=== PATIENT | male | born 1955 | race Caucasian/White ===

== ENCOUNTER → 2017-08-20 08:44 | Outpatient (CLI) | payer OTHER, SELFPAY ==
[2017-08-20 10:37] LABS: Cholesterol 147 mg/dL (200); Glucose 117 mg/dL (74-106); High Density Lipoprotein 46 mg/dL; Triglycerides 72 mg/dL; Very Low Density Lipoprotein 14 mg/dL (5-40)
[2017-08-20 10:43] LABS: Hemoglobin A1c 6.3 % (4.2-6.3)
== END ==
PROVIDERS: Family Provider Family Medicine; PCP Family Medicine; Visit Provider Family Medicine
DX: E11.9 Type 2 diabetes mellitus without complications (principal); E78.00 Pure hypercholesterolemia, unspecified
CPT/HCPCS: 36415; 80061; 82947; 83036

== ENCOUNTER → 2018-02-13 10:11 | Outpatient (CLI) | payer OTHER, SELFPAY ==
[2018-02-13 13:05] LABS: Anion Gap 9 (5-15); BUN 19 mg/dL (7-18); BUN/Creat Ratio 19.4 RATIO (10-20); Calcium,Total 8.8 mg/dL (8.5-10.1); Chloride 107 mmol/L (98-107); Cholesterol 137 mg/dL (200); Creatinine, Serum 0.98 mg/dL (0.70-1.30); EST Glomerular Filtration Rate 82 mL/min (>60); Est Glom Filt Rate - Afr Amer 100 mL/min (>60); Glucose 123 mg/dL (74-106); High Density Lipoprotein 50 mg/dL; Potassium 4.3 mmol/L (3.5-5.1); Sodium Level 139 mmol/L (136-145); Triglycerides 47 mg/dL; Very Low Density Lipoprotein 9 mg/dL (5-40)
== END ==
PROVIDERS: Family Provider Family Medicine; PCP Family Medicine; Visit Provider Family Medicine
DX: E11.9 Type 2 diabetes mellitus without complications (principal); E78.00 Pure hypercholesterolemia, unspecified; Z12.5 Encounter for screening for malignant neoplasm of prostate
CPT/HCPCS: 36415; 80048; 80061; 83036

== ENCOUNTER → 2018-02-19 15:43 | Outpatient (CLI) | payer OTHER, SELFPAY ==
--- NOTE | 2018-02-19 15:47 | RAD_ITS ---
STUDY: X-RAY - SACROILIAC JOINTS REASON FOR EXAM: Male, 62 years old. Right hip pain TECHNIQUE: 3 view(s) of the sacroiliac joints were obtained. COMPARISON: None. FINDINGS: There are degenerative changes of the bilateral sacroiliac joints. Normal visualized sacral ala and sacrum. Normal visualized iliac bones. Normal visualized soft tissue structures. Right greater than left mild degenerative changes of the joint. There is moderate facet arthropathy L5-S1 bilaterally. RAD/S-I Jts 3 or More Views IMPRESSION: Mild degenerative changes of the bilateral sacroiliac joints. Facet arthropathy of the lower lumbar spine. Electronically Signed: Simona Pradhan MD at 7:31 EDT , Service support ,
--- NOTE | 2018-02-19 15:47 | RAD_ITS ---
STUDY: X-RAY - PELVIS AND RIGHT HIP REASON FOR EXAM: Male, 62 years old. Right hip pain TECHNIQUE: Radiological exam, hip, unilateral, with pelvis when performed; 2 or 3 views. COMPARISON: None. FINDINGS: There is a non-specific bowel gas pattern. Normal visualized soft tissue structures. There is mild narrowing with cortical sclerosis and osteophyte formation of the sacroiliac joint consistent with degenerative osteoarthritic changes. Normal right superior and inferior pubic rami. There are degenerative changes of the pubic symphysis with articular narrowing and sclerosis. Normal visualized femoral head. There is osteoarthritic spur formation of the acetabular rim. Mild sclerosis of the superior lateral acetabulum. There is mild to moderate articular joint space narrowing of the hip. RAD/HIP, UNI W/ Pelvis 2-3 Views IMPRESSION: [id number] right hip arthropathy. Mild right sacroiliac arthropathy. Electronically Signed: Simona Pradhan MD at 7:30 EDT , Service support ,
== END ==
PROVIDERS: Family Provider Family Medicine; PCP Family Medicine; Referring Provider Family Medicine; Visit Provider Family Medicine
DX: M25.551 Pain in right hip (principal)
CPT/HCPCS: 72202; 73502

== ENCOUNTER → 2018-02-25 09:37 | Outpatient (CLI) | payer OTHER, SELFPAY ==
[2018-02-25 12:24] LABS: PSA,Total - Annual Screen 0.28 ng/mL (0.00-4.00)
== END ==
PROVIDERS: Family Provider Family Medicine; PCP Family Medicine; Visit Provider Family Medicine
DX: Z12.5 Encounter for screening for malignant neoplasm of prostate (principal)
CPT/HCPCS: 36415; 84153; G0103

== ENCOUNTER → 2018-09-27 08:46 | Outpatient (CLI) | payer OTHER, SELFPAY ==
[2018-09-27 10:48] LABS: Anion Gap 6 (5-15); BUN 16 mg/dL (7-18); BUN/Creat Ratio 18.3 RATIO (10-20); Calcium,Total 8.6 mg/dL (8.5-10.1); Chloride 108 mmol/L (98-107); Cholesterol 146 mg/dL (200); Creatinine, Serum 0.87 mg/dL (0.70-1.30); EST Glomerular Filtration Rate 94 mL/min (>60); Est Glom Filt Rate - Afr Amer 113 mL/min (>60); Glucose 117 mg/dL (74-106); High Density Lipoprotein 55 mg/dL; Potassium 4.4 mmol/L (3.5-5.1); Sodium Level 141 mmol/L (136-145); Triglycerides 55 mg/dL; Very Low Density Lipoprotein 11 mg/dL (5-40)
[2018-09-27 10:57] LABS: Hemoglobin A1c 6.1 % (4.2-6.3)
== END ==
PROVIDERS: Family Provider Family Medicine; PCP Family Medicine; Referring Provider Family Medicine; Visit Provider Family Medicine
DX: E55.9 Vitamin D deficiency, unspecified (principal); E11.9 Type 2 diabetes mellitus without complications; E78.00 Pure hypercholesterolemia, unspecified
CPT/HCPCS: 36415; 80048; 80061; 82306; 83036

== ENCOUNTER → 2019-03-13 09:47 | Outpatient (CLI) | payer OTHER, SELFPAY ==
[2019-03-13 12:30] LABS: Hemoglobin A1c 5.9 % (4.2-6.3)
[2019-03-13 12:31] LABS: Absolute Lymphocyte Count 1.37 X10^3/uL (0.83-4.51); Absolute Neutrophil Count 4.1 X10^3/uL (2.0-7.7); Basophil# 0.07 X10^3/uL; Basophil% 1.1 % (0-1); Eosinophil# 0.21 X10^3/uL; Eosinophils% 3.3 % (0-5); Hematocrit 46.2 % (40-54); Hemoglobin 15.3 g/dL (13.0-16.5); Lymphocyte # 1.37 X10^3/ul (4.0); Lymphocyte % 21.4 % (19-41); Mean Corp Hgb Conc 33.1 g/dL (32-36); Mean Corpuscular Hgb 30.5 pg (27.0-32.0); Mean Corpuscular Volume 92.2 fL (80-94); Monocyte# 0.62 X10^3/uL; Monocyte% 9.7 % (0-10); NRBC Flagged by Analyzer 0 % (0-5); Neutrophil # 4.09 X10^3/uL (2.7-7.7); Neutrophil % 63.9 % (47-70); Platelet Count 245 K/mm3 (150-450); RBC Distribution Width CV 12.4 % (11.6-14.6); RBC Distribution Width SD 41.6 fl (35.1-43.9); Red Blood Count 5.01 M/mm3 (4.6-6.2); White Blood Count 6.4 K/mm3 (4.4-11.0)
[2019-03-13 12:35] LABS: Vitamin B12 671 pg/mL (211-911); Vitamin D,25 Hydroxy 38.9 ng/mL (29.95-100.01)
[2019-03-13 12:46] LABS: ALB/GLOB Ratio 1.1 RATIO (0.9-2.4); AST(SGOT) 20 U/L (15-37); Alanine Aminotransfer ALT/SGPT 24 U/L (16-61); Albumin, Serum 3.8 g/dL (3.2-5.0); Alkaline Phosphatase 77 U/L (45-117); Anion Gap 9 (5-15); BUN 16 mg/dL (7-18); BUN/Creat Ratio 17.5 RATIO (10-20); CPK Total, Creatine Kinase 74 U/L (39-308); Calcium,Total 9.1 mg/dL (8.5-10.1); Chloride 108 mmol/L (98-107); Cholesterol 134 mg/dL (200); Creatinine, Serum 0.91 mg/dL (0.70-1.30); EST Glomerular Filtration Rate 89 mL/min (>60); Est Glom Filt Rate - Afr Amer 107 mL/min (>60); Ferritin 68 ng/mL (26-388); Globulin 3.4 g/dL (2.2-4.2); Glucose 120 mg/dL (74-106); High Density Lipoprotein 45 mg/dL; Magnesium 2.1 mg/dL (1.6-2.6); Potassium 4.1 mmol/L (3.5-5.1); Protein, Total 7.2 g/dL (6.4-8.2); Sodium Level 140 mmol/L (136-145); Thyroid Stim Hormone (TSH) 0.65 uIU/mL (0.358-3.74); Triglycerides 73 mg/dL; Very Low Density Lipoprotein 15 mg/dL (5-40)
[2019-03-13 12:54] LABS: Microalbumin,Random Urine 10.1 mg/L (NO RANGE EST.); Microalbumin:Creatinine Ratio 5.4 mg/g CRE (<30 mg/g CRE)
[2019-03-17 13:43] LABS: Vitamin B1, Thiamine 173.6 nmol/L (66.5-200.0)
== END ==
PROVIDERS: Family Provider Family Medicine; PCP Family Medicine; Referring Provider Family Medicine; Visit Provider Family Medicine
DX: E55.9 Vitamin D deficiency, unspecified (principal); R25.2 Cramp and spasm; R73.02 Impaired glucose tolerance (oral); G62.9 Polyneuropathy, unspecified; E78.00 Pure hypercholesterolemia, unspecified
CPT/HCPCS: 80053; 80061; 82043; 82306; 82550; 82570; 82607; 82728; 83036; 83735; 84425; 84443; 85025

== ENCOUNTER → 2019-10-20 09:07 | Outpatient (CLI) | payer OTHER, SELFPAY ==
[2019-10-20 12:22] LABS: ALB/GLOB Ratio 1.2 RATIO (0.9-2.4); AST(SGOT) 27 U/L (15-37); Alanine Aminotransfer ALT/SGPT 35 U/L (16-61); Albumin, Serum 3.8 g/dL (3.2-5.0); Alkaline Phosphatase 70 U/L (45-117); Anion Gap 4 (5-15); BUN 19 mg/dL (7-18); BUN/Creat Ratio 21.1 RATIO (10-20); Chloride 109 mmol/L (98-107); Cholesterol 158 mg/dL (200); EST Glomerular Filtration Rate 90 mL/min (>60); Est Glom Filt Rate - Afr Amer 109 mL/min (>60); Globulin 3.3 g/dL (2.2-4.2); Glucose 132 mg/dL (74-106); High Density Lipoprotein 47 mg/dL; Potassium 4.2 mmol/L (3.5-5.1); Protein, Total 7.1 g/dL (6.4-8.2); Sodium Level 141 mmol/L (136-145); Triglycerides 52 mg/dL; Very Low Density Lipoprotein 10 mg/dL (5-40)
[2019-10-20 12:25] LABS: Hemoglobin A1c 6.2 % (3.8-5.6)
[2019-10-20 13:07] LABS: Vitamin D,25 Hydroxy 37.7 ng/mL
== END ==
PROVIDERS: PCP Family Medicine; Visit Provider Family Medicine
DX: E78.00 Pure hypercholesterolemia, unspecified (principal); E55.9 Vitamin D deficiency, unspecified; R73.02 Impaired glucose tolerance (oral)
CPT/HCPCS: 36415; 80053; 80061; 82306; 83036

== ENCOUNTER → 2020-04-14 08:57 | Outpatient (CLI) | payer MEDICARE, OTHER, SELFPAY ==
[2020-04-14 10:25] LABS: Hemoglobin A1c 6.2 % (3.8-5.6)
[2020-04-14 10:42] LABS: ALB/GLOB Ratio 1.1 RATIO (0.9-2.4); AST(SGOT) 21 U/L (15-37); Alanine Aminotransfer ALT/SGPT 37 U/L (16-61); Albumin, Serum 3.9 g/dL (3.2-5.0); Alkaline Phosphatase 81 U/L (45-117); Anion Gap 9 (5-15); BUN 21 mg/dL (7-18); BUN/Creat Ratio 22.2 RATIO (10-20); Calcium,Total 9.1 mg/dL (8.5-10.1); Chloride 108 mmol/L (98-107); Cholesterol 158 mg/dL (200); Creatinine, Serum 0.95 mg/dL (0.70-1.30); EST Glomerular Filtration Rate 85 mL/min (>60); Est Glom Filt Rate - Afr Amer 102 mL/min (>60); Globulin 3.5 g/dL (2.2-4.2); Glucose 141 mg/dL (74-106); High Density Lipoprotein 49 mg/dL; PSA,Total - Annual Screen 0.38 ng/mL (0.00-4.00); Potassium 4.3 mmol/L (3.5-5.1); Protein, Total 7.4 g/dL (6.4-8.2); Sodium Level 140 mmol/L (136-145); Thyroid Stim Hormone (TSH) 0.96 uIU/mL (0.358-3.74); Triglycerides 63 mg/dL; Very Low Density Lipoprotein 13 mg/dL (5-40)
[2020-04-14 10:52] LABS: Vitamin D,25 Hydroxy 39.4 ng/mL
== END ==
PROVIDERS: PCP Family Medicine; Referring Provider Family Medicine; Visit Provider Family Medicine
DX: E78.00 Pure hypercholesterolemia, unspecified (principal); E55.9 Vitamin D deficiency, unspecified; R73.02 Impaired glucose tolerance (oral); Z12.5 Encounter for screening for malignant neoplasm of prostate
CPT/HCPCS: 36415; 80053; 80061; 82306; 83036; 84153; 84443; G0103

== ENCOUNTER → 2020-10-11 08:44 | Outpatient (CLI) | payer MEDICARE, OTHER, SELFPAY ==
[2020-10-11 10:19] LABS: ALB/GLOB Ratio 1.2 RATIO (0.9-2.4); AST(SGOT) 20 U/L (15-37); Alanine Aminotransfer ALT/SGPT 27 U/L (16-61); Albumin, Serum 3.7 g/dL (3.2-5.0); Alkaline Phosphatase 84 U/L (45-117); Anion Gap 8 (5-15); BUN 20 mg/dL (7-18); BUN/Creat Ratio 23.4 RATIO (10-20); Calcium,Total 8.7 mg/dL (8.5-10.1); Chloride 106 mmol/L (98-107); Cholesterol 155 mg/dL (200); Creatinine, Serum 0.86 mg/dL (0.70-1.30); EST Glomerular Filtration Rate 95 mL/min (>60); Est Glom Filt Rate - Afr Amer 115 mL/min (>60); Globulin 3.2 g/dL (2.2-4.2); Glucose 121 mg/dL (74-106); High Density Lipoprotein 52 mg/dL; Protein, Total 6.9 g/dL (6.4-8.2); Sodium Level 142 mmol/L (136-145); Triglycerides 73 mg/dL; Very Low Density Lipoprotein 15 mg/dL (5-40)
[2020-10-11 10:20] LABS: Vitamin D,25 Hydroxy 52.1 ng/mL
[2020-10-11 10:22] LABS: Hemoglobin A1c 5.9 % (3.8-5.6)
== END ==
PROVIDERS: PCP Family Medicine; Visit Provider Family Medicine
DX: E55.9 Vitamin D deficiency, unspecified (principal); E78.00 Pure hypercholesterolemia, unspecified; R73.02 Impaired glucose tolerance (oral)
CPT/HCPCS: 36415; 80053; 80061; 82306; 83036

== ENCOUNTER 2020-10-25 21:05 | Emergency (ER) | payer MEDICARE, OTHER, SELFPAY ==
[2020-10-25 21:06] VITALS: BP 139/80; PULSE 86; RESP 18; TEMP 36.9; O2SAT 96; BMI 30.2
--- NOTE | 2020-10-25 22:57 | RAD_ITS ---
STUDY: X-RAY - RIGHT HAND, ATTENTION SECOND FINGER REASON FOR EXAM: Male, 64 years old. cat bite TECHNIQUE: 3 view(s) of the finger were obtained. COMPARISON: None. FINDINGS: Normal metacarpal head. Normal metacarpophalangeal joint. Normal proximal phalanx. Normal middle phalanx. Normal distal phalanx. Normal proximal interphalangeal joint. Normal distal interphalangeal joint. RAD/Finger(s) Min 2 Views IMPRESSION: There is no radiopaque foreign body. There is no acute displaced fracture or dislocation. Electronically Signed: Simona Pradhan MD at 23:13 EDT , Service support ,
--- NOTE | 2020-10-25 23:53 | EDS_ITS ---
HPI History of Present Illness HPI Narrative: Patient presents with pain and swelling to his right index finger that occurred yesterday. Patient states he was bitten by his own cat yesterday. Patient states that today the pain and swelling is progressing down his finger. Patient denies any paresthesias or weakness. Patient describes the pain as dull. Patient states the pain is worse with complete flexion of the finger and complete extension of the finger. Patient denies any fevers or chills. Patient denies any discharge or drainage. Patient states the cat is otherwise acting normally. Patient is unsure of his last tetanus. Chief Complaint: Bite Informant: patient Onset/Context/Timing Onset: Yesterday Context: Sudden Onset Timing: Continuous Quality of Pain: Dull Location: Right index finger Worsened by: Movement Relieved by: Nothing Associated Symptoms Associated Symptoms: Negative for Parasthesia and Weakness [facility] Medical History (Updated 10/26/20 @ 01:[address] Stephen Munoz DO) Borderline diabetes mellitus Home Medications amoxicillin-pot clavulanate 875 mg PO Q12H #20 tablet 10/26/20 [Rx Last Taken Unknown] apple cider vinegar 600 mg PO DAILY 10/26/20 [History Last Taken Unknown] ergocalciferol (vitamin D2) [Vitamin D2] 1,250 mcg PO DAILY 10/26/20 [History Last Taken Unknown] fexofenadine [Tayla Allergy] 60 mg PO DAILY 10/26/20 [History Last Taken Unknown] fluticasone propionate [Flonase Allergy Relief] INTRANASAL 10/26/20 [History Last Taken Unknown] metformin 500 mg PO DAILY 10/26/20 [History Last Taken Unknown] rosuvastatin 40 mg PO DAILY 10/26/20 [History Last Taken Unknown] Allergy/AdvReac Type Severity Reaction Status Date / Time No Known Allergies Allergy Verified 10/25/20 21:08 Surgical History (Updated 10/25/20 @ 23:[address] Stephen Munoz DO) History of cholecystectomy History of lung biopsy S/P right inguinal herniorrhaphy Social History Smoking Status: Unknown if ever smoked ROS ROS ED Constitutional Constitutional ED: Denies chills or fever(s) Eyes Eyes: Denies blurry vision or change in vision ENT ENT ED: Denies rhinorrhea or sore throat Cardiovascular Cardiovascular: Denies chest pain or palpitations Respiratory/Chest Respiratory/Chest: Denies cough or dyspnea Gastrointestinal Gastrointestinal: Denies nausea or vomiting Genitourinary Genitourinary ED: Denies dysuria or hematuria Musculoskeletal Musculoskeletal: Denies back pain or neck pain Integumentary Denies abscess or rash Neurologic Neurologic: Denies headache(s) or weakness Allergic/Immunologic Allergic/Immunologic ED: Denies mouth swelling or urticaria EXAM Physical Exam Const Vital Signs: 10/25/20 21:06 Temperature 98.4 F Temperature Source Temporal Pulse Rate 86 Respiratory Rate 18 Blood Pressure 139/80 H Blood Pressure Mean 99 Pulse Ox 96 Oxygen Delivery Method Room Air Positive well nourished and well developed General Appearance ED: well developed HEENT normocephalic Neck full ROM Extremity Extremity Narrative: There is some tenderness to palpation over the volar aspect of the right index finger. There is a small puncture wound noted over the base of the distal phalanx. There is some mild erythema and edema on the volar aspect of the right index finger. There is some tenderness with complete extension of the index finger. There is no tenderness over the palm along the tendon sheath of the right index finger. Capillary refill was less than 2 seconds in all digits. Sensation was intact to light touch in all digits. Neuro oriented x3, CN's II-XII intact bilaterally, moves all extremities, no focal motor deficits and no sensory deficits noted Sensorium / Orientation: alert Psych mental status grossly normal MDM MDM MDM Narrative Medical decision making narrative: Patient was given a dose of Unasyn here. Patient was given a tetanus booster. CBC shows a mild leukocytosis of 11.7. There is no shift. Comprehensive metabolic profile was within normal limits. CRP was slightly elevated at 14.1. Sed rate was normal. X-rays of the right index finger were obtained. There are 3 views. On my interpretation, there is no acute fracture. There is no dislocation. There are no foreign bodies noted. There is some mild soft tissue swelling. Radiologist also interpreted the x- rays and agrees. Patient is feeling better on reevaluation. Patient was given a prescription for Augmentin. Patient was instructed to return if any worsening swelling, pain into the palm, or inability to extend his finger. Patient was instructed return if worse in any way. Patient was instructed to follow-up with his primary care physician in 2 to 3 days. Patient understood and was agreeable with the plan. All questions were answered. Lab Data Attestation: I reviewed the patient's lab results. Radiography Diagnostic Testing: Radiology Impression Finger X-Ray 10/25/20 22:57 IMPRESSION: There is no radiopaque foreign body. There is no acute displaced fracture or dislocation. Electronically Signed: Simona Pradhan MD at 23:13 EDT , Service support , Discharge Plan Triage Chief Complaint: Bite ED Provider: Stephen Munoz Dx/Rx/DC Orders Clinical Impression: Infected cat bite of index finger Instructions: ED Cat Bite Prescriptions: New amoxicillin-pot clavulanate [amoxicillin-pot clavulanate] 875 MG tablet 875 mg PO Q12H Qty: 20 RF: 0 No Action metformin 500 mg tablet 500 mg PO DAILY RF: 0 fexofenadine [Tayla Allergy] 60 mg tablet 60 mg PO DAILY RF: 0 apple cider vinegar 600 mg capsule 600 mg PO DAILY RF: 0 ergocalciferol (vitamin D2) [Vitamin D2] 1,250 mcg (50,000 unit) capsule 1,250 mcg PO DAILY RF: 0 fluticasone propionate [Flonase Allergy Relief] 50 mcg/actuation spray,suspension INTRANASAL RF: 0 rosuvastatin 40 mg tablet 40 mg PO DAILY RF: 0 Primary Care Provider: Velasquez Johnston Referrals: Velasquez Johnston MD [Primary Care Provider] - 1-2 Days if not improving Disposition Disposition: Home, Self Care
[2020-10-26 00:21] LABS: Absolute Lymphocyte Count 2.96 X10^3/uL (0.83-4.51); Absolute Neutrophil Count 7.4 X10^3/uL (2.0-7.7); Basophil# 0.06 X10^3/uL; Basophil% 0.5 % (0-1); Eosinophil# 0.19 X10^3/uL; Eosinophils% 1.6 % (0-5); Hemoglobin 15.1 g/dL (13.0-16.5); Lymphocyte # 2.96 X10^3/ul (0.83-4.51); Lymphocyte % 25.2 % (19-41); Mean Corp Hgb Conc 33.6 g/dL (32-36); Mean Corpuscular Hgb 30.4 pg (27.0-32.0); Mean Corpuscular Volume 90.5 fL (80-94); Mean Platelet Vol. 10.7 fl (6.2-12.0); Monocyte# 1.14 X10^3/uL; Monocyte% 9.7 % (0-10); NRBC Flagged by Analyzer 0 % (0-5); Neutrophil # 7.35 X10^3/uL (2.7-7.7); Neutrophil % 62.7 % (47-70); Platelet Count 243 K/mm3 (150-450); RBC Distribution Width CV 12.7 % (11.6-14.6); RBC Distribution Width SD 41.5 fl (35.1-43.9); Red Blood Count 4.97 M/mm3 (4.6-6.2); White Blood Count 11.7 K/mm3 (4.4-11.0)
[2020-10-26 00:26] LABS: Erythrocyte Sedimentation Rate 8 mm/hr (0-20)
[2020-10-26 00:30] VITALS: BP 131/76; PULSE 72; RESP 18; TEMP 36.9; O2SAT 95
[2020-10-26 00:41] LABS: ALB/GLOB Ratio 1.1 RATIO (0.9-2.4); AST(SGOT) 17 U/L (15-37); Alanine Aminotransfer ALT/SGPT 25 U/L (16-61); Albumin, Serum 3.8 g/dL (3.2-5.0); Alkaline Phosphatase 95 U/L (45-117); Anion Gap 6 (5-15); BUN 18 mg/dL (7-18); Calcium,Total 9.1 mg/dL (8.5-10.1); Chloride 107 mmol/L (98-107); EST Glomerular Filtration Rate 80 mL/min (>60); Est Glom Filt Rate - Afr Amer 96 mL/min (>60); Estimated Creatinine Clearance 78.44 ml/min; Globulin 3.5 g/dL (2.2-4.2); Glucose 123 mg/dL (74-106); Potassium 3.5 mmol/L (3.5-5.1); Protein, Total 7.3 g/dL (6.4-8.2); Sodium Level 140 mmol/L (136-145)
[2020-10-26] MEDS: Diphth,Pertuss(Acell),Tet Vac 0.5 ML Vial IM (01:06)
[2020-10-26 02:29] VITALS: BP 138/78; PULSE 82; RESP 16; O2SAT 98
== END 2020-10-26 02:29 | disposition home or self-care (01) ==
PROVIDERS: Emergency Provider Emergency Medicine; PCP Family Medicine
DX: L08.9 Local infection of the skin and subcutaneous tissue, unspecified (principal); W55.01XA Bitten by cat, initial encounter; Y93.9 Activity, unspecified; Y92.9 Unspecified place or not applicable; Y99.9 Unspecified external cause status; R73.03 Prediabetes; Z79.84 Long term (current) use of oral hypoglycemic drugs; Z79.899 Other long term (current) drug therapy; Z23 Encounter for immunization
CPT/HCPCS: 73140; 80053; 85025; 85652; 86140; 87040; 90471; 90715; 96365; 99283; J0295

== ENCOUNTER 2021-02-11 07:49 | Day surgery (SDC) | payer MEDICARE, OTHER, SELFPAY ==
--- NOTE | 2021-02-11 08:02 | HP.PCM_ITS ---
History and Physical Date of Admission: 02/11/21 Intake Visit Reasons: C-Scope Chief Complaint: c-scope Health And Safety Coordinator Required: No Is patient in pain?: No Allergies No Known Allergies Allergy (Verified 01/27/21 07:41) Medications apple cider vinegar 600 mg PO DAILY 10/26/20 [History Confirmed 01/27/21] ergocalciferol (vitamin D2) [Vitamin D2] 1,250 mcg PO DAILY 10/26/20 [History Confirmed 01/27/21] fexofenadine [Tayla Allergy] 60 mg PO DAILY 10/26/20 [History Confirmed 01/27/21] fluticasone propionate [Flonase Allergy Relief] INTRANASAL 10/26/20 [History Confirmed 01/27/21] metformin 500 mg PO DAILY 10/26/20 [History Confirmed 01/27/21] flaxseed oil 1,000 mg capsule 1,000 mg PO DAILY 01/27/21 [History Confirmed 01/27/21] rosuvastatin 40 mg tablet 5 mg PO .every other day tab 01/27/21 [History Confirmed 01/27/21] PFSH Medical History Borderline diabetes mellitus High cholesterol Surgical History History of cholecystectomy History of lung biopsy S/P right inguinal herniorrhaphy Family History Mother Colon cancer CVA (cerebral vascular accident) Father Cancer stomach Grandmother Heart disease Social History Smoking Status: Former smoker alcohol intake: never HPI HPI HPI: JONES TINOCO, is a 65 M who presents to the office today for surgical consultation regarding a screening colonoscopy. 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 Sai Amador performed a laparoscopic-assisted sigmoid colectomy with mobilization of the splenic flexure on August 07, 2014. A hand-assisted procedure was performed. The operative note describes technical difficulty with the stapler and indurated tissue. He is being referred by Dr Velasquez Johnston for consideration of screening colonoscopy and a written copy of my surgical consult recommendations will return to him. It is of note that the patient states that he has had at least 3 previous colonoscopies. He is not aware that he has had any previous colon polyps. It is pertinent that his most recent colonoscopy was in 2015 prior to his hand- assisted laparoscopic sigmoid colectomy done for recurrent diverticular disease. He does have a mother who had colon cancer. 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 This determined that he has hypersensitivity pneumonitis. This may have been aggravated by his hobby of raising finches. He still has some shortness of breath however he is managed by pulmonology. He is on inhaler therapy as well as CPAP therapy. His allergies are controlled with Tayla and Flonase. He states that his asthma also was nicely controlled. He has a hemoglobin A1c level of 6.2. He is managed with Metformin. He has had no history of DVT or pulmonary embolus. ROS General General: No weight change, appetite, fatigue, colon cancer, breast cancer or weakness HEENT HEENT: No difficulty swallowing, eye injury, eye surgery, swollen glands or hoarseness Endo Endocrine: Yes diabetes mellitus; No thyroid disease, thyroid cancer, Hair loss, heat intolerance or cold intolerance Skin Skin: No rash or changing moles Breast Breast: No left breast lump, right breast lump, nipple discharge, breast pain, abnormal mammogram, abnormal US or breast enlargement Musc Musculoskeletal: No back problems, arthritis, rheumatoid arthritis, gout or joint pain Cardio Cardiovascular: No murmur, pacemaker, heart disease, atrial fibrillation, high blood pressure, heart attack, heart stent, palpitations, shortness of breat with exertion or chest pain Psych Psychiatric: No depression, anxiety or hearing voices Resp Respiratory: No shortness of breath, Yes sleep apnea, No cough, No COPD, Yes asthma, No emphysema and No wheezing Gastro Gastrointestinal: No abdominal pain, No nausea or vomiting, No diarrhea, No constipation, No blood in stool, No acid reflux, No hemorrhoids, No ulcers, No gallbladder problem and No black,tarry stools Dante Hematologic: No blood thinners, No blood disorders, No bleeding, No anemia and No blood clots Neuro Neurologic: No system reviewed and no additional complaints, except as documented, No as per HPI, No abnormal gait, No abnormal hearing, No abnormal movements, No abnormal speech, No behavioral changes, No burning sensations, No confusion, No convulsions, No disequilibrium, No dizziness, No localized weakness, No frequent falls, No headache(s), No lack of coordination, No loss of vision, No memory loss, No numbness, No other visual disturbances, No radicular pain, No restless legs, No sensory deficit, No syncope, No tingling, No tremor(s), No weakness and No other Exam Const General: cooperative, comfortable and no acute distress Nutritional Appearance: overweight Orientation: alert, awake and oriented x3 HENMT Head: normal to inspection Eyes General: appearance normal, both eyes and all related structures Chest Chest palpation & inspection: normal inspection of the chest Resp Effort & Inspection: normal respiratory effort Auscultation: clear to auscultation bilaterally Cardio Rate: regular rate Rhythm: regular rhythm GI Palpation: soft and no hepatosplenomegaly Auscultation: normal bowel sounds Other: Soft, mildly overweight, reasonably long infraumbilical midline incision from his sigmoid colectomy, solid and intact, normal bowel sounds Musc Cervical Spine: normal cervical lordosis Neuro General: patient alert, patient awake and patient oriented x3 Extrem General: no calf tenderness Psych Appearance: grossly normal Assessment and Plan Assessment and Plan (1) Family history of colon cancer in mother: Status: Acute Plan - Dr. Augustus Alcantar MD: 65-year-old gentleman. At the least 6 years out from his previous colonoscopy. He has a family history of colon cancer in his mother. Fortunately he has not had any acute symptoms. He has had a sigmoid colectomy for recurrent diverticular disease. He has some pulmonary issues with asthma and hypersensitivity pneumonitis. I recommend to him a colonoscopy with possible biopsy or polypectomy as indicated. I have discussed the technique, benefit, risk, alternatives. I recommend monitored anesthesia care. He has had an opportunity to ask and have questions answered. We will schedule procedure at his discretion. I appreciate the opportunity of assisting with surgical management. Copy: Dr Velasquez Alcantar M.D., F.A.C.S I have re-examined the patient. There are no clinical changes since date of exam.
[2021-02-11 08:11] VITALS: BP 111/77; PULSE 74; RESP 20; TEMP 36.2; O2SAT 96; BMI 30.2
[2021-02-11] MEDS: Lactated Ringers 1,000 ML 100 ML IV (08:23)
[2021-02-11 09:21] VITALS: BP 111/77; BP 91/73; PULSE 85; RESP 16; TEMP 36.6; O2SAT 93
--- NOTE | 2021-02-11 09:22 | OP.COLON_ITS ---
Patient Name: Rolan Banuelos Procedure Date: 02/11/2021 8:59 AM Date of : 1955 Age: 65 Procedure: Colonoscopy Indications: Family history of colon cancer in a first-degree relative Providers: Augustus Alcantar MD Medicines: See the Anesthesia note for documentation of the administered medications Patient Profile: Last Colonoscopy: 2014. Complications: No immediate complications. Procedure: Pre-Anesthesia Assessment: - Prior to the procedure, a History and Physical was performed, and patient medications and allergies were reviewed. The patient's tolerance of previous anesthesia was also reviewed. The risks and benefits of the procedure and the sedation options and risks were discussed with the patient. All questions were answered, and informed consent was obtained. Prior Anticoagulants: The patient has taken no previous anticoagulant or antiplatelet agents. ASA Grade Assessment: II - A patient with mild systemic disease. After reviewing the risks and benefits, the patient was deemed in satisfactory condition to undergo the procedure. After I obtained informed consent, the scope was passed under direct vision. Throughout the procedure, the patient's blood pressure, pulse, and oxygen saturations were monitored continuously. The pediatric colonoscope was introduced through the anus and advanced to the cecum, identified by appendiceal orifice and ileocecal valve. The colonoscopy was performed without difficulty. The patient tolerated the procedure well. The quality of the bowel preparation was good. The ileocecal valve and the appendiceal orifice were photographed. Scope In: 9:05:34 AM Scope Withdrawal Time 0 hours 7 minutes 53 seconds Scope Out: 9:16:40 AM Total Procedure Duration Time 0 hours 11 minutes 6 seconds Findings: The digital rectal exam findings include non-thrombosed external hemorrhoids, non-thrombosed internal hemorrhoids, internal hemorrhoids that prolapse with straining, but spontaneously regress to the resting position (Grade II) and enlarged prostate. Multiple diverticula were found in the sigmoid colon. There was evidence of a prior end-to-end colo-colonic anastomosis in the distal sigmoid colon. This was patent and was characterized by healthy appearing mucosa. The exam was otherwise without abnormality. Impression: - Non-thrombosed external hemorrhoids, non-thrombosed internal hemorrhoids, internal hemorrhoids that prolapse with straining, but spontaneously regress to the resting position (Grade II) and enlarged prostate found on digital rectal exam. - Diverticulosis in the sigmoid colon. - Patent end-to-end colo-colonic anastomosis, characterized by healthy appearing mucosa. - The examination was otherwise normal. - No specimens collected. Recommendation: - Discharge patient to home. - Resume previous diet. - Continue present medications. - Repeat colonoscopy in 5 years for surveillance. Procedure Code(s): --- Professional --- 76652, Colonoscopy, flexible; diagnostic, including collection of specimen(s) by brushing or washing, when performed (separate procedure) Diagnosis Code(s): --- Professional --- K64.1, Second degree hemorrhoids K64.4, Residual hemorrhoidal skin tags Z98.0, Intestinal bypass and anastomosis status Z80.0, Family history of malignant neoplasm of digestive organs N40.0, Benign prostatic hyperplasia without lower urinary tract symptoms K57.30, Diverticulosis of large intestine without perforation or abscess without bleeding CPT copyright 2017 [employer]. All rights reserved. The codes documented in this report are preliminary and upon sawmill equipment operator review may be revised to meet current compliance requirements. Augustus Alcantar MD 02/11/2021 9:22:33 AM This report has been signed electronically. Number of Addenda: 0 Note Initiated On: 02/11/2021 8:59 AM
--- NOTE | 2021-02-11 09:23 | OP.CCLET_ITS ---
02/11/2021 Velasquez Johnston [address] [place] [address] Re : Colonoscopy procedure for Rolan Banuelos Dear Dr. Johnston This procedure was performed on Thursday, February 11, 2021. My impressions and recommendations are as follows: Impressions : - Non-thrombosed external hemorrhoids, non-thrombosed internal hemorrhoids, internal hemorrhoids that prolapse with straining, but spontaneously regress to the resting position (Grade II) and enlarged prostate found on digital rectal exam. - Diverticulosis in the sigmoid colon. - Patent end-to-end colo-colonic anastomosis, characterized by healthy appearing mucosa. - The examination was otherwise normal. - No specimens collected. Recommendations : - Discharge patient to home. - Resume previous diet. - Continue present medications. - Repeat colonoscopy in 5 years for surveillance. My findings are described in the full procedure note, which is enclosed. If I can be of further assistance, please feel free to contact me at Doctor phone number(s): Work: . Sincerely, Augustus Alcantar MD 02/11/2021 9:22:33 AM This report has been signed electronically.
[2021-02-11 09:26] VITALS: BP 111/77; BP 92/72; PULSE 72; RESP 16; O2SAT 93
[2021-02-11 09:31] VITALS: BP 101/78; BP 111/77; PULSE 69; RESP 16; O2SAT 95
[2021-02-11 09:37] VITALS: BP 100/72; BP 111/77; PULSE 66; RESP 16; TEMP 36.1; O2SAT 94
[2021-02-11 09:55] VITALS: BP 111/77
== END 2021-02-11 10:07 ==
LOC: EN 07:50 → AC 07:52
PROVIDERS: PCP Family Medicine; Referring Provider Family Medicine; Visit Provider Surgery
PROC: 0DJD8ZZ Inspection of Lower Intestinal Tract, Via Natural or Artificial Opening Endoscopic (ICD-10-PCS; CPT 45378; principal; 2021-02-11 08:55)
DX: Z12.11 Encounter for screening for malignant neoplasm of colon (principal); K64.1 Second degree hemorrhoids; K64.4 Residual hemorrhoidal skin tags; Z98.0 Intestinal bypass and anastomosis status; Z80.0 Family history of malignant neoplasm of digestive organs; N40.0 Benign prostatic hyperplasia without lower urinary tract symptoms; K57.30 Diverticulosis of large intestine without perforation or abscess without bleeding; E78.00 Pure hypercholesterolemia, unspecified; Z90.49 Acquired absence of other specified parts of digestive tract; Z87.891 Personal history of nicotine dependence; Z77.090 Contact with and (suspected) exposure to asbestos; J45.909 Unspecified asthma, uncomplicated; Z79.84 Long term (current) use of oral hypoglycemic drugs
CPT/HCPCS: G0105; J7120; J2405

== ENCOUNTER 2021-05-13 08:44 | Outpatient (CLI) | payer MEDICARE, OTHER, SELFPAY ==
[2021-05-13 10:24] LABS: ALB/GLOB Ratio 1.1 RATIO (0.9-2.4); AST(SGOT) 20 U/L (15-37); Alanine Aminotransfer ALT/SGPT 28 U/L (16-61); Albumin, Serum 3.8 g/dL (3.2-5.0); Alkaline Phosphatase 74 U/L (45-117); Anion Gap 4 (5-15); BUN 25 mg/dL (7-18); BUN/Creat Ratio 27.1 RATIO (10-20); Calcium,Total 9.6 mg/dL (8.5-10.1); Chloride 109 mmol/L (98-107); Cholesterol 148 mg/dL (200); Creatinine, Serum 0.92 mg/dL (0.70-1.30); EST Glomerular Filtration Rate 87 mL/min (>60); Est Glom Filt Rate - Afr Amer 106 mL/min (>60); Globulin 3.4 g/dL (2.2-4.2); Glucose 137 mg/dL (74-106); High Density Lipoprotein 46 mg/dL; PSA,Total - Annual Screen 0.34 ng/mL (0.00-4.00); Protein, Total 7.2 g/dL (6.4-8.2); Sodium Level 139 mmol/L (136-145); Triglycerides 77 mg/dL; Very Low Density Lipoprotein 15 mg/dL (5-40)
[2021-05-13 10:30] LABS: Vitamin D,25 Hydroxy 60.3 ng/mL
== END 2021-05-13 23:59 | disposition short-term general hospital (02) ==
LOC: MFPLAB 08:47
PROVIDERS: PCP Family Medicine; Referring Provider Family Medicine; Visit Provider Family Medicine
DX: E78.00 Pure hypercholesterolemia, unspecified (principal); R73.02 Impaired glucose tolerance (oral); E55.9 Vitamin D deficiency, unspecified; Z12.5 Encounter for screening for malignant neoplasm of prostate
CPT/HCPCS: 36415; 80053; 80061; 82306; 83036; 84153; G0103

== ENCOUNTER 2021-05-26 17:01 | Outpatient (CLI) | payer MEDICARE, OTHER, SELFPAY ==
--- NOTE | 2021-05-26 13:50 | NURSING ---
Per MRI staff report, during reminder phone calls on 05/25/21, this patient was adamant that he would not be having his scan without medication to help him tolerate it, and he would still be driving himself home, as his was working. This RN called and left ail for patient on 05/25/21 at 1309 to inform that per [facility] policy any patient receiving sedation, even as an anxiolytic such as oral Ativan, must have a restaurant delivery driver to the hospital and home.
--- NOTE | 2021-05-26 17:05 | MRI_ITS ---
EXAM: MR ANGIOGRAPHY HEAD WITHOUT INTRAVENOUS CONTRAST CLINICAL INDICATION: HEADACHES TECHNIQUE: Routine quileute of Thomas/brain 3D time of flight MR angiogram protocol was performed without intravenous contrast. This report was created using [employer] report generation technology. COMPARISON: None. FINDINGS: RIGHT INTERNAL CAROTID ARTERY: No acute findings. No significant stenosis at the intracranial/visualized segments. No aneurysm. RIGHT ANTERIOR CEREBRAL ARTERY: Unremarkable. No significant stenosis at the visualized segments. Anterior communicating artery is present. No aneurysm. RIGHT MIDDLE CEREBRAL ARTERY: Unremarkable. No significant stenosis at the visualized segments. No aneurysm. RIGHT POSTERIOR CEREBRAL ARTERY: Unremarkable. No significant stenosis at the visualized segments. No aneurysm. RIGHT VERTEBRAL ARTERY: Unremarkable as visualized. No significant stenosis at the intradural/visualized segments. No aneurysm. LEFT INTERNAL CAROTID ARTERY: No acute findings. No significant stenosis at the intracranial/visualized segments. No aneurysm. LEFT ANTERIOR CEREBRAL ARTERY: Unremarkable. No significant stenosis at the visualized segments. Anterior communicating artery is present. No aneurysm. LEFT MIDDLE CEREBRAL ARTERY: Unremarkable. No significant stenosis at the visualized segments. No aneurysm. LEFT POSTERIOR CEREBRAL ARTERY: Unremarkable. No significant stenosis at the visualized segments. No aneurysm. LEFT VERTEBRAL ARTERY: Unremarkable as visualized. No significant stenosis at the intradural/visualized segments. No aneurysm. BASILAR ARTERY: Unremarkable. No significant stenosis. No aneurysm. OTHER VASCULATURE: No vascular malformation. IMPRESSION: Unremarkable MRA head. EXAM: MR ANGIOGRAPHY HEAD WITHOUT INTRAVENOUS CONTRAST CLINICAL INDICATION: HEADACHES TECHNIQUE: Routine quileute of Thomas/brain 3D time of flight MR angiogram protocol was performed without intravenous contrast. This report was created using [employer] report generation technology. COMPARISON: None. FINDINGS: RIGHT INTERNAL CAROTID ARTERY: No acute findings. No significant stenosis at the intracranial/visualized segments. No aneurysm. RIGHT ANTERIOR CEREBRAL ARTERY: Unremarkable. No significant stenosis at the visualized segments. Anterior communicating artery is present. No aneurysm. RIGHT MIDDLE CEREBRAL ARTERY: Unremarkable. No significant stenosis at the visualized segments. No aneurysm. RIGHT POSTERIOR CEREBRAL ARTERY: Unremarkable. No significant stenosis at the visualized segments. No aneurysm. RIGHT VERTEBRAL ARTERY: Unremarkable as visualized. No significant stenosis at the intradural/visualized segments. No aneurysm. LEFT INTERNAL CAROTID ARTERY: No acute findings. No significant stenosis at the intracranial/visualized segments. No aneurysm. LEFT ANTERIOR CEREBRAL ARTERY: Unremarkable. No significant stenosis at the visualized segments. Anterior communicating artery is present. No aneurysm. LEFT MIDDLE CEREBRAL ARTERY: Unremarkable. No significant stenosis at the visualized segments. No aneurysm. LEFT POSTERIOR CEREBRAL ARTERY: Unremarkable. No significant stenosis at the visualized segments. No aneurysm. LEFT VERTEBRAL ARTERY: Unremarkable as visualized. No significant stenosis at the intradural/visualized segments. No aneurysm. BASILAR ARTERY: Unremarkable. No significant stenosis. No aneurysm. OTHER VASCULATURE: No vascular malformation. IMPRESSION: Unremarkable MRA head.EXAM: MR ANGIOGRAPHY HEAD WITHOUT INTRAVENOUS CONTRAST CLINICAL INDICATION: HEADACHES TECHNIQUE: Routine quileute of Thomas/brain 3D time of flight MR angiogram protocol was performed without intravenous contrast. This report was created using [employer] report [employer] technology. COMPARISON: None. FINDINGS: RIGHT INTERNAL CAROTID ARTERY: No acute findings. No significant stenosis at the intracranial/visualized segments. No aneurysm. RIGHT ANTERIOR CEREBRAL ARTERY: Unremarkable. No significant stenosis at the visualized segments. Anterior communicating artery is present. No aneurysm. RIGHT MIDDLE CEREBRAL ARTERY: Unremarkable. No significant stenosis at the visualized segments. No aneurysm. RIGHT POSTERIOR CEREBRAL ARTERY: Unremarkable. No significant stenosis at the visualized segments. No aneurysm. RIGHT VERTEBRAL ARTERY: Unremarkable as visualized. No significant stenosis at the intradural/visualized segments. No aneurysm. LEFT INTERNAL CAROTID ARTERY: No acute findings. No significant stenosis at the intracranial/visualized segments. No aneurysm. LEFT ANTERIOR CEREBRAL ARTERY: Unremarkable. No significant stenosis at the visualized segments. Anterior communicating artery is present. No aneurysm. LEFT MIDDLE CEREBRAL ARTERY: Unremarkable. No significant stenosis at the visualized segments. No aneurysm. LEFT POSTERIOR CEREBRAL ARTERY: Unremarkable. No significant stenosis at the visualized segments. No aneurysm. LEFT VERTEBRAL ARTERY: Unremarkable as visualized. No significant stenosis at the intradural/visualized segments. No aneurysm. BASILAR ARTERY: Unremarkable. No significant stenosis. No aneurysm. OTHER VASCULATURE: No vascular malformation. MRI/MRA Head ONLY without Contrast IMPRESSION: There are no acute findings of the quileute of Thomas without a demonstrated aneurysm or hemodynamically significant stenosis. ALL ABOVE CRITERIA BY NASCET. Electronically Signed: Bebo Kennedy MD at 18:43 EST ,
--- NOTE | 2021-05-26 17:05 | MRI_ITS ---
EXAM: MR HEAD WITHOUT AND WITH INTRAVENOUS CONTRAST CLINICAL INDICATION: HEADACHES TECHNIQUE: Multiplanar and multisequence MR images of the brain were obtained without and with intravenous contrast. This report was created using [employer] report generation technology. CONTRAST: IV 20mL Dotarem COMPARISON: None. FINDINGS: BRAIN AND EXTRA-AXIAL SPACES: Unremarkable. No intra- or extra-axial hemorrhage. No evidence of acute infarct. No intracranial mass or mass effect. There is preservation of the groves/white matter interface. Posterior fossa structures are unremarkable. Ventricles are appropriate for age. No hydrocephalus. Basal cisterns are patent. SELLA: Unremarkable. Normal sella turcica, pituitary gland, infundibular stalk, optic chiasm and hypothalamus. AUDITORY SYSTEM: Unremarkable. The internal auditory canals are patent. BONES/JOINTS: Unremarkable. No discrete lytic or blastic abnormalities. SINUSES: Unremarkable as visualized. Clear. MASTOID AIR CELLS: Unremarkable as visualized. Clear. ORBITS: Unremarkable as visualized. Both globes, extraocular muscles, optic nerves and retrobulbar fat appear unremarkable. VASCULATURE: Unremarkable as visualized. Normal flow voids in the major intracranial circulation. MRI/Brain W/WO Contrast IMPRESSION: Negative MRI brain without and with intravenous contrast. Electronically Signed: Bebo Kennedy MD at 18:39 EST ,
== END 2021-05-26 23:59 | disposition short-term general hospital (02) ==
LOC: MRI 17:01
PROVIDERS: PCP Family Medicine; Visit Provider Family Medicine
DX: R51.9 Headache, unspecified (principal)
CPT/HCPCS: 70544; 70553; A9575

== ENCOUNTER → 2021-11-16 | Outpatient (CLI) | payer MEDICARE, OTHER, SELFPAY ==
[2021-11-16 09:56] LABS: Hematocrit 43.1 % (40-54); Hemoglobin 14.3 g/dL (13.0-16.5); Mean Corp Hgb Conc 33.2 g/dL (32-36); Mean Corpuscular Hgb 30.2 pg (27.0-32.0); Mean Corpuscular Volume 90.9 fL (80-94); Mean Platelet Vol. 11.1 fl (6.2-12.0); Platelet Count 270 K/mm3 (150-450); RBC Distribution Width SD 42.9 fl (35.1-43.9); Red Blood Count 4.74 M/mm3 (4.6-6.2); White Blood Count 10.8 K/mm3 (4.4-11.0)
[2021-11-16 10:16] LABS: ALB/GLOB Ratio 1.1 RATIO (0.9-2.4); AST(SGOT) 14 U/L (15-37); Alanine Aminotransfer ALT/SGPT 23 U/L (16-61); Albumin, Serum 3.5 g/dL (3.2-5.0); Alkaline Phosphatase 77 U/L (45-117); Anion Gap 5 (5-15); BUN 8 mg/dL (7-18); BUN/Creat Ratio 8.9 RATIO (10-20); Chloride 109 mmol/L (98-107); Cholesterol 147 mg/dL (200); EST Glomerular Filtration Rate 90 mL/min (>60); Est Glom Filt Rate - Afr Amer 109 mL/min (>60); Globulin 3.3 g/dL (2.2-4.2); Glucose 135 mg/dL (74-106); High Density Lipoprotein 56 mg/dL; Protein, Total 6.8 g/dL (6.4-8.2); Sodium Level 141 mmol/L (136-145); Triglycerides 88 mg/dL; Very Low Density Lipoprotein 18 mg/dL (5-40)
[2021-11-16 10:18] LABS: Hemoglobin A1c 6.2 % (3.8-5.6)
[2021-11-16 10:51] LABS: Vitamin D,25 Hydroxy 65.7 ng/mL
== END | disposition home or self-care (01) ==
LOC: MFPLAB 08:31
PROVIDERS: PCP Family Medicine; Referring Provider Family Medicine; Visit Provider Family Medicine
DX: E55.9 Vitamin D deficiency, unspecified (principal); E78.00 Pure hypercholesterolemia, unspecified; R73.02 Impaired glucose tolerance (oral)
CPT/HCPCS: 36415; 80053; 80061; 82306; 83036; 85027

== ENCOUNTER 2022-03-06 00:28 | Emergency (ER) | payer MEDICARE, OTHER, SELFPAY ==
[2022-03-06 00:29] VITALS: BP 152/85; PULSE 89; RESP 20; TEMP 36.6; O2SAT 95; BMI 32.5
[2022-03-06 00:31] VITALS: BP 152/85; PULSE 89; RESP 20; TEMP 36.6; O2SAT 95
--- NOTE | 2022-03-06 00:51 | RAD_ITS ---
EXAM: XR CHEST, 2 VIEWS CLINICAL INDICATION: cough TECHNIQUE: Frontal and lateral views of the chest. This report was created using [employer] report generation technology. COMPARISON: None. FINDINGS: LUNGS AND PLEURAL SPACES: Atelectasis or scarring in the lung bases bilaterally. No pneumothorax. No effusion. HEART: Unremarkable. Cardiac silhouette not enlarged. MEDIASTINUM: Central airways and mediastinal contour are unremarkable. BONES/JOINTS: Unremarkable. SOFT TISSUES: Unremarkable. RAD/Chest PA and Lateral IMPRESSION: Atelectasis or scarring in the lung bases bilaterally. No consolidations. Electronically Signed: Ryder Quan MD at 1:35 EST ,
--- NOTE | 2022-03-06 00:53 | EX.ED.DYSGE1 ---
HPI History of Present Illness Chief Complaint: Cough Informant: patient Onset/Context/Timing Onset: Days (3 days) Context: Gradual Onset Narrative Narrative: Patient presents with cough. He has had cough and congestion with low-grade fever and some wheezing for the past 2 to 3 days. He was seen at urgent care yesterday and diagnosed with bronchitis. He was given a cough syrup, doxycycline, and an inhaler. He is concerned that he may have pneumonia as he is getting some upper chest pressure that is worse with coughing. [facility] Medical History Asthma Back pain Borderline diabetes mellitus CPAP (continuous positive airway pressure) dependence Former smoker High cholesterol History of diverticulitis History of echocardiogram History of stress test Hx of sebaceous cyst Hx of sigmoidoscopy Leg cramps Shortness of breath on exertion Sleep apnea Wears glasses Home Medications apple cider vinegar 600 mg capsule 600 mg PO DAILY 10/26/20 [History Last Taken Unknown] ergocalciferol (vitamin D2) 1,250 mcg (50,000 unit) capsule (Vitamin D2) 1,250 mcg PO DAILY 10/26/20 [History Last Taken Unknown] fexofenadine 60 mg tablet (Tayla Allergy) 60 mg PO DAILY 10/26/20 [History Last Taken Unknown] fluticasone propionate 50 mcg/actuation nasal spray,suspension (Flonase Allergy Relief) 2 spray intranasal DAILY 10/26/20 [History Last Taken Unknown] metformin 500 mg tablet 500 mg PO BID 10/26/20 [History Last Taken Unknown] flaxseed oil 1,000 mg capsule 1,000 mg PO DAILY 01/27/21 [History Last Taken Unknown] rosuvastatin 40 mg tablet 5 mg PO .every other day 01/27/21 [History Last Taken Unknown] budesonide-formoterol HFA 80 mcg-4.5 mcg/actuation aerosol inhaler (Symbicort) 2 puff inhalation DAILY 02/07/21 [History Last Taken 02/11/21] multivitamin 1 tab PO DAILY 02/07/21 [History Last Taken Unknown] codeine 10 mg-guaifenesin 100 mg/5 mL oral liquid 5 ml PO Q6H PRN cough #120 mL 03/06/22 [Rx Last Taken Unknown] Allergy/AdvReac Type Severity Reaction Status Date / Time No Known Allergies Allergy Verified 02/11/21 08:10 Family History Mother Colon cancer CVA (cerebral vascular accident) Father Cancer stomach Grandmother Heart disease Surgical History History of lung biopsy History of tonsillectomy and adenoidectomy Hx of shoulder surgery S/P right inguinal herniorrhaphy Social History Smoking Status: Former smoker alcohol intake: never ROS ROS ED Constitutional Constitutional ED: Reports fever(s); Denies chills Eyes Eyes: Denies change in vision or discharge from eye(s) ENT ENT ED: Denies discharge from eye(s), rhinorrhea or sore throat Cardiovascular Cardiovascular: Reports chest pain; Denies palpitations Respiratory/Chest Respiratory/Chest: Reports cough and dyspnea Gastrointestinal Gastrointestinal: Denies abdominal pain, nausea or vomiting Genitourinary Genitourinary ED: Denies dysuria Musculoskeletal Musculoskeletal: Denies back pain or extremity pain Integumentary Denies Abrasions or rash Neurologic Neurologic: Denies headache(s) or weakness Allergic/Immunologic Allergic/Immunologic ED: Denies lip swelling or urticaria EXAM Physical Exam Const Vital Signs: 03/06/22 00:29 03/06/22 00:32 03/06/22 00:31 Temperature 97.8 F 97.8 F Temperature Source Oral Oral Pulse Rate 89 89 Respiratory Rate 20 H 20 H Respiratory Effort Short of Breath Respiratory Depth Normal Respiratory Pattern Normal Blood Pressure 152/85 H 152/85 H Blood Pressure Mean 107 107 Pulse Ox 95 95 Oxygen Delivery Method Room Air Room Air 03/06/22 01:03 Temperature Temperature Source Pulse Rate 91 Respiratory Rate 18 Respiratory Effort Respiratory Depth Respiratory Pattern Normal Blood Pressure Blood Pressure Mean Pulse Ox Oxygen Delivery Method Positive well nourished and well developed General Appearance ED: well developed HEENT Reports normocephalic and head/scalp atraumatic Eyes PERRL and EOMs intact bilaterally Neck supple Chest Wall inspection of chest normal and palpation of chest normal Resp normal respiratory effort and clear to auscultation bilaterally Cardio regular rate and regular rhythm GI non-tender Auscultation: hypoactive bowel sounds Palpation: soft Extremity normal to inspection Neuro oriented x3 and no sensory deficits noted Sensorium / Orientation: alert Motor Exam: strength 5/5 throughout Psych mental status grossly normal Skin no rashes or lesions noted MDM MDM MDM Narrative Medical decision making narrative: Patient is given Robitussin-AC and a DuoNeb treatment. Two-view chest x-ray obtained. COVID and influenza swab obtained. Radiography Diagnostic Testing: Clinical Impression(s) from Imaging Studies Chest X-Ray 03/06/22 00:51 IMPRESSION: Atelectasis or scarring in the lung bases bilaterally. No consolidations. Electronically Signed: Ryder Quan MD at 1:35 EST , Treatment and Re-Evaluation Narrative: Chest x-ray per my interpretation shows chronic changes with no focal infiltrate. Radiology interpretation is reviewed and agrees. COVID and influenza swabs are negative. On repeat evaluation cough is improved. I will write him a prescription for guaifenesin/codeine as was given here. He will continue the medications previously prescribed by urgent care. Discharge Plan Triage Chief Complaint: Cough ED Provider: Dorie Griffith Dx/Rx/DC Orders Clinical Impression: Bronchitis Instructions: ED Bronchitis with Wheezing (Adult) Prescriptions: New codeine-guaifenesin 10-100 mg/5 mL liquid 5 ml PO Q6H PRN (Reason: cough) Qty: 120 0RF No Action flaxseed oil 1,000 mg capsule 1,000 mg PO DAILY Rx Instructions: administer with a meal metformin 500 mg tablet 500 mg PO BID fexofenadine [Tayla Allergy] 60 mg tablet 60 mg PO DAILY apple cider vinegar 600 mg capsule 600 mg PO DAILY ergocalciferol (vitamin D2) [Vitamin D2] 1,250 mcg (50,000 unit) capsule 1,250 mcg PO DAILY fluticasone propionate [Flonase Allergy Relief] 50 mcg/actuation spray,suspension 2 spray INTRANASAL DAILY rosuvastatin 40 mg tablet 5 mg PO .every other day multivitamin Tablet 1 tab PO DAILY budesonide-formoterol [Symbicort] 80-4.5 mcg/actuation HFA aerosol inhaler 2 puff INHALATION DAILY Primary Care Provider: Velasquez Johnston Referrals: Velasquez Johnston MD [Primary Care Provider] - 1 Week if not improving Disposition Disposition: Home, Self Care
[2022-03-06] MEDS: Ipratropium/Albuterol Sulfate 3 ML AMPUL.NEB INHALATION (01:02)
[2022-03-06 01:03] VITALS: PULSE 91; RESP 18
[2022-03-06] MEDS: guaiFENesin/Codeine 5 ML UDC 10 ML PO (01:04)
[2022-03-06 02:00] VITALS: BP 116/72; PULSE 98; RESP 18; TEMP 36.6; O2SAT 93
== END 2022-03-06 02:15 | disposition home or self-care (01) ==
PROVIDERS: Emergency Provider Emergency Medicine; PCP Family Medicine; Visit Provider Emergency Medicine
DX: J40 Bronchitis, not specified as acute or chronic (principal); E78.00 Pure hypercholesterolemia, unspecified; Z87.891 Personal history of nicotine dependence
CPT/HCPCS: 71046; 87428; 94640; 99282

== ENCOUNTER → 2022-05-10 | Outpatient (CLI) | payer MEDICARE, OTHER, SELFPAY ==
[2022-05-10 10:21] LABS: Absolute Lymphocyte Count 2.26 X10^3/uL (0.83-4.51); Absolute Neutrophil Count 5.5 X10^3/uL (2.0-7.7); Basophil# 0.07 X10^3/uL; Basophil% 0.8 % (0-1); Eosinophil# 0.18 X10^3/uL; Hematocrit 45.9 % (40-54); Hemoglobin 15.2 g/dL (13.0-16.5); Lymphocyte # 2.26 X10^3/ul (0.83-4.51); Lymphocyte % 25.6 % (19-41); Mean Corp Hgb Conc 33.1 g/dL (32-36); Mean Corpuscular Hgb 30.1 pg (27.0-32.0); Mean Corpuscular Volume 90.9 fL (80-94); Mean Platelet Vol. 10.9 fl (6.2-12.0); Monocyte# 0.76 X10^3/uL; Monocyte% 8.6 % (0-10); NRBC Flagged by Analyzer 0 % (0-5); Neutrophil # 5.46 X10^3/uL (2.7-7.7); Platelet Count 299 K/mm3 (150-450); RBC Distribution Width CV 12.9 % (11.6-14.6); RBC Distribution Width SD 42.2 fl (35.1-43.9); Red Blood Count 5.05 M/mm3 (4.6-6.2); White Blood Count 8.8 K/mm3 (4.4-11.0)
[2022-05-10 10:44] LABS: Hemoglobin A1c 6.1 % (3.8-5.6)
[2022-05-10 11:06] LABS: ALB/GLOB Ratio 1.2 RATIO (0.9-2.4); AST(SGOT) 12 U/L (15-37); Alanine Aminotransfer ALT/SGPT 23 U/L (16-61); Albumin, Serum 3.8 g/dL (3.2-5.0); Alkaline Phosphatase 77 U/L (45-117); Anion Gap 9 (5-15); BUN 20 mg/dL (7-18); BUN/Creat Ratio 21.2 RATIO (10-20); Calcium,Total 9.3 mg/dL (8.5-10.1); Chloride 106 mmol/L (98-107); Cholesterol 162 mg/dL (200); Creatinine, Serum 0.94 mg/dL (0.70-1.30); EST Glomerular Filtration Rate 85 mL/min (>60); Est Glom Filt Rate - Afr Amer 102 mL/min (>60); Globulin 3.2 g/dL (2.2-4.2); Glucose 148 mg/dL (74-106); High Density Lipoprotein 52 mg/dL; Potassium 4.7 mmol/L (3.5-5.1); Sodium Level 141 mmol/L (136-145); Triglycerides 69 mg/dL; Very Low Density Lipoprotein 14 mg/dL (5-40)
[2022-05-10 12:50] LABS: Vitamin D,25 Hydroxy 58.4 ng/mL
== END | disposition home or self-care (01) ==
LOC: MFPLAB 08:42
PROVIDERS: PCP Family Medicine; Visit Provider Family Medicine
DX: G47.33 Obstructive sleep apnea (adult) (pediatric) (principal); R73.02 Impaired glucose tolerance (oral); E78.00 Pure hypercholesterolemia, unspecified; E55.9 Vitamin D deficiency, unspecified
CPT/HCPCS: 36415; 80053; 80061; 82306; 83036; 85025

== ENCOUNTER → 2022-05-23 | Outpatient (CLI) | payer MEDICARE, OTHER, SELFPAY ==
--- NOTE | 2022-05-23 08:11 | ECHOD_ITS ---
Reason For Study: SOB Procedure This was a 2D Doppler, Color Flow transthoracic echocardiogram. The study was technically difficult. Exam performed in department. Left Ventricle Normal LV size. Left ventricular systolic function is normal. The estimated ejection fraction is 70 %. No evidence for diastolic dysfunction. No regional wall motion abnormalities noted. Right Ventricle Normal RV size. Normal systolic function. Atria The left atrium is mildly enlarged. Normal right atrium. No doppler evidence for ASD. Mitral Valve There is no mitral annular calcification. Normal mitral valve. Trivial mitral valve insufficiency. Tricuspid Valve Normal tricuspid valve. Trivial tricuspid valve insufficiency. Right ventricular systolic pressure estimated to be 23 mmHg. Aortic Valve Trisinus/trileaflet aortic valve. Normal aortic valve. Pulmonic Valve The pulmonic valve is not well visualized. Great Vessels Normal sized aortic root. Pericardium/Pleural No pericardial effusion. MMode/2D Measurements & Calculations LVIDd: 5.0 cm IVSd: 1.2 cm Ao root diam: 3.6 cm LVIDs: 3.4 cm LVPWd: 1.0 cm RVDd: 3.0 cm FS: 30.6 % LAV(MOD-bp): 69.2 ml LA A4 area: 22.2 cm2 LA dimension(2D): 4.7 cm LAV(MOD-bp) Indexed: 30.3 ml/m2 LAV(MOD-sp2): 70.7 ml LAV(MOD-sp4): 65.9 ml RA A4 area: 16.2 cm2 Time Measurements MV dec time: 0.25 sec Doppler Measurements & Calculations MV E max blayne: 54.5 cm/sec Lat Peak E' Blayne: 8.3 cm/sec Med Peak E' Blayne: 5.5 cm/sec MV A max blayne: 66.6 cm/sec E/E' lat: 6.6 E/E' med: 9.9 MV E/A: 0.82 MV dec slope: 218.7 cm/sec2 Ao V2 max: 152.5 cm/sec LV V1 max: 139.3 cm/sec Ao max P.3 mmHg LV V1 max P.8 mmHg Ao V2 mean: 97.4 cm/sec LV V1 mean P.5 mmHg Ao mean P.2 mmHg LV V1 mean: 89.2 cm/sec Ao V2 VTI: 26.1 cm LV V1 VTI: 26.0 cm AV (velocity ratio): 1.00 PA V2 max: 102.5 cm/sec PI dec slope: 168.1 cm/sec2 TR max blayne: 223.9 cm/sec TR max P.1 mmHg ECHO/Echo Complete Interpretation Summary The study was technically difficult. Left ventricular systolic function is normal. The estimated ejection fraction is 70 %. The left atrium is mildly enlarged. Trivial mitral valve insufficiency. Trivial tricuspid valve insufficiency. Right ventricular systolic pressure estimated to be 23 mmHg. No evidence for diastolic dysfunction. Ordering Physician: Velasquez Johnston Referring Physician: Velasquez Johnston Performed By: Jocelyn Fuentes, FUNMILAYO, RVT
[2022-05-23 10:55] LABS: Vitamin B12 622 pg/mL (211-911)
[2022-05-23 11:04] LABS: PSA,Total - Annual Screen 0.35 ng/mL (0.00-4.00); T4 Free Direct 1.08 ng/dL (0.76-1.46); Thyroid Stim Hormone (TSH) 1.39 uIU/mL (0.358-3.74)
== END | disposition home or self-care (01) ==
PROVIDERS: PCP Family Medicine; Referring Provider Family Medicine; Visit Provider Family Medicine
DX: R06.02 Shortness of breath (principal); Z12.5 Encounter for screening for malignant neoplasm of prostate; R53.83 Other fatigue
CPT/HCPCS: 36415; 82607; 84153; 84439; 84443; 93306; G0103

== ENCOUNTER → 2022-08-22 | Outpatient (CLI) | payer MEDICARE, OTHER, SELFPAY ==
[2022-08-22 10:18] LABS: AST(SGOT) 18 U/L (15-37); Alanine Aminotransfer ALT/SGPT 30 U/L (16-61); Albumin, Serum 3.6 g/dL (3.2-5.0); Alkaline Phosphatase 78 U/L (45-117); Bilirubin, Direct 0.13 mg/dL (0.00-0.30); CRP < 2.90 mg/L (0.0-3.0); Globulin 3.8 g/dL (2.2-4.2); Protein, Total 7.4 g/dL (6.4-8.2); Rheumatoid Factor < 10.0 IU/mL (<15)
[2022-08-22 10:54] LABS: Erythrocyte Sedimentation Rate 13 mm/hr (0-20)
[2022-08-22 10:57] LABS: Absolute Neutrophil Count 6.3 X10^3/uL (2.0-7.7); Basophil# 0.07 X10^3/uL; Basophil% 0.7 % (0-1); Eosinophil# 0.19 X10^3/uL; Hematocrit 43.9 % (40-54); Hemoglobin 14.5 g/dL (13.0-16.5); Lymphocyte % 21.4 % (19-41); Mean Corpuscular Volume 90.9 fL (80-94); Mean Platelet Vol. 10.9 fl (6.2-12.0); Monocyte% 7.5 % (0-10); NRBC Flagged by Analyzer 0 % (0-5); Neutrophil # 6.33 X10^3/uL (2.7-7.7); Neutrophil % 67.9 % (47-70); Platelet Count 288 K/mm3 (150-450); RBC Distribution Width CV 12.8 % (11.6-14.6); RBC Distribution Width SD 42.2 fl (35.1-43.9); Red Blood Count 4.83 M/mm3 (4.6-6.2); White Blood Count 9.3 K/mm3 (4.4-11.0)
[2022-08-23 15:08] LABS: ANTINUCLEAR ANTIBODIES DIRECT Negative (Negative); Angiotensin Convert Enzyme 36 U/L (14-82); Anti-Scleroderma-70 AB 0.2 AI (0.0-0.9); Anti-Smooth Muscle ABS 9 Units (0-19); Anti-dsDNA Ab <1 IU/mL (0-9); CCP IgG Antibodies 4 units (0-19); Cytoplasmic Ab (C-ANCA) <1:20 titer (Neg:<1:20); Perinuclear Ab (P-ANCA) <1:20 titer (Neg:<1:20); RNP Ab <0.2 AI (0.0-0.9); SJOGREN'S Anti-SS-A test < 0.2 AI (0.0-0.9); SJOGREN'S Anti-SS-B test < 0.2 AI (0.0-0.9)
== END | disposition home or self-care (01) ==
PROVIDERS: PCP Family Medicine; Visit Provider Internal Medicine Pulmonary Disease
DX: J45.30 Mild persistent asthma, uncomplicated (principal); R06.02 Shortness of breath
CPT/HCPCS: 36415; 80076; 82164; 83516; 85025; 85652; 86038; 86140; 86200; 86225; 86235; 86256; 86431

== ENCOUNTER → 2022-08-23 | Outpatient (CLI) | payer MEDICARE, OTHER, SELFPAY ==
--- NOTE | 2022-08-23 16:41 | CT_ITS ---
STUDY: CT CHEST WITHOUT CONTRAST REASON FOR EXAM: Male, 66 years old. SOB RADIATION DOSAGE (If Supplied By Facility): CTDIvol = ( 17.33 ) mGy, DLP = ( 586.69 ) mGycm TECHNIQUE: Transaxial imaging was performed without the administration of intravenous contrast material. Multiplanar coronal and sagittal images were reformatted. Individualized dose optimization techniques were used for this CT. COMPARISON: Comparison is made with prior chest radiograph dated March 06, 2022. FINDINGS: CHEST There is evidence increased interstitial markings in both lungs involving both the upper and lower lobes. This is more prominent in the lower lobes. This is suggestive of a interstitial fibrosis. Calcified right pleural plaques. Single calcified pleural plaque in the posterior medial aspect of the left pleura. There are calcifications of the coronary arteries. Normal mediastinum. Normal hilar regions. Normal unenhanced pulmonary arteries. Normal aorta arch and descending thoracic aorta. There are multi-level degenerative changes of the thoracic spine. There is no demonstrated abnormality of the visualized upper abdomen. CT/Chest without Contrast IMPRESSION: Findings included within the superficial pulmonary fibrosis worse in the lower lobes. Electronically Signed: Nawaf Naranjo MD at 10:03 EDT ,
== END | disposition home or self-care (01) ==
LOC: CT 16:39
PROVIDERS: PCP Family Medicine; Referring Provider Internal Medicine Pulmonary Disease; Visit Provider Internal Medicine Pulmonary Disease
DX: R06.02 Shortness of breath (principal); J45.30 Mild persistent asthma, uncomplicated
CPT/HCPCS: 71250

== ENCOUNTER → 2022-11-07 | Outpatient (CLI) | payer MEDICARE, OTHER, SELFPAY ==
[2022-11-07 10:28] LABS: D-Dimer Quantitative (DVT/PE) 0.37 FEU/ug/m (0.27-0.49)
== END | disposition home or self-care (01) ==
PROVIDERS: PCP Family Medicine; Visit Provider Internal Medicine Pulmonary Disease
DX: R06.02 Shortness of breath (principal)
CPT/HCPCS: 36415; 85379

== ENCOUNTER → 2022-11-10 | Outpatient (CLI) | payer MEDICARE, OTHER, SELFPAY ==
--- NOTE | 2022-11-10 13:47 | VDLE_ITS ---
Reason For Study: SOB RIGHT LEFT CFV is compressible, spontaneous, phasic, GSV is normal. competent and demonstrates normal CFV is compressible, spontaneous, phasic, augmentation. competent, and demonstrates normal Procedure augmentation. This is a venous duplex using B-mode, color FV is compressible, spontaneous, phasic, flow and spectral Doppler. competent and demonstrates normal Exam performed in department. augmentation. The exam was diagnostic. POP V is compressible, spontaneous, phasic, A preliminary report was called and/or faxed competent and demonstrates normal to Dr. Rodriguez @ [phone] @ 14:15. augmentation. T/P Trunk is compressible. PTV is compressible. LT PerV is compressible. VL/Venous Duplex US, Unilateral Interpretation Summary Deep veins of the left lower extremity are patent and compressible segmentally. There is no evidence of left lower extremity deep vein thrombosis. Valvular competence appears intac t within the proximal deep venous system on the left . The left great saphenous vein appears patent a nd compressible segmentally. The right common femoral vein is patent and compressible . Ordering Physician: Augustus Rodriguez V Referring Physician: Velasquez Johnston Performed By: Jocelyn Fuentes, FUNMILAYO, RVT
== END | disposition home or self-care (01) ==
PROVIDERS: PCP Family Medicine; Referring Provider Internal Medicine Pulmonary Disease; Visit Provider Internal Medicine Pulmonary Disease
DX: R06.02 Shortness of breath (principal)
CPT/HCPCS: 93971

== ENCOUNTER → 2022-11-27 | Outpatient (CLI) | payer MEDICARE, OTHER, SELFPAY ==
--- NOTE | 2022-11-27 12:49 | STRESSREP_ITS ---
Stress Test Report Pharmacologic myocardial perfusion stress test. 67-year-old man with a history of shortness of breath Resting EKG demonstrates sinus rhythm with a rate of 67 bpm. Incomplete right bundle branch block is noted. Resting blood pressure is 132/78 mmHg. 0.4 mg of regadenoson was infused per usual protocol followed by rapid intravenous saline flush injection. Continuous EKG monitoring was performed. The maximum heart rate was 84 bpm which was 55% of max impacted heart rate the maximum workload was 1 metabolic equivalent. At rest there were no ST or T wave changes noted to suggest ischemia and at peak infusion nonspecific ST changes were noted which did not meet the criteria for ischemia. No clinical angina is noted. The final blood pressure was 128/80 mmHg. Myocardial perfusion protocol. 14.9 mCi of technetium 99m sestamibi was injected at rest. 0.4 mg of regadenoson was infused per usual protocol. At peak infusion 44.6 mCi of technetium 99m sestamibi was injected stress images were obtained stress and rest images were reconstructed and compared in the short axis vertical long and horizontal long axis. Gated images were also obtained. Perfusion SPECT analysis: Review of the stress images demonstrate normal uptake of tracer noted in all areas of the myocardium. The resting images similar demonstrated normal uptake of tracer noted in all areas of the myocardium. No areas of reversibility are noted to suggest ischemia and no previous infarct is noted. Gated SPECT analysis: The gated ejection fraction is [87%]. Conclusion: [Normal] pharmacologic myocardial perfusion stress test. [Preserved] ejection fraction.
== END | disposition home or self-care (01) ==
LOC: CVS 06:43
PROVIDERS: PCP Family Medicine; Referring Provider Internal Medicine Pulmonary Disease; Visit Provider Internal Medicine Pulmonary Disease
DX: R06.02 Shortness of breath (principal)
CPT/HCPCS: 78452; 93017; A9500; A4216; J2785

== ENCOUNTER → 2023-03-02 | Outpatient (CLI) | payer MEDICARE, OTHER, SELFPAY ==
[2023-03-02 18:04] LABS: Hemoglobin A1c 6.3 % (3.8-5.6)
== END | disposition home or self-care (01) ==
LOC: MFPLAB 14:03
PROVIDERS: PCP Family Medicine; Visit Provider Family Medicine
DX: R73.02 Impaired glucose tolerance (oral) (principal)
CPT/HCPCS: 36415; 83036

== ENCOUNTER → 2023-04-11 | Outpatient (CLI) | payer MEDICARE, OTHER, SELFPAY ==
[2023-04-11 12:11] LABS: Absolute Neutrophil Count 8.3 X10^3/uL (2.0-7.7); Basophil# 0.04 X10^3/uL; Basophil% 0.4 % (0-1); Hematocrit 48.4 % (40-54); Hemoglobin 15.7 g/dL (13.0-16.5); Lymphocyte % 16.2 % (19-41); Mean Corp Hgb Conc 32.4 g/dL (32-36); Mean Corpuscular Hgb 29.5 pg (27.0-32.0); Mean Corpuscular Volume 90.8 fL (80-94); Mean Platelet Vol. 10.8 fl (6.2-12.0); Monocyte# 0.83 X10^3/uL; Monocyte% 7.5 % (0-10); NRBC Flagged by Analyzer 0 % (0-5); Neutrophil # 8.31 X10^3/uL (2.7-7.7); Neutrophil % 74.8 % (47-70); Platelet Count 325 K/mm3 (150-450); RBC Distribution Width CV 12.9 % (11.6-14.6); RBC Distribution Width SD 43.1 fl (35.1-43.9); Red Blood Count 5.33 M/mm3 (4.6-6.2); White Blood Count 11.1 K/mm3 (4.4-11.0)
[2023-04-11 12:29] LABS: ALB/GLOB Ratio 1.1 RATIO (0.9-2.4); AST(SGOT) 20 U/L (15-37); Alanine Aminotransfer ALT/SGPT 39 U/L (16-61); Alkaline Phosphatase 74 U/L (45-117); Anion Gap 7 (5-15); BUN 28 mg/dL (7-18); BUN/Creat Ratio 29.6 RATIO (10-20); Calcium,Total 9.5 mg/dL (8.5-10.1); Chloride 109 mmol/L (98-107); Cholesterol 150 mg/dL (200); Creatinine, Serum 0.95 mg/dL (0.70-1.30); EST Glomerular Filtration Rate 84 mL/min (>60); Est Glom Filt Rate - Afr Amer 102 mL/min (>60); Globulin 3.8 g/dL (2.2-4.2); Glucose 130 mg/dL (74-106); High Density Lipoprotein 46 mg/dL; Potassium 4.3 mmol/L (3.5-5.1); Protein, Total 7.8 g/dL (6.4-8.2); Sodium Level 140 mmol/L (136-145); Triglycerides 119 mg/dL; Very Low Density Lipoprotein 24 mg/dL (5-40)
[2023-04-11 12:31] LABS: Vitamin D,25 Hydroxy 74.7 ng/mL
== END | disposition home or self-care (01) ==
LOC: MFPLAB 10:02
PROVIDERS: PCP Family Medicine; Visit Provider Family Medicine
DX: E78.00 Pure hypercholesterolemia, unspecified (principal); G47.33 Obstructive sleep apnea (adult) (pediatric); E55.9 Vitamin D deficiency, unspecified
CPT/HCPCS: 36415; 80053; 80061; 82306; 85025

== ENCOUNTER → 2023-07-12 | Outpatient (CLI) | payer MEDICARE, OTHER, SELFPAY ==
--- OUTSIDE RECORDS SUMMARY | 2023-07-12 09:28 | XMS RPT_ITS | CCD ---
Author Name Unknown Address [address] [place] [address] Organization [facility] Care Team Providers Care Screw Supervisor Name Role Phone EZEKIEL LOWE Unavailable Unavailable EZEKIEL LOWE Unavailable Unavailable NO REFERRING DR Unavailable Unavailable SCHINNER, VIRGIE E Primary Care Unavailable SOUTH GU Attending Unavailable SCHINNER, VIRGIE E Primary Care Unavailable SOUTH GU Attending Unavailable SCHVIRGIE RICE E Primary Care Unavailable SOUTH GU Attending Unavailable SCHINNER, VIRGIE E Primary Care Unavailable SOUTH GU Attending Unavailable SCHINSPENCER, VIRGIE E Primary Care Unavailable SOUTH GU Attending Unavailable SCHINNER, VIRGIE E Primary Care Unavailable SOUTH GU Attending Unavailable SCHINSPENCER, VIRGIE E Primary Care Unavailable SOUTH GU Attending Unavailable SCHINNER, VIRGIE E Primary Care Unavailable SOUTH GU Attending Unavailable SCHINNER, VIRGIE E Primary Care Unavailable SOUTH GU Attending Unavailable SCHINSPENCER, VIRGIE E Primary Care Unavailable SOUTH GU Attending Unavailable SCHINVIRGIE PALMER E Primary Care Unavailable SELF Referring Unavailable SOUTH GU Attending Unavailable SCHINNER, VIRGIE E Primary Care Unavailable SOUTH GU Attending Unavailable SCHINNER, VIRGIE E Primary Care Unavailable SOUTH GU Attending Unavailable SCHINNER, VIRGIE E Primary Care Unavailable SOUTH GU Attending Unavailable SCHINVIRGIE PALMER E Primary Care Unavailable SOUTH GU Attending Unavailable SCHINNER, VIRGIE E Primary Care Unavailable SELF Referring Unavailable SOUTH GU Attending Unavailable SCHINNER, VIRGIE E Primary Care Unavailable SELF Referring Unavailable SOUTH GU Attending Unavailable SCHINNER, VIRGIE E Primary Care Unavailable SELF Referring Unavailable SOUTH GU Attending Unavailable SCHINNER, VIRGIE E Primary Care Unavailable SOUTH GU Attending Unavailable SCHINNER, VIRGIE E Primary Care Unavailable SOUTH GU Attending Unavailable SCHINNER, VIRGIE E Primary Care Unavailable SOUTH GU Attending Unavailable Allergies Allergy Classification Reported Allergen(s) Allergy Type Date of Onset Reaction(s) Facility (1 source) Cat; Translations: [CATS] Propensity to adverse reactions (disorder) 5 [facility] Repository (1 source) Dog; Translations: [DOGS] Propensity to adverse reactions (disorder) 5 [facility] Repository (1 source) OTHER; Translations: [OTHER] Propensity to adverse reactions (disorder) 5 [facility] Repository Problems Active Problems Problem Classification Problem Date Documented Da te Episodic/Chronic Adjustment disorders (1 source) Adjustment disorder with other symptoms; Translations: [Adjustment disorder with mixed emotional features] Onset: 06-10-2012 Chronic Alcohol-related disorders (1 source) Alcohol dependence, in remission; Translations: [Alcoholism in recovery (HCC)] Onset: 11-08-2022 Chronic Asthma (3 sources) Mild persistent asthma, uncomplicated; Translations: [Unspecified asthma, uncomplicated] Onset: 04-26-2016 Chronic Other lower respiratory disease (1 source) Interstitial pulmonary disease, unspecified; Translations: [INTERSTITIAL PULMONARY D] Onset: 04-26-2016 Chronic Other nutritional; endocrine; and metabolic disorders (1 source) Morbid (severe) obesity due to excess calories; Translations: [Morbid obesity (HCC)] Onset: 08-30-2022 Chronic Past or Other Problems Problem Classification Problem Date Documented Da te Episodic/Chronic Pleurisy; pneumothorax; pulmonary collapse (2 sources) Atelectasis; Translations: [Pleural effusion, not elsewhere classified] Onset: 04-26-2016 Episodic Results Test Name Value Interpretation Reference Range Facil ity Encounters Encounter Date Encounter Type Care Provider Facility Start: 06-20-2023 End: 06-21-2023 ambulatory VIRGIE VERGARA [facility] Start: 06-13-2023 End: 06-13-2023 ambulatory VIRGIE VERGARA [facility] Start: 06-06-2023 End: 06-07-2023 ambulatory VIRGIE VERGARA [facility] Start: 05-30-2023 End: 05-30-2023 ambulatory VIRGIE VERGARA [facility] Start: 05-23-2023 End: 05-24-2023 ambulatory [facility]IE VERGARA [facility] Start: 05-09-2023 End: 05-10-2023 ambulatory VIRGIE VERGARA [facility] Start: 05-02-2023 End: 05-03-2023 ambulatory VIRGIE VERGARA [facility] Start: 04-25-2023 End: 04-26-2023 ambulatory VIRGIE VERGARA [facility] Start: 04-18-2023 End: 04-19-2023 ambulatory VIRGIE VERGARA [facility] Start: 04-04-2023 End: 04-05-2023 ambulatory VIRGIE VERGARA [facility] Start: 03-14-2023 End: 03-15-2023 ambulatory VIRGIE VERGARA [facility] Start: 02-28-2023 End: 02-28-2023 ambulatory VIRGIE VERGARA [facility] Start: 02-21-2023 End: 02-21-2023 ambulatory VIRGIE VERGARA Facility[facility] Start: 02-14-2023 End: 02-15-2023 ambulatory VIRGIE VERGARA [facility] Start: 02-07-2023 End: 02-07-2023 ambulatory VIRGIE VERGARA [facility] Start: 11-08-2022 End: 11-09-2022 ambulatory VIRGIE VERGARA [facility] Start: 09-13-2022 End: 09-13-2022 ambulatory VIRGIE VERGARA [facility] Start: 08-30-2022 End: 08-31-2022 ambulatory VIRGIE VERGARA [facility] Start: 08-16-2022 End: 08-17-2022 ambulatory VIRGIE VERGARA [facility] Start: 07-19-2022 End: 07-20-2022 ambulatory VIRGIE VERGARA [facility] Start: 07-12-2022 End: 07-13-2022 ambulatory VIRGIE VERGARA [facility] Start: 04-26-2016 End: 04-27-2016 Ambulatory EZEKIEL LOWE Facility:[facility] Payers Date Payer Category Payer Medicare [id number] 2019 Unknown [id number] Clinical Notes 05-19-2020 to 06-18-2023 Note Date & Type Note Facility 06-18-2023 Note HNO ID: [id number] Author: SOUTH GU, PhD Service: ? Author Type: Psychologist Type: Progress Notes Filed: 06/20/2023 16:39 Note Text: VIRTUAL (audio/visual) GROUP PSYCHOTHERAPY NOTE: I have communicated my name and active licensure. The patient?s identity and physical location were verified at the time of this visit. Either the patient or their legal mill representative has been informed of the risks and benefits of -- and alternatives to -- treatment through a remote group therapy and consents to proceed with the group therapy remotely. Telecounseling risk/benefit: The concerns and conditions of this patient are judged to be in a range that can be adequately addressed by the use of telecounseling. Additional, the patient has sufficient technological and intellectual resources to utilize the technology associated with this treatment approach. PROVIDER: Chloé DIAGNOSIS: Alcoholism in recovery Adjustment disorder with mixed anxiety and depressed mood TREATMENT MODALITIES: Strength and solution based interventions. Mindfulness and Cognitive Behavioral Therapy,. Attachment theory and positive psychology, Motivational interviewing and relapse management and prevention employed. TREATMENT GOAL: Improve and further develop emotional intelligence for mood regulation, personal awareness and development and improved interpersonal satisfaction. Increase treatment compliance, active involvement with self help, and relapse management and prevention within the group process. Deconstruct anxiety and fear. Identify dysfunctional behaviors inherited from family of origin. Cultivate rituals/habits that foster new perspectives and further enhance Psychospiritual development. Punctual: Yes AA/NA/OA attendance: Yes - virtual Sponsor contact: Yes - weekly Compliant with medications: Yes Compliant with plan: Yes Toxicology screen today: No Worked on identified problems:judging and evaluating Benefit from group: Applying mindfulness based cognitive behavioral interventions for decentering and non-judging. Focusing defining attitude the promoting attitudes in one's recovery for improved emotional and spiritual intelligence. Next Group 1 week CLINICAL NOTES: 3 patient's attended continuing care group from 2:45 pm to 4:45 pm. Patient presented with no signs or symptoms of relapse. Explored ways to improve psychosocial, cognitive, and emotional development in recovery. Addressed and discussed mindfulness based cognitive therapy to improve the application of the four sublime attitudes. Further explored the meaning and benefits of cultivating healthy attitudes via mindfulness training. Defined equanimity and the importance of self-regulation and remaining at ease and mitigating unnecessary agitation and suffering - relapse prevention. Completed a review of what's working and what's not working.Continues to work on deep and active listening. Continues to use the rain intervention and has enjoyed the use of reframing. Shared an example how he begins his day with reframing and the application of feeling tones. Making progress with exercise and traveled with spouse to [place]. Being patient and tolerant with grandparent visitation. Building emotional resilience - digest feelings daily - through prayer, meditation, reflection, and journaling. Summary: Saad's 7 stages of development - how to enhance and develop Mindfulness interventions Decentering, Reframing, Non-judging, detachment Power of presence The five attitudes of excellence: equanimity, loving-kindness, sympathetic jose raul and gratitude Top/down approach Awakening, promoting clarity, and wisdom The foundation of growth and development is equanimity. We have discussed many interventions in the past few months to encourage growth and development (Nash's seven stages of development, decentering, mindfulness, reframing, letting go, detachment, five attitudes of equanimity and so on). What interventions did you find beneficial and useful? Which interventions do you tend to resist? What changes have you noticed in your recovery and development in the past few months? Exploring Equanimity: [email or web address]://[email or web address]/i_[email or web address] Physical muscle test: https://[email or web address]/healthy-lifes tyle/fitness/in-depth/fitness/art-048589 33 GOALS/PLAN/INTERVENTIONS: Goals: Ongoing sustained sobriety and emotional, spiritual and physical recovery. Improve daily functioning. Interpersonal satisfaction and well regulated mood. Objectives: Apply principles of Alcoholics Anonymous and cognitive behavioral therapy to prevent relapse. Applying mindfulness interventions to promote emotional and cognitive intelligence and improved temperament. Interventions: Action: Continue to build a mindfulness practice and awaken the four attitudes in all your affairs. Practice mindfulness intervention targeting l (more content not included)... [facility] 06-13-2023 Note O ID: [id number] Author: SOUTH GU, PhD Service: ? Author Type: Psychologist Type: Progress Notes Filed: 06/13/2023 16:18 Note Text: VIRTUAL (audio/visual) GROUP PSYCHOTHERAPY NOTE: I have communicated my name and active licensure. The patient?s identity and physical location were verified at the time of this visit. Either the patient or their legal mill representative has been informed of the risks and benefits of -- and alternatives to -- treatment through a remote group therapy and consents to proceed with the group therapy remotely. Telecounseling risk/benefit: The concerns and conditions of this patient are judged to be in a range that can be adequately addressed by the use of telecounseling. Additional, the patient has sufficient technological and intellectual resources to utilize the technology associated with this treatment approach. PROVIDER: Chloé DIAGNOSIS: Alcoholism in recovery Adjustment disorder with mixed anxiety and depressed mood TREATMENT MODALITIES: Strength and solution based interventions. Mindfulness and Cognitive Behavioral Therapy,. Attachment theory and positive psychology, Motivational interviewing and relapse management and prevention employed. TREATMENT GOAL: Improve and further develop emotional intelligence for mood regulation, personal awareness and development and improved interpersonal satisfaction. Increase treatment compliance, active involvement with self help, and relapse management and prevention within the group process. Deconstruct anxiety and fear. Identify dysfunctional behaviors inherited from family of origin. Cultivate rituals/habits that foster new perspectives and further enhance Psychospiritual development. Punctual: Yes AA/NA/OA attendance: Yes - virtual Sponsor contact: Yes - weekly Compliant with medications: Yes Compliant with plan: Yes Toxicology screen today: No Worked on identified problems:judging and evaluating Benefit from group: Applying mindfulness based cognitive behavioral interventions for decentering and non-judging. Focusing defining attitude the promoting attitudes in one's recovery for improved emotional and spiritual intelligence. Next Group 1 week CLINICAL NOTES: 7 patient's attended continuing care group from 2:45 pm to 4:45 pm. Patient presented with no signs or symptoms of relapse. Explored ways to improve psychosocial, cognitive, and emotional development in recovery. Addressed and discussed mindfulness based cognitive therapy to improve the application of the four sublime attitudes. Further explored the meaning and benefits of cultivating healthy attitudes via mindfulness training. Summarized the many interventions introduced and reviewed how useful and beneficial they are in recovery and development. Improved self-control and avoiding telling stories about things and events that are not real. Shared a story about his spouse and son and felt frustrated. Promoting poise, detachment, and equanimity. Debriefing with spouse over his stories Summary: Saad's 7 stages of development - how to enhance and develop Mindfulness interventions Decentering, Reframing, Non-judging, detachment Power of presence The five attitudes of excellence: equanimity, loving-kindness, sympathetic jose raul and gratitude Top/down approach Awakening, promoting clarity, and wisdom The foundation of growth and development is equanimity. Building emotional resilience - digest feelings daily - through prayer, meditation, reflection, and journaling. Which interventions seem to be most helpful or useful? What challenges are you having in taking action and applying these interventions? Where is your resistance the greatest? Exploring Equanimity: [email or web address] Physical muscle test: https://www.[email or web address]/healthy-lifes tyle/fitness/in-depth/fitness/art-187334 33 The C-reactive protein (CRP) test is a blood test that checks for inflammation in your body. CRP is a protein that is made in your liver and released into your bloodstream. Levels of CRP start to increase very soon after any inflammation or infection affects your body. GOALS/PLAN/INTERVENTIONS: Goals: Ongoing sustained sobriety and emotional, spiritual and physical recovery. Improve daily functioning. Interpersonal satisfaction and well regulated mood. Objectives: Apply principles of Alcoholics Anonymous and cognitive behavioral therapy to prevent relapse. Applying mindfulness interventions to promote emotional and cognitive intelligence and improved temperament. Interventions: Action: Continue to build a mindfulness practice and awaken the four attitudes in all your affairs. Practice mindfulness intervention targeting love and compassion. Where are you challenged in your recovery when attempting to apply loving kindness? Where am I experiencing growth and development? Complete a daily rev (more content not included)... [facility] 06-04-2023 Note HNO ID: [id number] Author: SOUTH GU, PhD Service: ? Author Type: Psychologist Type: Progress Notes Filed: 06/06/2023 16:26 Note Text: VIRTUAL (audio/visual) GROUP PSYCHOTHERAPY NOTE: I have communicated my name and active licensure. The patient?s identity and physical location were verified at the time of this visit. Either the patient or their legal mill representative has been informed of the risks and benefits of -- and alternatives to -- treatment through a remote group therapy and consents to proceed with the group therapy remotely. Telecounseling risk/benefit: The concerns and conditions of this patient are judged to be in a range that can be adequately addressed by the use of telecounseling. Additional, the patient has sufficient technological and intellectual resources to utilize the technology associated with this treatment approach. PROVIDER: Chloé DIAGNOSIS: Alcoholism in recovery Adjustment disorder with mixed anxiety and depressed mood Morbid obesity TREATMENT MODALITIES: Strength and solution based interventions. Mindfulness and Cognitive Behavioral Therapy,. Attachment theory and positive psychology, Motivational interviewing and relapse management and prevention employed. TREATMENT GOAL: Improve and further develop emotional intelligence for mood regulation, personal awareness and development and improved interpersonal satisfaction. Increase treatment compliance, active involvement with self help, and relapse management and prevention within the group process. Deconstruct anxiety and fear. Identify dysfunctional behaviors inherited from family of origin. Cultivate rituals/habits that foster new perspectives and further enhance Psychospiritual development. Punctual: Yes AA/NA/OA attendance: Yes - virtual Sponsor contact: Yes - weekly Compliant with medications: Yes Compliant with plan: Yes Toxicology screen today: No Worked on identified problems:judging and evaluating Benefit from group: Applying mindfulness based cognitive behavioral interventions for decentering and non-judging. Focusing defining attitude the promoting attitudes in one's recovery for improved emotional and spiritual intelligence. Next Group 1 week CLINICAL NOTES: 5 patient's attended continuing care group from 2:45 pm to 4:45 pm. Patient presented with no signs or symptoms of relapse. Explored ways to improve psychosocial, cognitive, and emotional development in recovery. Addressed and discussed mindfulness based cognitive therapy to improve the application of the four sublime attitudes. Further explored the meaning and benefits of cultivating healthy attitudes via mindfulness training. Defined equanimity and the importance of self-regulation and remaining at ease and mitigating unnecessary agitation and suffering - relapse prevention. Reports that equanimity occurs more automatically than in the past. With practice comes mastery. Shared how he struggles with financial fears and high levels of dissatisfaction with his health and wellness. Asking for help and attempting to be patient with the process. Asking for help and support. Avoiding pathological self reliance. How do you apply a top-down approach in your recovery? Defined mindfulness as ?paying attention in a particular way: on purpose, in the present moment, and non-judgmentally? (Jazmin, 1990). In other words, mindfulness corresponds to the higher-level awareness of present-moment sensory, affective, and cognitive experiences. Equanimity is ?a state of mind that cannot be swayed by biases and preferences? (Anirudh, 2000, page 34), an ?even-mindedness in the face of every sort of experience, regardless of whether pleasure [or] pain are present or not? (Dheeraj Isaac, 1996, page 262). This state of equanimity manifests as ?a balanced reaction to jose raul and misery, which protects one from emotional agitation? (Anirudh, 2005, page 154). First, equanimity can refer to ?neutral feeling,? a mental experience that is neither pleasant nor unpleasant, and that involves neither intensifying nor dampening current mental states (Anirudh, 2000, pages 34, 116). Secondly, It is ?a state of mind that cannot be swayed by biases and preferences? (Anirudh, 2000, page 34), an ?even-mindedness in the face of every sort of experience, regardless of whether pleasure [or] pain are present or not? (Dheeraj Isaac, 1996, page 262). This state of equanimity manifests as ?a balanced reaction to jose raul and misery, which protects one from emotional agitation? (Anirudh, 2005, page 154). Attitude of equanimity: balancing thoughts, feelings and sensory experiences. Mindfulness training for promoting equanimity: https://www.youtube.com/watch?v=jSG_sThT adc Building emotional resilience - digest feelings daily - through prayer, meditation, reflection, and journaling. GOALS/PLAN/INTERVENTIONS: Goals: Ongoing sustained sobriety and (more content not included)... [facility] 05-30-2023 Note [facility] ID: [id number] Author: SOUTH GU, PhD Service: ? Author Type: Psychologist Type: Progress Notes Filed: 05/30/2023 16:00 Note Text: Patient canceled. [facility] 05-23-2023 Note HNO ID: [id number] Author: SOUTH GU, PhD Service: ? Author Type: Psychologist Type: Progress Notes Filed: 05/23/2023 16:24 Note Text: VIRTUAL (audio/visual) GROUP PSYCHOTHERAPY NOTE: I have communicated my name and active licensure. The patient?s identity and physical location were verified at the time of this visit. Either the patient or their legal mill representative has been informed of the risks and benefits of -- and alternatives to -- treatment through a remote group therapy and consents to proceed with the group therapy remotely. Telecounseling risk/benefit: The concerns and conditions of this patient are judged to be in a range that can be adequately addressed by the use of telecounseling. Additional, the patient has sufficient technological and intellectual resources to utilize the technology associated with this treatment approach. PROVIDER: Chloé DIAGNOSIS: Alcoholism in recovery Adjustment disorder with mixed anxiety and depressed mood TREATMENT MODALITIES: Strength and solution based interventions. Mindfulness and Cognitive Behavioral Therapy,. Attachment theory and positive psychology, Motivational interviewing and relapse management and prevention employed. TREATMENT GOAL: Improve and further develop emotional intelligence for mood regulation, personal awareness and development and improved interpersonal satisfaction. Increase treatment compliance, active involvement with self help, and relapse management and prevention within the group process. Deconstruct anxiety and fear. Identify dysfunctional behaviors inherited from family of origin. Cultivate rituals/habits that foster new perspectives and further enhance Psychospiritual development. Punctual: Yes AA/NA/OA attendance: Yes - virtual Sponsor contact: Yes - weekly Compliant with medications: Yes Compliant with plan: Yes Toxicology screen today: No Worked on identified problems:judging and evaluating Benefit from group: Applying mindfulness based cognitive behavioral interventions for decentering and non-judging. Focusing defining attitude the promoting attitudes in one's recovery for improved emotional and spiritual intelligence. Next Group 1 week CLINICAL NOTES: 5 patient's attended continuing care group from 2:45 pm to 4:45 pm. Patient presented with no signs or symptoms of relapse. Explored ways to improve psychosocial, cognitive, and emotional development in recovery. Addressed and discussed mindfulness based cognitive therapy to improve the application of the four sublime attitudes. Further explored the meaning and benefits of cultivating healthy attitudes via mindfulness training. Identify top five attitudes and ways of promoting attitudes in all ?your affairs?. Addressed the importance of ?presence? in fostering and nurturing relationships. Explored ways of addressing conflict and avoid pushing love away. Had a fall yesterday on the ice on [place] drive. Extremely busy.and focusing on gratitude. Working closely with his physician and taking care of his health. Our interactions with one another need to become more reflective than reflexive. Two most important ways of nurturing relationships is through empathy and affection. Relationships are about love, kindness, and tolerance. When conflicted we do not push love away. How might I become a better partner or parent? Metta - Dragoon kindness meditation: https://www.Alere.com/watch?v=nVr0ZUL6 kHU GOALS/PLAN/INTERVENTIONS: Goals: Ongoing sustained sobriety and emotional, spiritual and physical recovery. Improve daily functioning. Interpersonal satisfaction and well regulated mood. Objectives: Apply principles of Alcoholics Anonymous and cognitive behavioral therapy to prevent relapse. Applying mindfulness interventions to promote emotional and cognitive intelligence and improved temperament. Interventions: Action: Continue to build a mindfulness practice and awaken the four attitudes in all your affairs. Practice mindfulness intervention targeting love and compassion. Where are you challenged in your recovery when attempting to apply loving kindness? Where am I experiencing growth and development? Complete a daily review and write down attitudes you desire to change or develop and how you are going to improve your presence in your relationships. How will you deepen your relationships and encourage your ability to be affirming, be curious, affection and empathic. I will you address conflict without pushing away love? Approximately 100 minutes were spent with the patient doing therapy. South Gu, Ph.D., P.C.C.S., L.I.C.D.C.S., C.R.C. Office phone: [phone] Email: [email or web address] This note was partially generated using Swoodoo recognition system, and there may be some incorrect words, spellings, and punctuation that were not noted in checking the note before signing. [facility] 05-09-2023 Note HNO ID: [id number] Author: SOUTH GU, PhD Service: ? Author Type: Psychologist Type: Progress Notes Filed: 05/09/2023 16:31 Note Text: VIRTUAL (audio/visual) GROUP PSYCHOTHERAPY NOTE: I have communicated my name and active licensure. The patient?s identity and physical location were verified at the time of this visit. Either the patient or their legal mill representative has been informed of the risks and benefits of -- and alternatives to -- treatment through a remote group therapy and consents to proceed with the group therapy remotely. Telecounseling risk/benefit: The concerns and conditions of this patient are judged to be in a range that can be adequately addressed by the use of telecounseling. Additional, the patient has sufficient technological and intellectual resources to utilize the technology associated with this treatment approach. PROVIDER: Neha/Ravindra DIAGNOSIS: Alcoholism in recovery Adjustment disorder with mixed anxiety and depressed mood TREATMENT MODALITIES: Strength and solution based interventions. Mindfulness and Cognitive Behavioral Therapy,. Attachment theory and positive psychology, Motivational interviewing and relapse management and prevention employed. TREATMENT GOAL: Improve and further develop emotional intelligence for mood regulation, personal awareness and development and improved interpersonal satisfaction. Increase treatment compliance, active involvement with self help, and relapse management and prevention within the group process. Deconstruct anxiety and fear. Identify dysfunctional behaviors inherited from family of origin. Cultivate rituals/habits that foster new perspectives and further enhance Psychospiritual development. Punctual: Yes AA/NA/OA attendance: Yes - virtual Sponsor contact: Yes - weekly Compliant with medications: Yes Compliant with plan: Yes Toxicology screen today: No Worked on identified problems:judging and evaluating Benefit from group: Applying mindfulness based cognitive behavioral interventions for decentering and non-judging. Focusing defining attitude the promoting attitudes in one's recovery for improved emotional and spiritual intelligence. Next Group 1 week CLINICAL NOTES: 5 patient's attended continuing care group from 2:45 pm to 4:45 pmPatient presented with no signs or symptoms of relapse. Explored ways to improve psychosocial, cognitive, and emotional development in recovery. Addressed and discussed mindfulness based cognitive therapy to improve the application of the four sublime attitudes. Further explored the meaning and benefits of cultivating healthy attitudes via mindfulness training. Identify top five attitudes and ways of promoting attitudes in all ?your affairs?. Resonates with the attitude of humility. Gave examples and encourages willingness to learning and invite others to influence him. Exercising and continues to lose weight. Still struggling with his breathing. What are the most important attitudes you have identified for yourself? Spire metaphor - What words of wisdom do you have to share with group members (loving kindness intervention)? Mindfulness intervention: https://youtu.be/q3lFxhr5IZF?si=hZ_YELCF 4AwBFXUS Metta Prayers: https://insightla.org/metta-prayers/ GOALS/PLAN/INTERVENTIONS: Goals: Ongoing sustained sobriety and emotional, spiritual and physical recovery. Improve daily functioning. Interpersonal satisfaction and well regulated mood. Objectives: Apply principles of Alcoholics Anonymous and cognitive behavioral therapy to prevent relapse. Applying mindfulness interventions to promote emotional and cognitive intelligence and improved temperament. Interventions: Action: Continue to build a mindfulness practice and awaken the four attitudes in all your affairs. Practice mindfulness intervention targeting love and compassion. Where are you challenged in your recovery when attempting to apply loving kindness? Where am I experiencing growth and development? Complete a daily review and write down attitudes you desire to change or develop. your Apply mindfulness to thoughts, feelings, and behaviors with loving kindness. What are your top five attitudes and review the wisdom feedback you received from group today. Approximately 100 minutes were spent with the patient doing therapy. South Gu, Ph.D., P.C.C.S., L.I.C.D.C.S., C.R.C. Office phone: [phone] Email: [email or web address] This note was partially generated using Dogeo voice recognition system, and there may be some incorrect words, spellings, and punctuation that were not noted in checking the note before signing. [facility] 05-01-2023 Note HNO ID: [id number] Author: South Gu, PhD Service: ? Author Type: Psychologist Type: Progress Notes Filed: 05/02/2023 4:41 PM Note Text: VIRTUAL (audio/visual) GROUP PSYCHOTHERAPY NOTE: I have communicated my name and active licensure. The patient?s identity and physical location were verified at the time of this visit. Either the patient or their legal mill representative has been informed of the risks and benefits of -- and alternatives to -- treatment through a remote group therapy and consents to proceed with the group therapy remotely. Telecounseling risk/benefit: The concerns and conditions of this patient are judged to be in a range that can be adequately addressed by the use of telecounseling. Additional, the patient has sufficient technological and intellectual resources to utilize the technology associated with this treatment approach. PROVIDER: Chloé DIAGNOSIS: Alcoholism in recovery Adjustment disorder with mixed anxiety and depressed mood TREATMENT MODALITIES: Strength and solution based interventions. Mindfulness and Cognitive Behavioral Therapy,. Attachment theory and positive psychology, Motivational interviewing and relapse management and prevention employed. TREATMENT GOAL: Improve and further develop emotional intelligence for mood regulation, personal awareness and development and improved interpersonal satisfaction. Increase treatment compliance, active involvement with self help, and relapse management and prevention within the group process. Deconstruct anxiety and fear. Identify dysfunctional behaviors inherited from family of origin. Cultivate rituals/habits that foster new perspectives and further enhance Psychospiritual development. Punctual: Yes AA/NA/OA attendance: Yes - virtual Sponsor contact: Yes - weekly Compliant with medications: Yes Compliant with plan: Yes Toxicology screen today: No Worked on identified problems:judging and evaluating Benefit from group: Applying mindfulness based cognitive behavioral interventions for decentering and non-judging. Next Group 1 week CLINICAL NOTES: 6 patient's attended continuing care group from 2:45 pm to 4:45 pm. Patient presented with no signs or symptoms of relapse. Explored ways to improve psychosocial, cognitive, and emotional development in recovery. Addressed and discussed mindfulness based cognitive therapy to improve the application of the four sublime attitudes. Further explored the meaning and benefits of cultivating healthy attitudes via mindfulness training. Defining what an attitude is and explored positive and negative attitudes. Making progress with health and wellness. Adjusting to breathing limitations and my new normal . Moving towards acceptance. Improved listening and validation of spouse and others. Focused on resilience. Applying attitudes of excellence is the ideal way of conducting oneself towards others as well as oneself. Define attitude: a person's overall outlook or disposition toward something or someone, reflecting their feelings, opinions, and behavior. Positive: optimism, constructive, self-assured, and confident, open-mindedness, willingness, resilient, adventurous, grateful, considerate, compassionate, steadfast, balanced, and loving. Negative: Pessimistic, critical, and judgmental, unwilling and closed minded, entitled, self-seeking and self-centered. Developing attitudes involves self-awareness and intentional effort. Self-reflection - thoughts, feelings, and behaviors Identify specific attitudes you want to develop or change. Set goals via step 11. Lissette Dykes - loving kindness - https://TourRadartu.be/e-[email or web address]?si=nKhBRewk oos7J-mg GOALS/PLAN/INTERVENTIONS: Goals: Ongoing sustained sobriety and emotional, spiritual and physical recovery. Improve daily functioning. Interpersonal satisfaction and well regulated mood. Objectives: Apply principles of Alcoholics Anonymous and cognitive behavioral therapy to prevent relapse. Applying mindfulness interventions to promote emotional and cognitive intelligence and improved temperament. Interventions: Action: Continue to build a mindfulness practice and awaken the four attitudes in all your affairs. Practice mindfulness intervention targeting love and compassion. Where are you challenged in your recovery when attempting to apply loving kindness? Where am I experiencing growth and development? Complete a daily review and write down attitudes you desire to change or develop. your Apply mindfulness to thoughts, feelings, and behaviors with loving kindness. What are your top five attitudes. Approximately 100 minutes were spent with the patient doing therapy. South Gu, Ph.D., P.C.C.S., L.I.C.D.C.S., C.R.C. Office phone: [phone] Email: [email or web address] This note was partially generated using Dogeo voice recognition system, and there may be some incorrect words, spellings, a (more content not included)..[facility] 04-24-2023 Note O ID: [id number] Author: South Gu, PhD Service: ? Author Type: Psychologist Type: Progress Notes Filed: 04/25/2023 4:27 PM Note Text: VIRTUAL (audio/visual) GROUP PSYCHOTHERAPY NOTE: I have communicated my name and active licensure. The patient?s identity and physical location were verified at the time of this visit. Either the patient or their legal mill representative has been informed of the risks and benefits of -- and alternatives to -- treatment through a remote group therapy and consents to proceed with the group therapy remotely. Telecounseling risk/benefit: The concerns and conditions of this patient are judged to be in a range that can be adequately addressed by the use of telecounseling. Additional, the patient has sufficient technological and intellectual resources to utilize the technology associated with this treatment approach. PROVIDER: Chloé DIAGNOSIS: Alcoholism in recovery Adjustment disorder with mixed anxiety and depressed mood TREATMENT MODALITIES: Strength and solution based interventions. Mindfulness and Cognitive Behavioral Therapy,. Attachment theory and positive psychology, Motivational interviewing and relapse management and prevention employed. TREATMENT GOAL: Improve and further develop emotional intelligence for mood regulation, personal awareness and development and improved interpersonal satisfaction. Increase treatment compliance, active involvement with self help, and relapse management and prevention within the group process. Deconstruct anxiety and fear. Identify dysfunctional behaviors inherited from family of origin. Cultivate rituals/habits that foster new perspectives and further enhance Psychospiritual development. Punctual: Yes AA/NA/OA attendance: Yes - virtual Sponsor contact: Yes - weekly Compliant with medications: Yes Compliant with plan: Yes Toxicology screen today: No Worked on identified problems:judging and evaluating Benefit from group: Applying mindfulness based cognitive behavioral interventions for decentering and non-judging. Next Group 1 week CLINICAL NOTES: 2 patient's attended continuing care group from 2:45 pm to 4:45 pm. Patient presented with no signs or symptoms of relapse. Explored ways to improve psychosocial, cognitive, and emotional development in recovery. Addressed and discussed mindfulness based cognitive therapy to improve the application of the four sublime attitude. Further explored the meaning and benefits of cultivating loving kindness via mindfulness training and the impact on emotional, social, and spiritual development and service to others. Feels that gratitude is the arthur attitude to possess and nurture. Took a brief trip to the [place] and drove home on [address]. Some self care - reading, healthy meals. Focused on improved communication with spouse. Encouraging health and wellness. Feeling supported by his spouse for health and medical concerns. Applying attitudes of excellence is the ideal way of conducting oneself towards others as well as oneself. The Five Attitudes of Excellence provide the answer to all situations arising from social contact. Remove tension, are great peace-makers in social conflict, and the great healers of wounds suffered in the struggle of existence. They level social barriers, build harmonious communities, and promotes human brotherhood against the forces of narcissism. Instills hope and elevates jose raul in one another. Equanimity, Jose Raul, Compassion, Love and Gratitude are the Greatest forces at work to encourage change. Dragoon Kindness meditation: https://Easycauseu.be/z3UGRcYUtDi?si=[email or web address] VvyUDhQb GOALS/PLAN/INTERVENTIONS: Goals: Ongoing sustained sobriety and emotional, spiritual and physical recovery. Improve daily functioning. Interpersonal satisfaction and well regulated mood. Objectives: Apply principles of Alcoholics Anonymous and cognitive behavioral therapy to prevent relapse. Applying mindfulness interventions to promote emotional and cognitive intelligence and improved temperament. Interventions: Action: Continue to build a mindfulness practice and awaken the four attitudes in all your affairs. Practice mindfulness intervention targeting love and compassion. Where are you challenged in your recovery when attempting to apply loving kindness? Where am I experiencing growth and development? Complete a daily review and write down your observations. Apply mindfulness to thoughts, feelings, and behaviors as transient and impermanent events/realities. Especially focus your attention on loving-kindness towards self and others. Approximately 90 minutes were spent with the patient doing therapy. South Gu, Ph.D., P.C.C.S., L.I.C.D.C.S., C.R.C. Office phone: [phone] Email: [email or web address] This note was partially generated using Dogeo voice recognition system, and there may be some incorrect words, spelling (more content not included)... [facility] 04-18-2023 Note HNO ID: [id number] Author: South Gu, PhD Service: ? Author Type: Psychologist Type: Progress Notes Filed: 04/18/2023 4:48 PM Note Text: VIRTUAL (audio/visual) GROUP PSYCHOTHERAPY NOTE: I have communicated my name and active licensure. The patient?s identity and physical location were verified at the time of this visit. Either the patient or their legal mill representative has been informed of the risks and benefits of -- and alternatives to -- treatment through a remote group therapy and consents to proceed with the group therapy remotely. Telecounseling risk/benefit: The concerns and conditions of this patient are judged to be in a range that can be adequately addressed by the use of telecounseling. Additional, the patient has sufficient technological and intellectual resources to utilize the technology associated with this treatment approach. PROVIDER: Chloé DIAGNOSIS: Alcoholism in recovery Adjustment disorder with mixed emotional features TREATMENT MODALITIES: Strength and solution based interventions. Mindfulness and Cognitive Behavioral Therapy,. Attachment theory and positive psychology, Motivational interviewing and relapse management and prevention employed. TREATMENT GOAL: Improve and further develop emotional intelligence for mood regulation, personal awareness and development and improved interpersonal satisfaction. Increase treatment compliance, active involvement with self help, and relapse management and prevention within the group process. Deconstruct anxiety and fear. Identify dysfunctional behaviors inherited from family of origin. Cultivate rituals/habits that foster new perspectives and further enhance Psychospiritual development. Punctual: Yes AA/NA/OA attendance: Yes - virtual Sponsor contact: Yes - weekly Compliant with medications: Yes Compliant with plan: Yes Toxicology screen today: No Worked on identified problems:judging and evaluating Benefit from group: Applying mindfulness based cognitive behavioral interventions for decentering and non-judging. Next Group 1 week CLINICAL NOTES: 3 patient's attended continuing care group from 2:45 pm to 4:45 pm. Patient presented with no signs or symptoms of relapse. Explored ways to improve psychosocial, cognitive, and emotional development in recovery. Addressed and discussed mindfulness based cognitive therapy to improve the application of the four sublime attitude. Further explored the meaning and benefits of cultivating loving kindness via mindfulness training and the impact on emotional, social, and spiritual development and service to others. Recovering from Covid. Completed tough trial. Successful outcome. Continues to lose weight and working on his exercise. Developing the four sublime attitudes will enable us to awaken and promoting emotional and cognitive recovery through this ?inside job?. The outcome of our daily prayer and meditation, and focused attention leads to true refuge within (happy, joyous, and free). Creating moments of clarity in our minds and hearts allows us to access our potential and enhance our performance. The purpose of our life is to commit to awakening and living by the four sublime attitudes in all our affairs for the benefit of others and to encourage them to awaken. Devoting our life and resources to grow up, wake up, and to help others do the same. Mindfulness meditation on self-compassion: https://www.KlickEx.com/search?q=10+minut e+mindfulness+meditation+on+compass ionANDie=UTF-8ANDoe=UTF-8ANDhl=en-usANDc lizbeth=margaret#kpvalbx=_iAeCZeOcJ6KmptQP6o Kk6 [id number] GOALS/PLAN/INTERVENTIONS: Goals: Ongoing sustained sobriety and emotional, spiritual and physical recovery. Improve daily functioning. Interpersonal satisfaction and well regulated mood. Objectives: Apply principles of Alcoholics Anonymous and cognitive behavioral therapy to prevent relapse. Applying mindfulness interventions to promote emotional and cognitive intelligence and improved temperament. Interventions: Action: Continue to build a mindfulness practice and awaken the four sublime attitudes in all your affairs. Practice mindfulness intervention targeting love and compassion. Where are you challenged in your recovery when attempting to apply loving kindness? Where am I experiencing growth and development? Complete a daily review and write down your observations. Apply mindfulness to thoughts, feelings, and behaviors as transient and impermanent events/realities. Approximately 100 minutes were spent with the patient doing therapy. South Gu, Ph.D., P.C.C.S., L.I.C.D.C.S., C.R.C. Office phone: [phone] Email: [email or web address] This note was partially generated using Dogeo voice recognition system, and there may be some incorrect words, spellings, and punctuation that were not noted in checking the note before signing. [facility] 04-04-2023 Note HNO ID: [id number] Author: South Gu, PhD Service: ? Author Type: Psychologist Type: Progress Notes Filed: 04/04/2023 4:37 PM Note Text: VIRTUAL (audio/visual) GROUP PSYCHOTHERAPY NOTE: I have communicated my name and active licensure. The patient?s identity and physical location were verified at the time of this visit. Either the patient or their legal mill representative has been informed of the risks and benefits of -- and alternatives to -- treatment through a remote group therapy and consents to proceed with the group therapy remotely. Telecounseling risk/benefit: The concerns and conditions of this patient are judged to be in a range that can be adequately addressed by the use of telecounseling. Additional, the patient has sufficient technological and intellectual resources to utilize the technology associated with this treatment approach. PROVIDER: Chloé DIAGNOSIS: Alcoholism in recovery Adjustment disorder with mixed emotional features TREATMENT MODALITIES: Strength and solution based interventions. Mindfulness and Cognitive Behavioral Therapy,. Attachment theory and positive psychology, Motivational interviewing and relapse management and prevention employed. TREATMENT GOAL: Improve and further develop emotional intelligence for mood regulation, personal awareness and development and improved interpersonal satisfaction. Increase treatment compliance, active involvement with self help, and relapse management and prevention within the group process. Deconstruct anxiety and fear. Identify dysfunctional behaviors inherited from family of origin. Cultivate rituals/habits that foster new perspectives and further enhance Psychospiritual development. Punctual: Yes AA/NA/OA attendance: Yes - virtual Sponsor contact: Yes - weekly Compliant with medications: Yes Compliant with plan: Yes Toxicology screen today: No Worked on identified problems:judging and evaluating Benefit from group: Applying mindfulness based cognitive behavioral interventions for decentering and non-judging. Next Group 1 week CLINICAL NOTES: 3 patient's attended continuing care group from 2:45 pm to 4:45 pm. Patient presented with no signs or symptoms of relapse. Explored ways to improve psychosocial and emotional development in recovery. Addressed and discussed mindfulness based cognitive therapy to improve equanimity and decentering. Provided group with an equanimity meditation to practice in promoting khalil attention. Shared his physical concerns. Following with his medical team. Has lost 15 pounds. Conflicted with spouse because of a lack of empathy and recent court appearance with spouse's daughter and son-in-law to gain some privileges as a grand parent. Self aware and encouraged that patient follow up with a number of principles to create future change and marital satisfaction. Equanimity: developing a balance and an evenness of mind, while remaining fully engaged. https://youtu.be/ItZUzrKRs9R Underlying principle - nothing is permanent or certain. The state of mentally and emotionally calm and composed, especially in times of conflict. Khalil attention: to be continually mindful from moment to moment, without a break, based on the intention to develop equanimity. GOALS/PLAN/INTERVENTIONS: Goals: Ongoing sustained sobriety and emotional, spiritual and physical recovery. Improve daily functioning. Interpersonal satisfaction and well regulated mood. Objectives: Apply principles of Alcoholics Anonymous and cognitive behavioral therapy to prevent relapse. Mindfulness and secure attachment strategies to enhance self-awareness and improved secure attachment. Interventions: Action: Continue to build a mindfulness practice and focus on applying equanimity, especially khalil attention to all your affairs. Practice mindfulness intervention targeting conflicts. Apply mindfulness to thoughts, feelings, and behaviors as transient and impermanent events. Approximately 100 minutes were spent with the patient doing therapy. South Gu, Ph.D., P.C.C.S., L.I.C.D.C.S., C.R.C. Office phone: [phone] Email: [email or web address] This note was partially generated using Dogeo voice recognition system, and there may be some incorrect words, spellings, and punctuation that were not noted in checking the note before signing [facility] 03-14-2023 Note O ID: [id number] Author: South Gu, PhD Service: ? Author Type: Psychologist Type: Progress Notes Filed: 03/14/2023 4:54 PM Note Text: VIRTUAL (audio/visual) GROUP PSYCHOTHERAPY NOTE: I have communicated my name and active licensure. The patient?s identity and physical location were verified at the time of this visit. Either the patient or their legal mill representative has been informed of the risks and benefits of -- and alternatives to -- treatment through a remote group therapy and consents to proceed with the group therapy remotely. Telecounseling risk/benefit: The concerns and conditions of this patient are judged to be in a range that can be adequately addressed by the use of telecounseling. Additional, the patient has sufficient technological and intellectual resources to utilize the technology associated with this treatment approach. PROVIDER: Chloé DIAGNOSIS: Alcoholism in recovery Adjustment disorder with mixed emotional features TREATMENT MODALITIES: Strength and solution based interventions. Mindfulness and Cognitive Behavioral Therapy,. Attachment theory and positive psychology, Motivational interviewing and relapse management and prevention employed. TREATMENT GOAL: Improve and further develop emotional intelligence for mood regulation, personal awareness and development and improved interpersonal satisfaction. Increase treatment compliance, active involvement with self help, and relapse management and prevention within the group process. Deconstruct anxiety and fear. Identify dysfunctional behaviors inherited from family of origin. Cultivate rituals/habits that foster new perspectives and further enhance Psychospiritual development. Punctual: Yes AA/NA/OA attendance: Yes - virtual Sponsor contact: Yes - weekly Compliant with medications: Yes Compliant with plan: Yes Toxicology screen today: No Worked on identified problems:judging and evaluating Benefit from group: Applying mindfulness based cognitive behavioral interventions for decentering and non-judging. Next Group 1 week CLINICAL NOTES: 4 patient's attended continuing care group from 2:45 pm to 4:45 pm. Patient presented with no signs or symptoms of relapse. Explored ways to improve psychosocial and emotional development in recovery. Specifically, we discussed mindfulness based cognitive therapy and the importance of decentering as a skill to prevent mental illness and alleviate anxiety and depression. Provided group with a stress reframing meditation to practice pausing, stepping aside and reframing one's thoughts and feelings in a non-judging way. Shifting perspective. Met with his international trade specialist and determined he has 55% of his lung function. Referred to a vehicle trimmer to work on exercise rehab. Feeling depressed at times. Relieved to know what is going on physically. Spouse going to court in two weeks to address grandparent privileges. Reframing Stress: ? https://Easycauseu.be/gG5HFT-nrVG Decentering is the ability to notice day-to-day psychological stressors (negative thoughts, feelings, and memories). Decentering dampens the impact of distress associated with psychological stressors. Prevents anxiety, depression, and other mental illness. Flagged as a core component of psychological interventions. Changing the relationship towards the self and inner experiences. We reflect on feelings, memories, and thoughts - especially emotional ones - to abstract meaning about ourselves. 6. This practice of mentalizing emerges early in life and can promote psychological well-being or mental ill-health. GOALS/PLAN/INTERVENTIONS: Goals: Ongoing sustained sobriety and emotional, spiritual and physical recovery. Improve daily functioning. Interpersonal satisfaction and well regulated mood. Objectives: Apply principles of Alcoholics Anonymous and cognitive behavioral therapy to prevent relapse. Mindfulness and secure attachment strategies to enhance self-awareness and improved secure attachment. Interventions: Action: Continue to build a mindfulness practice and focus on applying decentering, especially when reflecting upon thoughts, feelings, and memories (11th step). Practice mindfulness intervention targeting non-judging. Apply non-judging to thoughts, feelings and behaviors and reinforce decentering technique throughout the day. Approximately 70 minutes were spent with the patient doing therapy. South Gu, Ph.D., P.C.C.S., L.I.C.D.C.S., C.R.Erika. Office phone: [phone] Email: [email or web address] This note was partially generated using Dogeo voice recognition system, and there may be some incorrect words, spellings, and punctuation that were not noted in checking the note before signing [facility] 02-28-2023 Note HNO ID: [id number] Author: South Gu, PhD Service: ? Author Type: Psychologist Type: Progress Notes Filed: 02/28/2023 4:29 PM Note Text: VIRTUAL (audio/visual) GROUP PSYCHOTHERAPY NOTE: I have communicated my name and active licensure. The patient?s identity and physical location were verified at the time of this visit. Either the patient or their legal mill representative has been informed of the risks and benefits of -- and alternatives to -- treatment through a remote group therapy and consents to proceed with the group therapy remotely. Telecounseling risk/benefit: The concerns and conditions of this patient are judged to be in a range that can be adequately addressed by the use of telecounseling. Additional, the patient has sufficient technological and intellectual resources to utilize the technology associated with this treatment approach. PROVIDER: Chloé DIAGNOSIS: Alcoholism in recovery Adjustment disorder with mixed anxiety and depressed mood TREATMENT MODALITIES: Strength and solution based interventions. Mindfulness and Cognitive Behavioral Therapy,. Attachment theory and positive psychology, Motivational interviewing and relapse management and prevention employed. TREATMENT GOAL: Improve and further develop emotional intelligence for mood regulation, personal awareness and development and improved interpersonal satisfaction. Increase treatment compliance, active involvement with self help, and relapse management and prevention within the group process. Deconstruct anxiety and fear. Identify dysfunctional behaviors inherited from family of origin. Cultivate rituals/habits that foster new perspectives and further enhance Psychospiritual development. Punctual: Yes AA/NA/OA attendance: Yes - virtual Sponsor contact: Yes - weekly Compliant with medications: Yes Compliant with plan: Yes Toxicology screen today: No Worked on identified problems:over thinking, ruminating, obsessing Benefit from group: Applying mindfulness based cognitive behavioral interventions for decentering and improving presence, relaxation and capacity to let go. Next Group 1 week CLINICAL NOTES: 8 patient's attended continuing care group from 2:45 pm to 4:45 pm. Patient presented with no signs or symptoms of relapse. Explored ways to improve psychosocial and emotional development in recovery. Specifically, we discussed mindfulness based cognitive therapy and the importance the importance of decentering and being in the now/present. Provided group with a gateway to presence meditation to practice pausing, stepping aside or away from one's thoughts and feelings in a non-judging way. Focused on observing, witnessing, noticing, letting go and decision making. Negative feeling tones need to be experienced and then let go. Remaining self aware - in the moment allows him to let go of unpleasant circumstances. Loosing weight and not feeling better. Remains concerned about his pulmonary functioning. Will address his concerns with his doctor regarding therapy. [place] [facility] Presence - Ally Urena: ? [email or web address]-[email or web address]-[email or web address] Another way to apply decentering is to let go by applying a non-possessive attentiveness: Both in Cognitive and Mindfulness based therapies, being in the now or present is arthur to decentering and encourages us to identify our thoughts and feelings without clinging or preoccupation or judgement. Breath when agitated and apply: A smile to your eyes, mouth, and heart Allowing thoughts and feelings without attachment - clouds in the phil. Four Watch words: Patience, Tolerance, Kindness, and Love Breath work RAIN intervention. GOALS/PLAN/INTERVENTIONS: Goals: Ongoing sustained sobriety and emotional, spiritual and physical recovery. Improve daily functioning. Interpersonal satisfaction and well regulated mood. Objectives: Apply principles of Alcoholics Anonymous and cognitive behavioral therapy to prevent relapse. Mindfulness and secure attachment strategies to enhance self-awareness and improved secure attachment. Interventions: Action: Continue to build a mindfulness practice and focus on applying decentering Cognitive and Mindfulness based inventions to improve presence, decentering and avoid preoccupation with thoughts and feelings (reactions). What makes us so overly dependent on others thoughts about us? Approximately 100 minutes were spent with the patient doing therapy. South Gu, Ph.D., P.C.C.S., L.I.C.D.C.S., C.R.C. Office phone: [phone] Email: [email or web address] This note was partially generated using Swoodoo recognition system, and there may be some incorrect words, spellings, and punctuation that were not noted in checking the note before signing [facility] 02-21-2023 Note HNO ID: [id number] Author: South Gu, PhD Service: ? Author Type: Psychologist Type: Progress Notes Filed: 02/21/2023 4:31 PM Note Text: VIRTUAL (audio/visual) GROUP PSYCHOTHERAPY NOTE: I have communicated my name and active licensure. The patient?s identity and physical location were verified at the time of this visit. Either the patient or their legal mill representative has been informed of the risks and benefits of -- and alternatives to -- treatment through a remote group therapy and consents to proceed with the group therapy remotely. Telecounseling risk/benefit: The concerns and conditions of this patient are judged to be in a range that can be adequately addressed by the use of telecounseling. Additional, the patient has sufficient technological and intellectual resources to utilize the technology associated with this treatment approach. PROVIDER: Chloé DIAGNOSIS: Alcoholism in recovery Adjustment disorder with mixed emotional features TREATMENT MODALITIES: Strength and solution based interventions. Mindfulness and Cognitive Behavioral Therapy,. Attachment theory and positive psychology, Motivational interviewing and relapse management and prevention employed. TREATMENT GOAL: Improve and further develop emotional intelligence for mood regulation, personal awareness and development and improved interpersonal satisfaction. Increase treatment compliance, active involvement with self help, and relapse management and prevention within the group process. Deconstruct anxiety and fear. Identify dysfunctional behaviors inherited from family of origin. Cultivate rituals/habits that foster new perspectives and further enhance Psychospiritual development. Improved self-care. Struggles with patience and tolerance, especially with his spouse's legal issues. Working closely with his physician to entertain pulmonary rehab. Self help disciplines have fallen off. Punctual: Yes AA/NA/OA attendance: Yes - virtual Sponsor contact: Yes - weekly Compliant with medications: Yes Compliant with plan: Yes Toxicology screen today: No Worked on identified problems:distorted thinking and dysregulated emotions Benefit from group: Applying mindfulness based cognitive behavioral interventions for decentering and improving self control. Next Group 1 week CLINICAL NOTES: 6 patient's attended continuing care group from 2:45 pm to 4:45 pm. Patient presented with no signs or symptoms of relapse. Explored ways to improve psychosocial and emotional development in recovery. Specifically we discussed mindfulness based cognitive therapy and the importance the importance of decentering. Provided group with a sustaining peace meditation to practice pausing, stepping aside or away from one's thoughts and feelings in a non-judging way. Focused on observing, witnessing and decision making. Sustaining peace (happy, joyous and free): ?https://youtu.be/YWL3GVoHhUk Another way to apply decentering is to pause: Both in Cognitive and Mindfulness based therapies it is arthur that we do not need to believe all our thoughts. Pause when agitated and apply: Four Watch words: Patience, Tolerance, Kindness and Love Breath work RAIN intervention. GOALS/PLAN/INTERVENTIONS: Goals: Ongoing sustained sobriety and emotional, spiritual and physical recovery. Improve daily functioning. Interpersonal satisfaction and well regulated mood. Objectives: Apply principles of Alcoholics Anonymous and cognitive behavioral therapy to prevent relapse. Mindfulness and secure attachment strategies to enhance self-awareness and improved secure attachment. Interventions: Action: Continue to build a mindfulness practice and focus on applying decentering Cognitive and Mindfulness based inventions (RAIN, Watch words, self-guided meditation on letting go or pausing) to deal with difficult thoughts, feelings and stressful situations in more intelligent and efficient ways. Approximately 100 minutes were spent with the patient doing therapy. South Gu, Ph.D., P.C.C.S., L.I.C.D.C.S., C.R.C. Office phone: [phone] Email: [email or web address] This note was partially generated using Dogeo voice recognition system, and there may be some incorrect words, spellings, and punctuation that were not noted in checking the note before signing [facility] 02-11-2023 Note HNO ID: [id number] Author: South Gu, PhD Service: ? Author Type: Psychologist Type: Progress Notes Filed: 02/14/2023 4:56 PM Note Text: VIRTUAL (audio/visual) GROUP PSYCHOTHERAPY NOTE: I have communicated my name and active licensure. The patient?s identity and physical location were verified at the time of this visit. Either the patient or their legal mill representative has been informed of the risks and benefits of -- and alternatives to -- treatment through a remote group therapy and consents to proceed with the group therapy remotely. Telecounseling risk/benefit: The concerns and conditions of this patient are judged to be in a range that can be adequately addressed by the use of telecounseling. Additional, the patient has sufficient technological and intellectual resources to utilize the technology associated with this treatment approach. PROVIDER: Chloé DIAGNOSIS: Alcoholism in recovery Adjustment disorder with mixed anxiety and depressed mood TREATMENT MODALITIES: Strength and solution based interventions. Mindfulness and Cognitive Behavioral Therapy,. Attachment theory and positive psychology, Motivational interviewing and relapse management and prevention employed. TREATMENT GOAL: Improve and further develop emotional intelligence for mood regulation, personal awareness and development and improved interpersonal satisfaction. Increase treatment compliance, active involvement with self help, and relapse management and prevention within the group process. Deconstruct anxiety and fear. Identify dysfunctional behaviors inherited from family of origin. Cultivate rituals/habits that foster new perspectives and further enhance Psychospiritual development. Punctual: Yes AA/NA/OA attendance: Yes - virtual Sponsor contact: Yes - weekly Compliant with medications: Yes Compliant with plan: Yes Toxicology screen today: No Worked on identified problems:distorted thinking and dysregulated emotions Benefit from group: Applying mindfulness based cognitive behavioral interventions for decentering and improved emotional intelligence Next Group 1 week CLINICAL NOTES: 5 patient's attended group today. Patient attended Aftercare from 12:45 PM to 2:45 PM. Patient presented with no signs or symptoms of relapse.Explored ways to improve psychosocial and emotional development in recovery. Specifically we discussed mindfulness based cognitive therapy and the importance the importance of decentering. Provided group with a compassion meditation to practice stepping aside or away from one's thoughts and feelings in a non-judging way and encourage not believing every thought we may have. Focused on observation and decision making, the ability to pause and use RAIN intervention or AA watch words to cope effectively with stressful situations. Coping with physical long Covid issues and slowly changing diet and improving on exercise. Spouse making progress on grandparenting rights for visitation. Compassion: https://youtu.be/R624xPMsaIb Decentering: Both in Cognitive and Mindfulness based therapies it is arthur that we do not need to believe all our thoughts. One way of dealing with stressful situations is to apply a Mindfulness based intervention like the RAIN intervention or a self-guided mindfulness meditation. AA recommends beginning your day with these four Watch words: Patience, Tolerance, Kindliness and Love. Pause when agitated - apply the four watch words. GOALS/PLAN/INTERVENTIONS: Goals: Ongoing sustained sobriety and emotional, spiritual and physical recovery. Improve daily functioning. Interpersonal satisfaction and well regulated mood. Objectives: Apply principles of Alcoholics Anonymous and cognitive behavioral therapy to prevent relapse. Mindfulness and secure attachment strategies to enhance self-awareness and improved secure attachment. Interventions: Action: Continue to build a mindfulness practice and focus on applying decentering Cognitive and Mindfulness based inventions (RAIN, Watch words, self-guided meditation on letting go or compassion) to deal with difficult thoughts and feelings and more intelligent and efficient ways. Approximately 100 minutes were spent with the patient doing therapy. South Gu, Ph.D., P.C.C.S., L.I.C.D.C.S., C.R.C. Office phone: [phone] Email: [email or web address] This note was partially generated using Dogeo voice recognition system, and there may be some incorrect [facility] 02-07-2023 Note [facility] ID: [id number] Author: South Gu, PhD Service: ? Author Type: Psychologist Type: Progress Notes Filed: 02/07/2023 4:35 PM Note Text: VIRTUAL (audio/visual) GROUP PSYCHOTHERAPY NOTE: I have communicated my name and active licensure. The patient?s identity and physical location were verified at the time of this visit. Either the patient or their legal mill representative has been informed of the risks and benefits of -- and alternatives to -- treatment through a remote group therapy and consents to proceed with the group therapy remotely. Telecounseling risk/benefit: The concerns and conditions of this patient are judged to be in a range that can be adequately addressed by the use of telecounseling. Additional, the patient has sufficient technological and intellectual resources to utilize the technology associated with this treatment approach. PROVIDER: Chloé DIAGNOSIS: Alcoholism in recovery Adjustment disorder with mixed emotional features TREATMENT MODALITIES: Strength and solution based interventions. Mindfulness and Cognitive Behavioral Therapy,. Attachment theory and positive psychology, Motivational interviewing and relapse management and prevention employed. TREATMENT GOAL: Improve and further develop emotional intelligence for mood regulation, personal awareness and development and improved interpersonal satisfaction. Increase treatment compliance, active involvement with self help, and relapse management and prevention within the group process. Deconstruct anxiety and fear. Identify dysfunctional behaviors inherited from family of origin. Cultivate rituals/habits that foster new perspectives and further enhance Psychospiritual development. Punctual: Yes AA/NA/OA attendance: Yes - virtual Sponsor contact: Yes - weekly Compliant with medications: Yes Compliant with plan: Yes Toxicology screen today: No Worked on identified problems:distorted thinking and dysregulated emotions Benefit from group: Applying mindfulness based cognitive behavioral interventions for decentering and improved emotional intelligence Next Group 1 week CLINICAL NOTES: 6 patient's attended group today. Patient attended Aftercare from 2:45 pm to 4:45 pm. Patient presented with no signs or symptoms of relapse. Explored ways to improve psychosocial and emotional development in recovery. Specifically we discussed mindfulness based cognitive therapy and the importance the importance of decentering. Provided group with a meditation to practice stepping aside or away from one's thoughts and feelings in a non-judging way and encourage not believing every thought we may have. Struggling with long covid health issues - breathing problems. Not exercising, low energy. Encouraged dietary changes and a visit with his primary. Recommended resources - nutrition facts. org. Letting go: https://youtu.be/syx3a1_LeFo Decentering: Both in Cognitive and Mindfulness based therapies it is arthur that we do not need to believe all our thoughts. Distress and depression is not the result of our thoughts but rather how we deal with our thoughts. Noticing our thoughts. Not getting caught up in our thoughts and taking personally Conscious contact GOALS/PLAN/INTERVENTIONS: Goals: Ongoing sustained sobriety and emotional, spiritual and physical recovery. Improve daily functioning. Interpersonal satisfaction and well regulated mood. Objectives: Apply principles of Alcoholics Anonymous and cognitive behavioral therapy to prevent relapse. Mindfulness and secure attachment strategies to enhance self-awareness and improved secure attachment. Interventions: Action: Continue to build a mindfulness practice and focus on applying decentering Cognitive and Mindfulness based inventions to deal with difficult thoughts and feelings and more intelligent ways. Approximately 105 minutes were spent with the patient doing therapy. South Gu, Ph.D., P.C.C.S., L.I.C.D.C.S., C.R.C. Office phone: [phone] Email: [email or web address] This note was partially generated using Dogeo voice recognition system, and there may be some incorrect words, spellings, and punctuation that were not noted in checking the note before signing [facility] 11-08-2022 Note HNO ID: [id number] Author: South Gu, PhD Service: ? Author Type: Psychologist Type: Progress Notes Filed: 11/08/2022 4:43 PM Note Text: VIRTUAL (audio/visual) GROUP PSYCHOTHERAPY NOTE: I have communicated my name and active licensure. The patient?s identity and physical location were verified at the time of this visit. Either the patient or their legal mill representative has been informed of the risks and benefits of -- and alternatives to -- treatment through a remote group therapy and consents to proceed with the group therapy remotely. Telecounseling risk/benefit: The concerns and conditions of this patient are judged to be in a range that can be adequately addressed by the use of telecounseling. Additional, the patient has sufficient technological and intellectual resources to utilize the technology associated with this treatment approach. PROVIDER: Chloé DIAGNOSIS: Alcoholism in recovery Adjustment disorder with mixed anxiety and depressed mood TREATMENT MODALITIES: Strength and solution based interventions. Mindfulness and Cognitive Behavioral Therapy,. Attachment theory and positive psychology, Motivational interviewing and relapse management and prevention employed. TREATMENT GOAL: Improve and further develop emotional intelligence for mood regulation, personal awareness and development and improved interpersonal satisfaction. Increase treatment compliance, active involvement with self help, and relapse management and prevention within the group process. Deconstruct anxiety and fear. Identify dysfunctional behaviors inherited from family of origin. Cultivate rituals/habits that foster new perspectives and further enhance Psychospiritual development. Punctual: Yes AA/NA/OA attendance: Yes - virtual Sponsor contact: Yes - weekly Compliant with medications: Yes Compliant with plan: Yes Toxicology screen today: No Worked on identified problems:grasping and clinging - inability to let go and be present. Struggling with difficult and challenging thoughts and feeling. Poor regulation. Benefit from group: Applying mindfulness based cognitive behavioral intervention of decentering. Next Group 1 week CLINICAL NOTES: 5 patient's attended group today. Patient attended group psychotherapy from 3 pm to 4 pm. Patient presented with no signs or symptoms of relapse. Explored ways to improve psychosocial and emotional development in recovery. Specifically we discussed mindfulness based cognitive therapy and the importance the importance of decentering. Provided group with a meditation to practice stepping aside or away from one's thoughts and feelings in a non-judging way. Following up with breathing problems and being treated for long covid and asthma. Excellent attitude. Addressed clinical transition and psychotherapy needs as the undersign prepares to retire. 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 Patient will continue to utilize self-help and continue to participate in group. Decentering: https://Easycauseu.be/0vsCWK_1wz8 Decentering: Mindfulness- Based Cognitive Therapy, is a process of stepping outside of one's own mental and emotional events leading to a witnessing of oneself in a non-judging way. We don't need to identify with or believe in all the thoughts we have. Decentering in order to be centered: https://www.Gecko.Vortal/intl/blo g/stress-remedy//decenter-be- centered GOALS/PLAN/INTERVENTIONS: Goals: Ongoing sustained sobriety and emotional, spiritual and physical recovery. Improve daily functioning. Interpersonal satisfaction and well regulated mood. Objectives: Apply principles of Alcoholics Anonymous and cognitive behavioral therapy to prevent relapse. Mindfulness and secure attachment strategies to enhance self-awareness and improved secure attachment. Interventions: Action: Continue to build a mindfulness practice and focus on applying decentering inventions on difficult thoughts and feelings. Approximately 60 minutes were spent with the patient doing therapy. South Gu, Ph.D., P.C.C.S., L.I.C.D.C.S., C.R.C. Office phone: [phone] Email: [email or web address] This note was partially generated using Dogeo voice recognition system, and there may be some incorrect words, spellings, and punctuation that were not noted in checking the note before signing [facility] 09-13-2022 Note HNO ID: [id number] Author: South Gu, PhD Service: ? Author Type: Psychologist Type: Progress Notes Filed: 09/13/2022 4:48 PM Note Text: VIRTUAL (audio/visual) GROUP PSYCHOTHERAPY NOTE: I have communicated my name and active licensure. The patient?s identity and physical location were verified at the time of this visit. Either the patient or their legal mill representative has been informed of the risks and benefits of -- and alternatives to -- treatment through a remote group therapy and consents to proceed with the group therapy remotely. Telecounseling risk/benefit: The concerns and conditions of this patient are judged to be in a range that can be adequately addressed by the use of telecounseling. Additional, the patient has sufficient technological and intellectual resources to utilize the technology associated with this treatment approach. PROVIDER: Chloé DIAGNOSIS: Alcoholism in recovery Adjustment disorder with anxious mood TREATMENT MODALITIES: Strength and solution based interventions. Mindfulness and Cognitive Behavioral Therapy,. Attachment theory and positive psychology, Motivational interviewing and relapse management and prevention employed. TREATMENT GOAL: Improve and further develop emotional intelligence for mood regulation, personal awareness and development and improved interpersonal satisfaction. Increase treatment compliance, active involvement with self help, and relapse management and prevention within the group process. Deconstruct anxiety and fear. Identify dysfunctional behaviors inherited from family of origin. Cultivate rituals/habits that foster new perspectives and further enhance Psychospiritual development. Punctual: Yes AA/NA/OA attendance: Yes - virtual Sponsor contact: Yes - weekly Compliant with medications: Yes Compliant with plan: Yes Toxicology screen today: No Worked on identified problems: How to best balance ideas with emotions. Change and growth requires both. Benefit from group: The role of mindfulness in balancing thoughts and feelings Next Group 1 week CLINICAL NOTES: 8 patient's attended group today. Patient attended group psychotherapy from 3 pm to 4 pm. Patient presented with no signs or symptoms of relapse. Explored ways to improve psychosocial and emotional development in recovery. Specifically we discussed mindfulness meditation and prayer strategies to influence new ideas and experience. Challenged by lung disease and causing fatigue and difficulty with work schedule. Spouse struggling with legal rights to visit granddaughter. Gratitude Mediation: https://www.youtube.com/watch?v=TyjcnM7B i6Y Mindfulness practice encourages balancing the head and the heart Through prayer and meditation: simple Change requires new ideas and heartfelt experience Grounding/centering us Words create the present and silence creates the future. Change begins with new ideas and experience Balancing the head and the heart GOALS/PLAN/INTERVENTIONS: Goals: Ongoing sustained sobriety and emotional, spiritual and physical recovery. Improve daily functioning. Interpersonal satisfaction and well regulated mood. Objectives: Apply principles of Alcoholics Anonymous and cognitive behavioral therapy to prevent relapse. Mindfulness and secure attachment strategies to enhance self-awareness and improved secure attachment. Interventions: Action: 30 day challenge. Complete a ten minute silent meditation or other daily prayer and meditation practice to improve balancing cognition with emotion. Approximately 60 minutes were spent with the patient doing therapy. South Gu, Ph.D., P.C.C.S., L.I.C.D.C.S., C.R.C. Office phone: [phone] Email: [email or web address] This note was partially generated using Dogeo voice recognition system, and there may be some incorrect words, spellings, and punctuation that were not noted in checking the note before signing. [facility] 08-30-2022 Note HNO ID: [id number] Author: South Gu, PhD Service: ? Author Type: Psychologist Type: Progress Notes Filed: 08/30/2022 4:13 PM Note Text: VIRTUAL (audio/visual) GROUP PSYCHOTHERAPY NOTE: I have communicated my name and active licensure. The patient?s identity and physical location were verified at the time of this visit. Either the patient or their legal mill representative has been informed of the risks and benefits of -- and alternatives to -- treatment through a remote group therapy and consents to proceed with the group therapy remotely. Telecounseling risk/benefit: The concerns and conditions of this patient are judged to be in a range that can be adequately addressed by the use of telecounseling. Additional, the patient has sufficient technological and intellectual resources to utilize the technology associated with this treatment approach. PROVIDER: hCloé DIAGNOSIS: Alcoholism in recovery Adjustment disorder with mixed anxiety and depressed mood TREATMENT MODALITIES: Strength and solution based interventions. Mindfulness and Cognitive Behavioral Therapy,. Attachment theory and positive psychology, Motivational interviewing and relapse management and prevention employed. TREATMENT GOAL: Improve and further develop emotional intelligence for mood regulation, personal awareness and development and improved interpersonal satisfaction. Increase treatment compliance, active involvement with self help, and relapse management and prevention within the group process. Deconstruct anxiety and fear. Identify dysfunctional behaviors inherited from family of origin. Cultivate rituals/habits that foster new perspectives and further enhance Psychospiritual development. Punctual: Yes AA/NA/OA attendance: Yes - virtual Sponsor contact: Yes - weekly Compliant with medications: Yes Compliant with plan: Yes Toxicology screen today: No Worked on identified problems: How to best balance ideas with emotions. Change and growth requires both. Benefit from group: The role of mindfulness in balancing thoughts and feelings Next Group 1 week CLINICAL NOTES: 5 patient's attended group today. Patient attended group psychotherapy from 1 PM to 2 PM. Patient presented with no signs or symptoms of relapse. Explored ways to improve psychosocial and emotional development in recovery. Specifically we discussed mindfulness meditation strategies and how silence influences and creates the future. 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 Spouse supportive. Silent Mediation: https://Easycauseu.be/yZaTpsFPkcQ Did box breathing () - quiet thinking - activates the vagal nerve Grounding/centering us Wandering - davies was most important - brought me back Words create the present and silence creates the future. Change begins with new ideas and discovery that comes from the heart Balancing the head and the heart GOALS/PLAN/INTERVENTIONS: Goals: Ongoing sustained sobriety and emotional, spiritual and physical recovery. Improve daily functioning. Interpersonal satisfaction and well regulated mood. Objectives: Apply principles of Alcoholics Anonymous and cognitive behavioral therapy to prevent relapse. Mindfulness and secure attachment strategies to enhance self-awareness and improved secure attachment. Interventions: Action: 30 day challenge. Complete a ten minute silent meditation or other daily to improve balancing cognition with emotion. Approximately 60 minutes were spent with the patient doing therapy. South Gu, Ph.D., P.C.C.S., L.I.C.D.C.S., C.R.C. Office phone: [phone] Email: [email or web address] [facility] 08-16-2022 Note HNO ID: [id number] Author: South Gu, PhD Service: ? Author Type: Psychologist Type: Progress Notes Filed: 08/16/2022 4:14 PM Note Text: VIRTUAL (audio/visual) GROUP PSYCHOTHERAPY NOTE: Due to the [facility] and [facility] and the need for ongoing behavioral health services, the following visit was completed virtually to reduce the risk of COVID-19 exposure. Consent related to virtual visits was provided verbally after information was sent electronically or read to patient. Telecounseling risk/benefit: The concerns and conditions of this patient are judged to be in a range that can be adequately addressed by the use of telecounseling. Additional, the patient has sufficient technological and intellectual resources to utilize the technology associated with this treatment approach. PROVIDER: Chloé DIAGNOSIS: Alcoholism in recovery TREATMENT MODALITIES: Strength and solution based interventions. Mindfulness and Cognitive Behavioral Therapy,. Attachment theory and positive psychology, Motivational interviewing and relapse management and prevention employed. TREATMENT GOAL: Improve and further develop emotional intelligence for mood regulation, personal awareness and development and improved interpersonal satisfaction. Increase treatment compliance, active involvement with self help, and relapse management and prevention within the group process. Deconstruct anxiety and fear. Identify dysfunctional behaviors inherited from family of origin. Cultivate rituals/habits that foster new perspectives and further enhance Psychospiritual development. Punctual: Yes AA/NA/OA attendance: Yes - virtual Sponsor contact: Yes - weekly Compliant with medications: Yes Compliant with plan: Yes Toxicology screen today: No Worked on identified problems: How unresolved trust/mistrust issues promote charater defects Benefit from group: Awarenss of unresovled character defects and identifying a plan of change. Next Group 1 week CLINICAL NOTES: 8 patient's attended group today. Patient attended group psychotherapy from 1 PM to 2 PM.Patient presented with no signs or symptoms of relapse We continue to reflect on the 8 stages of psychosocial development and shared how stage one (trust versus mistrust) not only fuels perhaps addictive behaviors but character defects as a result of unresolved conflicts. Establishing healthier boundaries for himself and avoiding over thinking conflicts and his busyness. Struggling with health issues - trusting the process. What character defects are associated with unresolved conflict in the trust versus mistrust paradigm? Maladaptation and malignancy in trust versus mistrust? Fearfulness, confusion and anxious feelings Social anxiety and difficulty with forming healthy relationships Poor social support Pathological self-reliance Low self-esteem (guilt and shame). How to build trust and resolve mistrust? Self-nurturing/care Healthy attachment to others. GOALS/PLAN/INTERVENTIONS: Goals: Ongoing sustained sobriety and emotional, spiritual and physical recovery. Improve daily functioning. Interpersonal satisfaction and well regulated mood. Objectives: Apply principles of Alcoholics Anonymous and cognitive behavioral therapy to prevent relapse. Mindfulness and secure attachment strategies to enhance self-awareness and improved secure attachment. Interventions: Action: Explore what character defects have been influenced by conflicts associated with trust versus mistrust. Identify an action plan for building improved trust and healthy attachments. Approximately 60 minutes were spent with the patient doing therapy. South Gu, Ph.D., P.C.C.S., L.I.C.D.C.S., C.R.C. Office phone: [phone] Email: [email or web address] This note was partially generated using Dogeo voice recognition system, and there may be some incorrect words, spellings, and punctuation that were not noted in checking the note before signing. [facility] 07-19-2022 Note HNO ID: [id number] Author: South Gu, PhD Service: ? Author Type: Psychologist Type: Progress Notes Filed: 07/19/2022 4:08 PM Note Text: Patient canceled. [facility] 07-12-2022 Note HNO ID: [id number] Author: South Gu, PhD Service: ? Author Type: Psychologist Type: Progress Notes Filed: 07/12/2022 4:08 PM Note Text: VIRTUAL (audio/visual) GROUP PSYCHOTHERAPY NOTE: Due to the [facility] and [facility] and the need for ongoing behavioral health services, the following visit was completed virtually to reduce the risk of COVID-19 exposure. Consent related to virtual visits was provided verbally after information was sent electronically or read to patient. Telecounseling risk/benefit: The concerns and conditions of this patient are judged to be in a range that can be adequately addressed by the use of telecounseling. Additional, the patient has sufficient technological and intellectual resources to utilize the technology associated with this treatment approach. PROVIDER: Chloé DIAGNOSIS: Adjustment disorder with mixed emotional features Alcoholism in recovery TREATMENT MODALITIES: Strength and solution based interventions. Mindfulness and Cognitive Behavioral Therapy,. Attachment theory and positive psychology, Motivational interviewing and relapse management and prevention employed. TREATMENT GOAL: Improve and further develop emotional intelligence for mood regulation, personal awareness and development and improved interpersonal satisfaction. Increase treatment compliance, active involvement with self help, and relapse management and prevention within the group process. Deconstruct anxiety and fear. Identify dysfunctional behaviors inherited from family of origin. Cultivate rituals/habits that foster new perspectives and further enhance Psychospiritual development. Punctual: Yes AA/NA/OA attendance: Yes - virtual Sponsor contact: Yes - weekly Compliant with medications: Yes Compliant with plan: Yes Toxicology screen today: No Worked on identified problems: addressed conflicts associated with generativity versus stagnation. Benefit from group: improved conflict resolution strategies when addressing generativity versus stagnation Progress: Stable Next Group 1 week CLINICAL NOTES: 7 patient's attended group today. Patient attended group psychotherapy from 3 PM to 4 PM. Patient presented with no signs or symptoms of relapse. Reviewed article on generativity versus stagnation and shared personal examples of the 7th stage of development, generativity versus stagnation. Processed conflicts. Attempting to balance his work with self care. Extremely busy. Getting use to hearing aids. Needing to loose weight. Defining generativity versus stagnation: Generativity ?How can I contribute to the world? 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 GOALS/PLAN/INTERVENTIONS: Goals: Ongoing sustained sobriety and emotional, spiritual and physical recovery. Improve daily functioning. Interpersonal satisfaction and well regulated mood. Objectives: Apply principles of Alcoholics Anonymous and cognitive behavioral therapy to prevent relapse. Mindfulness and secure attachment strategies to enhance self-awareness and improved secure attachment. Interventions: Explore how the various stages of development influence growth or lack of growth and interact with one another. Review article on integrity versus despair and prepare a number of personal examples to share. Approximately 60 minutes were spent with the patient doing therapy. South Gu, Ph.D., P.C.C.S., L.I.C.D.C.S., C.R.C. Office phone: [phone] Email: [email or web address] This note was partially generated using Dogeo voice recognition system, and there may be some incorrect words, spellings, and punctuation that were not noted in checking the note before signing. [facility] 07-05-2022 Note HNO ID: [id number] Author: South Gu, PhD Service: ? Author Type: Psychologist Type: Progress Notes Filed: 07/05/2022 4:02 PM Note Text: Patient canceled [facility] 06-01-2021 Note HNO ID: [id number] Author: Ioana Velazquez, PIGS FEET FINISHER Service: ? Author Type: Registered Resp Therapist Type: Progress Notes Filed: 06/01/2021 3:00 PM Note Text: PULM FUNCTION SMARTBLOCK: Provider: Khris Anglin MD Assisting Tech: Ioana Velazquez, PIGS FEET FINISHER Spirometry: 1 DLCO: 1 System: [id number] [facility] 06-01-2021 Note HNO ID: [id number] Author: Khris Anglin MD Service: ? Author Type: Physician Type: Progress Notes Filed: 06/01/2021 3:07 PM Note Text: Patient Name: Rolan Banuelos PRIMARY CARE PHYSICIAN: Virgie Vergara MD Date of visit: June 01, 2021 COMMUNICATION WILL BE SENT VIA SHARED MEDICAL RECORDS OR US MAIL. Subjective: Rolan Banuelos is a 65 year old male who is known to this clinic and presents as follow up for shortness of breath/HP. Last seen back in 09/2020 in which he noted significant improvement in his breathing mainly due to significant weight loss (> 20lbs). Today, patient endorses feeling well at this time. States his breathing has been stable, even in setting of reducing symbicort to daily use. He does endorse some degree of exertional dyspnea with stair climbing and some degree of heavy cardio, but otherwise denies SOB with all other daily activities. Denies coughing, chest pain, fevers, chills, or NS. + weight gain, about 15 lbs since last visit which is from combination of diet and reduced exercise. Overall he is in good spirits. Continues to be compliant with home symbicort daily. ? He continues to wear CPAP with 100% compliance and great clinical response. ? Carried history of asthma before diagnosis of HP, in which this was thought to be allergy related given + environmental triggers. ?(+ allergies including cats, dogs, dust, etc). ? ? ? In review: Patients symptoms started in 2014 when he began to develop?acute,?progressive dyspnea. ?At the time, imaging revealed evidence of bilateral, diffuse interstitial lung disease. ?He eventually underwent VATs surgical lung biopsy which was suggestive of possible hypersensitivity pneumonitis. ?The allergen or source of HP was initially?unclear?at the time, but?eventually it was narrowed to be possibly related to his?finches he owned at the time. ?He eventually got rid of these finches and noticed almost immediate improvement in symptoms. ?He has been on symbicort BID since that time and currently weaned down to low dose?symbicort 80/4.5 mcg BID with no acute respiratory?issues. PMHx: PAST MEDICAL HISTORY Diagnosis Date - Asthma - COPD (chronic obstructive pulmonary disease) (HCC) - Depressive disorder - Diverticulitis of colon - Elevated glucose - Folliculitis - Generalized anxiety disorder - High cholesterol - Hypercholesterolemia - Hyperglycemia - Hyperlipidemia - Insomnia - Insomnia - Interstitial lung disease (HCC) - Microscopic hematuria - Obesity - Obstructive sleep apnea syndrome - TOMAS (obstructive sleep apnea) cpap - Overweight - Shingles (herpes zoster) polyneuropathy - Shoulder pain - Thyroid nodule - Vitamin D deficiency MEDICATIONS: Apple Cider Vinegar 600 mg cap Take by mouth once daily. metFORMIN (GLUCOPHAGE) 500 mg tablet Take 500 mg by mouth twice daily with meals. cholecalciferol, vitamin D3, (VITAMIN D3 ORAL) Take by mouth once daily. budesonide-formoterol (SYMBICORT) 80-4.5 mcg/actuation inhaler Inhale 2 Puffs as instructed twice daily. USE 2 INHALATIONS TWICE A DAY INSTRUCTED ibuprofen (MOTRIN) 600 mg tablet Take 600 mg by mouth every 6 hours as needed. rosuvastatin (CRESTOR) 5 mg tablet Take 1 tablet by mouth once daily. Flaxseed Oil 1,000 mg cap Take 1,000 mg by mouth once daily. albuterol HFA (PROAIR HFA) 90 mcg/actuation inhaler Inhale 2 Puffs as instructed every 4 hours as needed for Wheezing/Shortness of Breath. FLUTICASONE PROPIONATE (FLONASE NASAL) Use in the nose once daily. Cholecalciferol, Vitamin D3, 1,000 unit cap Take 1,000 Units by mouth once daily. CPAP by Mask route daily at bedtime. DANY 180 MG ORAL TAB Take one(1) tablet daily. MULTIVITAMIN ORAL TAB Take one(1) tablet daily. ergocalciferol 50,000 unit capsule (VITAMIN D2, DRISDOL) Take by mouth. LORazepam (ATIVAN) 1 mg tablet take 1 tablet by mouth 30 MINUTES PRIOR TO PROCEDURE rizatriptan (MAXALT FLAME ANNEALING MACHINE SETTER) 10 mg disintegrating tablet Take 10 mg by mouth as needed. one tablet at onset of Headache may repeat one dose after 2 hours. Allergies: Cats, Dogs, and Environmental [Other] ROS: GENERAL: (-) fevers, (-) chills, (-) night sweats, (-) nausea/vomiting, (-) weight loss, (+) weight gain HEENT: (-) runny nose, (-) sore throat, (-) post-nasal drip RESPIRATORY: As above in subjective CARDIOVASCULAR: (-) chest pain, (-) palpitations, (-) LE edema. All other 10 point ROS reviewed and negative except for that mentioned above. PHYSICAL EXAM: BP 120/67 Pulse 80 Temp 97.9 Resp 12 Ht 6' .992 (1.85m) Wt 228 lb (103.4kg) SpO2 96[RA]% BMI 30.09 kg/(m2). General- nad, comfortable in general appearance Eyes- eomi, perrl ENT- oropharynx clear, atraumatic Neck- supple, no obvious JVD CV- RRR, no M/G/R Resp- clear to auscultation bilaterally, no wheezes or crackles, breathing nonlabored Abd- +bs, soft, nt, nd, obese (more content not included)... [facility] 01-13-2021 Note Patient Outreach ([place] [facility]) ALEJANDRINAROLAN ([id number]) 1955 M Date Time Provider Department 01/13/21 CANDELARIA CARRILLO During your visit today, we recorded the following information about you: Candelaria Carrillo PA-C 01/13/2021 10:23 AM Signed Actionable Findings Registry I am following up on this actionable finding at the direction of the [place]. Patient was found previously to have an abnormal CXR. CT chest was recommended and done. Will close this out of the actionable findings registry. Actionable Findings follow up status: Complete Candelaria Carrillo PA-C January 13, 2021 10:23 AM Allergies As of Date: 01/13/2021 Noted Allergy Reaction CATS 01/19/2005 9 - Itching 12 - Shortness of Breath 14 - Other: See Comments Comments: sneezing DOGS 01/19/2005 9 - Itching 12 - Shortness of Breath Comments: sneezing environmental [Other] 01/19/2005 9 - Itching 12 - Shortness of Breath 14 - Other: See Comments Comments: sneezing Date Reviewed: 10/27/2020 Reviewed by: Khris Anglin MD - Fully Assessed Reason for Visit: Actionable Findings Follow Up [5512] Prescriptions as of 01/13/2021 - budesonide-formoterol (SYMBICORT) 80-4.5 mcg/actuation inhaler Inhale 2 Puffs as instructed once daily. USE 2 INHALATIONS TWICE A DAY INSTRUCTED - ibuprofen (MOTRIN) 600 mg tablet Take 600 mg by mouth every 6 hours as needed. - rosuvastatin (CRESTOR) 5 mg tablet Take 1 tablet by mouth once daily. - Flaxseed Oil 1,000 mg cap Take 1,000 mg by mouth once daily. - albuterol HFA (PROAIR HFA) 90 mcg/actuation inhaler Inhale 2 Puffs as instructed every 4 hours as needed for Wheezing/Shortness of Breath. - FLUTICASONE PROPIONATE (FLONASE NASAL) Use in the nose. - Cholecalciferol, Vitamin D3, 1,000 unit cap Take 1,000 Units by mouth once daily. - CPAP by Mask route daily at bedtime. - rizatriptan (MAXALT FLAME ANNEALING MACHINE SETTER) 10 mg disintegrating tablet Take 10 mg by mouth as needed. one tablet at onset of Headache may repeat one dose after 2 hours. - DANY 180 MG ORAL TAB Take one(1) tablet daily. - MULTIVITAMIN ORAL TAB Take one(1) tablet daily. Problem List As Of Date 01/13/2021 Noted Resolved Adjustment disorder with anxiety [F43.22] 03/04/2012 06/10/2012 Adjustment disorder with mixed emotional featur*06/10/2012 Dyspnea and respiratory abnormalities [R06.00, *08/07/2014 Asthma [J45.909] 05/08/1993 Cigarette nicotine dependence in remission [F17*01/07/1972 04/30/1988 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 [J4*05/04/2015 Anxiety [F41.9] 05/04/2015 Depression [F32.9] 05/04/2015 Diabetes mellitus type 2, controlled, without c*05/04/2015 TOMAS (obstructive sleep apnea) [G47.33] 05/04/2015 History of environmental allergies [Z91.09] 05/04/2015 Pulmonary fibrosis (HCC) [J84.10] 05/04/2015 08/26/2015 Restrictive ventilatory defect [R94.2] 08/26/2015 Diffusion capacity of lung (dl), decreased [R94*08/26/2015 ILD (interstitial lung disease) (HCC) [J84.9] 08/26/2015 Pulmonary nodules [R91.8] 08/26/2015 Ex-heavy cigarette smoker (20-39 per day); 50+ *08/26/2015 Herpes zoster without complication [B02.9] 09/06/2015 Encounter Status:Closed by CANDELARIA CARRILLO on 01/13/21 [facility] 01-13-2021 Note HNO ID: [id number] Author: Candelaria Carrillo PA-C Service: ? Author Type: Physician Applications Architect Type: Progress Notes Filed: 01/13/2021 10:23 AM Note Text: Actionable Findings Registry I am following up on this actionable finding at the direction of the [place]. Patient was found previously to have an abnormal CXR. CT chest was recommended and done. Will close this out of the actionable findings registry. Actionable Findings follow up status: Complete Candelaria Carrillo PA-C January 13, 2021 10:23 AM [facility] 12-09-2020 Note HNO ID: [id number] Author: RT Magda(Tamy) Service: Radiology Author Type: Test Car Driver Type: Progress Notes Filed: 12/09/2020 9:43 AM Note Text: Radiology Service Progress Note PATIENT NAME: Rolan Banuelos DATE OF SERVICE: December 09, 2020 TIME: 9:42 AM PATIENT IDENTITY VERIFICATION COMPLETED USING TWO (2) IDENTIFIERS: Name and Date of confirmed by patient verbally and Name and Date of confirmed by identification band. FALL SCREENING: Has the patient had 2 falls in the last year or 1 fall with injury or currently using an Ambulatory Assistive Device (Walker, Cane, Wheelchair, Crutches, etc.)? No PATIENT GENDER DATA: Male PATIENT RELEVANT IMPLANT DATA REVIEWED: Not Applicable RADIOLOGY DEPARTMENT: General X-ray: Exam(s) Completed: Chest X-Ray PERIPHERAL IV DATA: Not applicable SIGNED BY: RT Magda(R) December 09, 2020 9:42 AM [facility] 10-27-2020 Note HNO ID: [id number] Author: Khris Anglin MD Service: ? Author Type: Physician Type: Progress Notes Filed: 10/28/2020 9:40 AM Note Text: Patient Name: Rolan Banuelos PRIMARY CARE PHYSICIAN: Virgie Vergara MD Date of visit: October 27, 2020 COMMUNICATION WILL BE SENT VIA SHARED MEDICAL RECORDS OR US MAIL. Subjective: Rolan Banuelos is a 64 year old male who is known to this clinic and presents as follow up for shortness of breath/HP. Last seen back in 03/2020, symptoms at that time were predominantly fatigue and slight worsening of shortness of breath. Since his last appointment, he endorses feeling pretty well. He lost about 20 lbs (intentionally predominantly through diet) and notes significant improvement in his breathing. He denies any dyspnea with exertion or at rest. In fact he denies any respiratory symptoms since his weight loss. No limitations in exercise capacity, no coughing, chest pain, pedal edema, weight changes, fevers, chills, or NS. No palpitations. He feels relatively asymptomatic. Continues to be compliant with home symbicort BID and asking whether he needs to be on controller therapy given asymptomatic state. He continues to wear CPAP with 100% compliance and great clinical response. Carried history of asthma before diagnosis of HP, in which this was thought to be allergy related given + environmental triggers. (+ allergies including cats, dogs, dust, etc). In review: Patients symptoms started in 2014 when he began to develop?acute,?progressive dyspnea. ?At the time, imaging revealed evidence of bilateral, diffuse interstitial lung disease. ?He eventually underwent VATs surgical lung biopsy which was suggestive of possible hypersensitivity pneumonitis. ?The allergen or source of HP was initially?unclear?at the time, but?eventually it was narrowed to be possibly related to his?finches he owned at the time. ?He eventually got rid of these finches and noticed almost immediate improvement in symptoms. ?He has been on symbicort BID since that time and currently weaned down to low dose?symbicort 80/4.5 mcg BID with no acute respiratory?issues. PMHx: PAST MEDICAL HISTORY Diagnosis Date - Asthma - COPD (chronic obstructive pulmonary disease) (HCC) - Depressive disorder - Diverticulitis of colon - Elevated glucose - Folliculitis - Generalized anxiety disorder - High cholesterol - Hypercholesterolemia - Hyperglycemia - Hyperlipidemia - Insomnia - Insomnia - Interstitial lung disease (HCC) - Microscopic hematuria - Obesity - Obstructive sleep apnea syndrome - TOMAS (obstructive sleep apnea) cpap - Overweight - Shingles (herpes zoster) polyneuropathy - Shoulder pain - Thyroid nodule - Vitamin D deficiency MEDICATIONS: budesonide-formoterol (SYMBICORT) 80-4.5 mcg/actuation inhaler Inhale 2 Puffs as instructed once daily. USE 2 INHALATIONS TWICE A DAY INSTRUCTED rosuvastatin (CRESTOR) 5 mg tablet Take 1 tablet by mouth once daily. Flaxseed Oil 1,000 mg cap Take 1,000 mg by mouth once daily. albuterol HFA (PROAIR HFA) 90 mcg/actuation inhaler Inhale 2 Puffs as instructed every 4 hours as needed for Wheezing/Shortness of Breath. FLUTICASONE PROPIONATE (FLONASE NASAL) Use in the nose. Cholecalciferol, Vitamin D3, 1,000 unit cap Take 1,000 Units by mouth once daily. CPAP by Mask route daily at bedtime. DANY 180 MG ORAL TAB Take one(1) tablet daily. MULTIVITAMIN ORAL TAB Take one(1) tablet daily. ibuprofen (MOTRIN) 600 mg tablet Take 600 mg by mouth every 6 hours as needed. rizatriptan (MAXALT FLAME ANNEALING MACHINE SETTER) 10 mg disintegrating tablet Take 10 mg by mouth as needed. one tablet at onset of Headache may repeat one dose after 2 hours. Allergies: Cats, Dogs, and Environmental [Other] ROS: GENERAL: (-) fevers, (-) chills, (-) night sweats, (-) nausea/vomiting, (+) intentional weight loss, (-) weight gain HEENT: (-) runny nose, (-) sore throat, (-) post-nasal drip RESPIRATORY: As above in subjective CARDIOVASCULAR: (-) chest pain, (-) palpitations, (-) LE edema. All other 10 point ROS reviewed and negative except for that mentioned above. PHYSICAL EXAM: BP 122/88 Pulse 75 Temp 97.6 Resp 12 Ht 6' 1 (1.85m) Wt 213 lb (96.6kg) SpO2 96[ra]% BMI 28.11 kg/(m2). General- nad, comfortable in general appearance Eyes- eomi, perrl ENT- mask in place Neck- supple, no obvious JVD CV- RRR, no M/G/R Resp- clear to auscultation bilaterally, no wheezes or crackles, breathing nonlabored Abd- +bs, soft, nt, nd Ext- no clubbing, cyanosis, or edema Derm- no lesions/rashes Psych- appropriate mood and affect Labs / Imaging / Diagnostic Studies: Diagnostic tests reviewed for today's visit, films/specimens were personally reviewed by me. CT chest 12/2014 IMPRESSION: ?? Subtle subtle subpleural reticular changes and subtle subpleural groundglass opacities in both lungs with a basi (more content not included)... [facility] 05-27-2020 Note HNO ID: [id number] Author: Raz Talbot Service: ? Author Type: ? Type: Progress Notes Filed: 05/27/2020 4:40 AM Note Text: Sleep Study Check-In Documentation Date: May 27, 2020 Name: Rolan Banuelos Patient was accompanied by Self. Location: [facility] Latex allergy: No Tape allergy: No Current medications were reviewed with the patient:Yes Sleep aid taken by patient for the sleep study: [place] of sleep aid: Not Applicable Procedure was explained to the patient and all questions were answered. PAP treatment discussed and shown to patient: Yes If PAP used enter mask info: Mask Name: Air Fit F20 Make: ResMed MaskType: Full Face Mask Size: Medium Chin Sharp Used No Knowledge Program (KP): KP was not completed in epic by patient and accepted Study type: PAP titration Adverse Event: No (If yes create a new abstract) SERS Event: No Comments: Patient was advised to follow up with their ordering provider regarding test results Raz Talbot [facility] 05-19-2020 Note Procedure ([facility]) ROLAN BANUELOS ([id number]) 1955 M Date Time Provider Department 05/19/20 4:00 PM PULM [facility]CT LAB BATH [facility] During your visit today, we recorded the following information about you: Referring Provider: KHRIS ANGLIN [[id number]] Allergies As of Date: 05/19/2020 Noted Allergy Reaction CATS 01/19/2005 9 - Itching 12 - Shortness of Breath 14 - Other: See Comments Comments: sneezing DOGS 01/19/2005 9 - Itching 12 - Shortness of Breath Comments: sneezing environmental [Other] 01/19/2005 9 - Itching 12 - Shortness of Breath 14 - Other: See Comments Comments: sneezing Date Reviewed: 04/05/2020 Reviewed by: Ada Saini - Fully Assessed Reason for Visit: Shortness of Breath [227] Visit Diagnosis:Dyspnea and respiratory abnormalities [R06.00, R06.89] Order(s):SPIROMETRY - BASELINE AND POST DILATOR [[id number]] Order #: [id number] Prescriptions as of 05/19/2020 Sig: BUDESONIDE-FORMOTEROL HFA 80 * Inhale 2 Puffs as instructed * IBUPROFEN 600 MG TABLET Take 600 mg by mouth every 6 * ROSUVASTATIN 5 MG TABLET Take 1 tablet by mouth once d* Patient taking differently: Take 5 mg by mouth once daily* FLAXSEED OIL 1,000 MG CAPSULE Take 1,000 mg by mouth once d* ALBUTEROL SULFATE HFA 90 MCG/* Inhale 2 Puffs as instructed * FLONASE NASAL Use in the nose. CHOLECALCIFEROL (VITAMIN D3) * Take 1,000 Units by mouth onc* CPAP by Mask route daily at bedtim* RIZATRIPTAN 10 MG DISINTEGRAT* Take 10 mg by mouth as needed* DANY 180 MG TABLET Take one(1) tablet daily. MULTIVITAMIN TABLET Take one(1) tablet daily. Problem List As Of Date 05/19/2020 Noted Resolved Adjustment disorder with anxiety [F43.22] 03/04/2012 06/10/2012 Adjustment disorder with mixed emotional featur*06/10/2012 Dyspnea and respiratory abnormalities [R06.00, *08/07/2014 Asthma [J45.909] 05/08/1993 Cigarette nicotine dependence in remission [F17*01/07/1972 04/30/1988 More... 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 [J4*05/04/2015 Anxiety [F41.9] 05/04/2015 Depression [F32.9] 05/04/2015 Diabetes mellitus type 2, controlled, without c*05/04/2015 TOMAS (obstructive sleep apnea) [G47.33] 05/04/2015 History of environmental allergies [Z91.09] 05/04/2015 Pulmonary fibrosis (HCC) [J84.10] 05/04/2015 08/26/2015 Restrictive ventilatory defect [R94.2] 08/26/2015 Diffusion capacity of lung (dl), decreased [R94*08/26/2015 ILD (interstitial lung disease) (HCC) [J84.9] 08/26/2015 Pulmonary nodules [R91.8] 08/26/2015 Ex-heavy cigarette smoker (20-39 per day); 50+ *08/26/2015 Herpes zoster without complication [B02.9] 09/06/2015 Encounter Status:Closed by KEVIN RAE on 05/19/20 [facility] 05-19-2020 Note Procedure ([facility]) ROLAN BANUELOS ([id number]) 1955 M Date Time Provider Department 05/19/20 3:45 PM PULM [facility]CT LAB BATH [facility] During your visit today, we recorded the following information about you: Referring Provider: KHRIS ANGLIN [[id number]] Allergies As of Date: 05/19/2020 Noted Allergy Reaction CATS 01/19/2005 9 - Itching 12 - Shortness of Breath 14 - Other: See Comments Comments: sneezing DOGS 01/19/2005 9 - Itching 12 - Shortness of Breath Comments: sneezing environmental [Other] 01/19/2005 9 - Itching 12 - Shortness of Breath 14 - Other: See Comments Comments: sneezing Date Reviewed: 04/05/2020 Reviewed by: Ada Saini - Fully Assessed Reason for Visit: Shortness of Breath [227] Visit Diagnosis:Dyspnea and respiratory abnormalities [R06.00, R06.89] Order(s):LUNG DIFFUSION CAPACITY (DLCO) [[id number]] Order #: [id number] Prescriptions as of 05/19/2020 Sig: BUDESONIDE-FORMOTEROL HFA 80 * Inhale 2 Puffs as instructed * IBUPROFEN 600 MG TABLET Take 600 mg by mouth every 6 * ROSUVASTATIN 5 MG TABLET Take 1 tablet by mouth once d* Patient taking differently: Take 5 mg by mouth once daily* FLAXSEED OIL 1,000 MG CAPSULE Take 1,000 mg by mouth once d* ALBUTEROL SULFATE HFA 90 MCG/* Inhale 2 Puffs as instructed * FLONASE NASAL Use in the nose. CHOLECALCIFEROL (VITAMIN D3) * Take 1,000 Units by mouth onc* CPAP by Mask route daily at bedtim* RIZATRIPTAN 10 MG DISINTEGRAT* Take 10 mg by mouth as needed* DANY 180 MG TABLET Take one(1) tablet daily. MULTIVITAMIN TABLET Take one(1) tablet daily. Problem List As Of Date 05/19/2020 Noted Resolved Adjustment disorder with anxiety [F43.22] 03/04/2012 06/10/2012 Adjustment disorder with mixed emotional featur*06/10/2012 Dyspnea and respiratory abnormalities [R06.00, *08/07/2014 Asthma [J45.909] 05/08/1993 Cigarette nicotine dependence in remission [F17*01/07/1972 04/30/1988 More... 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 [J4*05/04/2015 Anxiety [F41.9] 05/04/2015 Depression [F32.9] 05/04/2015 Diabetes mellitus type 2, controlled, without c*05/04/2015 TOMAS (obstructive sleep apnea) [G47.33] 05/04/2015 History of environmental allergies [Z91.09] 05/04/2015 Pulmonary fibrosis (HCC) [J84.10] 05/04/2015 08/26/2015 Restrictive ventilatory defect [R94.2] 08/26/2015 Diffusion capacity of lung (dl), decreased [R94*08/26/2015 ILD (interstitial lung disease) (HCC) [J84.9] 08/26/2015 Pulmonary nodules [R91.8] 08/26/2015 Ex-heavy cigarette smoker (20-39 per day); 50+ *08/26/2015 Herpes zoster without complication [B02.9] 09/06/2015 Encounter Status:Closed by KEVIN RAE on 05/19/20 [facility] 05-19-2020 Note Procedure ([facility]) ROLAN BANUELOS ([id number]) 1955 M Date Time Provider Department 05/19/20 3:30 PM PULM [facility]CT LAB BATH [facility] During your visit today, we recorded the following information about you: Referring Provider: KHRIS ANGLIN [[id number]] Allergies As of Date: 05/19/2020 Noted Allergy Reaction CATS 01/19/2005 9 - Itching 12 - Shortness of Breath 14 - Other: See Comments Comments: sneezing DOGS 01/19/2005 9 - Itching 12 - Shortness of Breath Comments: sneezing environmental [Other] 01/19/2005 9 - Itching 12 - Shortness of Breath 14 - Other: See Comments Comments: sneezing Date Reviewed: 04/05/2020 Reviewed by: Ada Saini - Fully Assessed Reason for Visit: Shortness of Breath [227] Visit Diagnosis:Dyspnea and respiratory abnormalities [R06.00, R06.89] Order(s):LUNG VOLUMES [[id number]] Order #: [id number] Prescriptions as of 05/19/2020 Sig: BUDESONIDE-FORMOTEROL HFA 80 * Inhale 2 Puffs as instructed * IBUPROFEN 600 MG TABLET Take 600 mg by mouth every 6 * ROSUVASTATIN 5 MG TABLET Take 1 tablet by mouth once d* Patient taking differently: Take 5 mg by mouth once daily* FLAXSEED OIL 1,000 MG CAPSULE Take 1,000 mg by mouth once d* ALBUTEROL SULFATE HFA 90 MCG/* Inhale 2 Puffs as instructed * FLONASE NASAL Use in the nose. CHOLECALCIFEROL (VITAMIN D3) * Take 1,000 Units by mouth onc* CPAP by Mask route daily at bedtim* RIZATRIPTAN 10 MG DISINTEGRAT* Take 10 mg by mouth as needed* DANY 180 MG TABLET Take one(1) tablet daily. MULTIVITAMIN TABLET Take one(1) tablet daily. Problem List As Of Date 05/19/2020 Noted Resolved Adjustment disorder with anxiety [F43.22] 03/04/2012 06/10/2012 Adjustment disorder with mixed emotional featur*06/10/2012 Dyspnea and respiratory abnormalities [R06.00, *08/07/2014 Asthma [J45.909] 05/08/1993 Cigarette nicotine dependence in remission [F17*01/07/1972 04/30/1988 More... 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 [J4*05/04/2015 Anxiety [F41.9] 05/04/2015 Depression [F32.9] 05/04/2015 Diabetes mellitus type 2, controlled, without c*05/04/2015 TOMAS (obstructive sleep apnea) [G47.33] 05/04/2015 History of environmental allergies [Z91.09] 05/04/2015 Pulmonary fibrosis (HCC) [J84.10] 05/04/2015 08/26/2015 Restrictive ventilatory defect [R94.2] 08/26/2015 Diffusion capacity of lung (dl), decreased [R94*08/26/2015 ILD (interstitial lung disease) (HCC) [J84.9] 08/26/2015 Pulmonary nodules [R91.8] 08/26/2015 Ex-heavy cigarette smoker (20-39 per day); 50+ *08/26/2015 Herpes zoster without complication [B02.9] 09/06/2015 Encounter Status:Closed by KEVIN RAE on 05/19/20 [facility] 05-19-2020 Note HNO ID: [id number] Author: Anthony James Service: ? Author Type: Physician Type: Progress Notes Filed: 05/24/2020 5:02 PM Note Text: May 19, 2020 An order has been received for PAP titration study from [facility] Staff/[employer] Orders. Visit prep complete - Please refer to the sleep study order (under procedures tab) for protocol details and special instructions. The sleep study is scheduled for 05/26/2020. Insurance: Payor: MEDICARE / Plan: MEDICARE A AND B / Product Type: Medicare / Payor/Plan Subscr Sex Relation Sub. Ins. ID Effective Group Num 1. MEDICARE - ME* ROLAN BANUELOS 1955 Male Self [id number] 10/29/[address] MMO - MMO MED* ROLAN BANUELOS Erika 1955 Male Self [id number] 10/29/19 [id number] [address] May 19, 2020 Standing PSG Orders signed in the last 90 days None Future PSG Orders signed in the last 90 days Ordered Auth. provider PAP TITRATION PSG (CPAP, BIPAP, ASV) [[id number]] 04/05/20 [facility] diagnoses: TOMAS (obstructive sleep apnea) [G47.33], Dyspnea and respiratory abnormalities [R06.00, R06.89] Q: Special Needs (e.g.behavior, non-ambulatory, >450 lbs)?: A: No Q: Prior PAP (CPAP or Bilevel PAP) Use?: A: Yes Q: Sleep History: A: Sleep apnea All Prior Sleep Studies (past 365 days) Some values may be hidden. Unless noted otherwise, only the newest values recorded on each date are displayed. Sleep Studies PAP TITRATION PSG (CPAP, BIPAP, ASV) Future Expected: Expires: BMI Readings from Last 2 Encounters: 04/11/19 : 29.55 kg/m? 09/07/16 : 28.85 kg/m? PAST MEDICAL HISTORY Diagnosis Date - Asthma - COPD (chronic obstructive pulmonary disease) (HCC) - Depressive disorder - Diverticulitis of colon - Elevated glucose - Folliculitis - Generalized anxiety disorder - High cholesterol - Hypercholesterolemia - Hyperglycemia - Hyperlipidemia - Insomnia - Insomnia - Interstitial lung disease (HCC) - Microscopic hematuria - Obesity - Obstructive sleep apnea syndrome - TOMAS (obstructive sleep apnea) cpap - Overweight - Shingles (herpes zoster) polyneuropathy - Shoulder pain - Thyroid nodule - Vitamin D deficiency The medical record was reviewed to determine if the proposed sleep study conforms to the [facility] Practice Parameters for the Indications for Polysomnography and Related Procedures, or if the sleep study is indicated for other reasons. Indications for study: TOMAS previously titrated Sleep study to be performed: PAP titration study (would start titration at +12cm and increase by 1cm increments to eliminate respiratory events and keep SaO2 >/= 90%. Special instructions: Target REM/supine sleep *Last titration 10/23/2014 15 cmH20 via large AirFit F10 mask with 20 ramp. Brett García [facility] Staff Note: I have read the above protocol, edited as needed, and agree to the plan. Anthony James MD 5:01 PM, 05/24/2020 Brett García Mgr [facility] Summary Purpose Family History No Family History Records FoundNo Family History Records FoundNo Family History Records FoundNo Family History Records Found Advance Directives No Advanced Directives Records FoundNo Advanced Directives Records FoundNo Advanced Directives Records FoundNo Advanced Directives Records Found Additional Source Comments (unrecognized sect ion and content) No Status Records FoundNo Status Records FoundNo Status Records FoundNo Status Records Found INFORMATION SOURCE (unrecogn ized section and content) DATE CREATED AUTHOR AUTHOR'S OKMATHEW ATION 01/11/2021 [facility] DATE CREATED AUTHOR AUTHOR'S ORGANIZ ATION 06/01/2021 [facility] DATE CREATED AUTHOR AUTHOR'S ORGANIZ ATION 06/28/2023 [facility] FOR RECORDS PERTAINING TO PATIENTS WHO ARE OR HAVE BEEN ENROLLED IN A CHEMICAL DEPENDENCY/SUBSTANCEABUSE PROGRAM, SOME INFORMATION MAY BE OMITTED. This clinical summary was aggregated from multiple sources. Caution should be exercised in using it in the provision of clinical care. This summary normalizes information from multiple sources, and as a consequence, information in this document may materially change the coding, format and clinical context of patient data. In addition, data may be omitted in some cases. CLINICAL DECISIONS SHOULD BE BASED ON THE PRIMARY CLINICAL RECORDS. [facility] [employer] [facility]. provides no warranty or guarantee of the accuracy or completeness of information in this document.
[2023-07-12 10:24] LABS: Vitamin D,25 Hydroxy 85.2 ng/mL
[2023-07-12 11:13] LABS: ALB/GLOB Ratio 1.1 RATIO (0.9-2.4); AST(SGOT) 14 U/L (15-37); Alanine Aminotransfer ALT/SGPT 20 U/L (16-61); Albumin, Serum 3.7 g/dL (3.2-5.0); Alkaline Phosphatase 79 U/L (45-117); Anion Gap 7 (5-15); BUN 17 mg/dL (7-18); BUN/Creat Ratio 19.7 RATIO (10-20); Calcium,Total 9.1 mg/dL (8.5-10.1); Chloride 106 mmol/L (98-107); Cholesterol 127 mg/dL (200); Creatinine, Serum 0.86 mg/dL (0.70-1.30); EST Glomerular Filtration Rate 93 mL/min (>60); Est Glom Filt Rate - Afr Amer 113 mL/min (>60); Globulin 3.4 g/dL (2.2-4.2); Glucose 112 mg/dL (74-106); High Density Lipoprotein 46 mg/dL; Potassium 4.2 mmol/L (3.5-5.1); Protein, Total 7.1 g/dL (6.4-8.2); Sodium Level 138 mmol/L (136-145); Triglycerides 69 mg/dL; Very Low Density Lipoprotein 14 mg/dL (5-40)
[2023-07-12 14:36] LABS: Hemoglobin A1c 5.6 % (3.8-5.6)
== END | disposition home or self-care (01) ==
LOC: MFPLAB 08:49
PROVIDERS: PCP Family Medicine; Visit Provider Family Medicine
DX: R73.02 Impaired glucose tolerance (oral) (principal); E55.9 Vitamin D deficiency, unspecified; E78.00 Pure hypercholesterolemia, unspecified
CPT/HCPCS: 36415; 80053; 80061; 82306; 83036

== ENCOUNTER → 2023-08-20 | Outpatient (CLI) | payer MEDICARE, OTHER, SELFPAY ==
--- NOTE | 2023-08-20 09:18 | RAD_ITS ---
STUDY: X-RAY CHEST REASON FOR EXAM: Male, 67 years old. Cough. Patient not feeling well for one and half weeks. TECHNIQUE: PA and lateral views of the chest. COMPARISON: Comparison is made with prior study dated March 06, 2022. FINDINGS: There is hyperinflation of the lungs consistent with chronic obstructive lung disease (COPD). Stable increased interstitial markings at the lung bases worse on the left base with blunting of both costophrenic angles. This is suggestive of chronic scarring. Calcification of right pleural plaques. Mild calcified left pleural plaques. Normal size heart. Normal mediastinum and niko. Normal visualized pulmonary arteries. Normal visualized aortic arch and descending thoracic aorta. There are degenerative changes of the visualized thoracic spine. Normal visualized ribs, clavicles, and shoulders. Findings suggestive of a hiatal hernia. RAD/Chest PA and Lateral IMPRESSION: Hyperinflation with the increase in linear markings at the lung bases suggestive of scarring. There has been essentially no change. Electronically Signed: Nawaf Naranjo MD at 14:32 EDT ,
== END | disposition home or self-care (01) ==
LOC: MTRAD 09:16
PROVIDERS: PCP Family Medicine; Referring Provider Internal Medicine Pulmonary Disease; Visit Provider Internal Medicine Pulmonary Disease
DX: R06.02 Shortness of breath (principal); R05.9 Cough, unspecified
CPT/HCPCS: 71046

== ENCOUNTER → 2023-10-17 | Outpatient (CLI) | payer MEDICARE, OTHER, SELFPAY ==
[2023-10-17 10:24] LABS: Absolute Lymphocyte Count 1.96 X10^3/uL (0.83-4.51); Absolute Neutrophil Count 6.1 X10^3/uL (2.0-7.7); Basophil# 0.07 X10^3/uL; Basophil% 0.8 % (0-1); Eosinophil# 0.25 X10^3/uL; Eosinophils% 2.7 % (0-5); Hematocrit 43.8 % (40-54); Hemoglobin 14.2 g/dL (13.0-16.5); Lymphocyte # 1.96 X10^3/ul (0.83-4.51); Lymphocyte % 21.4 % (19-41); Mean Corp Hgb Conc 32.4 g/dL (32-36); Mean Corpuscular Hgb 29.7 pg (27.0-32.0); Mean Corpuscular Volume 91.6 fL (80-94); Mean Platelet Vol. 10.8 fl (6.2-12.0); Monocyte# 0.68 X10^3/uL; Monocyte% 7.4 % (0-10); NRBC Flagged by Analyzer 0 % (0-5); Neutrophil # 6.13 X10^3/uL (2.7-7.7); Neutrophil % 67.2 % (47-70); Platelet Count 274 K/mm3 (150-450); RBC Distribution Width CV 13.6 % (11.6-14.6); RBC Distribution Width SD 46.1 fl (35.1-43.9); Red Blood Count 4.78 M/mm3 (4.6-6.2); White Blood Count 9.1 K/mm3 (4.4-11.0)
[2023-10-17 10:54] LABS: Vitamin D,25 Hydroxy 86.6 ng/mL
[2023-10-17 11:45] LABS: ALB/GLOB Ratio 1.1 RATIO (0.9-2.4); AST(SGOT) 16 U/L (15-37); Alanine Aminotransfer ALT/SGPT 21 U/L (16-61); Albumin, Serum 3.7 g/dL (3.2-5.0); Alkaline Phosphatase 78 U/L (45-117); Anion Gap 9 (5-15); BUN 13 mg/dL (7-18); BUN/Creat Ratio 15.2 RATIO (10-20); Calcium,Total 9.3 mg/dL (8.5-10.1); Chloride 108 mmol/L (98-107); Cholesterol 124 mg/dL (200); Creatinine, Serum 0.86 mg/dL (0.70-1.30); EST Glomerular Filtration Rate 94 mL/min (>60); Est Glom Filt Rate - Afr Amer 114 mL/min (>60); Globulin 3.3 g/dL (2.2-4.2); Glucose 109 mg/dL (74-106); High Density Lipoprotein 45 mg/dL; Potassium 4.4 mmol/L (3.5-5.1); Sodium Level 139 mmol/L (136-145); Triglycerides 62 mg/dL; Very Low Density Lipoprotein 12 mg/dL (5-40)
[2023-10-17 12:13] LABS: Hemoglobin A1c 5.6 % (3.8-5.6)
== END | disposition home or self-care (01) ==
LOC: MFPLAB 09:27
PROVIDERS: PCP Family Medicine; Visit Provider Family Medicine
DX: R73.02 Impaired glucose tolerance (oral) (principal); E55.9 Vitamin D deficiency, unspecified; Z12.5 Encounter for screening for malignant neoplasm of prostate; E78.00 Pure hypercholesterolemia, unspecified
CPT/HCPCS: 36415; 80053; 80061; 82306; 83036; 84153; 85025; G0103

== ENCOUNTER → 2024-02-14 | Outpatient (CLI) | payer MEDICARE, OTHER, SELFPAY ==
[2024-02-14 10:20] LABS: Absolute Lymphocyte Count 1.98 X10^3/uL (0.83-4.51); Absolute Neutrophil Count 7.7 X10^3/uL (2.0-7.7); Basophil# 0.07 X10^3/uL; Basophil% 0.6 % (0-1); Eosinophil# 0.18 X10^3/uL; Eosinophils% 1.7 % (0-5); Hematocrit 43.8 % (40-54); Hemoglobin 14.5 g/dL (13.0-16.5); Lymphocyte # 1.98 X10^3/ul (0.83-4.51); Lymphocyte % 18.3 % (19-41); Mean Corp Hgb Conc 33.1 g/dL (32-36); Mean Corpuscular Hgb 30.1 pg (27.0-32.0); Mean Corpuscular Volume 90.9 fL (80-94); Mean Platelet Vol. 10.9 fl (6.2-12.0); Monocyte# 0.86 X10^3/uL; Monocyte% 7.9 % (0-10); NRBC Flagged by Analyzer 0 % (0-5); Neutrophil # 7.66 X10^3/uL (2.7-7.7); Neutrophil % 70.9 % (47-70); Platelet Count 306 K/mm3 (150-450); RBC Distribution Width CV 12.9 % (11.6-14.6); RBC Distribution Width SD 42.2 fl (35.1-43.9); Red Blood Count 4.82 M/mm3 (4.6-6.2); White Blood Count 10.8 K/mm3 (4.4-11.0)
[2024-02-14 11:07] LABS: Hemoglobin A1c 5.8 % (3.8-5.6)
[2024-02-14 11:16] LABS: ALB/GLOB Ratio 1.1 RATIO (0.9-2.4); AST(SGOT) 11 U/L (15-37); Alanine Aminotransfer ALT/SGPT 17 U/L (16-61); Albumin, Serum 3.7 g/dL (3.2-5.0); Alkaline Phosphatase 78 U/L (45-117); Anion Gap 6 (5-15); BUN 15 mg/dL (7-18); BUN/Creat Ratio 18.6 RATIO (10-20); Calcium,Total 9.6 mg/dL (8.5-10.1); Chloride 105 mmol/L (98-107); Cholesterol 127 mg/dL (200); Creatinine, Serum 0.81 mg/dL (0.70-1.30); EST Glomerular Filtration Rate 101 mL/min (>60); Est Glom Filt Rate - Afr Amer 122 mL/min (>60); Globulin 3.3 g/dL (2.2-4.2); Glucose 107 mg/dL (74-106); High Density Lipoprotein 51 mg/dL; Potassium 4.2 mmol/L (3.5-5.1); Sodium Level 137 mmol/L (136-145); Triglycerides 86 mg/dL; Very Low Density Lipoprotein 17 mg/dL (5-40)
[2024-02-15 11:49] LABS: Vitamin B12 471 pg/mL (211-911); Vitamin D,25 Hydroxy 79.5 ng/mL
== END | disposition home or self-care (01) ==
LOC: MFPLAB 08:24
PROVIDERS: PCP Family Medicine; Visit Provider Family Medicine
DX: R73.02 Impaired glucose tolerance (oral) (principal); E78.00 Pure hypercholesterolemia, unspecified; E55.9 Vitamin D deficiency, unspecified; R53.83 Other fatigue
CPT/HCPCS: 36415; 80053; 80061; 82306; 82607; 83036; 84439; 84443; 85025

== ENCOUNTER → 2024-07-15 | Outpatient (CLI) | payer MEDICARE, OTHER, SELFPAY ==
[2024-07-15 10:35] LABS: Absolute Lymphocyte Count 2.18 X10^3/uL (0.83-4.51); Absolute Neutrophil Count 7.4 X10^3/uL (2.0-7.7); Basophil# 0.05 X10^3/uL; Basophil% 0.5 % (0-1); Eosinophil# 0.25 X10^3/uL; Eosinophils% 2.3 % (0-5); Hematocrit 41.7 % (40-54); Hemoglobin 14.3 g/dL (13.0-16.5); Lymphocyte # 2.18 X10^3/ul (0.83-4.51); Lymphocyte % 20.3 % (19-41); Mean Corp Hgb Conc 34.3 g/dL (32-36); Mean Corpuscular Hgb 30.7 pg (27.0-32.0); Mean Corpuscular Volume 89.5 fL (80-94); Mean Platelet Vol. 11.2 fl (6.2-12.0); Monocyte# 0.85 X10^3/uL; Monocyte% 7.9 % (0-10); NRBC Flagged by Analyzer 0 % (0-5); Neutrophil # 7.35 X10^3/uL (2.7-7.7); Neutrophil % 68.4 % (47-70); Platelet Count 272 K/mm3 (150-450); RBC Distribution Width CV 13.1 % (11.6-14.6); RBC Distribution Width SD 42.9 fl (35.1-43.9); Red Blood Count 4.66 M/mm3 (4.6-6.2); White Blood Count 10.7 K/mm3 (4.4-11.0)
[2024-07-15 10:57] LABS: ALB/GLOB Ratio 1.5 RATIO (0.9-2.4); AST(SGOT) 18 U/L (<=37); Alanine Aminotransfer ALT/SGPT 11 U/L (<=46); Albumin, Serum 4.2 g/dL (3.4-4.8); Alkaline Phosphatase 83 U/L (40-129); Anion Gap 13 (5-15); BUN 15 mg/dL (4-19); BUN/Creat Ratio 19.8 RATIO (10-20); Calcium,Total 9.5 mg/dL (7.6-11.0); Carbon Dioxide 21.6 mmol/L (21.0-32.0); Chloride 106 mmol/L (98-108); Cholesterol 133 mg/dL (<=200); Creatinine, Serum 0.78 mg/dL (0.70-1.20); EST Glomerular Filtration Rate 97 (>60); Globulin 2.8 g/dL (2.2-4.2); Glucose 114 mg/dL (70-99); High Density Lipoprotein 51 mg/dL; Low Density Lipoprotein Calc. 68 mg/dL; Potassium 4.3 mmol/L (3.3-5.1); Protein, Total 6.9 g/dL (5.9-8.4); Sodium Level 140 mmol/L (133-145); Total Bilirubin 0.45 mg/dL (0.00-1.30); Triglycerides 73 mg/dL; Very Low Density Lipoprotein 15 mg/dL (5-40); Vitamin D,25 Hydroxy 63.6 ng/mL (30-100); cholesterol:hdl ratio screen 2.63
[2024-07-15 12:29] LABS: Hemoglobin A1c 5.6 % (<=5.6)
== END | disposition home or self-care (01) ==
LOC: MFPLAB 08:17
PROVIDERS: PCP Family Medicine; Referring Provider Family Medicine; Visit Provider Family Medicine
DX: R73.02 Impaired glucose tolerance (oral) (principal); E78.00 Pure hypercholesterolemia, unspecified; E55.9 Vitamin D deficiency, unspecified
CPT/HCPCS: 36415; 80053; 80061; 82306; 83036; 85025

== ENCOUNTER → 2024-11-13 | Outpatient (CLI) | payer MEDICARE, OTHER, SELFPAY ==
[2024-11-13 10:45] LABS: Hematocrit 42.3 % (40-54); Hemoglobin 14.1 g/dL (13.0-16.5); Immature Granulocytes Count 0.070 X10^3/uL (0.0-0.0); Mean Corp Hgb Conc 33.3 g/dL (32-36); Mean Corpuscular Volume 90.8 fL (80-94); Mean Platelet Vol. 10.6 fl (6.2-12.0); NRBC Flagged by Analyzer 0 % (0-5); Platelet Count 251 K/mm3 (150-450); RBC Distribution Width CV 13.2 % (11.6-14.6); RBC Distribution Width SD 43.9 fl (35.1-43.9); Red Blood Count 4.66 M/mm3 (4.6-6.2); White Blood Count 9.6 K/mm3 (4.4-11.0)
[2024-11-13 11:34] LABS: AST(SGOT) 20 U/L (<=37); Alanine Aminotransfer ALT/SGPT 17 U/L (<=46); Albumin, Serum 4.0 g/dL (3.4-4.8); Alkaline Phosphatase 80 U/L (40-129); Anion Gap 13 (5-15); BUN 17 mg/dL (4-19); BUN/Creat Ratio 17.7 RATIO (10-20); Calcium,Total 9.5 mg/dL (7.6-11.0); Carbon Dioxide 24.2 mmol/L (21.0-32.0); Chloride 105 mmol/L (98-108); Cholesterol 142 mg/dL (<=200); Globulin 2.7 g/dL (2.2-4.2); Glucose 159 mg/dL (70-99); Low Density Lipoprotein Calc. 73 mg/dL; Potassium 4.4 mmol/L (3.3-5.1); Triglycerides 60 mg/dL; Very Low Density Lipoprotein 12 mg/dL (5-40); Vitamin D,25 Hydroxy 65.1 ng/mL (30-100); cholesterol:hdl ratio screen 2.49
== END | disposition home or self-care (01) ==
LOC: MTLAB 09:14
PROVIDERS: PCP Family Medicine; Referring Provider Family Medicine; Visit Provider Family Medicine
DX: E55.9 Vitamin D deficiency, unspecified (principal); E78.00 Pure hypercholesterolemia, unspecified; R73.02 Impaired glucose tolerance (oral)
CPT/HCPCS: 36415; 80053; 80061; 82306; 83036; 85025

== ENCOUNTER → 2025-03-11 | Outpatient (CLI) | payer MEDICARE, OTHER, SELFPAY ==
[2025-03-11 13:10] LABS: PSA,Total - Annual Screen 0.45 ng/mL (0.02-4.00)
== END | disposition home or self-care (01) ==
LOC: MFPLAB 09:28
PROVIDERS: PCP Family Medicine
DX: Z12.5 Encounter for screening for malignant neoplasm of prostate (principal)
CPT/HCPCS: 36415; 84153; G0103

== ENCOUNTER → 2025-03-30 | Outpatient (CLI) | payer MEDICARE, OTHER, SELFPAY ==
--- NOTE | 2025-03-30 18:57 | CT_ITS ---
PROCEDURE: CHEST WITHOUT CONTRAST 03/30/2025 REASON FOR EXAM: HYPERSENSITIVITY PNEUMONITIS DUE TO UNSPECIFIED TECHNIQUE: Chest CT without contrast. Coronal and Sagittal reconstruction series were provided. One or more dose reduction techniques were used (e.g., Automated exposure control, adjustment of the mA and/or kV according to patient size, use of iterative reconstruction technique RADIATION DOSE SUMMARY: CTDlvol: 16.42 mGy DLP: 648.35 mGycm COMPARISON: None FINDINGS: There is bilateral pulmonary predominantly lower lobes basal segments areas of interstitial pulmonary thickening seen with associated fibrotic bands and ground glass haze as well as architectural distortion most prominent along the subpleural regions with honeycombing formation. No suspicious-appearing soft tissue pulmonary nodule or mass. There is no focal infiltrate or consolidation. There are no pleural effusions. No pneumothorax is seen. Right basal diaphragmatic pleural calcifications are noted. No mediastinal or hilar adenopathy is identified. The thyroid is unremarkable. The central airways are patent. Prominent mediastinal fat. The chest wall appears unremarkable. No axillary adenopathy is identified. Small hiatus hernia is seen. The thoracic aorta demonstrates atheromatous calcification. The heart and pulmonary arteries are of normal size and configuration. There are coronary artery calcifications. No pericardial effusion is identified. No aggressive-appearing osseous lesions are identified. The included abdominal cuts show no gross abnormality. CT/Chest without Contrast IMPRESSION: Findings are consistent with diffuse interstitial lung disease, recommend clini kb correlation. No acute abnormalities detected. Small hiatus hernia. Reading [facility] [id number]
--- OUTSIDE RECORDS SUMMARY | 2025-03-30 20:14 | XMS RPT_ITS | CCD ---
Author Organization [facility]iniSyn[facility] Care Team Providers Care Livestock Broker Name Role Phone EZEKIEL LOWE Unavailable Unavailable EZEKIEL LOWE Unavailable Unavailable NO REFERRING DR Peñaloza Unavailable Dr. Virgie Vergara Primary Care Provider [phone] Dr. Russ Flores Attending Provider Dr. Virgie Vergara Primary Care Provider 1([facility] )[phone] Dr. Candelaria Rodriguez V Referring Provider 1([facility])[phone] Dr. Candelaria Rodriguez V Other Provider 1([facility])[phone] Dr. Luis Miguel Castillo Attending Provider 1([facility])[phone] Virgie Vergara Primary Care Provider 1([facility] )[phone] Dr. Candelaria Rodriguez V Referring Provider 1([facility])[phone] Dr. Candelaria Rodriguez V Other Provider Dr. Luis Miguel Castillo Attending Provider 1([facility])[phone] Virgie Vergara MD Primary Care Provider Dr. Virgie Vergara MD Attending Provider Dr. Virgie Vergara MD Referring Provider [phone] Dr. Virgie Vergara MD Primary Care Provider Dr. Virgie Vergara MD Attending Provider Dr. Virgie Vergara MD Referring Provider VIRGIE VERGARA Primary Care Unavailable SELF Referring Unavailable SOUTH GU Attending Unavailable SELF Referring Unavailable VIRGIE VERGARA Primary Care Unavailable SOUTH GU Attending Unavailable VIRGIE VERGARA Primary Care Unavailable SOUTH GU Attending Unavailable SELF Referring Unavailable SELF Referring Unavailable SCHINNER, VIRGIE E Primary Care Unavailable SOUTH GU Attending Unavailable SELF Referring Unavailable SCHINKIRSTY VIRGIE E Primary Care Unavailable SOUTH GU Attending Unavailable SELF Referring Unavailable SCHINKIRSTY, VIRGIE E Primary Care Unavailable SOUTH GU Attending Unavailable SELF Referring Unavailable SCHINNER, VIRGIE E Primary Care Unavailable SOUTH GU Attending Unavailable SCHINKIRSTY, VIRGIE E Primary Care Unavailable SELF Referring Unavailable SOUTH GU Attending Unavailable SCHINKIRSTY, VIRGIE E Primary Care Unavailable SOUTH GU Attending Unavailable SELF Referring Unavailable SCHINNER, VIRGIE E Primary Care Unavailable SOUTH GU Attending Unavailable SELF Referring Unavailable SCHINNER, VIRGIE E Primary Care Unavailable SELF Referring Unavailable SOUTH GU Attending Unavailable SELF Referring Unavailable SCHINKIRSTY, VIRGIE E Primary Care Unavailable SOUTH GU Attending Unavailable SELF Referring Unavailable SOUTH GU Attending Unavailable SCHINKIRSTY, VIRGIE E Primary Care Unavailable SELF Referring Unavailable SOUTH GU Attending Unavailable SCHINKIRSTY, VIRGIE E Primary Care Unavailable SELF Referring Unavailable SOUTH GU Attending Unavailable SCHINKIRSTY, VIRGIE E Primary Care Unavailable SELF Referring Unavailable SOUTH GU Attending Unavailable SCHINKIRSTY, VIRGIE E Primary Care Unavailable SELF Referring Unavailable SOUTH GU Attending Unavailable SCHINKIRSTY, VIRGIE E Primary Care Unavailable SELF Referring Unavailable SOUTH GU Attending Unavailable SCHINKIRSTY, VIRGIE E Primary Care Unavailable SELF Referring Unavailable SOUTH GU Attending Unavailable SCHINKIRSTY, VIRGIE E Primary Care Unavailable SELF Referring Unavailable SCHINKIRSTY, VIRGIE E Primary Care Unavailable SOUTH GU Attending Unavailable SELF Referring Unavailable SCHKRYSTAL, VIRGIE E Primary Care Unavailable SOUTH GU Attending Unavailable SELF Referring Unavailable SCHINKIRSTY, VIRGIE E Primary Care Unavailable SOUTH GU Attending Unavailable SELF Referring Unavailable SCHINKIRSTY, VIRGIE E Primary Care Unavailable SOUTH GU Attending Unavailable SELF Referring Unavailable SCHINKIRSTY, VIRGIE E Primary Care Unavailable SOUTH GU Attending Unavailable SCHINKIRSTY, VIRGIE E Primary Care Unavailable SELF Referring Unavailable SOUTH GU Attending Unavailable SELF Referring Unavailable SOUTH GU Attending Unavailable SCHINNER, VIRGIE E Primary Care Unavailable SCHINNER, VIRGIE E Primary Care Unavailable SELF Referring Unavailable SOUTH GU Attending Unavailable SCHINKIRSTY, VIRGIE E Primary Care Unavailable SELF Referring Unavailable SOUTH GU Attending Unavailable SCHINKIRSTY, VIRGIE E Primary Care Unavailable SOUTH GU Attending Unavailable SCHINKIRSTY, VIRGIE E Primary Care Unavailable SOUTH GU Attending Unavailable SCHINNER, VIRGIE E Primary Care Unavailable SOUTH GU Attending Unavailable SELF Referring Unavailable SCHINVIRGIE LOFTON E Primary Care Unavailable SELF Referring Unavailable SOUTH GU Attending Unavailable SCHINVIRGIE LOFTON E Primary Care Unavailable SOUTH GU Attending Unavailable SELF Referring Unavailable SELF Referring Unavailable SOUTH GU Attending Unavailable SCHINVIRGIE LOFTON E Primary Care Unavailable SELF Referring Unavailable SOUTH GU Attending Unavailable SCHINNER, VIRGIE E Primary Care Unavailable SELF Referring Unavailable SCHINVIRGIE LOFTON E Primary Care Unavailable SOUTH GU Attending Unavailable SELF Referring Unavailable SCHINNER, VIRGIE E Primary Care Unavailable SOUTH GU Attending Unavailable SCHINKIRSTY, VIRGIE E Primary Care Unavailable SELF Referring Unavailable SOUTH GU Attending Unavailable SCHINKIRSTY, VIRGIE E Primary Care Unavailable SELF Referring Unavailable SOUTH GU Attending Unavailable SCHINKIRSTY, VIRGIE E Primary Care Unavailable SOUTH GU Attending Unavailable SELF Referring Unavailable Schinner, Virgie E Primary Care Unavailable Schinkirsty, Virgie E Attending Unavailable Schinkirsty, Virgie E Referring Unavailable SchinVirgie lofton E Primary Care Unavailable SchVirgie wong E Attending Unavailable Schinkirsty, Virgie E Referring Unavailable Schinkirsty, Virgie E Primary Care Unavailable [place] HOUSEKEEPER HEADJl Attending Unavailable Allergies Allergy Classification Reported Allergen(s) Allergy Type Date of Onset Reaction(s) Facility (1 source) Cat; Translations: [CATS] Propensity to adverse reactions (disorder) [address] [place] [address] (1 source) Dog; Translations: [DOGS] Propensity to adverse reactions (disorder) [address] [place] [address] (1 source) OTHER; Translations: [OTHER] Propensity to adverse reactions (disorder) [address] [place] [address] Medications Current Medications Medication Drug Class(es) Dates Sig (Normalized) Sig (Original) apple cider vinegar 600 mg oral capsule (13 sources) Start: 10-26-2020 take 1 capsule by mouth once daily Apple Cider Vinegar 600 mg capsule Active 600 mg PO DAILY October 26, 2020 12:00am Budesonide-Formote rol (13 sources) Corticosteroid, beta2-Adrenergic Agonist Start: 02-07-2021 Budesonide-Formot adali (Symbicort) 80-4.5 mcg/actuation HFA aerosol inhaler Active 2 NMA INHALATION DAILY February 07, 2021 12:00am Start: 02-07-2021 take 1 puff(s) by in halation once daily Budesonide-Formoterol (Symbicort) 80-4.5 mcg/actuation HFA aerosol inhaler Active 2 PUFF INHALATION DAILY February 07, 2021 12:00am Start: 02-07-2021 take 1 puff(s) by in halation once daily Budesonide-Formoterol (Symbicort) 80-4.5 mcg/actuation HFA aerosol inhaler Active 2 PUFF INHALATION DAILY February 06, 2021 11:00pm codeine phosphate 2 mg/ml / guaiFENesin 20 mg/ml oral solution (13 sources) Opioid Agonist Start: 03-06-2022 take 1 mL by mouth every six hours as needed for cough Codeine-Guaifenesin 10-100 mg/5 mL liquid Active 5 mL PO EVERY 6 HOURS as needed for cough 120 0 March 06, 2022 1:00am Start: 03-06-2022 take 1 mL by mouth e very six hours Codeine-Guaifenesin Active 5 ML PO EVERY 6 HOURS 120 March 06, 2022 1:00am ergocalciferol 1.25 mg oral capsule (13 sources) Provitamin D2 Compound Start: 10-26-2020 Ergocalciferol (Vitamin D2) (Vitamin D2) 1,250 mcg (50,000 unit) capsule Active 1250 ug PO DAILY October 26, 2020 12:00am fexofenadine hydrochloride 60 mg oral tablet (13 sources) Histamine-1 Receptor Antagonist Start: 10-26-2020 take 1 tablet by mouth once daily Fexofenadine (Tayla Allergy) 60 mg tablet Active 60 mg PO DAILY October 26, 2020 12:00am fluticasone propionate 0.05 mg/actuat metered dose nasal spray (13 sources) Corticosteroid Start: 10-26-2020 Fluticasone Propionate (Flonase Allergy Relief) 50 mcg/actuation spray,suspension Active 2 NMA INTRANASAL DAILY October 26, 2020 12:00am Start: 10-26-2020 Fluticasone Pr opionate (Flonase Allergy Relief) 50 mcg/actuation spray,suspension Active 2 SPRAY INTRANASAL DAILY October 26, 2020 12:00am linseed oil 1000 mg oral capsule (13 sources) Start: 01-27-2021 take 1 capsule by mouth once daily Flaxseed Oil 1,000 mg capsule Active 1000 mg PO DAILY January 27, 2021 12:00am administer with a meal metFORMIN hydrochloride 500 mg oral tablet (13 sources) Biguanide Start: 10-26-2020 take 1 tablet by mouth twice daily Metformin 500 mg tablet Active 500 mg PO TWICE A DAY October 26, 2020 12:00am Multivitamin preparation (11 sources) Start: 02-07-2021 take 1 tablet by mouth once daily Multivitamin Active 1 TABLET PO DAILY February 07, 2021 12:00am Start: 02-07-2021 take 1 tablet by digna th once daily Multivitamin Active 1 TABLET PO DAILY February 06, 2021 11:00pm Multivitamin Tablet (2 sources) Start: 02-07-2021 Multivitamin T ablet Active 1 {tbl} PO DAILY February 07, 2021 12:00am rosuvastatin calcium 40 mg oral tablet (20 sources) HMG-CoA Reductase Inhibitor Start: 01-27-2021 take 5 mg by mouth every other day Rosuvastatin 40 mg tablet Active 5 mg PO .every other day January 27, 2021 7:42am Start: 01-27-2021 take 5 mg by mouth e very other day Rosuvastatin Active 5 MG PO .every other day January 27, 2021 7:42am Start: 10-26-2020 End: 01-27-2021 take 1 tablet by mouth once daily Rosuvastatin 40 mg tablet Discontinued 40 mg PO DAILY October 26, 2020 12:00am January 27, 2021 7:42am Completed/Discontinued Medications Medication Drug Class(es) Dates Sig (Normalized) Sig (Original) amoxicillin 875 mg / clavulanate 125 mg oral tablet (13 sources) Penicillin-class Antibacterial Start: 10-26-2020 End: 01-27-2021 take 1 tablet by mouth every twelve hours Amoxicillin-Pot Clavulanate 875 MG tablet Discontinued 875 mg PO Q12H 20 0 October 26, 2020 12:00am January 27, 2021 7:41am Problems Active Problems Problem Classification Problem Date Documented Da te Episodic/Chronic Adjustment disorders (1 source) Adjustment disorder with other symptoms; Translations: [Adjustment disorder with mixed emotional features] Onset: 06-10-2012 Chronic Alcohol-related disorders (1 source) Alcohol dependence, in remission; Translations: [Alcoholism in recovery (HCC)] Onset: 07-16-2024 Chronic Asthma (3 sources) Mild persistent asthma, uncomplicated; Translations: [Unspecified asthma, uncomplicated] Onset: 04-26-2016 Chronic Chronic obstructive pulmonary disease and bronchiectasis (13 sources) Bronchitis; Translations: [Bronchitis, not specified as acute or chronic] 03-14-2022 Episodic Disorders of lipid metabolism (13 sources) Hypercholesterolemi a; Translations: [Pure hypercholesterolemi a, unspecified] 01-27-2021 Chronic Nutritional deficiencies (1 source) Vitamin D deficiency, unspecified; Translations: [Vitamin D deficiency, unspecified] Onset: 11-18-2024 Chronic Open wounds of extremities (13 sources) Cat bite - wound; Translations: [Open bite of other finger without damage to nail, initial encounter] 10-26-2020 Episodic Other lower respiratory disease (1 source) Interstitial pulmonary disease, unspecified; Translations: [INTERSTITIAL PULMONARY D] Onset: 04-26-2016 Chronic Other screening for suspected conditions (not mental disorders or infectious disease) (1 source) Encounter for screening for malignant neoplasm of prostate; Translations: [Encounter for screening for malignant neoplasm of prostate] Onset: 03-11-2025 Episodic Residual codes; unclassified (13 sources) Family history of cancer of colon; Translations: [Family history of malignant neoplasm of digestive organs] 01-27-2021 Episodic Past or Other Problems Problem Classification Problem Date Documented Da te Episodic/Chronic Diabetes mellitus without complication (1 source) Impaired glucose tolerance (oral); Translations: [Impaired glucose tolerance (oral)] Onset: 07-24-2024 Episodic Pleurisy; pneumothorax; pulmonary collapse (2 sources) Atelectasis; Translations: [Pleural effusion, not elsewhere classified] Onset: 04-26-2016 Episodic Results Test Name Value Interpretation Reference Range Facility PSA,Total - Annual Screenon 03-11-2025 PSA,TOT SCREEN 0.45 ng/mL Normal 0.02-4.00 [facility] Comment on above: Order Comment: Order Date: 03/11/25 Order Info: [id number] - PSA Comments: screening for prostate cancer Result Comment: This test was performed using the [employer] tPSA method. Measured values of a patient??sample can vary depending on the testing procedure used. PSA values determined on patient samples by different testing procedures cannot be used interchangeably. If there is a change in PSA assays while monitoring therapy, sequential testing should be performed to confirm baseline values. Performed By: #### L 501.9910 #### [facility] [address] [place], [place], [id number] Absolute lymphocyte countOrd ered By: Virgie Vergara on 11-13-2024 Lymphocytes Auto (Unsp spec) [#/Vol] 1.59 10*3/uL 0.83-4.51 [facility] Absolute neutrophil countOrd ered By: Virgie Vergara on 11-13-2024 Neutrophils (Bld) [#/Vol] 7.1 10*3/uL 2.0-7.7 [facility] Anion gap in Serum or Plasma Ordered By: Virgie Vergara on 11-13-2024 Anion gap [Moles/Vol] 13 mmol/L 5-15 [facility] Automated lymphocyte count a s percentage of total leukocytesOrdered By: Virgie Vergara on 11-13-2024 Lymphocytes/100 WBC Auto (Unsp spec) 16.5 % Low 19-41 [facility] BUN/creatinine ratioOrdered By: Virgie Vergara on 11-13-2024 Urea nitrogen/Creatinine [Mass ratio] 17.7 mg/mg 10-20 [facility] Basophil percentageOrdered B y: Virgie Vergara on 11-13-2024 Basophils/100 WBC (Bld) 0.8 % 0-1 [facility] Bilirubin, totalOrdered By: Virgie Vergara on 11-13-2024 Bilirubin [Mass/Vol] 0.45 mg/dL 0.00-1.30 [facility] CBC W/Diff, Automatedon 10-28 Absolute Lymph 1.59 X10 3/uL Normal 0.83-4.51 [facility] Comment on above: Performed By: #### L [id number], L100.0100, L506.1001, L500.4050, L500.4100 #### [facility] [address] [place], [address] Absolute Neut 7.1 X10 3/uL Normal 2.0-7.7 [facility] Comment on above: Performed By: #### L [id number], L100.0100, L506.1001, L500.4050, L500.4100 #### [facility] [address] [place], [address] Basophils/100 WBC (Bld) 0.8 % Normal 0-1 [facility] Comment on above: Performed By: #### L [id number], L100.0100, L506.1001, L500.4050, L500.4100 #### [facility] [address] [place], [address] Eosinophils/100 WBC (Bld) 1.2 % Normal 0-5 [facility] Comment on above: Performed By: #### L [id number], L100.0100, L506.1001, L500.4050, L500.4100 #### [facility] [address] [place], [address] Erythrocyte distribution width (RBC) [Ratio] 13.2 % Normal 11.6-14.6 [facility] Comment on above: Performed By: #### L [id number], L100.0100, L506.1001, L500.4050, L500.4100 #### [facility] [address] [place], [address] Hematocrit (Bld) [Volume fraction] 42.3 % Normal 40-54 [facility] Comment on above: Performed By: #### L [id number], L100.0100, L506.1001, L500.4050, L500.4100 #### [facility] [address] [place], [address] Hemoglobin (Bld) [Mass/Vol] 14.1 g/dL Normal 13.0-16. 5 [facility] Comment on above: Performed By: #### L [id number], L100.0100, L506.1001, L500.4050, L500.4100 #### [facility] [address] [place], [address] IG% 0.700 Normal 0.0-0.9 [facility] Comment on above: Result Comment: IG% - Immature Granulocytes (promyelocytes, myelocytes and metamyelocytes) > 1% indicates that a LEFT SHIFT is Present. Performed By: #### L 501.9985, L100.0100, L506.1001, L500.4050, L500.4100 #### [facility] [address] [place], [address] Lymphocytes/100 WBC (Bld) 16.5 % Low 19-41 [facility] Comment on above: Performed By: #### L 501.9985, L100.0100, L506.1001, L500.4050, L500.4100 #### [facility] [address] [place], [address] MCH (RBC) [Entitic mass] 30.3 pg Normal 27.0-32.0 [facility] Comment on above: Performed By: #### L 501.9985, L100.0100, L506.1001, L500.4050, L500.4100 #### [facility] [address] [place], [address] MCHC (RBC) [Mass/Vol] 33.3 g/dL Normal 32-36 [facility] Comment on above: Performed By: #### L [id number], L100.0100, L506.1001, L500.4050, L500.4100 #### [facility] [address] [place], [address] MCV (RBC) [Entitic vol] 90.8 fL Normal 80-94 [facility] Comment on above: Performed By: #### L 501.9985, L100.0100, L506.1001, L500.4050, L500.4100 #### [facility] [address] [place], [address] Monocytes/100 WBC (Bld) 6.5 % Normal 0-10 [facility] Comment on above: Performed By: #### L 501.9985, L100.0100, L506.1001, L500.4050, L500.4100 #### [facility] [address], [address] Neutrophils/100 WBC (Bld) 74.3 % High 47-70 [facility] Comment on above: Performed By: #### L 501.9985, L100.0100, L506.1001, L500.4050, L500.4100 #### [facility] [address] [place] [place], [address] Nucleated RBC (Bld) [#/Vol] 0 10*3/uL Normal 0-5 [facility] Comment on above: Performed By: #### L 501.9985, L100.0100, L506.1001, L500.4050, L500.4100 #### [facility] [address] [place], [address] Platelet mean volume (Bld) [Entitic vol] 10.6 fL Normal 6.2-12.0 [facility] Comment on above: Performed By: #### L 501.9985, L100.0100, L506.1001, L500.4050, L500.4100 #### [facility] [address] [place], [address] Platelets (Bld) [#/Vol] 251 10*3/uL Normal 150-450 [facility] Comment on above: Performed By: #### L 501.9985, L100.0100, L506.1001, L500.4050, L500.4100 #### [facility] [address] [place], [address] RBC (Bld) [#/Vol] 4.66 10*6/uL Normal 4.6-6.2 [facility] Comment on above: Performed By: #### L 501.9985, L100.0100, L506.1001, L500.4050, L500.4100 #### [facility] [address] [place], [address] RDW SD 43.9 fl Normal 35.1-43.9 [facility] Comment on above: Performed By: #### L 501.9985, L100.0100, L506.1001, L500.4050, L500.4100 #### [facility] [address] [place], [address] WBC (Bld) [#/Vol] 9.6 10*3/uL Normal 4.4-11.0 [facility] Comment on above: Performed By: #### L [id number], L100.0100, L506.1001, L500.4050, L500.4100 #### [facility] [address] [place], [address] Calculated very low density lipoprotein (VLDL) cholesterol measurementOrdered By: Virgie Vergara on 11-13-2024 Calculated very low density lipoprotein (VLDL) cholesterol measurement 12 mg/dL 5-40 [facility] Carbon dioxide, total [Moles /volume] in Central venous bloodOrdered By: Virgie Vergara on 11-13-2024 CO2 [Moles/Vol] 24.2 mmol/L 21.0-32.0 [facility] Chloride assayOrdered By: Ellie Vergara on 11-13-2024 Chloride [Moles/Vol] 105 mmol/L 98-108 [facility] Comprehensive Metabolic Prof ilon 11-13-2024 Albumin [Mass/Vol] 4.0 g/dL Normal 3.4-4.8 [facility] Comment on above: Performed By: #### L 501.9985, L100.0100, L506.1001, L500.4050, L500.4100 #### [facility] [address] [place], [address] Albumin/Globulin [Mass ratio] 1.5 {ratio} Normal 0.9-2.4 [facility] Comment on above: Performed By: #### L [id number], L100.0100, L506.1001, L500.4050, L500.4100 #### [facility] [address] [place], [address] ALK PHOS 80 U/L Normal 40-129 [facility] Comment on above: Performed By: #### L 501.9985, L100.0100, L506.1001, L500.4050, L500.4100 #### [facility] [address] [place], [address] ALT [Catalytic activity/Vol] 17 U/L Normal <=46 [facility] Comment on above: Performed By: #### L 501.9985, L100.0100, L506.1001, L500.4050, L500.4100 #### [facility] [address] [place], [address] AST [Catalytic activity/Vol] 20 U/L Normal <=37 [facility] Comment on above: Performed By: #### L [id number], L100.0100, L506.1001, L500.4050, L500.4100 #### [facility] [address] [place], [address] Bilirubin [Mass/Vol] 0.45 mg/dL Normal 0.00-1.30 [facility] Comment on above: Performed By: #### L [id number], L100.0100, L506.1001, L500.4050, L500.4100 #### [facility] [address] [place], [address] BUN/CRE 17.7 RATIO Normal 10-20 [facility] Comment on above: Performed By: #### L 501.9985, L100.0100, L506.1001, L500.4050, L500.4100 #### [facility] [address] [place], [address] Calcium [Mass/Vol] 9.5 mg/dL Normal 7.6-11.0 [facility] Comment on above: Performed By: #### L 501.9985, L100.0100, L506.1001, L500.4050, L500.4100 #### [facility] [address] [place], [address] Chloride [Moles/Vol] 105 mmol/L Normal 98-108 [facility] Comment on above: Performed By: #### L 501.9985, L100.0100, L506.1001, L500.4050, L500.4100 #### [facility] [address] [place], [address] CO2 [Moles/Vol] 24.2 mmol/L Normal 21.0-32.0 [facility] Comment on above: Performed By: #### L 501.9985, L100.0100, L506.1001, L500.4050, L500.4100 #### [facility] [address] [place], [address] Creatinine [Mass/Vol] 0.94 mg/dL Normal 0.70-1.20 [facility] Comment on above: Performed By: #### L [id number], L100.0100, L506.1001, L500.4050, L500.4100 #### [facility] [address] [place], [address] GAP 13 Normal 5-15 [facility] Comment on above: Performed By: #### L [id number], L100.0100, L506.1001, L500.4050, L500.4100 #### [facility] [address] [place], [address] GFR/1.73 sq M.predicted among non-blacks MDRD (S/P/Bld) [Vol rate/Area] 88 mL/min/{1.73_m2} Normal >60 [facility] Comment on above: Result Comment: mL/m in/1.73m2 CKD-EPI Creatinine Equation (2020) Performed By: #### L 501.9985, L100.0100, L506.1001, L500.4050, L500.4100 #### [facility] [address] [place], [address] Globulin (S) [Mass/Vol] 2.7 g/dL Normal 2.2-4.2 [facility] Comment on above: Performed By: #### L 501.9985, L100.0100, L506.1001, L500.4050, L500.4100 #### [facility] [address] [place], [address] Glucose [Mass/Vol] 159 mg/dL High 70-99 [facility] Comment on above: Performed By: #### L 501.9985, L100.0100, L506.1001, L500.4050, L500.4100 #### [facility] [address] [place], [address] Potassium [Moles/Vol] 4.4 mmol/L Normal 3.3-5.1 [facility] Comment on above: Performed By: #### L 501.9985, L100.0100, L506.1001, L500.4050, L500.4100 #### [facility] [address] [place], [address] Sodium [Moles/Vol] 142 mmol/L Normal 133-145 [facility] Comment on above: Performed By: #### L 501.9985, L100.0100, L506.1001, L500.4050, L500.4100 #### [facility] [address] [place], [address] T PROT 6.8 g/dL Normal 5.9-8.4 [facility] Comment on above: Performed By: #### L 501.9985, L100.0100, L506.1001, L500.4050, L500.4100 #### [facility] [address] [place], [address] Urea nitrogen [Mass/Vol] 17 mg/dL Normal 4-19 [facility] Comment on above: Performed By: #### L 501.9985, L100.0100, L506.1001, L500.4050, L500.4100 #### [facility] [address] [place], [address] Eosinophil percentageOrdered By: Virgie Vergara on 11-13-2024 Eosinophils/100 WBC (Bld) 1.2 % 0-5 [facility] Erythrocyte distribution wid th ratioOrdered By: Virgie Vergara on 11-13-2024 Erythrocyte distribution width (RBC) [Ratio] 13.2 % 11.6-14.6 [facility] Erythrocyte distribution wid th standard deviationOrdered By: Virgie Vergara on 11-13-2024 Erythrocyte distribution width (RBC) [Ratio] 43.9 fl 35.1-43.9 [facility] Glomerular filtration rate ( GFR) estimation/1.73 sq m using serum, plasma, or whole bOrdered By: Virgie Vergara on 11-13-2024 GFR/1.73 sq M.predicted among non-blacks MDRD (S/P/Bld) [Vol rate/Area] 88 mL/min/{1.73_m2} >60 [facility] Comment on above: mL/min/1.73m2 CKD-EP I Creatinine Equation (2020) Hematocrit Auto (Bld) [Volum e fraction]Ordered By: Virgie Vergara on 11-13-2024 Hematocrit (Bld) [Volume fraction] 42.3 % 40-54 [facility] Hemoglobin A1con 11-13-2024 HbA1c (Bld) [Mass fraction] 5.7 % Normal <=5.6 [facility] Comment on above: Result Comment: Norm al < 5.7 % Prediabetic 5.7 - 6.4 % Diabetic >or= 6.5 % Please note range changes. Performed By: #### L 501.9985, L100.0100, L506.1001, L500.4050, L500.4100 #### [facility] [address] [place], [address] Hemoglobin A1c percentageOrd ered By: Virgie Vergara on 11-13-2024 HbA1c (Bld) [Mass fraction] 5.7 % <5.7 [facility] Comment on above: Normal < 5.7 % Predi abetic 5.7 - 6.4 % Diabetic >or= 6.5 % Please note range changes. Hemoglobin measurementOrdere d By: Virgie Vergara on 11-13-2024 Hemoglobin (Bld) [Mass/Vol] 14.1 g/dL 13.0-16. 5 [facility] Immature granulocytes/100 WB C Auto (Bld)Ordered By: Virgie Vergara on 11-13-2024 Immature granulocytes/100 WBC (Bld) 0.700 % 0.0-0.9 [facility] Comment on above: IG% - Immature Granu locytes (promyelocytes, myelocytes and metamyelocytes) > 1% indicates that a LEFT SHIFT is Present. LDL calc ser/plasOrdered By: Virgie Vergara on 11-13-2024 Cholesterol in LDL [Mass/Vol] 73 mg/dL [facility] Comment on above: Cwhmgyiiou=342-472 m g/dL & Higher Ceah=985 mg/dL or greater Laboratory - Chemistry and C hemistry - challengeOrdered By: Virgie Vergara on 11-13-2024 AST [Catalytic activity/Vol] 20 U/L <38 [facility] Lipid Profileon 11-13-2024 CHOL:HDL 2.49 Normal [facility] Comment on above: Performed By: #### L 501.9985, L100.0100, L506.1001, L500.4050, L500.4100 #### [facility] [address] [place], [address] Cholesterol [Mass/Vol] 142 mg/dL Normal <=200 [facility] Comment on above: Result Comment: Chol esterol level, Desirable <200 mg/dL Borderline high cholesterol 200-239 mg/dL High cholesterol >=240 mg/dL Recommendations of the NCEP Adult Treatment Panel for the following risk-cutoff thresholds for the [place] population. Performed By: #### L 501.9985, L100.0100, L506.1001, L500.4050, L500.4100 #### [facility] [address] [place], [address] Cholesterol in HDL [Mass/Vol] 57 mg/dL Normal [facility] Comment on above: Result Comment: [place] Cholesterol Education Program (NCEP) guidelines: <40 mg/dL: Low HDL-cholesterol (major risk factor for CHD) >= 60 mg/dL: High HDL-cholesterol (negative risk factor for CHD) HDL-cholesterol is affected by a number of factors, e.g. smoking, exercise, hormones, sex and age. Performed By: #### L 501.9985, L100.0100, L506.1001, L500.4050, L500.4100 #### [facility] [address] [place], [address] Cholesterol in LDL [Mass/Vol] 73 mg/dL Normal [facility] Comment on above: Result Comment: Bord fsjcsa=499-871 mg/dL Higher Cabe=563 mg/dL or greater Performed By: #### L 501.9985, L100.0100, L506.1001, L500.4050, L500.4100 #### [facility] [address] [place], [address] Cholesterol in VLDL [Mass/Vol] 12 mg/dL Normal 5-40 [facility] Comment on above: Performed By: #### L 501.9985, L100.0100, L506.1001, L500.4050, L500.4100 #### [facility] [address] [place], [place], [id number] Triglyceride [Mass/Vol] 60 mg/dL Normal [facility] Comment on above: Result Comment: The drugs N-Acetylcysteine and Metamizole may falsely depress this assay. Normal range: <150 mg/dL Borderline High: 150-199 mg/dL High: 200-499 mg/dL Very High: >500 mg/dL Performed By: #### L 501.9985, L100.0100, L506.1001, L500.4050, L500.4100 #### [facility] [address] [place], [place], [id number] MCV (mean corpuscular volume ) determinationOrdered By: Virgie Vergara on 11-13-2024 MCV (RBC) [Entitic vol] 90.8 fL 80-94 [facility] Mean corpuscular hemoglobin (MCH) determinationOrdered By: Virgie Vergara on 11-13-2024 MCH (RBC) [Entitic mass] 30.3 pg 27.0-32.0 [facility] Mean corpuscular hemoglobin concentration (MCHC) determinationOrdered By: Virgie Vergara on 11-13-2024 MCHC (RBC) [Mass/Vol] 33.3 g/dL 32-36 [facility] Mean platelet volume determi nationOrdered By: Virgie Vergara on 11-13-2024 Platelet mean volume (Bld) [Entitic vol] 10.6 fL 6.2-12.0 [facility] Monocyte percentageOrdered B y: Virgie Vergara on 11-13-2024 Monocytes/100 WBC (Bld) 6.5 % 0-10 [facility] Neutrophil percentageOrdered By: Virgie Vergara on 11-13-2024 Neutrophils/100 WBC (Bld) 74.3 % High 47-70 [facility] Nucleated red blood cell per centageOrdered By: Virgie Vergara on 11-13-2024 Nucleated RBC/100 WBC (Bld) [Ratio] 0 % 0-5 [facility] Platelet countOrdered By: Ellie Vergara on 11-13-2024 Platelets (Bld) [#/Vol] 251 10*3/uL 150-450 [facility] Potassium measurement (mass/ volume)Ordered By: Virgie Vergara on 11-13-2024 Potassium (Unsp spec) [Mass/Vol] 4.4 mmol/L 3.3-5.1 [facility] RBC Auto (Bld) [#/Vol]Ordere d By: Virgie Vergara on 11-13-2024 RBC (Bld) [#/Vol] 4.66 10*6/uL 4.6-6.2 [facility] Screening total cholesterol/ high density lipoprotein (HDL) cholesterol ratioOrdered By: Virgie Vergara on 11-13-2024 Cholesterol.total/Cholester ol in HDL [Mass ratio] 2.49 {ratio} [facility] Serum creatinine measurement (mass/volume)Ordered By: Virgie Vergara on 11-13-2024 Creatinine [Mass/Vol] 0.94 mg/dL 0.70-1.20 [facility] Serum globulin measurementOr dered By: Virgie Vergara on 11-13-2024 Globulin (S) [Mass/Vol] 2.7 g/dL 2.2-4.2 [facility] Serum glucose measurement (m ass/volume)Ordered By: Virgie Vergara on 11-13-2024 Glucose [Mass/Vol] 159 mg/dL High 70-99 [facility] Serum or plasma alanine forrester otransferase (ALT) measurementOrdered By: Virgie Vergara on 11-13-2024 ALT [Catalytic activity/Vol] 17 U/L <47 [facility] Serum or plasma albumin lisa urement (mass/volume)Ordered By: Virgie Vergara on 11-13-2024 Albumin [Mass/Vol] 4.0 g/dL 3.4-4.8 [facility] Serum or plasma albumin/glob ulin mass ratioOrdered By: Virgie Vergara on 11-13-2024 Albumin/Globulin [Mass ratio] 1.5 {ratio} 0.9-2.4 [facility] Serum or plasma alkaline raf sphatase measurementOrdered By: Virgie Vergara on 11-13-2024 ALP [Catalytic activity/Vol] 80 U/L 40-129 [facility] Serum or plasma calcium lisa urement (mass/volume)Ordered By: Virgie Vergara on 11-13-2024 Calcium [Mass/Vol] 9.5 mg/dL 7.6-11.0 [facility] Serum or plasma cholesterol in HDL measurement (mass/volume)Ordered By: Virgie Vergara on 11-13-2024 Cholesterol in HDL [Mass/Vol] 57 mg/dL >40 [facility] Comment on above: National Cholesterol Education Program (NCEP) guidelines:<40 mg/dL: Low HDL-cholesterol (major risk factor for CHD)>= 60 mg/dL: High HDL-cholesterol (negative risk factor for CHD)HDL-cholesterol is affected by a number of factors, e.g. smoking, exercise, hormones, sex and age. Serum or plasma cholesterol measurement (mass/volume)Ordered By: Virgie Vergara on 11-13-2024 Cholesterol [Mass/Vol] 142 mg/dL <201 [facility] Comment on above: Cholesterol level, D esirable <200 mg/dLBorderline high cholesterol 200-239 mg/dLHigh cholesterol >=240 mg/dLRecommendations of the NCEP Adult Treatment Panel for the following risk-cutoff thresholds for the [place] population. Serum or plasma urea nitroge n measurement (mass/volume)Ordered By: Virgie Vergara on 11-13-2024 Urea nitrogen [Mass/Vol] 17 mg/dL 4-19 [facility] Sodium levelOrdered By: Virgie Vergara on 11-13-2024 Sodium [Moles/Vol] 142 mmol/L 133-145 [facility] Total proteinOrdered By: Nicholas Vergara on 11-13-2024 Protein [Mass/Vol] 6.8 g/dL 5.9-8.4 [facility] Triglycerides measurementOrd ered By: Virgie Vergara on 11-13-2024 Triglyceride [Mass/Vol] 60 mg/dL <199 [facility] Comment on above: The drugs N-Acetylcy steine and Metamizole may falsely depress this assay. Normal range: <150 mg/dLBorderline High: 150-199 mg/dLHigh: 200-499 mg/dLVery High: >500 mg/dL Vitamin D,25 Hydroxyon 11-13 Vitamin D 25-OH 65.1 ng/mL Normal 30-100 [facility] Comment on above: Result Comment: Nelli min D Status Deficiency: <20 ng/mL (50nmol/L) Insufficiency: 20-30 ng/mL (50-75 nmol/L) Sufficiency: 30-100 ng/mL (75-250 nmol/L) Toxicity: >100 ng/mL (>250 nmol/L) Performed By: #### L 501.9910 #### [facility] [place], [address] White blood cell (WBC) count Ordered By: Virgie Vergara on 11-13-2024 WBC (Bld) [#/Vol] 9.6 10*3/uL 4.4-11.0 [facility] Absolute neutrophil countOrd ered By: Virgie Vergara on 07-15-2024 Neutrophils (Bld) [#/Vol] 7.4 10*3/uL 2.0-7.7 [facility] Anion gap in Serum or Plasma Ordered By: Virgie Vergara on 07-15-2024 Anion gap [Moles/Vol] 13 mmol/L 5-15 [facility] BUN/creatinine ratioOrdered By: Virgie Vergara on 07-15-2024 Urea nitrogen/Creatinine [Mass ratio] 19.8 mg/mg 10-20 [facility] Basophil percentageOrdered B y: Virgie Vergara on 07-15-2024 Basophils/100 WBC (Bld) 0.5 % 0-1 [facility] Bilirubin, totalOrdered By: Virgie Vergara on 07-15-2024 Bilirubin [Mass/Vol] 0.45 mg/dL 0.00-1.30 [facility] CBC W/Diff, Automatedon 06-28 Absolute Lymph 2.18 X10 3/uL Normal 0.83-4.51 [facility] Comment on above: Order Comment: Order Date: 03/18/24 Order Info: [id number] - CBCD Performed By: #### L 500.4100, L501.9985, L100.0100, L500.4050 #### [facility] [address] [place], [address] Absolute Neut 7.4 X10 3/uL Normal 2.0-7.7 [facility] Comment on above: Order Comment: Order Date: 03/18/24 Order Info: [id number] - CBCD Performed By: #### L 500.4100, L501.9985, L100.0100, L500.4050 #### [facility] [address] [place], [address] Basophils/100 WBC (Bld) 0.5 % Normal 0-1 [facility] Comment on above: Order Comment: Order Date: 03/18/24 Order Info: [id number] - CBCD Performed By: #### L 500.4100, L501.9985, L100.0100, L500.4050 #### [facility] [address] [place], [address] Eosinophils/100 WBC (Bld) 2.3 % Normal 0-5 [facility] Comment on above: Order Comment: Order Date: 03/18/24 Order Info: [id number] - CBCD Performed By: #### L 500.4100, L501.9985, L100.0100, L500.4050 #### [facility] [address] [place], [address] Erythrocyte distribution width (RBC) [Ratio] 13.1 % Normal 11.6-14.6 [facility] Comment on above: Order Comment: Order Date: 03/18/24 Order Info: [id number] - CBCD Performed By: #### L 500.4100, L501.9985, L100.0100, L500.4050 #### [facility] [address] [place], [address] Hematocrit (Bld) [Volume fraction] 41.7 % Normal 40-54 [facility] Comment on above: Order Comment: Order Date: 03/18/24 Order Info: [id number] - CBCD Performed By: #### L 500.4100, L501.9985, L100.0100, L500.4050 #### [facility] [address] [place], [address] Hemoglobin (Bld) [Mass/Vol] 14.3 g/dL Normal 13.0-16. 5 [facility] Comment on above: Order Comment: Order Date: 03/18/24 Order Info: [id number] - CBCD Performed By: #### L 500.4100, L501.9985, L100.0100, L500.4050 #### [facility] [address] [place], [address] IG% 0.600 Normal 0.0-0.9 [facility] Comment on above: Order Comment: Order Date: 03/18/24 Order Info: [id number] - CBCD Result Comment: IG% - Immature Granulocytes (promyelocytes, myelocytes and metamyelocytes) > 1% indicates that a LEFT SHIFT is Present. Performed By: #### L 500.4100, L501.9985, L100.0100, L500.4050 #### [facility] [address] [place], [address] Lymphocytes/100 WBC (Bld) 20.3 % Normal 19-41 [facility] Comment on above: Order Comment: Order Date: 03/18/24 Order Info: [id number] - CBCD Performed By: #### L 500.4100, L501.9985, L100.0100, L500.4050 #### [facility] [address] [place], [address] MCH (RBC) [Entitic mass] 30.7 pg Normal 27.0-32.0 [facility] Comment on above: Order Comment: Order Date: 03/18/24 Order Info: [id number] - CBCD Performed By: #### L 500.4100, L501.9985, L100.0100, L500.4050 #### [facility] [address] [place], [address] MCHC (RBC) [Mass/Vol] 34.3 g/dL Normal 32-36 [facility] Comment on above: Order Comment: Order Date: 03/18/24 Order Info: [id number] - CBCD Performed By: #### L 500.4100, L501.9985, L100.0100, L500.4050 #### [facility] [address] [place], [address] MCV (RBC) [Entitic vol] 89.5 fL Normal 80-94 [facility] Comment on above: Order Comment: Order Date: 03/18/24 Order Info: [id number] - CBCD Performed By: #### L 500.4100, L501.9985, L100.0100, L500.4050 #### [facility] [address] [place], [address] Monocytes/100 WBC (Bld) 7.9 % Normal 0-10 [facility] Comment on above: Order Comment: Order Date: 03/18/24 Order Info: [id number] - CBCD Performed By: #### L 500.4100, L501.9985, L100.0100, L500.4050 #### [facility] [address] [place], [address] Neutrophils/100 WBC (Bld) 68.4 % Normal 47-70 [facility] Comment on above: Order Comment: Order Date: 03/18/24 Order Info: [id number] - CBCD Performed By: #### L 500.4100, L501.9985, L100.0100, L500.4050 #### [facility] [address] [place], [address] Nucleated RBC (Bld) [#/Vol] 0 10*3/uL Normal 0-5 [facility] Comment on above: Order Comment: Order Date: 03/18/24 Order Info: [id number] - CBCD Performed By: #### L 500.4100, L501.9985, L100.0100, L500.4050 #### [facility] [address] [place], [address] Platelet mean volume (Bld) [Entitic vol] 11.2 fL Normal 6.2-12.0 [facility] Comment on above: Order Comment: Order Date: 03/18/24 Order Info: [id number]- - CBCD Performed By: #### L 500.4100, L501.9985, L100.0100, L500.4050 #### [facility] [address] [place], [address] Platelets (Bld) [#/Vol] 272 10*3/uL Normal 150-450 [facility] Comment on above: Order Comment: Order Date: 03/18/24 Order Info: [id number]- - CBCD Performed By: #### L 500.4100, L501.9985, L100.0100, L500.4050 #### [facility] [address] [place], [address] RBC (Bld) [#/Vol] 4.66 10*6/uL Normal 4.6-6.2 [facility] Comment on above: Order Comment: Order Date: 03/18/24 Order Info: [id number] - CBCD Performed By: #### L 500.4100, L501.9985, L100.0100, L500.4050 #### [facility] [address] [place], [address] RDW SD 42.9 fl Normal 35.1-43.9 [facility] Comment on above: Order Comment: Order Date: 03/18/24 Order Info: [id number] - CBCD Performed By: #### L 500.4100, L501.9985, L100.0100, L500.4050 #### [facility] [address] [place], [address] WBC (Bld) [#/Vol] 10.7 10*3/uL Normal 4.4-11.0 [facility] Comment on above: Order Comment: Order Date: 03/18/24 Order Info: [id number]- - CBCD Performed By: #### L 500.4100, L501.9985, L100.0100, L500.4050 #### [facility] [address], [address] Calculated very low density lipoprotein (VLDL) cholesterol measurementOrdered By: Virgie Vergara on 07-15-2024 VLDL Cholesterol 15 mg/dL 5-40 [facility] Carbon dioxide, total [Moles /volume] in Central venous bloodOrdered By: Virgie Vergara on 07-15-2024 CO2 [Moles/Vol] 21.6 mmol/L 21.0-32.0 [facility] Chloride assayOrdered By: Ellie Vergara on 07-15-2024 Chloride [Moles/Vol] 106 mmol/L 98-108 [facility] Comprehensive Metabolic Prof ilon 07-15-2024 Albumin [Mass/Vol] 4.2 g/dL Normal 3.4-4.8 [facility] Comment on above: Order Comment: Order Date: 03/18/24 Order Info: [id number] - CMP Order Info: [id number] - LIPID Performed By: #### L 500.4100, L501.9985, L100.0100, L500.4050 #### [facility] [address] [place], [place], [id number] Albumin/Globulin [Mass ratio] 1.5 {ratio} Normal 0.9-2.4 [facility] Comment on above: Order Comment: Order Date: 03/18/24 Order Info: [id number] - CMP Order Info: [id number] - LIPID Performed By: #### L 500.4100, L501.9985, L100.0100, L500.4050 #### [facility] [address] [place], [address] ALK PHOS 83 U/L Normal 40-129 [facility] Comment on above: Order Comment: Order Date: 03/18/24 Order Info: [id number] - CMP Order Info: [id number] - LIPID Performed By: #### L 500.4100, L501.9985, L100.0100, L500.4050 #### [facility] [address] [place], [address] ALT [Catalytic activity/Vol] 11 U/L Normal <=46 [facility] Comment on above: Order Comment: Order Date: 03/18/24 Order Info: 07 - CMP Order Info: [id number] - LIPID Performed By: #### L 500.4100, L501.9985, L100.0100, L500.4050 #### [facility] [address] [place], [address] AST [Catalytic activity/Vol] 18 U/L Normal <=37 [facility] Comment on above: Order Comment: Order Date: 03/18/24 Order Info: [id number]- - CMP Order Info: [id number] - LIPID Performed By: #### L 500.4100, L501.9985, L100.0100, L500.4050 #### [facility] [address] [place], [address] Bilirubin [Mass/Vol] 0.45 mg/dL Normal 0.00-1.30 [facility] Comment on above: Order Comment: Order Date: 03/18/24 Order Info: [id number] - CMP Order Info: [id number] - LIPID Performed By: #### L 500.4100, L501.9985, L100.0100, L500.4050 #### [facility] [address] [place], [address] BUN/CRE 19.8 RATIO Normal 10-20 [facility] Comment on above: Order Comment: Order Date: 03/18/24 Order Info: [id number] - CMP Order Info: [id number] - LIPID Performed By: #### L 500.4100, L501.9985, L100.0100, L500.4050 #### [facility] [address] [place], [address] Calcium [Mass/Vol] 9.5 mg/dL Normal 7.6-11.0 [facility] Comment on above: Order Comment: Order Date: 03/18/24 Order Info: [id number] - CMP Order Info: [id number] - LIPID Performed By: #### L 500.4100, L501.9985, L100.0100, L500.4050 #### [facility] [address] [place], [address] Chloride [Moles/Vol] 106 mmol/L Normal 98-108 [facility] Comment on above: Order Comment: Order Date: 03/18/24 Order Info: [id number] - CMP Order Info: [id number] - LIPID Performed By: #### L 500.4100, L501.9985, L100.0100, L500.4050 #### [facility] [address] [place], [address] CO2 [Moles/Vol] 21.6 mmol/L Normal 21.0-32.0 [facility] Comment on above: Order Comment: Order Date: 03/18/24 Order Info: [id number] - CMP Order Info: [id number] - LIPID Performed By: #### L 500.4100, L501.9985, L100.0100, L500.4050 #### [facility] [address] [place], [address] Creatinine [Mass/Vol] 0.78 mg/dL Normal 0.70-1.20 [facility] Comment on above: Order Comment: Order Date: 03/18/24 Order Info: [id number] - CMP Order Info: [id number] - LIPID Performed By: #### L 500.4100, L501.9985, L100.0100, L500.4050 #### [facility] [address] [place], [address] GAP 13 Normal 5-15 [facility] Comment on above: Order Comment: Order Date: 03/18/24 Order Info: [id number] - CMP Order Info: [id number] - LIPID Performed By: #### L 500.4100, L501.9985, L100.0100, L500.4050 #### [facility] [address] [place], [address] GFR/1.73 sq M.predicted among non-blacks MDRD (S/P/Bld) [Vol rate/Area] 97 mL/min/{1.73_m2} Normal >60 [facility] Comment on above: Order Comment: Order Date: 03/18/24 Order Info: [id number] - CMP Order Info: [id number] - LIPID Result Comment: mL/m in/1.73m2 CKD-EPI Creatinine Equation (2020) Performed By: #### L 500.4100, L501.9985, L100.0100, L500.4050 #### [facility] [address] [place], [address] Globulin (S) [Mass/Vol] 2.8 g/dL Normal 2.2-4.2 [facility] Comment on above: Order Comment: Order Date: 03/18/24 Order Info: [id number] - CMP Order Info: [id number] - LIPID Performed By: #### L 500.4100, L501.9985, L100.0100, L500.4050 #### [facility] [address] [place], [address] Glucose [Mass/Vol] 114 mg/dL High 70-99 [facility] Comment on above: Order Comment: Order Date: 03/18/24 Order Info: [id number] - CMP Order Info: [id number] - LIPID Performed By: #### L 500.4100, L501.9985, L100.0100, L500.4050 #### [facility] [address] [place], [address] Potassium [Moles/Vol] 4.3 mmol/L Normal 3.3-5.1 [facility] Comment on above: Order Comment: Order Date: 03/18/24 Order Info: [id number] - CMP Order Info: [id number] - LIPID Performed By: #### L 500.4100, L501.9985, L100.0100, L500.4050 #### [facility] [address] [place], [address] Sodium [Moles/Vol] 140 mmol/L Normal 133-145 [facility] Comment on above: Order Comment: Order Date: 03/18/24 Order Info: [id number] - CMP Order Info: [id number] - LIPID Performed By: #### L 500.4100, L501.9985, L100.0100, L500.4050 #### [facility] [address] [place], [address] T PROT 6.9 g/dL Normal 5.9-8.4 [facility] Comment on above: Order Comment: Order Date: 03/18/24 Order Info: [id number] - CMP Order Info: [id number] - LIPID Performed By: #### L 500.4100, L501.9985, L100.0100, L500.4050 #### [facility] [address] [place], [address] Urea nitrogen [Mass/Vol] 15 mg/dL Normal 4-19 [facility] Comment on above: Order Comment: Order Date: 03/18/24 Order Info: [id number] - CMP Order Info: [id number] - LIPID Performed By: #### L 500.4100, L501.9985, L100.0100, L500.4050 #### [facility] [address] [place], [place], [id number] Eosinophil percentageOrdered By: Virgie Vergara on 07-15-2024 Eosinophils/100 WBC (Bld) 2.3 % 0-5 [facility] Erythrocyte distribution wid th ratioOrdered By: Virgie Vergara on 07-15-2024 Erythrocyte distribution width (RBC) [Ratio] 13.1 % 11.6-14.6 [facility] Erythrocyte distribution wid th standard deviationOrdered By: Virgie Vergara on 07-15-2024 Erythrocyte distribution width (RBC) [Entitic vol] 42.9 fL 35.1-43.9 [facility] GFR/1.73 sq M.predicted nir g non-blacks MDRD (S/P/Bld) [Vol rate/Area]Ordered By: Virgie Vergara on 07-15-2024 Estimated GFR (MDRD) Non-Af Amer 97 >60 [facility] Comment on above: mL/min/1.73m2 CKD-EP I Creatinine Equation (2020) Hematocrit Auto (Bld) [Volum e fraction]Ordered By: Virgie Vergara on 07-15-2024 Hematocrit (Bld) [Volume fraction] 41.7 % 40-54 [facility] Hemoglobin A1con 07-15-2024 HbA1c (Bld) [Mass fraction] 5.6 % Low <=5.6 [facility] Comment on above: Order Comment: Order Date: 03/18/24 Order Info: [id number] - A1C Performed By: #### L 500.4100, L501.9985, L100.0100, L500.4050 #### [facility] [address] [place], [place], [address] Hemoglobin A1c percentageOrd ered By: Virgie Vergara on 07-15-2024 HbA1c (Bld) [Mass fraction] 5.6 % Low >5.7 [facility] Hemoglobin measurementOrdere d By: Virgie Vergara on 07-15-2024 Hemoglobin (Bld) [Mass/Vol] 14.3 g/dL 13.0-16. 5 [facility] Immature granulocytes/100 WB C Auto (Bld)Ordered By: Virgie Vergara on 07-15-2024 Immature granulocytes/100 WBC (Bld) 0.600 % 0.0-0.9 [facility] Comment on above: IG% - Immature Granu locytes (promyelocytes, myelocytes and metamyelocytes) > 1% indicates that a LEFT SHIFT is Present. L506.1001on 07-15-2024 Vitamin D 25-OH 63.6 ng/mL Normal 30-100 [facility] Comment on above: Order Comment: Order Date: 03/18/24 Order Info: [id number] - CMP Order Info: [id number] - LIPID Result Comment: Nelli min D Status Deficiency: <20 ng/mL (50nmol/L) Insufficiency: 20-30 ng/mL (50-75 nmol/L) Sufficiency: 30-100 ng/mL (75-250 nmol/L) Toxicity: >100 ng/mL (>250 nmol/L) Performed By: #### L 506.1001 #### [facility] [address] [place], [place], [id number] LDL calc ser/plasOrdered By: Virgie Vergara on 07-15-2024 LDL Cholesterol, Calculated 68 mg/dL [facility] Comment on above: Yhfdgvrdlf=571-830 m g/dL & Higher Vuat=231 mg/dL or greater Laboratory - Chemistry and C hemistry - challengeOrdered By: Virgie Vergara on 07-15-2024 AST [Catalytic activity/Vol] 18 U/L <38 [facility] Lipid Profileon 07-15-2024 CHOL:HDL 2.63 Normal [facility] Comment on above: Order Comment: Order Date: 03/18/24 Order Info: [id number] - CMP Order Info: [id number] - LIPID Performed By: #### L 500.4100, L501.9985, L100.0100, L500.4050 #### [facility] [address] [place], [place], [id number] Cholesterol [Mass/Vol] 133 mg/dL Normal <=200 [facility] Comment on above: Order Comment: Order Date: 03/18/24 Order Info: [id number] - CMP Order Info: [id number] - LIPID Result Comment: Chol esterol level, Desirable <200 mg/dL Borderline high cholesterol 200-239 mg/dL High cholesterol >=240 mg/dL Recommendations of the NCEP Adult Treatment Panel for the following risk-cutoff thresholds for the [place] population. Performed By: #### L 500.4100, L501.9985, L100.0100, L500.4050 #### [facility] [address] [place], [address] Cholesterol in HDL [Mass/Vol] 51 mg/dL Normal [facility] Comment on above: Order Comment: Order Date: 03/18/24 Order Info: [id number] - CMP Order Info: [id number] - LIPID Result Comment: [place] Cholesterol Education Program (NCEP) guidelines: <40 mg/dL: Low HDL-cholesterol (major risk factor for CHD) >= 60 mg/dL: High HDL-cholesterol (negative risk factor for CHD) HDL-cholesterol is affected by a number of factors, e.g. smoking, exercise, hormones, sex and age. Performed By: #### L 500.4100, L501.9985, L100.0100, L500.4050 #### [facility] [address] [place], [address] Cholesterol in LDL [Mass/Vol] 68 mg/dL Normal [facility] Comment on above: Order Comment: Order Date: 03/18/24 Order Info: [id number] - CMP Order Info: [id number] - LIPID Result Comment: Bord omcnzp=798-583 mg/dL Higher Ityk=037 mg/dL or greater Performed By: #### L 500.4100, L501.9985, L100.0100, L500.4050 #### [facility] [address] [place], [address] Cholesterol in VLDL [Mass/Vol] 15 mg/dL Normal 5-40 [facility] Comment on above: Order Comment: Order Date: 03/18/24 Order Info: [id number] - CMP Order Info: [id number] - LIPID Performed By: #### L 500.4100, L501.9985, L100.0100, L500.4050 #### [facility] [address] [place], [address] Triglyceride [Mass/Vol] 73 mg/dL Normal [facility] Comment on above: Order Comment: Order Date: 03/18/24 Order Info: [id number] - CMP Order Info: [id number] - LIPID Result Comment: The drugs N-Acetylcysteine and Metamizole may falsely depress this assay. Normal range: <150 mg/dL Borderline High: 150-199 mg/dL High: 200-499 mg/dL Very High: >500 mg/dL Performed By: #### L 500.4100, L501.9985, L100.0100, L500.4050 #### [facility] [address] [place], [address] Lymphocytes Auto (Unsp spec) [#/Vol]Ordered By: Virgie Vergara on 07-15-2024 Lymphocytes (Bld) [#/Vol] 2.18 10*3/uL 0.83-4.5 1 [facility] Lymphocytes/100 WBC Auto (Un sp spec)Ordered By: Virgie Vergara on 07-15-2024 Lymphocytes/100 WBC (Bld) 20.3 % 19-41 [facility] MCV (mean corpuscular volume ) determinationOrdered By: Virgie Vergara on 07-15-2024 MCV (RBC) [Entitic vol] 89.5 fL 80-94 [facility] Mean corpuscular hemoglobin (MCH) determinationOrdered By: Virgie Vergara on 07-15-2024 MCH (RBC) [Entitic mass] 30.7 pg 27.0-32.0 [facility] Mean corpuscular hemoglobin concentration (MCHC) determinationOrdered By: Virgie Vergara on 07-15-2024 MCHC (RBC) [Mass/Vol] 34.3 g/dL 32-36 [facility] Mean platelet volume determi nationOrdered By: Virgie Vergara on 07-15-2024 Platelet mean volume (Bld) [Entitic vol] 11.2 fL 6.2-12.0 [facility] Monocyte percentageOrdered B y: Virgie Vergara on 07-15-2024 Monocytes/100 WBC (Bld) 7.9 % 0-10 [facility] Neutrophil percentageOrdered By: Virgie Vergara on 07-15-2024 Neutrophils/100 WBC (Bld) 68.4 % 47-70 [facility] Nucleated red blood cell per centageOrdered By: Virgie Vergara on 07-15-2024 Nucleated RBC/100 WBC (Bld) [Ratio] 0 % 0-5 [facility] Platelet countOrdered By: Ellie Vergara on 07-15-2024 Platelets (Bld) [#/Vol] 272 10*3/uL 150-450 [facility] Potassium (Unsp spec) [Mass/ Vol]Ordered By: Virgie Vergara on 07-15-2024 Potassium [Moles/Vol] 4.3 mmol/L 3.3-5.1 [facility] RBC Auto (Bld) [#/Vol]Ordere d By: Virgie Vergara on 07-15-2024 RBC (Bld) [#/Vol] 4.66 10*6/uL 4.6-6.2 [facility] Screening total cholesterol/ high density lipoprotein (HDL) cholesterol ratioOrdered By: Virgie Vergara on 07-15-2024 Cholesterol.total/Cholester ol in HDL [Mass ratio] 2.63 {ratio} [facility] Serum creatinine measurement (mass/volume)Ordered By: Virgie Vergara on 07-15-2024 Creatinine [Mass/Vol] 0.78 mg/dL 0.70-1.20 [facility] Serum globulin measurementOr dered By: Virgie Vergara on 07-15-2024 Globulin (S) [Mass/Vol] 2.8 g/dL 2.2-4.2 [facility] Serum glucose measurement (m ass/volume)Ordered By: Virgie Vergara on 07-15-2024 Glucose [Mass/Vol] 114 mg/dL High 70-99 [facility] Serum or plasma alanine forrester otransferase (ALT) measurementOrdered By: Virgie Vergara on 07-15-2024 ALT [Catalytic activity/Vol] 11 U/L <47 [facility] Serum or plasma albumin lisa urement (mass/volume)Ordered By: Virgie Vergara on 07-15-2024 Albumin [Mass/Vol] 4.2 g/dL 3.4-4.8 [facility] Serum or plasma albumin/glob ulin mass ratioOrdered By: Virgie Vergara on 07-15-2024 Albumin/Globulin [Mass ratio] 1.5 {ratio} 0.9-2.4 [facility] Serum or plasma alkaline raf sphatase measurementOrdered By: Virgie Vergara on 07-15-2024 ALP [Catalytic activity/Vol] 83 U/L 40-129 [facility] Serum or plasma calcium lisa urement (mass/volume)Ordered By: Virgie Vergara on 07-15-2024 Calcium [Mass/Vol] 9.5 mg/dL 7.6-11.0 [facility] Serum or plasma cholesterol in HDL measurement (mass/volume)Ordered By: Virgie Vergara on 07-15-2024 Cholesterol in HDL [Mass/Vol] 51 mg/dL >40 [facility] Comment on above: National Cholesterol Education Program (NCEP) guidelines:<40 mg/dL: Low HDL-cholesterol (major risk factor for CHD)>= 60 mg/dL: High HDL-cholesterol (negative risk factor for CHD)HDL-cholesterol is affected by a number of factors, e.g. smoking, exercise, hormones, sex and age. Serum or plasma cholesterol measurement (mass/volume)Ordered By: Virgie Vergara on 07-15-2024 Cholesterol [Mass/Vol] 133 mg/dL <201 [facility] Comment on above: Cholesterol level, D esirable <200 mg/dLBorderline high cholesterol 200-239 mg/dLHigh cholesterol >=240 mg/dLRecommendations of the NCEP Adult Treatment Panel for the following risk-cutoff thresholds for the [place] population. Serum or plasma urea nitroge n measurement (mass/volume)Ordered By: Virgie Vergara on 07-15-2024 Urea nitrogen [Mass/Vol] 15 mg/dL 4-19 [facility] Sodium levelOrdered By: Virgie Vergara on 07-15-2024 Sodium [Moles/Vol] 140 mmol/L 133-145 [facility] Total proteinOrdered By: Nicholas Vergara on 07-15-2024 Protein [Mass/Vol] 6.9 g/dL 5.9-8.4 [facility] Triglycerides measurementOrd ered By: Virgie Vergara on 07-15-2024 Triglyceride [Mass/Vol] 73 mg/dL <199 [facility] Comment on above: The drugs N-Acetylcy steine and Metamizole may falsely depress this assay. Normal range: <150 mg/dLBorderline High: 150-199 mg/dLHigh: 200-499 mg/dLVery High: >500 mg/dL Vitamin D, 25-hydroxyOrdered By: Virgie Vergara on 07-15-2024 Vitamin D 25-Hydroxy 63.6 ng/mL 30-100 [facility] Comment on above: Vitamin D StatusDefi ciency: <20 ng/mL (50nmol/L)Insufficiency: 20-30 ng/mL (50-75 nmol/L)Sufficiency: 30-100 ng/mL (75-250 nmol/L)Toxicity: >100 ng/mL (>250 nmol/L) White blood cell (WBC) count Ordered By: Virgie Vergara on 07-15-2024 WBC (Bld) [#/Vol] 10.7 10*3/uL 4.4-11.0 [facility] Basophil percentageOrdered B y: Virgie Vergara on 07-12-2023 Bilirubin [Mass/Vol] 0.60 mg/dL 0.20-1.00 [facility] Comment on above: For patients on eltr ombopag therapy, use of Dimension [place] TBIL is not recommended. Chloride [Moles/Vol] 106 mmol/L 98-107 [facility] Cholesterol [Mass/Vol] 127 mg/dL <200 [facility] Comment on above: <200 mg/dL Desirable 200-240 mg/dL Borderline >240 mg/dL High Risk Glucose [Mass/Vol] 112 mg/dL 74-106 [facility] Comment on above: Fasting Glucose resu lt from 100 to 125 mg/dL suggests IMPAIRED HOMEOSTASIS per A.D.A. criteria. Potassium [Moles/Vol] 4.2 mmol/L 3.5-5.1 [facility] Protein [Mass/Vol] 7.1 g/dL 6.4-8.2 [facility] Sodium [Moles/Vol] 138 mmol/L 136-145 [facility] Triglyceride [Mass/Vol] 69 mg/dL <199 [facility] Comment on above: The drugs N-Acetylcy steine and Metamizole may falsely depress this assay.Serum Triglycerides Reference Interval Normal <150 mg/dL Borderline high 150 - 199 mg/dL High 200 - 499 mg/dL Very High > or = 500 mg/dL Laboratory - Chemistry and C hemistry - challengeOrdered By: Virgie Vergara on 07-12-2023 Albumin/Globulin [Mass ratio] 1.1 {ratio} 0.9-2.4 [facility] ALP [Catalytic activity/Vol] 79 U/L 45-117 [facility] ALT [Catalytic activity/Vol] 20 U/L 16-61 [facility] Cholesterol in HDL [Mass/Vol] 46 mg/dL >40 [facility] Comment on above: The drugs N-Acetylcy steine and Metamizole may falsely depress this assay. Reference Range HDL <40 mg/dL Low HDL Cholesterol HDL >or= 60 mg/dL High HDL Cholesterol Cholesterol in LDL [Mass/Vol] 67 mg/dL 0-130 [facility] CO2 [Moles/Vol] 25.0 mmol/L 21.0-32.0 [facility] Globulin (S) [Mass/Vol] 3.4 g/dL 2.2-4.2 [facility] Urea nitrogen/Creatinine [Mass ratio] 19.7 mg/mg 10-20 [facility] No Panel InformationOrdered By: Virgie Vergara on 07-12-2023 Estimated GFR (MDRD) Amer 113 mL/min >60 [facility] Comment on above: GFR Calc Estimated GFR (MDRD) Non-Af Amer 93 mL/min >60 [facility] Comment on above: Non- GFR Calc Vitamin D 25-Hydroxy 85.2 ng/mL [facility] Comment on above: Vitamin D 25(OH) Sta tus Range Deficiency <20 ng/mL (50nmol/L) Insufficiency 20 - 30 ng/mL (50 - 75 nmol/L) Sufficiency 30 - 100 ng/mL (75 - 250 nmol/L) Toxicity >100 ng/mL (>250 nmol/L) VLDL Cholesterol 14 mg/dL 5-40 [facility] Serum or plasma calcium lisa urement (mass/volume)Ordered By: Virgie Vergara on 07-12-2023 Calcium [Mass/Vol] 9.1 mg/dL 8.5-10.1 [facility] Serum or plasma creatinine m easurement (mass/volume)Ordered By: Virgie Vergara on 07-12-2023 Creatinine [Mass/Vol] 0.86 mg/dL 0.70-1.30 [facility] Comment on above: The validity of the calculated GFR & GFRAA in patients over 70 years has not been determined. Clinical correlation is essential. Serum or plasma urea nitroge n measurement (mass/volume)Ordered By: Virgie Vergara on 07-12-2023 Urea nitrogen [Mass/Vol] 17 mg/dL 7-18 [facility] Thin prep Papanicolaou smear with manual screeningOrdered By: Virgie Vergara on 07-12-2023 Thin prep Papanicolaou smear with manual screening 3.7 g/dL 3.2-5.0 [facility] Thin prep Papanicolaou smear with manual screening 14 U/L 15-37 [facility] Thin prep Papanicolaou smear with manual screening 7 5-15 [facility] Whole blood hemoglobin A1c/t otal hemoglobin ratio (mass fraction)Ordered By: Virgie Vergara on 07-12-2023 HbA1c (Bld) [Mass fraction] 5.6 % 3.8-5.6 [facility] Comment on above: Normal < 5.7 % Predi abetic 5.7 - 6.4 % Diabetic >or= 6.5 % Please note range changes. Absolute lymphocyte countOrd ered By: Virgie Vergara on 04-11-2023 Lymphocytes Auto (Unsp spec) [#/Vol] 1.80 10*3/uL 0.83-4.51 [facility] Basophil percentageOrdered B y: Virgie Vergara on 04-11-2023 Basophils/100 WBC (Bld) 0.4 % 0-1 [facility] Bilirubin [Mass/Vol] 0.60 mg/dL 0.20-1.00 [facility] Comment on above: For patients on eltr ombopag therapy, use of Dimension [place] TBIL is not recommended. Chloride [Moles/Vol] 109 mmol/L 98-107 [facility] Cholesterol [Mass/Vol] 150 mg/dL <200 [facility] Comment on above: <200 mg/dL Desirable 200-240 mg/dL Borderline >240 mg/dL High Risk Eosinophils/100 WBC (Bld) 0.0 % 0-5 [facility] Glucose [Mass/Vol] 130 mg/dL 74-106 [facility] Comment on above: Fasting Glucose resu lt greater than or equal to 126 mg/dL suggests DIABETES MELLITUS per A.D.A. criteria. Neutrophils (Bld) [#/Vol] 8.3 10*3/uL 2.0-7.7 [facility] Neutrophils/100 WBC (Bld) 74.8 % 47-70 [facility] Potassium [Moles/Vol] 4.3 mmol/L 3.5-5.1 [facility] Protein [Mass/Vol] 7.8 g/dL 6.4-8.2 [facility] Sodium [Moles/Vol] 140 mmol/L 136-145 [facility] Triglyceride [Mass/Vol] 119 mg/dL <199 [facility] Comment on above: The drugs N-Acetylcy steine and Metamizole may falsely depress this assay.Serum Triglycerides Reference Interval Normal <150 mg/dL Borderline high 150 - 199 mg/dL High 200 - 499 mg/dL Very High > or = 500 mg/dL WBC (Bld) [#/Vol] 11.1 10*3/uL 4.4-11.0 [facility] Blood erythrocytes count (nu mber/volume)Ordered By: Virgie Vergara on 04-11-2023 RBC (Bld) [#/Vol] 5.33 10*6/uL 4.6-6.2 [facility] Blood hemoglobin measurement (mass/volume)Ordered By: Virgie Vergara on 04-11-2023 Hemoglobin (Bld) [Mass/Vol] 15.7 g/dL 13.0-16. 5 [facility] Blood lymphocytes/100 leukoc ytesOrdered By: Virgie Vergara on 04-11-2023 Lymphocytes/100 WBC (Bld) 16.2 % 19-41 [facility] Blood monocytes/100 leukocyt esOrdered By: Virgie Vergara on 04-11-2023 Monocytes/100 WBC (Bld) 7.5 % 0-10 [facility] Blood platelet mean volumeOr dered By: Virgie Vergara on 04-11-2023 Platelet mean volume (Bld) [Entitic vol] 10.8 fL 6.2-12.0 [facility] Determination of erythrocyte mean corpuscular volume (MCV)Ordered By: Virgie Vergara on 04-11-2023 MCV (RBC) [Entitic vol] 90.8 fL 80-94 [facility] Hematocrit Auto (Bld) [Volum e fraction]Ordered By: Virgie Vergara on 04-11-2023 Hematocrit (Bld) [Volume fraction] 48.4 % 40-54 [facility] Laboratory - Chemistry and C hemistry - challengeOrdered By: Virgie Vergara on 04-11-2023 ALP [Catalytic activity/Vol] 74 U/L 45-117 [facility] ALT [Catalytic activity/Vol] 39 U/L 16-61 [facility] CO2 [Moles/Vol] 24.0 mmol/L 21.0-32.0 [facility] Globulin (S) [Mass/Vol] 3.8 g/dL 2.2-4.2 [facility] Urea nitrogen/Creatinine [Mass ratio] 29.6 mg/mg 10-20 [facility] Laboratory - Hematology and Cell countsOrdered By: Virgie Vergara on 04-11-2023 Erythrocyte distribution width (RBC) [Entitic vol] 43.1 fL 35.1-43.9 [facility] Erythrocyte distribution width (RBC) [Ratio] 12.9 % 11.6-14.6 [facility] Immature granulocytes/100 WBC (Bld) 1.100 % 0.0-0.9 [facility] Comment on above: IG% - Immature Granu locytes (promyelocytes, myelocytes and metamyelocytes) > 1% indicates that a LEFT SHIFT is Present. MCH (RBC) [Entitic mass] 29.5 pg 27.0-32.0 [facility] Nucleated RBC/100 WBC (Bld) [Ratio] 0 % 0-5 [facility] MCHC Auto (RBC) [Mass/Vol]Or dered By: Virgie Vergara on 04-11-2023 MCHC (RBC) [Mass/Vol] 32.4 g/dL 32-36 [facility] No Panel InformationOrdered By: Virgie Vergara on 04-11-2023 Estimated GFR (MDRD) Amer 102 mL/min >60 [facility] Comment on above: GFR Calc Estimated GFR (MDRD) Non-Af Amer 84 mL/min >60 [facility] Comment on above: Non- GFR Calc Vitamin D 25-Hydroxy 74.7 ng/mL [facility] Comment on above: Vitamin D 25(OH) Sta tus Range Deficiency <20 ng/mL (50nmol/L) Insufficiency 20 - 30 ng/mL (50 - 75 nmol/L) Sufficiency 30 - 100 ng/mL (75 - 250 nmol/L) Toxicity >100 ng/mL (>250 nmol/L) Platelets bldOrdered By: Nicholas Vergara on 04-11-2023 Platelets (Bld) [#/Vol] 325 10*3/uL 150-450 [facility] Serum or plasma albumin lisa urement (mass/volume)Ordered By: Virgie Vergara on 04-11-2023 Albumin [Mass/Vol] 4.0 g/dL 3.2-5.0 [facility] Serum or plasma albumin/glob ulin mass ratioOrdered By: Virgie Vergara on 04-11-2023 Albumin/Globulin [Mass ratio] 1.1 {ratio} 0.9-2.4 [facility] Serum or plasma calcium lisa urement (mass/volume)Ordered By: Virgie Vergara on 04-11-2023 Calcium [Mass/Vol] 9.5 mg/dL 8.5-10.1 [facility] Serum or plasma cholesterol in HDL measurement (mass/volume)Ordered By: Virgie Vergara on 04-11-2023 Cholesterol in HDL [Mass/Vol] 46 mg/dL >40 [facility] Comment on above: The drugs N-Acetylcy steine and Metamizole may falsely depress this assay. Reference Range HDL <40 mg/dL Low HDL Cholesterol HDL >or= 60 mg/dL High HDL Cholesterol Serum or plasma cholesterol in VLDL measurement (mass/volume)Ordered By: Virgie Vergara on 04-11-2023 Cholesterol in VLDL [Mass/Vol] 24 mg/dL 5-40 [facility] Serum or plasma creatinine m easurement (mass/volume)Ordered By: Virgie Vergara on 04-11-2023 Creatinine [Mass/Vol] 0.95 mg/dL 0.70-1.30 [facility] Comment on above: The validity of the calculated GFR & GFRAA in patients over 70 years has not been determined. Clinical correlation is essential. Serum or plasma low density lipoprotein (LDL) cholesterol measurement (mass/volume)Ordered By: Virgie Vergara on 04-11-2023 Cholesterol in LDL [Mass/Vol] 80 mg/dL 0-130 [facility] Serum or plasma urea nitroge n measurement (mass/volume)Ordered By: Virgie Vergara on 04-11-2023 Urea nitrogen [Mass/Vol] 28 mg/dL 7-18 [facility] Thin prep Papanicolaou smear with manual screeningOrdered By: Virgie Vergara on 04-11-2023 Thin prep Papanicolaou smear with manual screening 20 U/L 15-37 [facility] Thin prep Papanicolaou smear with manual screening 7 5-15 [facility] Whole blood hemoglobin A1c/t otal hemoglobin ratio (mass fraction)Ordered By: Virgie Vergara on 03-02-2023 HbA1c (Bld) [Mass fraction] 6.3 % 3.8-5.6 [facility] Comment on above: Normal < 5.7 % Predi abetic 5.7 - 6.4 % Diabetic >or= 6.5 % Please note range changes. No Panel InformationOrdered By: Candelaria Rodriguez on 11-07-2022 D-Dimer Quantitative (PE/DVT) 0.37 FEU/ug/m 0.27-0.49 [facility] Comment on above: NORMAL D-Dimer level (<0.50) indicates no DVT or PE. Absolute lymphocyte countOrd ered By: Dr. Rodriguez on 08-22-2022 Lymphocytes Auto (Unsp spec) [#/Vol] 2.00 10*3/uL 0.83-4.51 [facility] Atypical perinuclear antineu trophil cytoplasmic antibodies measurementOrdered By: Dr. Rodriguez on 08-22-2022 Neutrophil cytoplasmic Ab.perinuclear.atypical IF (S) [Titer] <1:20 titer Neg:<1:20 [facility] Comment on above: The atypical pANCA p attern has been observed in asignificant percentage of patients with ulcerative colitis,primary sclerosing cholangitis and autoimmune hepatitis. Basophil percentageOrdered B y: Dr. Rodriguez on 08-22-2022 Basophil percentage < 0.2 AI 0.0-0.9 [facility] Basophils/100 WBC (Bld) 0.7 % 0-1 [facility] Bilirubin [Mass/Vol] 0.40 mg/dL 0.20-1.00 [facility] Comment on above: For patients on eltr ombopag therapy, use of Dimension Leota TBIL is not recommended. Eosinophils/100 WBC (Bld) 2.0 % 0-5 [facility] Neutrophils (Bld) [#/Vol] 6.3 10*3/uL 2.0-7.7 [facility] Neutrophils/100 WBC (Bld) 67.9 % 47-70 [facility] Protein [Mass/Vol] 7.4 g/dL 6.4-8.2 [facility] WBC (Bld) [#/Vol] 9.3 10*3/uL 4.4-11.0 [facility] Blood erythrocytes count (nu mber/volume)Ordered By: Dr. Rodriguez on 08-22-2022 RBC (Bld) [#/Vol] 4.83 10*6/uL 4.6-6.2 [facility] Blood hemoglobin measurement (mass/volume)Ordered By: Dr. Rodriguez on 08-22-2022 Hemoglobin (Bld) [Mass/Vol] 14.5 g/dL 13.0-16. 5 [facility] Blood lymphocytes/100 leukoc ytesOrdered By: Dr. Rodriguez on 08-22-2022 Lymphocytes/100 WBC (Bld) 21.4 % 19-41 [facility] Blood monocytes/100 leukocyt esOrdered By: Dr. Rodriguez on 08-22-2022 Monocytes/100 WBC (Bld) 7.5 % 0-10 [facility] Blood platelet mean volumeOr dered By: Dr. Rodriguez on 08-22-2022 Platelet mean volume (Bld) [Entitic vol] 10.9 fL 6.2-12.0 [facility] Determination of erythrocyte mean corpuscular volume (MCV)Ordered By: Dr. Rodriguez on 08-22-2022 MCV (RBC) [Entitic vol] 90.9 fL 80-94 [facility] Direct bilirubinOrdered By: Dr. Rodriguez on 08-22-2022 Bilirubin.direct [Mass/Vol] 0.13 mg/dL 0.00-0.3 0 [facility] Erythrocyte sedimentation ra teOrdered By: Dr. Rodriguez on 08-22-2022 ESR (Bld) [Velocity] 13 mm/h 0-20 [facility] Hematocrit Auto (Bld) [Volum e fraction]Ordered By: Dr. Rodriguez on 08-22-2022 Hematocrit (Bld) [Volume fraction] 43.9 % 40-54 [facility] Laboratory - Chemistry and C hemistry - challengeOrdered By: Dr. Rodriguez on 08-22-2022 ALP [Catalytic activity/Vol] 78 U/L 45-117 [facility] ALT [Catalytic activity/Vol] 30 U/L 16-61 [facility] Globulin (S) [Mass/Vol] 3.8 g/dL 2.2-4.2 [facility] Laboratory - Hematology and Cell countsOrdered By: Dr. Rodriguez on 08-22-2022 Erythrocyte distribution width (RBC) [Entitic vol] 42.2 fL 35.1-43.9 [facility] Erythrocyte distribution width (RBC) [Ratio] 12.8 % 11.6-14.6 [facility] Immature granulocytes/100 WBC (Bld) 0.500 % 0.0-0.9 [facility] Comment on above: IG% - Immature Granu locytes (promyelocytes, myelocytes and metamyelocytes) > 1% indicates that a LEFT SHIFT is Present. MCH (RBC) [Entitic mass] 30.0 pg 27.0-32.0 [facility] Nucleated RBC/100 WBC (Bld) [Ratio] 0 % 0-5 [facility] Auto (RBC) [Mass/Vol]Or dered By: Dr. Rodriguez on 08-22-2022 MCHC (RBC) [Mass/Vol] 33.0 g/dL 32-36 [facility] No Panel InformationOrdered By: Dr. Rodriguez on 08-22-2022 Anti-Nuclear Antibody Screen Negative Negative [facility] Comment on above: Performed at: [facility] - [facility] [address] [id number] Director: Moris Arias PhD, Phone: [phone] [employer] Antibody <0.2 AI 0.0-0.9 [facility] Platelets bldOrdered By: Dr. Rodriguez on 08-22-2022 Platelets (Bld) [#/Vol] 288 10*3/uL 150-450 [facility] Serum DNA double strand anti body assay (units/volume)Ordered By: Dr. Rodriguez on 08-22-2022 DNA double strand Ab Qn (S) [IU]/mL 0-9 [facility] Comment on above: Negative <5 Equivoca l 5 - 9 Positive >9 Serum Scl-70 extractable nuc lear antibody assay (units/volume)Ordered By: Dr. Rodriguez on 08-22-2022 SCL-70 extractable nuclear Ab Qn (S) 0.2 AI 0.0-0.9 [facility] Serum classic neutrophil cyt oplasmic antibody assay (units/volume)Ordered By: Dr. Rodriguez on 08-22-2022 Neutrophil cytoplasmic Ab.classic Qn (S) <1:20 titer Neg:<1:20 [facility] Serum cyclic citrullinated p eptide IgG antibody assay (units/volume)Ordered By: Dr. Rodriguez on 08-22-2022 Cyclic citrullinated peptide IgG Qn 4 units 0-19 [facility] Comment on above: Negative <20 Weak po sitive 20 - 39 Moderate positive 40 - 59 Strong positive >59Performed at: [facility] - [facility] [address] [id number] Director: Moris Arias PhD, Phone: [phone] Serum or plasma C reactive p rotein measurement (mass/volume)Ordered By: Dr. Rodriguez on 08-22-2022 CRP [Mass/Vol] mg/L 0.0-3.0 [facility] Comment on above: C-Reactive Protein ( CRP) provides useful information for thediagnosis, therapy and monitoring of inflammatory processesand associated diseases. For the evaluation of Relative Riskfor Cardiovascular Disease, a High Sensitivity CRP (HSCRP)should be ordered. Serum or plasma actin IgG an tibody assay (units/volume)Ordered By: Dr. Rodriguez on 08-22-2022 Actin IgG Qn 9 Units 0-19 [facility] Comment on above: Negative 0 - 19 Weak positive 20 - 30 Moderate to strong positive >30 Actin Antibodies are found in 52-85% of patients with autoimmune hepatitis or chronic active hepatitis and in 22% of patients with primary biliary cirrhosis. Serum or plasma albumin lisa urement (mass/volume)Ordered By: Dr. Rodriguez on 08-22-2022 Albumin [Mass/Vol] 3.6 g/dL 3.2-5.0 [facility] Serum or plasma angiotensin converting enzyme measurement (enzymatic activity/volume)Ordered By: Dr. Rodriguez on 08-22-2022 Angiotensin converting enzyme [Catalytic activity/Vol] 36 U/L 14-82 [facility] Serum perinuclear neutrophil cytoplasmic antibody titer by immunofluorescenceOrdered By: Dr. Rodriguez on 08-22-2022 Neutrophil cytoplasmic Ab.perinuclear IF (S) [Titer] <1:20 titer Neg:<1:20 [facility] Comment on above: The presence of posi tive fluorescence exhibiting P-ANCA orC-ANCA patterns alone is not specific for the diagnosis ofWegener's Granulomatosis (WG) or microscopic polyangiitis.Decisions about treatment should not be based solely onANCA IFA results. The [employer] Consensusrecommends follow up testing of positive sera with both CA-3 and MPO-ANCA enzyme immunoassays. As many as 5% serumsamples are positive only by EIA. Ref. AM J Clin [id number];111:507-513. Serum rheumatoid factor dete ctionOrdered By: Dr. Rodriguez on 08-22-2022 Rheumatoid factor Ql (S) < 10.0 IU/mL <15 [facility] Thin prep Papanicolaou smear with manual screeningOrdered By: Dr. Rodriguez on 08-22-2022 Thin prep Papanicolaou smear with manual screening 18 U/L 15-37 [facility] Laboratory - Chemistry and C hemistry - challengeOrdered By: Dr. Vergara on 05-23-2022 Cobalamin (Vitamin B12) [Mass/Vol] 622 pg/mL 211-911 [facility] Free T4 [Mass/Vol] 1.08 ng/dL 0.76-1.46 [facility] No Panel InformationOrdered By: Dr. Vergara on 05-23-2022 Prostate Specific Antigen Screen 0.35 ng/mL 0.00-4.00 [facility] Comment on above: This test was perfor med using the TPSA assay method for [employer] chemistry system. Values obtained with differentassay methods cannot be used interchangably.When changing PSA assays in the course of monitoring apatient, additional sequential testing should be carriedout to confirm baseline values. Thyroid Stimulating Hormone (TSH) 1.39 uIU/mL 0.358-3.74 [facility] Absolute lymphocyte countOrd ered By: Dr. Vergara on 05-10-2022 Lymphocytes Auto (Unsp spec) [#/Vol] 2.26 10*3/uL 0.83-4.51 [facility] Basophil percentageOrdered B y: Dr. Vergara on 05-10-2022 Basophils/100 WBC (Bld) 0.8 % 0-1 [facility] Bilirubin [Mass/Vol] 0.60 mg/dL 0.20-1.00 [facility] Comment on above: For patients on eltr ombopag therapy, use of Dimension [place]ota TBIL is not recommended. Chloride [Moles/Vol] 106 mmol/L 98-107 [facility] Cholesterol [Mass/Vol] 162 mg/dL <200 [facility] Comment on above: <200 mg/dL Desirable 200-240 mg/dL Borderline >240 mg/dL High Risk Eosinophils/100 WBC (Bld) 2.0 % 0-5 [facility] Glucose [Mass/Vol] 148 mg/dL 74-106 [facility] Comment on above: Fasting Glucose resu lt greater than or equal to 126 mg/dL suggests DIABETES MELLITUS per A.D.A. criteria. Neutrophils (Bld) [#/Vol] 5.5 10*3/uL 2.0-7.7 [facility] Neutrophils/100 WBC (Bld) 62.0 % 47-70 [facility] Potassium [Moles/Vol] 4.7 mmol/L 3.5-5.1 [facility] Protein [Mass/Vol] 7.0 g/dL 6.4-8.2 [facility] Sodium [Moles/Vol] 141 mmol/L 136-145 [facility] Triglyceride [Mass/Vol] 69 mg/dL <199 [facility] Comment on above: The drugs N-Acetylcy steine and Metamizole may falsely depress this assay.Serum Triglycerides Reference Interval Normal <150 mg/dL Borderline high 150 - 199 mg/dL High 200 - 499 mg/dL Very High > or = 500 mg/dL WBC (Bld) [#/Vol] 8.8 10*3/uL 4.4-11.0 [facility] Blood erythrocytes count (nu mber/volume)Ordered By: Dr. Vergara on 05-10-2022 RBC (Bld) [#/Vol] 5.05 10*6/uL 4.6-6.2 [facility] Blood hemoglobin measurement (mass/volume)Ordered By: Dr. Vergara on 05-10-2022 Hemoglobin (Bld) [Mass/Vol] 15.2 g/dL 13.0-16. 5 [facility] Blood lymphocytes/100 leukoc ytesOrdered By: Dr. Vergara on 05-10-2022 Lymphocytes/100 WBC (Bld) 25.6 % 19-41 [facility] Blood monocytes/100 leukocyt esOrdered By: Dr. Vergara on 05-10-2022 Monocytes/100 WBC (Bld) 8.6 % 0-10 [facility] Blood platelet mean volumeOr dered By: Dr. Vergara on 05-10-2022 Platelet mean volume (Bld) [Entitic vol] 10.9 fL 6.2-12.0 [facility] Determination of erythrocyte mean corpuscular volume (MCV)Ordered By: Dr. Vergara on 05-10-2022 MCV (RBC) [Entitic vol] 90.9 fL 80-94 [facility] Hematocrit Auto (Bld) [Volum e fraction]Ordered By: Dr. Vergara on 05-10-2022 Hematocrit (Bld) [Volume fraction] 45.9 % 40-54 [facility] Laboratory - Chemistry and C hemistry - challengeOrdered By: Dr. Vergara on 05-10-2022 ALP [Catalytic activity/Vol] 77 U/L 45-117 [facility] ALT [Catalytic activity/Vol] 23 U/L 16-61 [facility] CO2 [Moles/Vol] 26.0 mmol/L 21.0-32.0 [facility] Globulin (S) [Mass/Vol] 3.2 g/dL 2.2-4.2 [facility] Urea nitrogen/Creatinine [Mass ratio] 21.2 mg/mg 10-20 [facility] Laboratory - Hematology and Cell countsOrdered By: Dr. Vergara on 05-10-2022 Erythrocyte distribution width (RBC) [Entitic vol] 42.2 fL 35.1-43.9 [facility] Erythrocyte distribution width (RBC) [Ratio] 12.9 % 11.6-14.6 [facility] Immature granulocytes/100 WBC (Bld) 1.000 % 0.0-0.9 [facility] Comment on above: IG% - Immature Granu locytes (promyelocytes, myelocytes and metamyelocytes) > 1% indicates that a LEFT SHIFT is Present. MCH (RBC) [Entitic mass] 30.1 pg 27.0-32.0 [facility] Nucleated RBC/100 WBC (Bld) [Ratio] 0 % 0-5 [facility] MCHC Auto (RBC) [Mass/Vol]Or dered By: Dr. Vergara on 05-10-2022 MCHC (RBC) [Mass/Vol] 33.1 g/dL 32-36 [facility] No Panel InformationOrdered By: Dr. Vergara on 05-10-2022 Estimated GFR (MDRD) Amer 102 mL/min >60 [facility] Comment on above: GFR Calc Estimated GFR (MDRD) Non-Af Amer 85 mL/min >60 [facility] Comment on above: Non- GFR Calc Vitamin D 25-Hydroxy 58.4 ng/mL [facility] Comment on above: Vitamin D 25(OH) Sta tus Range Deficiency <20 ng/mL (50nmol/L) Insufficiency 20 - 30 ng/mL (50 - 75 nmol/L) Sufficiency 30 - 100 ng/mL (75 - 250 nmol/L) Toxicity >100 ng/mL (>250 nmol/L) Platelets bldOrdered By: Dr. Vergara on 05-10-2022 Platelets (Bld) [#/Vol] 299 10*3/uL 150-450 [facility] Serum or plasma albumin lisa urement (mass/volume)Ordered By: Dr. Vergara on 05-10-2022 Albumin [Mass/Vol] 3.8 g/dL 3.2-5.0 [facility] Serum or plasma albumin/glob ulin mass ratioOrdered By: Dr. eVrgara on 05-10-2022 Albumin/Globulin [Mass ratio] 1.2 {ratio} 0.9-2.4 [facility] Serum or plasma calcium lisa urement (mass/volume)Ordered By: Dr. Vergara on 05-10-2022 Calcium [Mass/Vol] 9.3 mg/dL 8.5-10.1 [facility] Serum or plasma cholesterol in HDL measurement (mass/volume)Ordered By: Dr. Vergara on 05-10-2022 Cholesterol in HDL [Mass/Vol] 52 mg/dL >40 [facility] Comment on above: The drugs N-Acetylcy steine and Metamizole may falsely depress this assay. Reference Range HDL <40 mg/dL Low HDL Cholesterol HDL >or= 60 mg/dL High HDL Cholesterol Serum or plasma cholesterol in VLDL measurement (mass/volume)Ordered By: Dr. Vergara on 05-10-2022 Cholesterol in VLDL [Mass/Vol] 14 mg/dL 5-40 [facility] Serum or plasma creatinine m easurement (mass/volume)Ordered By: Dr. Vergara on 05-10-2022 Creatinine [Mass/Vol] 0.94 mg/dL 0.70-1.30 [facility] Comment on above: The validity of the calculated GFR & GFRAA in patients over 70 years has not been determined. Clinical correlation is essential. Serum or plasma low density lipoprotein (LDL) cholesterol measurement (mass/volume)Ordered By: Dr. Vergara on 05-10-2022 Cholesterol in LDL [Mass/Vol] 96 mg/dL 0-130 [facility] Serum or plasma urea nitroge n measurement (mass/volume)Ordered By: Dr. Vergara on 05-10-2022 Urea nitrogen [Mass/Vol] 20 mg/dL 7-18 [facility] Thin prep Papanicolaou smear with manual screeningOrdered By: Dr. Vergara on 05-10-2022 Thin prep Papanicolaou smear with manual screening 12 U/L 15-37 [facility] Thin prep Papanicolaou smear with manual screening 9 5-15 [facility] Whole blood hemoglobin A1c/t otal hemoglobin ratio (mass fraction)Ordered By: Dr. Vergara on 05-10-2022 HbA1c (Bld) [Mass fraction] 6.1 % 3.8-5.6 [facility] Comment on above: Normal < 5.7 % Predi abetic 5.7 - 6.4 % Diabetic >or= 6.5 % Please note range changes. Influenza virus A and B and SARS-CoV-2 (COVID-19) Ag panel - Upper respiratory specimOrdered By: Dr. Griffith on 03-06-2022 SARS-CoV-2 (COVID-19) RNA GSUTAVO+probe Ql (Resp) [facility] Basophil percentageon 2021 Bilirubin [Mass/Vol] 0.60 mg/dL 0.20-1.00 [facility] Work Phone: Comment on above: For patients on eltr ombopag therapy, use of Dimension [place] TBIL is not recommended. Chloride [Moles/Vol] 109 mmol/L 98-107 [facility] Work Phone: Cholesterol [Mass/Vol] 147 mg/dL <200 [facility] Work Phone: Comment on above: <200 mg/dL Desirable 200-240 mg/dL Borderline >240 mg/dL High Risk Glucose [Mass/Vol] 135 mg/dL 74-106 [facility] Work Phone: Comment on above: Fasting Glucose resu lt greater than or equal to 126 mg/dL suggests DIABETES MELLITUS per A.D.A. criteria. Potassium [Moles/Vol] 4.0 mmol/L 3.5-5.1 [facility] Work Phone: Protein [Mass/Vol] 6.8 g/dL 6.4-8.2 [facility] Work Phone: Sodium [Moles/Vol] 141 mmol/L 136-145 [facility] Work Phone: Triglyceride [Mass/Vol] 88 mg/dL <199 [facility] Work Phone: Comment on above: The drugs N-Acetylcy steine and Metamizole may falsely depress this assay.Serum Triglycerides Reference Interval Normal <150 mg/dL Borderline high 150 - 199 mg/dL High 200 - 499 mg/dL Very High > or = 500 mg/dL WBC (Bld) [#/Vol] 10.8 10*3/uL 4.4-11.0 [facility] Work Phone: Blood erythrocytes count (nu mber/volume)on 11-16-2021 RBC (Bld) [#/Vol] 4.74 10*6/uL 4.6-6.2 [facility] Work Phone: Blood hemoglobin measurement (mass/volume)on 11-16-2021 Hemoglobin (Bld) [Mass/Vol] 14.3 g/dL 13.0-16. 5 [facility] Work Phone: Blood platelet mean volumeon 11-16-2021 Platelet mean volume (Bld) [Entitic vol] 11.1 fL 6.2-12.0 [facility] Work Phone: Determination of erythrocyte mean corpuscular volume (MCV)on 11-16-2021 MCV (RBC) [Entitic vol] 90.9 fL 80-94 [facility] Work Phone: Hematocrit Auto (Bld) [Volum e fraction]on 11-16-2021 Hematocrit (Bld) [Volume fraction] 43.1 % 40-54 [facility] Work Phone: Laboratory - Chemistry and C hemistry - challengeon 11-16-2021 ALP [Catalytic activity/Vol] 77 U/L 45-117 [facility] Work Phone: ALT [Catalytic activity/Vol] 23 U/L 16-61 [facility] Work Phone: CO2 [Moles/Vol] 27.0 mmol/L 21.0-32.0 [facility] Work Phone: Globulin (S) [Mass/Vol] 3.3 g/dL 2.2-4.2 [facility] Work Phone: Urea nitrogen/Creatinine [Mass ratio] 8.9 mg/mg 10-20 [facility] Work Phone: Laboratory - Hematology and Cell countson 11-16-2021 Erythrocyte distribution width (RBC) [Entitic vol] 42.9 fL 35.1-43.9 [facility] Work Phone: Erythrocyte distribution width (RBC) [Ratio] 13.0 % 11.6-14.6 [facility] Work Phone: MCH (RBC) [Entitic mass] 30.2 pg 27.0-32.0 [facility] Work Phone: MCHC Auto (RBC) [Mass/Vol]on 11-16-2021 MCHC (RBC) [Mass/Vol] 33.2 g/dL 32-36 [facility] Work Phone: No Panel Informationon 11-16 Estimated GFR (MDRD) Amer 109 mL/min >60 [facility] Work Phone: Comment on above: GFR Calc Estimated GFR (MDRD) Non-Af Amer 90 mL/min >60 [facility] Work Phone: Comment on above: Non- GFR Calc Vitamin D 25-Hydroxy 65.7 ng/mL [facility] Work Phone: Comment on above: Vitamin D 25(OH) Sta tus Range Deficiency <20 ng/mL (50nmol/L) Insufficiency 20 - 30 ng/mL (50 - 75 nmol/L) Sufficiency 30 - 100 ng/mL (75 - 250 nmol/L) Toxicity >100 ng/mL (>250 nmol/L) Platelets bldon 11-16-2021 Platelets (Bld) [#/Vol] 270 10*3/uL 150-450 [facility] Work Phone: Serum or plasma albumin lisa urement (mass/volume)on 11-16-2021 Albumin [Mass/Vol] 3.5 g/dL 3.2-5.0 [facility] Work Phone: Serum or plasma albumin/glob ulin mass ratioon 11-16-2021 Albumin/Globulin [Mass ratio] 1.1 {ratio} 0.9-2.4 [facility] Work Phone: Serum or plasma calcium lisa urement (mass/volume)on 11-16-2021 Calcium [Mass/Vol] 9.0 mg/dL 8.5-10.1 [facility] Work Phone: Serum or plasma cholesterol in HDL measurement (mass/volume)on 11-16-2021 Cholesterol in HDL [Mass/Vol] 56 mg/dL >40 [facility] Work Phone: Comment on above: The drugs N-Acetylcy steine and Metamizole may falsely depress this assay. Reference Range HDL <40 mg/dL Low HDL Cholesterol HDL >or= 60 mg/dL High HDL Cholesterol Serum or plasma cholesterol in VLDL measurement (mass/volume)on 11-16-2021 Cholesterol in VLDL [Mass/Vol] 18 mg/dL 5-40 [facility] Work Phone: Serum or plasma creatinine m easurement (mass/volume)on 11-16-2021 Creatinine [Mass/Vol] 0.90 mg/dL 0.70-1.30 [facility] Work Phone: Comment on above: The validity of the calculated GFR & GFRAA in patients over 70 years has not been determined. Clinical correlation is essential. Serum or plasma low density lipoprotein (LDL) cholesterol measurement (mass/volume)on 11-16-2021 Cholesterol in LDL [Mass/Vol] 73 mg/dL 0-130 [facility] Work Phone: Serum or plasma urea nitroge n measurement (mass/volume)on 11-16-2021 Urea nitrogen [Mass/Vol] 8 mg/dL 7-18 [facility] Work Phone: Thin prep Papanicolaou smear with manual screeningon 11-16-2021 Thin prep Papanicolaou smear with manual screening 14 U/L 15-37 [facility] Work Phone: Thin prep Papanicolaou smear with manual screening 5 5-15 [facility] Work Phone: Whole blood hemoglobin A1c/t otal hemoglobin ratio (mass fraction)on 11-16-2021 HbA1c (Bld) [Mass fraction] 6.2 % 3.8-5.6 [facility] Work Phone: Comment on above: Normal < 5.7 % Predi abetic 5.7 - 6.4 % Diabetic >or= 6.5 % Please note range changes. CNOVon 06-01-2021 [facility] [place] [place] JONES BANUELOS ([id number]) 1955 M Date Time Provider Department 06/01/21 2:20 PM [facility] During your visit today, we recorded the following information about you: Temperature Pulse Respiration Blood pressure 97.9 degrees 80/minute 12/minute 120/67 Weight Height 103.4 kg 1.854 m Modesto Anglin MD 06/01/2021 3:07 PM Signed Patient Name: Jones Banuelos PRIMARY CARE PHYSICIAN: Virgie Vergara MD Date of visit: June 01, 2021 COMMUNICATION WILL BE SENT VIA SHARED MEDICAL RECORDS OR US MAIL. Subjective: Jones Banuelos is a 65 year old male [...] started in 2014 when he began to develop?acute,?progres sive dyspnea. ?At the time, imaging revealed evidence [...] CPAP by Mask route daily at bedtime. TAYLA 180 MG ORAL TAB Take one(1) tablet daily. MULTIVITAMIN ORAL TAB Take one(1) tablet daily. ergocalciferol 50,000 unit capsule (VITAMIN D2, DRISDOL) Take by mouth. LORazepam (ATIVAN) 1 mg tablet take 1 tablet by mouth 30 MINUTES PRIOR TO PROCEDURE rizatriptan (MAXALT PRODUCTION SUPPORT ENGINEER) 10 mg disintegrating tablet Take 10 mg [...] .992 (1.85m) Wt 228 lb (103.4kg) SpO2 96[R (more content not included)... Normal [facility] 05-31-2021 [facility] Telephone ([facility]) TOROJONES GARY ([id number]) 1955 M Date Time Provider Department 05/31/21 MODESTO ANGLIN During your visit today, we recorded the following information about you: Michell Damien Adm Asst 05/31/2021 3:49 PM Signed Order for CPAP supplies signed and faxed back to [facility]. Michell Quezada Adm Asst Allergies As of Date: 05/31/2021 Noted Allergy Reaction CATS 01/19/2005 9 - Itching 12 - Shortness of Breath 14 - Other: See Comments Comments: sneezing DOGS 01/19/2005 9 - Itching 12 - Shortness of Breath Comments: sneezing environmental [Other] 01/19/2005 9 - Itching 12 - Shortness of Breath 14 - Other: See Comments Comments: sneezing Date Reviewed: 10/27/2020 Reviewed by: Modesto Anglin MD - Fully Assessed Reason for Visit: FYI-No Action Needed [265] Prescriptions as of 05/31/2021 - budesonide-formoterol (SYMBICORT) 80-4.5 mcg/actuation inhaler Inhale [...] route daily at bedtime. - rizatriptan (MAXALT PRODUCTION SUPPORT ENGINEER) 10 mg disintegrating tablet Take 10 mg by mouth as needed. one tablet at onset of Headache may repeat one dose after 2 hours. - TAYLA 180 MG ORAL TAB Take one(1) tablet daily. - MULTIVITAMIN ORAL TAB Take one(1) tablet daily. Problem List As Of Date 05/31/2021 Noted Resolved Adjustment disorder with anxiety [F43.22] [...] status asthmaticus [J4*05/04/2015 Anxiety [F41.9] 05/04/2015 Depression [F32.A] 05/04/2015 Diabetes mellitus type 2, controlled, without [...] without complication [B02.9] 09/06/2015 Encounter Status:Closed by MICHELL HAMLIN on 05/31/21 [facility] OBSOLETEon 02-21-2021 [facility]LETE [facility] JONES BANUELOS ([id number]) 1955 M Date Time Provider Department 02/21/21 MODESTO ANGLIN During your visit today, we recorded the following information about you: Lora Burks RN 02/21/2021 3:19 PM Signed Pharmacy faxed requesting the following refill. Pending Prescriptions Disp Refills BUDESONIDE-FORMOTEROL HFA 80 MCG-4.5 MCG/ACTUATION AEROSOL INHALER 30.6 g 3 Sig: Inhale 2 Puffs as instructed twice daily. USE 2 INHALATIONS TWICE A DAY INSTRUCTED DEBBIE: No Patient Phone numbers: [phone] (home) [phone] (work) Request is for script(s) to be escript to mail order [facility]. Lora Burks RN Allergies As of Date: 02/21/2021 Noted Allergy Reaction CATS 01/19/2005 9 - Itching 12 - Shortness of Breath 14 - Other: See Comments Comments: sneezing DOGS 01/19/2005 9 - Itching 12 - Shortness of Breath Comments: sneezing environmental [Other] 01/19/2005 9 - Itching 12 - Shortness of Breath 14 - Other: See Comments Comments: sneezing Date Reviewed: 10/27/2020 Reviewed by: Modesto Anglin MD - Fully Assessed Reason for Visit: Refill Request [94] Order(s):budesonide-fo rmoterol (SYMBICORT) 80-4.5 mcg/actuation inhalerInhale 2 Puffs as instructed twice daily. USE 2 INHALATIONS TWICE A DAY INSTRUCTEDDisp: 30.6 gRfl: 3 Prescriptions as of 02/28/2021 - budesonide-formoterol (SYMBICORT) 80-4.5 mcg/actuation inhaler Inhale [...] route daily at bedtime. - rizatriptan (MAXALT PRODUCTION SUPPORT ENGINEER) 10 mg disintegrating tablet Take 10 mg by mouth as needed. one tablet at onset of Headache may repeat one dose after 2 hours. - TAYLA 180 MG ORAL TAB Take one(1) tablet daily. - MULTIVITAMIN ORAL TAB Take one(1) tablet daily. Problem List As Of Date 02/21/2021 Noted Resolved Adjustment disorder with anxiety [F43.22] [...] status asthmaticus [J4*05/04/2015 Anxiety [F41.9] 05/04/2015 Depression [F32.A] 05/04/2015 Diabetes mellitus type 2, controlled, without c*05/04/2015 TOMAS (obstructive sleep apnea) [G47.33] 05/04/2015 History of environmental allergies [Z91.09] 05/04/2015 Pulmonary fibrosis (HCC) [J84.10] 05/04/2015 08/26/2015 Restrictive ventilatory defect [R94.2] 08/26/2015 Diffusion capacity of lung (dl), decreased [R94*08/26/2015 ILD (interstitial lung disease) (HCC) [J84.9] 08/26/2015 Pulmonary nodules [R91.8] 08/26/2015 Ex-heavy cigarette smoker (20-39 per day); 50+ *08/26/2015 Herpes zoster without complication [B02.9] 09/06/2015 Prescriptions ordered this encounter Disp Refills Start End BUDESONIDE-FORMOTEROL HFA 80 MCG-4.5* 30.6* 3 02/28/2021 Route: INHALATION Sig: Inhale 2 Puffs as instructed twice daily. USE 2 INHALATIONS TWICE A DAY INSTRUCTED Medications Discontinued During This Encounter Prescriptions - budesonide-formoterol (SYMBICORT) 80-4.5 mcg/actuation inhaler (Discontinued) Inhale 2 Puffs as instructed once daily. USE 2 INHALATIONS TWICE A DAY INSTRUCTED Encounter Status:Closed by MODESTO ANGLIN on 02/28/[address] [facility] [address] CHEST WO IVCONon 01-06-20 CT CHEST WO IVCON * * *Final Report* * * DATE OF EXAM: Jan 05 2021 10:33AM [facility] 0541 - CT CHEST WO IVCON / PROCEDURE REASON: Interstitial pulmonary disease (HCC) * * * * Physician Interpretation * * * * EXAMINATION: CHEST CT WITHOUT CONTRAST CLINICAL HISTORY: Interstitial pulmonary disease (HCC) , intermittent Asthma Technique: Spiral CT acquisition of the chest from the thoracic inlet to the upper abdomen without contrast. High-resolution imaging was obtained with prominent supine position, inspiration and expiratory phases. MQ: [id number] CT Radiation dose: Integrated Dose-length product (DLP) for this visit = 734 mGy*cm CT Dose Reduction Employed: Automated exposure control (AEC) Comparison: CT of the chest 12/30/2014 and prior RESULT: Limitations: None. Lines, tubes, and devices: None. Lung parenchyma and airways: Postsurgical changes of wedge biopsy in the right middle and lower lobe. No consolidation. Stable 0.4 cm nodule in the lateral right middle lobe (5, 37) and 0.3 cm nodule in the inferior lingula (5, 26) The central airways are patent. High-resolution findings as follows: * Interlobular Septal Thickening and/or Reticulation: Mild, asymmetric, predominantly in the anterior left upper lobe and the peripheral of the lateral lung bases * Ground Glass Opacity: absent * Air Trapping: absent * Tree In [place] Opacity: absent * Centrilobular Micro Nodules: absent * Perilymphatic Micro Nodules: absent * Randomly Distributed Micro Nodules: absent * Mosaic Attenuation:absent * Bronchiectasis: Mild * Lung Cysts: Absent * Honeycombing: Absent only minimal present in the superior right lower lobe in the anterior left upper lobe * Emphysema: Absent Pleural space: No pleural effusion. A a small pleural plaque in the posterior right lower lobe is stable since 2015 and likely chronic inflammation. Lower neck, lymph nodes, and mediastinum: The imaged thyroid gland is normal. No axillary or supraclavicular lymphadenopathy. A few lymph nodes in the prevascular space measuring up to 0.7 cm and left hilar region are stable since 2015. Unchanged 1.0 cm the distal right paraesophageal lymph node. No hilar lymphadenopathy. Heart, pericardium, and thoracic vessels: The thoracic aorta and main pulmonary artery are normal in caliber. Mild cardiomegaly. No coronary artery atherosclerotic calcifications are noted, although the study is not optimized for coronary assessment. No pericardial effusion or thickening. Bones and soft tissues: No acute osseous abnormalities. In the visualized portions. Bony bridge in the lateral arches of the right 5th-6th rib. Upper abdomen: No acute abnormality in the imaged upper abdomen. Caustic Room Attendant (topogram) images: No additional findings. IMPRESSION: 1. Asymmetric areas of subpleural reticulation, mild traction bronchiectasis and minimal honeycombing suggesting minimal fibrotic changes as can be seen with chronic hypersensitivity stable pneumonitis, only mildly progressed since 2015. No new consolidation or pleural effusion. Stable small pleural plaque in the right lower lobe. 2. No consolidation or pleural effusion. Extract Mixer: PSCB Transcribe Date/Time: Jan 10 2021 10:16A Dictated by : CALLIE ROBERT MD This examination was interpreted and the report reviewed and electronically signed by: CALLIE ROBERT MD on Jan 10 2021 10:37AM EST [id number] [facility] ([facility]) JONES BANUELOS ([id number]) 1955 M Date Time Provider Department 12/14/20 MODESTO ANGLIN During your visit today, we recorded the following information about you: Modesto Anglin MD 12/14/2020 12:48 PM Signed Called patient and notified him of results of CXR, recommend obtaining CT chest (high resolution protocol w/ inspiratory/expiratory images) He understands and agrees. Please schedule. Allergies As of Date: 12/14/2020 Noted Allergy Reaction CATS 01/19/2005 9 - Itching 12 - Shortness of Breath 14 - Other: See Comments Comments: sneezing DOGS 01/19/2005 9 - Itching 12 - Shortness of Breath Comments: sneezing environmental [Other] 01/19/2005 9 - Itching 12 - Shortness of Breath 14 - Other: See Comments Comments: sneezing Date Reviewed: 10/27/2020 Reviewed by: Modesto Anglin MD - Fully Assessed Reason for Visit: Results [95] Visit Diagnosis:Interstitial pulmonary disease (HCC) [J84.9] Order(s):CT CHEST SHAGUFTA PRETTYNIMA [[id number]] Order #: [id number] FUTURE Prescriptions as of 12/14/2020 - budesonide-formoterol (SYMBICORT) 80-4.5 mcg/actuation inhaler Inhale [...] route daily at bedtime. - rizatriptan (MAXALT PRODUCTION SUPPORT ENGINEER) 10 mg disintegrating tablet Take 10 mg by mouth as needed. one tablet at onset of Headache may repeat one dose after 2 hours. - TAYLA 180 MG ORAL TAB Take one(1) tablet daily. - MULTIVITAMIN ORAL TAB Take one(1) tablet daily. Problem List As Of Date 12/14/2020 Noted Resolved Adjustment disorder with anxiety [F43.22] [...] without complication [B02.9] 09/06/2015 Encounter Status:Closed by MODESTO ANGLIN on 12/14/20 Normal [facility] XR CHEST 2V FRONTAL/LATon XR CHEST 2V FRONTAL/LAT * * *Final Repor t* * * DATE OF EXAM: Dec 09 2020 9:42AM AWX 5291 - XR CHEST 2V FRONTAL/LAT / PROCEDURE REASON: Mild intermittent asthma without complication * * * * Physician Interpretation * * * * EXAMINATION: CHEST RADIOGRAPH (2 VIEW FRONTAL and LATERAL) CLINICAL HISTORY: Mild intermittent asthma without complication MQ: [id number]_6 EXAM DATE/TIME: 12/09/2020 9:42 AM COMPARISON: Chest radiograph 04/05/2016, 02/01/2016. CT chest 12/30/2014 RESULT: Lines, tubes, and devices: None. Lungs and pleura: No large pleural effusion or pneumothorax. Scarring changes in the lung bases. There are subtle nodular opacities in the periphery of both lungs in the right upper lobe and left lung base. Right middle lobe opacities are also seen. Cardiomediastinal silhouette: Stable cardiomediastinal silhouette. Bones and soft tissues: Degenerative changes are present within the thoracic spine. IMPRESSION: Right middle lobe opacities, probable atelectasis. Subtle nodular opacities in both lungs. Follow-up CT chest is suggested. ACTIONABLE RESULT: FOLLOW-UP Acuity: Actionable Findings: Thoracic-Lung nodules Routing code: RI_1 Recommendation: CT Chest WO IVCON Time Frame: non-urgent, but prompt follow-up. COMMUNICATION: Results will be communicated with the ordering provider via [facility] staff message or phone message by [employer] within 2 business days of report finalization. Algorithms for management of incidental imaging findings can be found on the [facility] Intranet Sharepoint site at: [email or web address] [email or web address] [email or web address]/For [email or web address] Extract Mixer: SANDRA Transcribe Date/Time: Dec 10 2020 8:33A Dictated by : MICHELL COREA MD This examination was interpreted and the report reviewed and electronically signed by: MICHELL COREA MD on Dec 10 2020 8:39AM EST [id number] ACTIONABLE Invalid Interpretation Code [facility] JONES BANUELOS ([id number]) 1955 M Date Time Provider Department 10/29/20 MODESTO ANGLIN During your visit today, we recorded the following information about you: Emelia Issa 10/29/2020 3:15 PM Signed Patient signed consent form to send medical records to PCP Dr Vergara and records from 2017 to present were sent. Emelia Issa [employer] Allergies As of Date: 10/29/2020 Noted Allergy Reaction CATS 01/19/2005 9 - Itching 12 - Shortness of Breath 14 - Other: See Comments Comments: sneezing DOGS 01/19/2005 9 - Itching 12 - Shortness of Breath Comments: sneezing environmental [Other] 01/19/2005 9 - Itching 12 - Shortness of Breath 14 - Other: See Comments Comments: sneezing Date Reviewed: 10/27/2020 Reviewed by: Modesto Anglin MD - Fully Assessed Reason for Visit: Release Of Medical Records [2017] Cmt: Dr Vergara Prescriptions as of 10/29/2020 - budesonide-formoterol (SYMBICORT) 80-4.5 mcg/actuation inhaler Inhale [...] route daily at bedtime. - rizatriptan (MAXALT PRODUCTION SUPPORT ENGINEER) 10 mg disintegrating tablet Take 10 mg by mouth as needed. one tablet at onset of Headache may repeat one dose after 2 hours. - TAYLA 180 MG ORAL TAB Take one(1) tablet daily. - MULTIVITAMIN ORAL TAB Take one(1) tablet daily. Problem List As Of Date 10/29/2020 Noted Resolved Adjustment disorder with anxiety [F43.22] [...] without complication [B02.9] 09/06/2015 Encounter Status:Closed by EMELIA ISSA on 10/29/20 [facility] CNOVon 10-27-2020 CNOV Office Visit ([facility] ) JONES BANUELOS ([id number]) 1955 M Date Time Provider Department 10/27/20 3:20 PM MODESTO ANGLIN During your visit today, we recorded the following information about you: Temperature Pulse Respiration Blood pressure 97.6 degrees 75/minute 12/minute 122/88 Weight Height 96.6 kg 1.854 m Modesto Anglin MD 10/28/2020 9:40 AM Signed Patient Name: Jones Banuelos PRIMARY CARE PHYSICIAN: Virgie Vergara MD Date of visit: October 27, 2020 COMMUNICATION WILL BE SENT VIA SHARED MEDICAL RECORDS OR US MAIL. Subjective: Jones Banuelos is a 64 year old male [...] started in 2014 when he began to develop?acute,?progres sive dyspnea. ?At the time, imaging revealed evidence [...] CPAP by Mask route daily at bedtime. TAYLA 180 MG ORAL TAB Take one(1) tablet daily. MULTIVITAMIN ORAL TAB Take one(1) tablet daily. ibuprofen (MOTRIN) 600 mg tablet Take 600 mg by mouth every 6 hours as needed. rizatriptan (MAXALT PRODUCTION SUPPORT ENGINEER) 10 mg disintegrating tablet Take 10 mg [...] or edema Derm- no lesions/rashes Psych- appropriate (more content not included)... Normal [facility] 06-07-2020 [facility] Telephone ([facility]) JONES BANUELOS ([id number]) 1955 M Date Time Provider Department 06/07/20 MODESTO ANGLIN [facility] During your visit today, we recorded the following information about you: Michell Quezada Adm Asst 06/07/2020 3:21 PM Signed Call from Femi at [facility] asking if we can send an updated CPAP order that documents patient needs a new machine. Order pended, please sign. (F:[phone]). Michell Quezada Adm Asst Michell Quezada Adm Asst 06/08/2020 10:06 AM Signed Updated order faxed. Michell Quezada Adm Asst Allergies As of Date: 06/07/2020 Noted Allergy Reaction CATS 01/19/2005 9 - Itching 12 - Shortness of Breath 14 - Other: See Comments Comments: sneezing DOGS 01/19/2005 9 - Itching 12 - Shortness of Breath Comments: sneezing environmental [Other] 01/19/2005 9 - Itching 12 - Shortness of Breath 14 - Other: See Comments Comments: sneezing Date Reviewed: 04/05/2020 Reviewed by: Ada Saini - Fully Assessed Reason for Visit: Orders [681] Primary Visit Diagnosis:TOMAS (obstructive sleep apnea) [G47.33] Order(s):CPAP SET UP [[id number]] Order #: [id number] Prescriptions as of 06/07/2020 Sig: BUDESONIDE-FORMOTEROL HFA 80 * Inhale 2 [...] Take 10 mg by mouth as needed* TAYLA 180 MG TABLET Take one(1) tablet daily. MULTIVITAMIN TABLET Take one(1) tablet daily. Problem List As Of Date 06/07/2020 Noted Resolved Adjustment disorder with anxiety [F43.22] [...] without complication [B02.9] 09/06/2015 Encounter Status:Closed by MODESTO ANGLIN MD on 06/07/20 [facility] CNOVon 05-26-2020 CNOV Office Visit ([facility] ) JONES BANUELOS ([id number]) 1955 M Date Time Provider Department 05/26/20 8:00 PM [facility] During your visit today, we recorded the following information about you: Young Talbot 05/27/2020 4:40 AM Signed Sleep Study Check-In Documentation Date: May 27, 2020 Name: Jones Banuelos Patient was accompanied by Self. Location: [facility] Latex allergy: No Tape allergy: No Current medications were reviewed with the patient:Yes Sleep aid taken by patient for the sleep study: [place] of sleep aid: Not Applicable Procedure was [...] with their ordering provider regarding test results Young Davonpatti [facility] Modesto Anglin MD 06/18/2020 2:30 PM Signed Addended by: MODESTO ANGLIN MD on: 06/18/2020 02:30 PM Modules accepted: Orders Referring Provider: MODESTO ANGLIN [[id number]] Allergies As of Date: 05/26/2020 Noted Allergy Reaction CATS 01/19/2005 9 - Itching 12 - Shortness of Breath 14 - Other: See Comments Comments: sneezing DOGS 01/19/2005 9 - Itching 12 - Shortness of Breath Comments: sneezing environmental [Other] 01/19/2005 9 - Itching 12 - Shortness of Breath 14 - Other: See Comments Comments: sneezing Date Reviewed: 04/05/2020 Reviewed by: Ada Saini - Fully Assessed Visit Diagnoses:TOMAS (obstructive sleep apnea) [G47.33] Dyspnea and respiratory abnormalities [R06.00, R06.89] Order(s):PAP TITRATION PSG (CPAP, BIPAP, ASV) [[id number]] Order #: [id number]. #:[id number] CPAP SET UP [[id number]] Order #: [id number] Prescriptions as of 05/26/2020 Sig: BUDESONIDE-FORMOTEROL HFA 80 * Inhale 2 [...] Take 10 mg by mouth as needed* TAYLA 180 MG TABLET Take one(1) tablet daily. MULTIVITAMIN TABLET Take one(1) tablet daily. Problem List As Of Date 05/26/2020 Noted Resolved Adjustment disorder with anxiety [F43.22] [...] without complication [B02.9] 09/06/2015 Encounter Status:Closed by YOUNG TALBOT on 05/27/20 [facility] No Panel Information SARS-CoV-2 & FLU Antigen (Rapid) [facility] Work Phone: Vital Signs Date Time Vital Sign Value Performing Clinician Whitney cline 03-06-2022 14:00-0500 Body temperature 97.8 [degF] [facility] 03-06-2022 14:00-0500 Diastolic blood pressure 72 mm[Hg] [facility] 03-06-2022 14:00-0500 Heart rate 98 /min [facility] 03-06-2022 14:00-0500 Respiratory rate 18 /min [facility] 03-06-2022 14:00-0500 SaO2% (BldA) [Mass fraction] 93 % [facility] 03-06-2022 14:00-0500 Systolic blood pressure 116 mm[Hg] [facility] 03-06-2022 00:29-0500 Body height 182.88 cm [facility] 03-06-2022 00:29-0500 Body mass index (BMI) [Ratio] 32.5 kg/m2 [facility] 03-06-2022 00:29-0500 Body weight 108.7 kg [facility] Encounters Encounter Date Encounter Type Care Provider Facility Start: 03-11-2025 ambulatory Virgie Vergara [facility] y:[facility] Start: 03-04-2025 End: 03-05-2025 ambulatory VIRGIE VERGARA Facility:[facility] Start: 02-25-2025 End: 02-26-2025 ambulatory VIRGIE VERGARA Facility:[facility] Start: 02-18-2025 End: 02-19-2025 ambulatory VIRGIE VERGARA Facility:[facility] Start: 02-11-2025 End: 02-12-2025 ambulatory SELF Facility:[facility] Start: 01-28-2025 End: 01-29-2025 ambulatory SELF Facility:[facility] Start: 01-21-2025 End: 01-22-2025 ambulatory SELF Facility:[facility] Start: 01-14-2025 End: 01-15-2025 ambulatory SELF Facility:[facility] Start: 01-07-2025 End: 01-08-2025 ambulatory SELF Facility:[facility] Start: 12-31-2024 End: 01-01-2025 ambulatory SELF Facility:[facility] Start: 12-17-2024 End: 12-18-2024 ambulatory SELF Facility:[facility] Start: 12-10-2024 End: 12-11-2024 ambulatory SELF Facility:[facility] Start: 12-03-2024 End: 12-04-2024 ambulatory SELF Facility:[facility] Start: 11-26-2024 End: 11-27-2024 ambulatory SELF Facility:[facility] Start: 11-19-2024 End: 11-20-2024 ambulatory SELF Facility:[facility] Start: 11-13-2024 End: 11-13-[address] Virgie Vergara MD Work Phone: -[facility] Start: 11-13-2024 End: 11-13-[address] Virgie Vergara MD -[facility] Work Phone: Start: 11-12-2024 End: 11-13-2024 ambulatory SELF Facility:[facility] Start: 11-05-2024 End: 11-06-2024 ambulatory SELF Facility:[facility] Start: 10-29-2024 End: 10-29-2024 ambulatory SELF Facility:[facility] Start: 10-22-2024 End: 10-23-2024 ambulatory SELF Facility:[facility] Start: 10-01-2024 End: 10-01-2024 ambulatory SELF Facility:[facility] Start: 09-24-2024 End: 09-24-2024 ambulatory VIRGIE VERGARA Facility:[facility] Start: 09-17-2024 End: 09-18-2024 ambulatory SELF Facility:[facility] Start: 09-10-2024 End: 09-11-2024 ambulatory SELF Facility:[facility] Start: 09-03-2024 End: 09-04-2024 ambulatory SELF Facility:[facility] Start: 08-27-2024 End: 08-27-2024 ambulatory SELF Facility:[facility] Start: 08-20-2024 End: 08-21-2024 ambulatory SELF Facility:[facility] Start: 08-13-2024 End: 08-14-2024 ambulatory SELF Facility:[facility] Start: 07-23-2024 End: 07-24-2024 ambulatory SELF Facility:[facility] Start: 07-16-2024 End: 07-17-2024 ambulatory VIRGIE VERGARA Facility:[facility] Start: 07-15-2024 End: 07-15-[address] Virgie Vergara MD Work Phone: [facility] Work Phone: Start: 07-15-2024 End: 07-15-[address] Virgie Vergara MD -Laboratory, [facility] Start: 07-15-2024 End: 07-15-2024 ambulatory Virgie Vergara Facility:[facility] Start: 07-02-2024 End: 07-03-2024 ambulatory VIRGIE VERGARA Facility:[facility] Start: 06-25-2024 End: 06-26-2024 ambulatory VIRGIE VERGARA Facility:[facility] Start: 06-18-2024 End: 06-19-2024 ambulatory VIRGIE VERGARA Facility:[facility] Start: 06-11-2024 End: 06-12-2024 ambulatory VIRGIE VERGARA Facility:[facility] Start: 06-04-2024 End: 06-05-2024 ambulatory VIRGIE VERGARA Facility:[facility] Start: 05-28-2024 End: 05-29-2024 ambulatory VIRGIE VERGARA Facility:[facility] Start: 05-21-2024 End: 05-22-2024 ambulatory VIRGIE VERGARA Facility:[facility] Start: 05-14-2024 End: 05-15-2024 [facility] Start: 05-07-2024 End: 05-08-2024 [facility] Start: 04-16-2024 End: 04-17-2024 [facility]ulatory [facility] Start: 03-19-2024 End: 03-20-2024 ambulatory [facility] Facility:[facility] Start: 03-12-2024 End: 03-13-2024 ambulatory [facility] Facility:[facility] Start: 08-20-2023 End: 08-20-2023 ambulatory [facility] Work Phone: Start: 08-20-2023 End: 08-20-2023 Patient encounter procedure [facility] Work Phone: Start: 07-12-2023 End: 07-12-2023 ambulatory [facility] Work Phone: Start: 07-12-2023 End: 07-12-2023 Patient encounter procedure [facility] Start: 04-11-2023 End: 04-11-2023 ambulatory [facility] Work Phone: Start: 04-11-2023 End: 04-11-2023 Patient encounter procedure [facility] Start: 03-02-2023 End: 03-02-[address] Virgie Vergara Work Phone: [facility] Work Phone: Start: 03-02-2023 End: 03-02-[address] Virgie Vergara Work Phone: [facility] Start: 11-27-2022 Non-patient / Non-visit Dr. Ellie Vergara Work Phone: [facility] Start: 11-27-2022 End: 11-27-[address] Virgie Vergara Work Phone: [facility] Work Phone: Start: 11-27-2022 End: 11-27-[address] [facility] Work Phone: Start: 11-10-2022 End: 11-10-2022 ambulatory [facility] Work Phone: Start: 11-10-2022 End: 11-10-2022 [facility] Work [facility]: Start: 11-07-2022 End: 11-07-2022 ambulatory [facility] Work Phone: Start: 11-07-2022 End: 11-07-2022 Patient encounter procedure [facility] Start: 08-23-2022 End: 08-23-[address] Virgie Vergara Work Phone: [facility] Work Phone: Start: 08-23-2022 End: 08-23-[address] Virgie Vergara Work Phone: [facility] Start: 08-22-2022 End: 08-22-[address] Virgie Vergara Work Phone: [facility] Work Phone: Start: 08-22-2022 End: 08-22-[address] Virgie Vergara Work Phone: [facility] Start: 05-23-2022 Non-patient / Non-visit Dr. Ellie Vergara Work Phone: [facility] Start: 05-23-2022 End: 05-23-2022 [facility] Start: 05-10-2022 End: 05-10-2022 ambulatory [facility] Work Phone: Start: 05-10-2022 End: 05-10-2022 Patient encounter procedure [facility] Start: 03-06-2022 End: 03-06-2022 Emergency department patient visit [facility] Start: 11-16-2021 End: 11-16-2021 Patient encounter procedure [facility] Start: 04-26-2016 End: 04-27-2016 Ambulatory EZEKIEL LOWE Facility:[facility] Procedures Date Procedure Procedure Detail Performing Clinician Start: 11-13-2024 Vitamin D, 25-hydrox y measurement Dr. Virgie Vergara MD Work Phone: Comment on above: Vitamin D StatusDefi ciency: <20 ng/mL (50nmol/L)Insufficiency: 20-30 ng/mL (50-75 nmol/L)Sufficiency: 30-100 ng/mL (75-250 nmol/L)Toxicity: >100 ng/mL (>250 nmol/L) Start: 08-20-2023 Plain chest X-ray Start: 11-27-2022 Cardiovascular stres s test using pharmacologic stress agent Dr. Virgie Vergara Work Phone: Start: 08-23-2022 CT of chest without contrast Dr. Virgie Vergara Work Phone: Start: 03-06-2022 Plain chest X-ray SARS-CoV-2 & FLU Ant igen (Rapid) SARS-CoV-2 & FLU Ant igen (Rapid) Plan of Treatment Date Care Activity Detail Author Start: 08-22-2022 Procedure [facility] Patient Education ED Bronchitis with Wheezing (Adult) [facility] Work Phone: Patient referral [facility] Work Phone: Immunizations Immunization Date Immunization Notes Care Provider Kelsie salgado 10-26-2020 tetanus toxoid, redu leah diphtheria toxoid, and acellular pertussis vaccine, adsorbed [facility] Payers Date Payer Category Payer Self-pay [id number] 2020 Unknown [id number] 2019 Medicare [id number] Unknown [id number] Unknown [id number] Unknown [id number] Social History Date Type Detail Facility Start: 03-05-2022 End: 03-06-2022 Tobacco smoking status ALIS Unknown if ever smoked [facility] Start: 1955 Sex Assigned At Male [facility] Start: 03-05-2022 Tobacco smoking stat us ALIS Ex-smoker (finding) [facility] Start: 07-24-2024 Sex Male (finding) [facility] Clinical Notes 05-19-2020 to 03-03-2025 Note Date & Type Note Facility 03-03-2025 Note HNO ID: [id number] Author: SOUTH GU, PhD Service: ? Author Type: Psychologist Type: Progress Notes Filed: 03/04/2025 16:28 Note Text: VIRTUAL (audio/visual) GROUP PSYCHOTHERAPY NOTE: I have communicated my name and active licensure. The patient?s identity and physical location were verified at the time of this visit. Either the patient or their legal sales representative advertising has been informed of the risks and [...] intelligence. Next Group 1 week CLINICAL NOTES: 4 patient's attended continuing care group from 2:45 pm to 4:45 pm. Strengthen both your inner and outer game by aligning mind, body, and spirit practices to elevate your energy, deepen your sense of purpose, and enhance the quality of your sobriety.In [employer] understanding, karma is not the self -- and it's also not simply ?doing the right thing.? Addressed issues with grand children visitation. Focused his intention on khalil problem solving. Needing to become more intentional with his spouse's feelings. ?? 1. Karma is not the Self In Taoist, the idea of non-self (anatta) teaches that there is no fixed, permanent ?I? or ?me? behind our experiences. Instead, what we call ?self? is a flow of thoughts, feelings, actions, and awareness that constantly arise and pass away. Karma describes how that flow works -- how our intentional actions create conditions that shape future experiences. So while there isn't a permanent self doing karma, the results of our actions still unfold naturally, like ripples in water. You might say: ?There's no auto wash buffer of karma -- only the unfolding of cause and effect.? ?? 2. Karma Is About Intention, Not Just 'Right vs. Wrong' Karma isn't a moral scoreboard. It's the quality of our intention that matters most. If we act from greed, anger, or ignorance, that creates unwholesome karma -- leading to suffering. If we act from generosity, compassion, and wisdom, we create wholesome karma -- leading toward peace and freedom. So ?doing the right thing? is a byproduct of khalil intention, not the whole picture. It's less about following rules and more about acting with awareness and compassion. ??? In short: Karma is not the self -- it's the natural law of cause and effect. Karma is not just morality -- it's about intention and awareness behind our actions. Living with understanding of karma helps us act in ways that reduce suffering and increase freedom -- for ourselves and others. Karma as a Garden: Think of karma like planting seeds in a garden. Each thought, word, and action is a seed we plant in the soil of our life. Seeds of kindness, honesty, and patience grow into peace and trust. Seeds of anger, fear, or resentment grow into confusion and pain. We can't always change what we've planted in the past, but we can choose what we plant today. Over time, the garden of our life reflects the care and attention we give it. Karma isn't about blame -- it's about the freedom to cultivate something new, moment by moment. Mindfulness Meditation: https://www.youtube.com/watch?v=sIH 8bO9Mec3 GOALS/PLAN/INTERVENTIONS: Goals: Ongoing sustained sobriety and emotional, spiritual and phys (more content not included)... [facility] 02-25-2025 Note O ID: [id number] Author: SOUTH GU, PhD Service: ? Author Type: Psychologist Type: Progress Notes Filed: 02/25/2025 16:28 Note Text: VIRTUAL (audio/visual) GROUP PSYCHOTHERAPY NOTE: I have communicated my name and active licensure. The patient?s identity and physical location were verified at the time of this visit. Either the patient or their legal sales representative advertising has been informed of the risks and [...] intelligence. Next Group 1 week CLINICAL NOTES: 6 patient's attended continuing care group from 2:45 pm to 4:45 pm. Strengthen both your inner and outer game by aligning mind, body, and spirit practices to elevate your energy, deepen your sense of purpose, and enhance the quality of your sobriety. We explored the law of impermanence, non-self, clinging, dependence, and the interplay between suffering and freedom, examining how these universal principles shape recovery and life as a whole. Embracing them allows us to remain grounded in the present moment while staying open to continual growth and spiritual evolution. In Taoist, the term ?aggregates? refers to the five essential components that make up the human experience of existence. Karma is a foundational concept found in Taoist, and other spiritual traditions. The term comes from the Sanskrit word karman, meaning ?action? or ?deed.? At its core, karma refers to the law of cause and effect -- the idea that every intentional action (of body, speech, or mind) produces a corresponding result. 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 Was intentional with his amends. Working with his animals and focusing on their medical concerns. Purchased a new electric call - extremely satisfying. Wholesome actions (rooted in kindness, compassion, and wisdom) lead to beneficial outcomes, fostering peace, happiness, recovery, emotional intelligence and spiritual growth. Unwholesome actions (driven by greed, hatred, or ignorance) lead to suffering or difficulty, reinforcing negative patterns. Importantly, karma is not punishment or fate. It's a natural moral law describing how our choices shape our future experiences -- both in this life and, in some traditions, across future lives. In Taoist, understanding karma encourages mindfulness and responsibility: when we act with awareness and compassion, we gradually transform our habits and create the causes for freedom and well-being. ?? Mindfulness Meditation: Creating positive energy - https://www.[employer].com/watch?v=2eo wxL0tQv9 Reflection Question (Simple Version) What kind of energy am I putting into the world today -- through my thoughts, words, and actions -- and what kind of energy do I want to receive in return? GOALS/PLAN/INTERVENTIONS: Goals: Ongoing sustained sobriety and emotional, spiritual and physical recovery. Improve daily functioning. Interpersonal satisfaction and well regulated mood. Objectives: Apply principles of Alcoholics Anonymous and cognitive behavioral therapy to prevent relapse. Applying mindfulness interventions to promote emotional and cognitive intelligence and improved (more content not included)... [facility] 02-11-2025 Note [facility] ID: [id number] Author: SOUTH GU, PhD Service: ? Author Type: Psychologist Type: Progress Notes Filed: 02/18/2025 16:38 Note Text: VIRTUAL (audio/visual) GROUP PSYCHOTHERAPY NOTE: I have communicated my name and active licensure. The patient?s identity and physical location were verified at the time of this visit. Either the patient or their legal sales representative advertising has been informed of the risks and [...] group from 2:45 pm to 4:45 pm. Strengthen both your inner and outer game by aligning mind, body, and spirit practices to increase your energy, sense of purpose, and the quality of your sobriety. We reviewed the law of impermanence, non-self, clinging, dependence and suffering/freedom and identified and how these principles affect recovery and life in general. Embracing these principles helps one to stay grounded in the present while being open to growth and spiritual progress. In Taoist, aggregates refer to the five components that make up a sentient being's experience of existence. These are called the Five Aggregates. I am the luckiest miguel in the world. Grateful. Purchased a new electric car. Excited and feeling it will meet his needs. Form This refers to the physical body and material form--everything that is physical, including the five senses and their objects (sight, sound, smell, taste, touch). Feeling or Sensation This is the experience of pleasure, pain, or neutrality that arises from contact between the senses and the world. Perception This is the process of recognition--how we identify and label things based on our past experiences (e.g., recognizing a tree or a face). Mental Formations These are volitional formations, including habits, thoughts, intentions, emotions, and mental states. They shape how we respond to the world and contribute to karma. Consciousness ( This is awareness or consciousness of an object or experience. It arises with sense contact and depends on the other aggregates to function. What we consider the self is actually just a temporary collection of these five aggregates. Understanding the aggregates helps to weaken attachment to the illusion of a permanent, unchanging self, which is arthur to attaining liberation (nirv??a). ?? Situation: You hear a davies ring. 1. Form The sound waves from the davies travel to your ear. Your ear and the sound are both part of the physical world -- the aggregate of form. 2. Feeling You experience a sensation from hearing the sound. It could be pleasant, unpleasant, or neutral depending on how you perceive the davies. (E.g., if it's a meditation davies, it might feel calming.) 3. Perception You recognize the sound as a davies. This involves mental labeling and memory: ?That's the davies I hear every morning.? 4. Mental Formations You may react with a thought, emotion, or habitual response: ?Time to meditate? or ?Ugh, not again?? This is shaped by your karma, conditioning, personality, and past experiences. 5. Consciousness Your awareness of the sound arises. This is the specific type (more content not included)... [facility] 02-11-2025 Note HNO ID: [id number] Author: SOUTH GU, PhD Service: ? Author Type: Psychologist Type: Progress Notes Filed: 02/11/2025 15:55 Note Text: Patient cancelled. South Gu, Ph.D., PCC-S, CRC, [facility] Office: [phone] E-mail: [email or web address] [facility] 01-28-2025 Note HNO ID: [id number] Author: SOUTH GU, PhD Service: ? Author Type: Psychologist Type: Progress Notes Filed: 01/28/2025 16:28 Note Text: VIRTUAL (audio and visual) CHEMICAL DEPENDENCY PSYCHOTHERAPY FOLLOW UP NOTE: I have communicated my name and active licensure. The patient?s identity and physical location were verified at the time of this visit. Either the patient or their legal sales representative advertising has been informed of the risks and benefits of -- and alternatives to -- treatment through a remote therapy and consents to proceed with the therapy remotely. Telecounseling risk/benefit: The concerns and conditions of this patient are judged to be in a range that can be adequately addressed by the use of telecounseling. Additional, the patient has sufficient technological and intellectual resources to utilize the technology associated with this treatment approach. PROVIDER: Chloé SUBJECTIVE: Not feeling well. No energy to exercise. Pulmonary functioning challenging. Turned 69 and stressed over aging process. Discussed with spouse and she asked him what is he going to do about it. OBJECTIVE: Maintaining weight. Sleeping and eating well. Has an appointment setup with his physician. Highly sensitive to what is happening in 26 b[place] and verbalized how he did not fully recognize how much chaos has been negatively affecting him. ASSESSMENT: Processed a plan he could take to improve health and energy. Gently exercises at work, supplements, and especially managing stress. 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 Struggling also with the importance of leaving a legacy for his children - regarding character. Health issues reminding him of his mortality and struggling with acceptance and confusion over and dying. Addressed beliefs. Open and honest today and felt heard and supported. Realizing he has underestimated his stress and a lack of management and self care. MENTAL STATUS SCREEN: -General appearance: casually dressed -Attitude toward evaluation: Cooperative and agreeable -Eye contact: Appropriate -Motor activity: Appropriate for age and event -Interview behavior: frustrated, sad and depressed. -Orientation: Person, Place, Time and Situation -Memory: Recent intact, Remote intact and Immediate intact -Affect: Full and appropriate to topic -Thought process: The thought process is appropriate for situation -Intellect: Above Average -Insight into problems: aware of problem -Lethality to self/others? LOW -Hallucinations? None -Suicidal ideation?None -Homicidal ideation? None DIAGNOSIS: AXIS I : Alcoholism in recovery Adjustment disorder with mixed emotional features AXIS II : Deferred AXIS III : See Epic medical notes AXIS IV: Other psychosocial and environmental problems AXIS V: GAF:60-51 Moderate symptoms or moderate difficulty in social, occupational or school functioning. TREATMENT MODALITIES: Interpersonal Therapy, Solution Focused Psychotherapy PROGRESS TO DATE: Residential Progress: Stable Short Term Condition: Progress GOALS/OBJECTIVES/INTERVENTIONS: Implement changes to improve health and energy Speak with spouse about stress and develop and plan for improved self care. Focus on clarifying his legacy and beliefs on and dying. Approximately 60 minutes were spent with the patient doing therapy. South Gu, Ph.D., P.C.C.S., L.I.C.D.C.S., C.R.C. Office phone: [phone] Email: [email or web address] [facility] 01-15-2025 Note HNO ID: [id number] Author: SOUTH GU, PhD Service: ? Author Type: Psychologist Type: Progress Notes Filed: 01/21/2025 16:53 Note Text: VIRTUAL (audio/visual) GROUP PSYCHOTHERAPY NOTE: I have communicated my name and active licensure. The patient?s identity and physical location were verified at the time of this visit. Either the patient or their legal sales representative advertising has been informed of the risks and [...] group from 2:45 pm to 4:45 pm. Strengthen both your inner and outer game by aligning mind, body, and spirit practices to increase your energy, sense of purpose, and the quality of your sobriety. We reviewed the law of impermanence and identified areas of permanence and how these principles affect recovery and life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 daily that stretches your tolerance--wait 10 extra minutes to eat, delay checking your phone, or sit with a craving. It's like a muscle--the more you practice, the stronger you get. ? 6. Use Visualization Picture yourself one year from now, having made khalil, patient choices. Ask: ?What would the future me want me to do right now? 7. Stay Connected to Support Talk through frustrations and cravings with a sponsor, therapist, or peer. Community reinforces long-term thinking and reduces isolation. ?? 8. Practice Spiritual or Reflective Disciplines Prayer, meditation, or mindfulness help develop inner calm and perspective. These practices increase your (more content not included)... [facility] 11-05-2024 Note [facility] ID: [id number] Author: SOUTH GU, PhD Service: ? Author Type: Psychologist Type: Progress Notes Filed: 11/05/2024 16:38 Note Text: VIRTUAL (audio/visual) GROUP PSYCHOTHERAPY NOTE: I have communicated my name and active licensure. The patient?s identity and physical location were verified at the time of this visit. Either the patient or their legal sales representative advertising has been informed of the risks and [...] intelligence. Next Group 1 week CLINICAL NOTES: 4 patient's attended continuing care group from 2:45 pm to 4:45 pm Strengthen your inner and outer game by integrating mind, body, and spirit practices to enhance energy, purpose and quality sobriety. Create more structure and consistency to your action plan to get unstuck from negative thoughts and feelings this coming week. What motivated you and your success? Exploring new ways to process negative thoughts and feelings of being stuck is crucial. Focused on the process of change and how to engage the action steps to change. Summarize the 10 practical action steps you can take to reinforce the Small Things Matter: Excellence Hides in Detail mindset--for yourself, your team, or your community. Chop Wood, Carry Water: How to Fall in Love with the Process of Becoming Great by Fam Mac: We dove into timeless wisdom from Fam Mac's Chop Wood, Carry Water--a story about mastering the mundane on your journey to greatness. Working an Alcoholics Anonymous (AA) recovery program involves more than attending meetings , it is about embracing a way of life rooted in honesty, humility, service, and spiritual growth. Here are the most important details in working the AA program effectively: Continues to focus on becoming a better listener and having his spouse's back, especially when dealing with her daughter. ?? 1. Acknowledging the Problem (Step 1) ?We admitted we were powerless over alcohol--that our lives had become unmanageable.? [place]: Total honesty with yourself about your addiction. Why it matters: Denial blocks recovery; admission opens the door. ?? 2. Belief in a Higher Power (Steps 2-3) ?Came to believe that a Power greater than ourselves could restore us to sanity.? Not taoist, but spiritual: The ?Higher Power? can be God, community, truth, nature--something beyond self. Step 3: Surrender your will and life to this Higher Power. ?? 3. Working the Steps (Steps 4-9) These are action steps and core to personal transformation: Step 4: Moral inventory - write down resentments, fears, harms done. Step 5: Admit wrongs to self, God, and another person. Steps 6-7: Become willing and ask to have your character defects removed. Step 8: Make a list of all you've harmed and become willing to make amends. Step 9: Make direct amends unless it would cause harm. ??? These steps build humility, accountability, and relational healing. ?? 4. Daily Practices (Steps 10-11) ?Continued to take personal inventory and when we were wrong promptly admitted it.? Step 10: Ongoing self-check--clean up small messes daily. Step 11: Prayer and meditation to maintain conscious contact with your Higher Power an (more content not included)... [facility] 10-29-2024 Note [facility] ID: [id number] Author: SOUTH GU, PhD Service: ? Author Type: Psychologist Type: Progress Notes Filed: 10/29/2024 16:25 Note Text: VIRTUAL (audio/visual) GROUP PSYCHOTHERAPY NOTE: I have communicated my name and active licensure. The patient?s identity and physical location were verified at the time of this visit. Either the patient or their legal sales representative advertising has been informed of the risks and [...] intelligence. Next Group 1 week CLINICAL NOTES: 6 patient's attended continuing care group from 2:45 pm to 4:45 pm Strengthen your inner and outer game by integrating mind, body, and spirit practices to enhance energy and purpose. Create more structure and consistency to your action plan to get unstuck from negative thoughts and feelings this coming week. What motivated you and your success? Exploring new ways to process negative thoughts and feelings of being stuck is crucial. Focused on the process of change and how to engage the action steps to change. Processed our discussion and action steps from last week on identity versus image. Promoting identity over image means encouraging authenticity, values, and purpose rather than focusing on external appearances, reputation, or curated personas. This shift is powerful, especially in a culture saturated with social media and performance-based validation Where am I most tempted to protect my image over living my identity? What's one area where I want to live more aligned with my values? Who am I when no one is watching? ?Image is fleeting. Character lasts.? Chop [place], Carry Water: How to Fall in Love with the Process of Becoming Great by Fam Mac: We dove into timeless wisdom from Fam Mac's Chop [place], Carry Water--a story about mastering the mundane on your journey to greatness. Small Things Matter: Excellence hides in detail. It is about being precise and not perfect. How you brush your teeth, makes your bed, how you say hello--it all adds up. Promoting the concept ?Small Things Matter: Excellence Hides in Detail? can create a powerful cultural shift--whether in a business, team, school, or personal development context. Here are strategies for promoting this mindset effectively: Frustration with medication refill. Family practice and pharmacy not working well together. Sought out conversation with physician practice market manager to address the medication refill difficulty. Things worked out well. ?? 1. Tell Powerful Stories Use real-life stories or case studies that highlight how small actions led to big outcomes--in sports, business, relationships, or recovery. Example: A loan workout officer who remembered a customer's name and drink preference -- leading to brand loyalty and a major corporate deal later. ?? 2. Create a ?Small Things? Culture Promote a culture where small wins and attentiveness are celebrated. Daily/weekly ?Small Win? shoutouts ?Catch someone doing it right? recognition wall Encourage micro-habits (e.g., starting meetings on time, 1% improvements) ?? 3. Training AND Formation Teach the importance of detail, consistency, and craftsmanship in workshops or short trainings. Ideas: ?Excellen (more content not included)... [facility] 10-22-2024 Note [facility] ID: [id number] Author: SOUTH GU, PhD Service: ? Author Type: Psychologist Type: Progress Notes Filed: 10/22/2024 16:28 Note Text: VIRTUAL (audio/visual) GROUP PSYCHOTHERAPY NOTE: I have communicated my name and active licensure. The patient?s identity and physical location were verified at the time of this visit. Either the patient or their legal sales representative advertising has been informed of the risks and [...] intelligence. Next Group 1 week CLINICAL NOTES: 6 patient's attended continuing care group from 2:45 pm to 4:45 pm Strengthen your inner and outer game by integrating mind, body, and spirit practices to enhance energy and purpose. Create more structure and consistency to your action plan to get unstuck from negative thoughts and feelings this coming week. What motivated you and your success? Exploring new ways to process negative thoughts and feelings of being stuck is crucial. Focused on the process of change and how to engage the action steps to change. One of patient's core values is his commitment to listen and listen to learn. Also focuses on gratitude and his gratitude journal. Processed our discussion and action steps from last week on fueling pain into resilience. Pain sharpens you. Embrace struggle as part of the process. Chop [place], Carry Water: How to Fall in Love with the Process of Becoming Great by Fam Mac: We dove into timeless wisdom from Fam Mac's Chop [place], Carry Water--a story about mastering the mundane on your journey to greatness. We have reviewed falling in love with the process, presence is power, mastering the boring, overcoming being a perfectionist, living a life on purpose, character development and strengthen resilience with pain. Today we focused on identity over image. Building confidence and someone you respect and not someone others simply admire. Promoting identity over image means encouraging authenticity, values, and purpose rather than focusing on external appearances, reputation, or curated personas. This shift is powerful--especially in a culture saturated with social media and performance-based validation. 1. Define Core Values Action: Help yourself or others identify 3-5 core values (e.g., honesty, curiosity, courage). Why it matters: Values anchor identity. When choices flow from values, identity strengthens--even when image suffers. Example question: ?When do you feel most like yourself? 2. Encourage Purpose Over Performance Action: Ask purpose-driven questions: ?Why does this matter to you?? instead of ?How did people respond?? Practice: Shift praise from results to character: Instead of: ?You look amazing in that post.? Say: ?I admire your courage to speak openly.? ?? 3. Normalize Vulnerability Action: Share honest stories--not just polished ones. Encourage ?lowlight reels? alongside highlight reels. Why: Real identity is forged through struggle, not perfection. Phrase to use: ?This is me learning, not arriving.? ?? 4. Question the Narrative Action: Challenge image-based thinking: ?Would I still do this if no one saw it?? ?Am I acting from alignment or approval?? Tool: Journaling (more content not included)... [facility] 09-24-2024 Note [facility] ID: [id number] Author: SOUTH GU, PhD Service: ? Author Type: Psychologist Type: Progress Notes Filed: 10/01/2024 16:13 Note Text: VIRTUAL (audio/visual) GROUP PSYCHOTHERAPY NOTE: I have communicated my name and active licensure. The patient?s identity and physical location were verified at the time of this visit. Either the patient or their legal sales representative advertising has been informed of the risks and [...] intelligence. Next Group 1 week CLINICAL NOTES: 4 patient's attended continuing care group from 2:45 pm to 4:45 pm. Strengthen your inner and outer game by integrating mind, body, and spirit practices to enhance energy and purpose. Create more structure and consistency to your action plan to get unstuck from negative thoughts and feelings this coming week. What motivated you and your success? Exploring new ways to process negative thoughts and feelings of being stuck is crucial. Focused on the process of change and how to engage the action steps to change. Ear infection improved and spoke about hearing loss and his comfort with his hearing aids. [place] with his pain through honesty and sharing with an expert. Processed our discussion and action steps from last week on pursuing purpose over perfection. Pain sharpens you. Embrace struggle as part of the process. It's the forge for resilience. Chop [place], Carry Water: How to Fall in Love with the Process of Becoming Great by Fam Mac: We dove into timeless wisdom from Fam Mac's Chop [place], Carry Water--a story about mastering the mundane on your journey to greatness. We have reviewed falling in love with the process, presence is power, mastering the boring, overcoming being a perfectionist and living a life on purpose and character development. Today we focused on how Pain sharpens us. Embrace struggle as part of the process. It's the forge for resilience. Embracing pain to forge resilience is about transforming suffering into strength. Rather than avoiding or numbing discomfort, it's about facing it with intention, learning from it, and using it as fuel for growth. Here's a breakdown of how to do it: 1. Acknowledge the Pain Name it: Be honest about what you're feeling--grief, anger, disappointment, fear. Normalize it: Pain is part of the human experience. You're not broken for feeling it. ?? Reflection: What pain am I avoiding right now, and why? 2. Reframe the Pain Pain as a teacher: Ask, ?What is this trying to show me?? Growth mindset: See challenges as opportunities to grow stronger, not as permanent setbacks. ?? Shift: From ?Why is this happening to me?? to ?What is this teaching me?? 3. Sit with Discomfort Mindfulness: Practice being present with your pain without judgment. Breathing: Use your breath to stay grounded during emotional storms. ?? Practice: Try 2 minutes of silence, simply noticing where pain lives in your body. 4. Use the Energy Constructively Channel it: Express pain through journaling, art, movement, or service to others. Set intentions: Turn pain into purpose. What do you want to create from this? ?? Forge: Let pain be your fire--don't let it burn you down; l (more content not included)... [facility] 09-24-2024 Note [facility] ID: [id number] Author: SOUTH GU, PhD Service: ? Author Type: Psychologist Type: Progress Notes Filed: 09/24/2024 16:22 Note Text: VIRTUAL (audio/visual) GROUP PSYCHOTHERAPY NOTE: I have communicated my name and active licensure. The patient?s identity and physical location were verified at the time of this visit. Either the patient or their legal sales representative advertising has been informed of the risks and [...] group from 2:45 pm to 4:45 pm. Strengthen your inner and outer game by integrating mind, body, and spirit practices to enhance energy and purpose. Create more structure and consistency to your action plan to get unstuck from negative thoughts and feelings this coming week. What motivated you and your success? Exploring new ways to process negative thoughts and feelings of being stuck is crucial. Focused on the process of change and how to engage the action steps to change. Visited his grand children and had and wonderful time with his spouse. Relishing the present and the art of contentment. Moments of not being driven. Recovering from serious ear infection. Processed our discussion last week on pursuing purpose over perfection, the four steps to processing feelings and mastering the boring. Focused today over pursuing purpose over perfection. Chop [place], Carry Water: How to Fall in Love with the Process of Becoming Great by Fam Mac: We dove into timeless wisdom from Fam Mac's Chop [place], Carry Water--a story about mastering the mundane on your journey to greatness. We have reviewed falling in love with the process, presence is power, mastering the boring and overcoming being a perfectionist. Today we focused on how talent can win moments, but character wins lives. Build on values that won't collapse under pressure. ?? 1. Define Your Core Values Pressure doesn't break you - it reveals you. Start by identifying what truly matters to you. Ask yourself: What do I want to be known for? What values do I want to pass down? What lines will I never cross? Practice: Write down your top 5 values. Revisit them weekly. Use them to guide your decisions. ?? 2. Build Integrity Brick by Brick Character is not built in a crisis; it's revealed there. Daily habits shape resilience. Keep your word--even when it's hard. Make small decisions that align with your big values. Be the same person when no one is watching. ??? Practice: If you say you'll do something, do it. Track small wins each day. ?? 3. Face Discomfort On Purpose Growth lives on the other side of discomfort. Develop grit by choosing challenges (exercise, hard conversations, new skills). Get comfortable with failure--it's a teacher, not a verdict. Let stress become strength training, not soul-crushing. ??? Practice: Set weekly challenges that stretch your emotional, physical, or mental endurance. ??? 4. Strengthen Your Emotional Core Pressure exposes emotional fragility or maturity. Learn emotional regulation: name your feelings, don't numb them. Reflect rather than react. Seek feedback with (more content not included)... [facility] 09-17-2024 Note [facility] ID: [id number] Author: SOUTH GU, PhD Service: ? Author Type: Psychologist Type: Progress Notes Filed: 09/17/2024 15:44 Note Text: Patient cancelled. South Gu, Ph.D., PCC-S, CRC, [facility] Office: [phone] E-mail: [facility] 09-10-2024 Note [facility] ID: [id number] Author: SOUTH GU, PhD Service: ? Author Type: Psychologist Type: Progress Notes Filed: 09/10/2024 16:22 Note Text: VIRTUAL (audio/visual) GROUP PSYCHOTHERAPY NOTE: I have communicated my name and active licensure. The patient?s identity and physical location were verified at the time of this visit. Either the patient or their legal sales representative advertising has been informed of the risks and [...] group from 2:45 pm to 4:45 pm. Strengthen your inner and outer game by integrating mind, body, and spirit practices to enhance energy and purpose. Create more structure and consistency to your action plan to get unstuck from negative thoughts and feelings this coming week. What motivated you and your success? Exploring new ways to process negative thoughts and feelings of being stuck is crucial. Focused on the process of change and how to engage the action steps to change. Processed our discussion last week on pursuing purpose over perfection. We addressed the power of being present and reviewed how to apply the four-step program for increased awareness and becoming more real and present. Seldom bored and reviewed how his last job was causing him stagnation which is symptomatic of boredom. Processed the conflict he had with his spouse and worked through the misbehavior. Created a very nice gathering for mother's day. Chop [place], Carry Water: How to Fall in Love with the Process of Becoming Great by Fam Mac: We dove into timeless wisdom from Fam Mac's Chop [place], Carry Water--a story about mastering the mundane on your journey to greatness. The secret to success is in mastering the boring. Your greatness is built in repetition done well. 1. Reframe Boredom as a Signal Mindset shift: View boredom as a message from your brain telling you it's time for growth, rest, or creativity. Ask yourself: What is this boredom trying to tell me? Am I under-stimulated, avoiding something, or craving purpose? 2. Build Your Boredom Tolerance Practice doing nothing for a few minutes a day--sit quietly without your phone or distractions. This strengthens your attention span and opens space for spontaneous ideas or insights. 3. Use Boredom as a Creative Catalyst Keep a ?boredom list? of creative or self-improvement activities to try (e.g., sketching, journaling, new ideas, writing stories). Let your mind wander without a goal--many creative breakthroughs start this way. 4. Learn Something New Dive into a short online course, tutorial, or arlene to learn: A new language (e.g., Duolingo) A musical instrument Coding, design, or photography Even 15-20 minutes a day turns boredom into growth. 5. Get Physically Active Move your body to shift mental energy: Go for a walk or stretch Try a workout, yoga, or dance session Physical activity boosts mood and reduces the sense of stagnation. 6. Practice Mindfulness Sit with the boredom. Observe it without judgment using meditation or breathing techniques. Try the ?5-4-3-2-1? grounding method to re-engage your senses. 7. Do (more content not included)... [facility] 08-27-2024 Note [facility] ID: [id number] Author: SOUTH GU, PhD Service: ? Author Type: Psychologist Type: Progress Notes Filed: 09/03/2024 16:26 Note Text: VIRTUAL (audio/visual) GROUP PSYCHOTHERAPY NOTE: I have communicated my name and active licensure. The patient?s identity and physical location were verified at the time of this visit. Either the patient or their legal sales representative advertising has been informed of the risks and [...] group from 2:45 pm to 4:45 pm. Strengthen your inner and outer game by integrating mind, body, and spirit practices to enhance energy and purpose. Create more structure and consistency to your action plan to get unstuck from negative thoughts and feelings this coming week. What motivated you and your success? Exploring new ways to process negative thoughts and feelings of being stuck is crucial. Focused on the process of change and how to engage the action steps to change. Processed our discussion last week on discipline and developing a love for the journey and process. Agreed that not all disciplines are helpful or beneficial. The role of acceptance and giving up control is helpful to the change process. We processed the power of being present. Values meditation and the breathing techniques. Refocusing him mentally and relaxing him physically. Emphasized the need to apply the tools and when he does not to acknowledge he regressed into old patterns. Chop Wood, Carry Water: How to Fall in Love with the Process of Becoming Great by Fam Mac: We dove into timeless wisdom from Fam Mac's Chop [place], Carry Water--a story about mastering the mundane on your journey to greatness. Be Where Your Feet Are Presence is power. Focus on the now--it's where your life actually happens. Growth is lost in distractions. Don't wait for results to enjoy the journey. Fulfillment comes from showing up consistently--even when progress feels invisible. Four step program: awareness, the negative is in you (no one or environment can cause you pain - feeling is in you not reality), don't define a sense of self via feelings (gloominess is there versus I am gloomy), hurt feeling right now - let it pass. Keep going Mindfulness Meditation: Feeling fully Present [email or web address]?v=cVe [email or web address] GOALS/PLAN/INTERVENTIONS: Goals: Ongoing sustained sobriety and emotional, spiritual and physical recovery. Improve daily functioning. Interpersonal satisfaction and well regulated mood. Objectives: Apply principles of Alcoholics Anonymous and cognitive behavioral therapy to prevent relapse. Applying mindfulness interventions to promote emotional and cognitive intelligence and improved temperament. Interventions: Action Plan: Create more structure and consistency to your action plan to get unstuck from negative thoughts and feelings this coming week. Focus on enjoying the process and being present. Next Step: Apply the four-step program for increased awareness and becoming more real and present. Approximately 100 minutes were spent with the patient doing therapy. [place] (more content not included)... [facility] 08-27-2024 Note [facility] ID: [id number] Author: SOUTH GU, PhD Service: ? Author Type: Psychologist Type: Progress Notes Filed: 08/27/2024 16:19 Note Text: VIRTUAL (audio/visual) GROUP PSYCHOTHERAPY NOTE: I have communicated my name and active licensure. The patient?s identity and physical location were verified at the time of this visit. Either the patient or their legal sales representative advertising has been informed of the risks and [...] group from 2:45 pm to 4:45 pm. Strengthen your inner and outer game by integrating mind, body, and spirit practices to enhance energy and purpose. Building mental resilience and emotional balance is crucial for achieving success in both personal and professional aspects of life. Exploring new ways to process negative thoughts and feelings of being stuck is crucial. Group members shared areas of stuckness and ways that they are processing and working through. These reflections helped pinpoint areas where patients may be stuck and wanting to further grow and develop. This week we will address what action steps were taken to get unstuck and promote growth and development. Engaged in the process and provided solid feedback. More relaxed at work and enjoying his new environment and team. Exercising daily and in better spirits. Chop [place], Carry Water: How to Fall in Love with the Process of Becoming Great by Fam Mac: We dove into timeless wisdom from Fam Mac's Chop [place], Carry Water--a story about mastering the mundane on your journey to greatness. Fall in love with the process - True greatness comes not from chasing results, but from embracing daily discipline and consistent effort. Don't wait for results to enjoy the journey. Fulfillment comes from showing up consistently--even when progress feels invisible. Mindfulness Meditation: Discipline https://www.youtube.com/watch?v=kfe [email or web address]_Eg GOALS/PLAN/INTERVENTIONS: Goals: Ongoing sustained sobriety and emotional, spiritual and physical recovery. Improve daily functioning. Interpersonal satisfaction and well regulated mood. Objectives: Apply principles of Alcoholics Anonymous and cognitive behavioral therapy to prevent relapse. Applying mindfulness interventions to promote emotional and cognitive intelligence and improved temperament. Interventions: Action Plan: Create more structure and consistency to your action plan to get unstuck from negative thoughts and feelings this coming week. What motivated you and your success? Next Step: Focus more on the process of change and how you engaged the action steps to change. Approximately 100 minutes were spent with the patient doing therapy. South Gu, Ph.D., P.C.C.S., L.I.C.D.C.S., C.R.C. Office phone: [phone] Email: [email or web address] This note was partially generated using [employer] voice recognition system, and there may be some incorrect words, spellings, and punctuation that were not noted in checking the note before signing. [facility] 08-18-2024 Note O ID: [id number] Author: SOUTH GU, PhD Service: ? Author Type: Psychologist Type: Progress Notes Filed: 08/20/2024 16:26 Note Text: VIRTUAL (audio/visual) GROUP PSYCHOTHERAPY NOTE: I have communicated my name and active licensure. The patient?s identity and physical location were verified at the time of this visit. Either the patient or their legal sales representative advertising has been informed of the risks and [...] group from 2:45 pm to 4:45 pm. Strengthen inner and outer game by integrating mind, body, and spirit practices to enhance energy and purpose. Building mental resilience and emotional balance is crucial for achieving success in both personal and professional aspects of life. Exploring new ways to process negative emotions and feelings of being stuck is crucial. Group members shared areas of stuckness and ways that they are processing and working through. These reflections helped pinpoint areas where patient maybe stuck and wanting to further growth and development. Spoke with his physical therapist about not working out in a gym. Prefers working out via walking. Do what works. Being of service. Encouraging spouse on processing challenges in more intelligent and beneficial ways. Getting Unstuck from Negative Thoughts AND Emotions Notice - Awareness is the first step Use mindfulness to observe without judgment ?Name it to tame it? (label emotions: ?I feel sad/anxious/stuck?) (Icon: Eye or magnifying glass) Pause AND Breathe - Regulate the nervous system Slow, deep breaths signal safety to the brain Interrupts the spiral of stress (Icon: Breath, pause symbol, or lungs) RAIN Technique (include this as a mini interactive practice) Recognize what's happening Allow it to be there Investigate with kindness Nurture with compassion (Icon: raindrop or umbrella) Shift the Channel - Reframe or redirect ?What else might be true?? Try a gratitude list, movement, or music (Icon: refresh or shift arrow) Become the Watcher - You are not your thoughts Imagine your mind as a phil and thoughts as passing clouds (Icon: cloud or phil) Use Empowering Self-Talk Speak to yourself like someone you love Try: ?This is hard AND I can handle it.? (Icon: speech bubble or heart) ?? ?Think of a moment when you felt emotionally stuck. What helped you move through it -- or what could help next time?Drop your favorite emotional reset strategy in the chat!? Mindfulness Meditation: Free yourself from negative thinking: https://[employer]/Pya Analyticsdeya nino/guided-meditations/free-yourse lf-from-ne ywfqtw-zyhfcqwx-20-nanhfd-eymvk-xxs ight GOALS/PLAN/INTERVENTIONS: Goals: Ongoing sustained sobriety and emotional, spiritual and physical recovery. Improve daily functioning. Interpersonal satisfaction and well regulated mood. Objectives: Apply principles of Alcoholics Anonymous and cognitive behavioral therapy to prevent relapse. Applying mindfulness interventions to promote emotional and cognitive intelligence and improved temperament. Interventions: Action Plan: Apply one or more (more content not included)... [facility] 08-12-2024 Note HNO ID: [id number] Author: SOUTH GU, PhD Service: ? Author Type: Psychologist Type: Progress Notes Filed: 08/13/2024 15:30 Note Text: Patient cancelled. South Gu, Ph.D., PCC-S, CRC, [facility] Office: [phone] E-mail: [email or web address] [facility] 07-21-2024 Note HNO ID: [id number] Author: SOUTH GU, PhD Service: ? Author Type: Psychologist Type: Progress Notes Filed: 07/23/2024 16:26 Note Text: VIRTUAL (audio/visual) GROUP PSYCHOTHERAPY NOTE: I have communicated my name and active licensure. The patient?s identity and physical location were verified at the time of this visit. Either the patient or their legal sales representative advertising has been informed of the risks and [...] group from 2:45 pm to 4:45 pm. Strengthen your inner and outer game by integrating mind, body, and spirit practices to enhance energy and purpose. Building mental resilience and emotional balance is crucial for achieving success in both personal and professional aspects of life.A spiritual voice involves authentically connecting with something greater than yourself and allowing that connection to guide your decisions, actions, and interactions with others. Group members reviewed an inventory to identify areas where they feel stuck or challenged in their mind, body, and spirit. These reflections helped pinpoint areas for growth and laid the foundation for meaningful, positive change. Explored where group members felt challenged or stuck in their body, mind, and spiritual wellness. Great trip with spouse. Struggles with developing an exercise program. Enjoys walking. Tends to be hypercritical of his lack of motivation. Focusing on spiritual wellness by improving his active listening. Body Physical Health: Do you experience chronic pain or discomfort? If so, where? Are there any mobility issues or limitations? How would you rate your energy levels throughout the day? Sleep Quality: Do you have trouble falling or staying asleep? How rested do you feel upon waking? Nutrition and Digestion: Are you satisfied with your diet and digestion? Do you experience any food sensitivities or digestive issues? Exercise and Movement: How often do you engage in physical activity? Do you feel stiff or inflexible in any part of your body? Breathing and Posture: Do you experience shallow breathing or breathlessness? Is your posture causing any discomfort? Stress and Physical Response: Where do you typically hold tension in your body? How does stress affect your physical health? Mind Mental Clarity and Focus: Do you find it hard to concentrate or make decisions? How often do you experience mental fog? Emotional Well-being: How do you manage stress, anxiety, or sadness? Are there recurring emotional patterns you've noticed? Productivity and Motivation: Do you feel stuck in your personal or professional goals? What barriers affect your motivation? Learning and Growth: Are you satisfied with your current learning curve or intellectual stimulation? What areas would you like to expand your knowledge in? Creativity and Problem-Solving: Do you struggle to generate new ideas or solutions? How comfortable are you with creative expression? Self-Talk and Mindset: How would you describe your inner dialogue? Do you often experience self-doubt or negative thinking? Spiritual W (more content not included)... [facility] 07-14-2024 Note HNO ID: [id number] Author: SOUTH GU, PhD Service: ? Author Type: Psychologist Type: Progress Notes Filed: 07/16/2024 16:26 Note Text: VIRTUAL (audio/visual) GROUP PSYCHOTHERAPY NOTE: I have communicated my name and active licensure. The patient?s identity and physical location were verified at the time of this visit. Either the patient or their legal sales representative advertising has been informed of the risks and [...] intelligence. Next Group 1 week CLINICAL NOTES: 2 patient's attended continuing care group from 2:45 pm to 4:45 pm. In our ongoing discussions, we've been exploring methods to counteract negative thinking patterns and combat stinking thinking. Achieving wellness in mind, body, and spirit involves adopting practices that nurture each area while maintaining balance (equanimity) among them. Group highlighted the role of self-discovery in fostering a deeper sense of self and an inner emotional and spiritual voice. Our review encourages a holistic approach to emotional and spiritual voice development, combining self-exploration, spiritual practices, creative expression, and reflective work. The focus is on integrating emotional and spiritual voices in balanced, expressive, and healthy ways. Focusing on self love and improved health. Prioritizing his self care will enhance his wellness and greatly influence his commitments to others. Things going well with new practice and home life. Making the most of visitations with grand children. Both him and his spouse want to return to exercise routine. Group members shared their observations on how emotional and spiritual voices were manifested in the ten bullet points summarizing the book, Inner Excellence and reviewed article and explore how to manage thoughts, emotional and spiritual voices and energy for today's session: https://[employer]/6629798/leadership -burnout-sustainable/?utm_source=[employer] The better your Inner Game, the more energy you have, to shape a great Outer Game--not just in business, but in your life. Optimizing energy - mind, body and spirit The story about the shoemaker. Negative thoughts drain energy Recharging the body - micro recovery techniques Spirit - purpose Ikegai Memento John - remember you must Regrets? Live your truth Not worked as hard. Stayed connected with friends. Mindfulness Meditation on focus - https://www.[employer].com/search?q=10+ minute+mindfulness+meditation+Declu ttered+the +mind+energyANDie=UTF-8ANDoe=UTF-8A NDhl=en-usANDclient=safdanay#fpstate= iveANDvld=bing:c3ecd6 d6,vid:n1E1YhinwQT,st:0 GOALS/PLAN/INTERVENTIONS: Goals: Ongoing sustained sobriety and emotional, spiritual and physical recovery. Improve daily functioning. Interpersonal satisfaction and well regulated mood. Objectives: Apply principles of Alcoholics Anonymous and cognitive behavioral therapy to prevent relapse. Applying mindfulness interventions to promote emotional and cognitive intelligence and improved temperament. Interventions: Action Plan: Enhance your inner and outer game by integrating mind, body, and spirit techniques to boost energy and purpose. Building mental resilience and emotio (more content not included)... [facility] 07-02-2024 Note HNO ID: [id number] Author: SOUTH GU, PhD Service: ? Author Type: Psychologist Type: Progress Notes Filed: 07/02/2024 16:10 Note Text: Patient cancelled. South Gu, Ph.D., PCC-S, CRC, [facility] Office: [phone] E-mail: [email or web address] [facility] 06-25-2024 Note HNO ID: [id number] Author: SOUTH GU, PhD Service: ? Author Type: Psychologist Type: Progress Notes Filed: 06/25/2024 16:14 Note Text: VIRTUAL (audio/visual) GROUP PSYCHOTHERAPY NOTE: I have communicated my name and active licensure. The patient?s identity and physical location were verified at the time of this visit. Either the patient or their legal sales representative advertising has been informed of the risks and [...] intelligence. Next Group 1 week CLINICAL NOTES: 4 patient's attended continuing care group from 2:45 pm to 4:45 pm. Patient presented with no signs or symptoms of relapse. We examined strategies to enhance psychosocial, cognitive, and emotional development throughout recovery. We explored the significance of spiritual wellness, emphasizing the distinction between training and formation. Additionally, we discussed methods to counteract negative thinking patterns and strategies to combat stinking thinking. Achieving wellness in mind, body, and spirit involves adopting practices that nurture each area while maintaining balance (equanimity) among them. We highlighted the role of self-discovery in fostering a deeper sense of self and an inner emotional and spiritual voice. Our review encourages a holistic approach to emotional and spiritual voice development, combining self-exploration, spiritual practices, creative expression, and reflective work. The journey is unique to each person, so flexibility is arthur--be open to adjusting the plan based on your needs as you continue to evolve. The arthur to success in this process is patience. Cultivating your emotional and spiritual voice is a gradual unfolding, so approach it with compassion for yourself. Meditation is arthur to his spiritual fitness. Struggles with prayer. Focused on listening more to his spouses fears and concerns. Empathy skills improving and a priority for him in his relationships. Integrating Both Voices: Emotional Awareness + Spiritual Guidance: The emotional voice is powerful, but it can sometimes cloud our judgment. When emotional turbulence arises, look for your spiritual voice to guide you toward clarity. For example, when anger or fear arises, your spiritual voice may remind you of compassion, patience, or forgiveness. Healthy Expression: The emotional voice should be expressed in healthy ways, but it should also be tempered by the wisdom of your spiritual voice. For instance, while your emotional voice may urge you to react immediately in a conflict, your spiritual voice might guide you to pause, reflect, and respond thoughtfully. Balance and Reflection: You can strengthen your understanding of both voices by practicing reflection regularly asking yourself questions like, Am I reacting from an emotional place, or am I acting from a deeper, more centered part of myself? By exploring and integrating both voices, you can better navigate life with emotional awareness and spiritual clarity, leading to a more balanced and fulfilling existence. Mindfulness meditation for confidence and clarity: https://www.youtube.com/watch?v=5Q9 p1TF-z2w GOALS/PLAN/INTERVENTIONS: Goals: Ongoing sustained sob (more content not included)... [facility] 06-18-2024 Note HNO ID: [id number] Author: SOUTH GU, PhD Service: ? Author Type: Psychologist Type: Progress Notes Filed: 06/18/2024 16:23 Note Text: VIRTUAL (audio/visual) GROUP PSYCHOTHERAPY NOTE: I have communicated my name and active licensure. The patient?s identity and physical location were verified at the time of this visit. Either the patient or their legal sales representative advertising has been informed of the risks and [...] with no signs or symptoms of relapse. We examined strategies to enhance psychosocial, cognitive, and emotional development during recovery. A arthur focus was on Mindfulness-Based Cognitive Therapy (MBCT), which aims to improve awareness, concentration, and thought management. We also explored the significance of spiritual wellness, emphasizing the distinction between training and formation. Additionally, we discussed methods to counteract negative thinking patterns and strategies to combat stinking thinking. Achieving wellness in mind, body, and spirit involves adopting practices that nurture each area while maintaining balance (equanimity) among them. We highlighted the role of self-discovery in fostering a deeper sense of self and an inner emotional and spiritual voice. Weight loss continues in the right direction and exercising. The emotional voice is driven by personal feelings and reactions to experiences, fluctuating and often focused on immediate circumstances. Narratives around feeling tones. The spiritual voice arises from a deeper, more grounded sense of self, guided by wisdom, compassion, and higher principles, and is more consistent over time. Creates equanimity and stability. Discovering one's emotional and spiritual voices is a deeply personal journey that requires self-awareness, introspection, and mindfulness. Both voices provide valuable insights and guidance, but they arise from different aspects of the self. Think about examples of the emotional and spiritual voices. Mindfulness Guided Meditation - Relax and let go: https://www.youtube.com/watch?v=217 ensSqsTM GOALS/PLAN/INTERVENTIONS: Goals: Ongoing sustained sobriety and emotional, spiritual and physical recovery. Improve daily functioning. Interpersonal satisfaction and well regulated mood. Objectives: Apply principles of Alcoholics Anonymous and cognitive behavioral therapy to prevent relapse. Applying mindfulness interventions to promote emotional and cognitive intelligence and improved temperament. Interventions: Action: Embarking on the journey of discovering and integrating your inner voice involves self-awareness and aligning with your deeper truth. To cultivate and strengthen this connection, we considered and explored the following actions: 1. Self-Exploration AND Emotional Awareness Goal: To understand your current emotional state, identify patterns, and cultivate emotional intelligence. Through journaling, meditation, and emotional inventory. 2. Uncovering Your Spiritual Voice Goal: Spiritual practices, spiritual readings and reflecti (more content not included)... [facility] 06-11-2024 Note [facility] ID: [id number] Author: SOUTH GU, PhD Service: ? Author Type: Psychologist Type: Progress Notes Filed: 06/11/2024 16:24 Note Text: VIRTUAL (audio/visual) GROUP PSYCHOTHERAPY NOTE: I have communicated my name and active licensure. The patient?s identity and physical location were verified at the time of this visit. Either the patient or their legal sales representative advertising has been informed of the risks and [...] intelligence. Next Group 1 week CLINICAL NOTES: 4 patient's attended continuing care group from 2:45 pm to 4:45 pm. Patient presented with no signs or symptoms of relapse. We examined strategies to enhance psychosocial, cognitive, and emotional development during recovery. A arthur focus was on Mindfulness-Based Cognitive Therapy (MBCT), which aims to improve awareness, concentration, and thought management. We also explored the significance of spiritual wellness, emphasizing the distinction between training and formation. Additionally, we discussed methods to counteract negative thinking patterns and strategies to combat stinking thinking. Achieving wellness in mind, body, and spirit involves adopting practices that nurture each area while maintaining balance (equanimity) among them. We highlighted the role of self-discovery in fostering a deeper sense of self and an inner emotional and spiritual voice.Embarking on the journey of discovering and integrating your inner voice involves self-awareness and aligning with your deeper truth. To cultivate and strengthen this connection, we considered and explored the following actions: Re-establishing his exercise routine. Had a dolphin trainer and enjoyed the accountability. Continues to lose weight. Feels that feedback and guidance is arthur to his development. 1. Practice Mindfulness and Meditation Why: Mindfulness helps you quiet the noise of daily life and tune in to your inner world. Meditation is a powerful way to listen to your inner voice without distractions. Action: Start with short, daily meditation sessions (5-10 minutes) focusing on your breath, sensations, or a mantra. Over time, this can help you hear your inner guidance more clearly. 2. Create Space for Reflection Why: In moments of quiet, your inner voice often speaks loudest. Giving yourself time to reflect can help you process emotions and connect with your authentic self. Action: Set aside time each day to journal, write about your experiences, or simply reflect on your thoughts. Ask yourself questions like, What is my heart telling me? or What do I feel called to do? 3. Cultivate Self-Awareness Why: The more you understand your true nature, the more easily you can recognize the voice that comes from within. Action: Observe your emotions, thoughts, and reactions throughout the day. When you make decisions, notice if they feel aligned with your values and what feels authentic versus what feels imposed by external pressure. 4. Trust Your Intuition Why: Your intuition is closely connected to your inner voice. Trusting it strengthens your ability to hear your spiritual guidance. Action: Practice listening to and acting on your gut feeling (more content not included)... [facility] 06-04-2024 Note [facility] ID: [id number] Author: SOUTH GU, PhD Service: ? Author Type: Psychologist Type: Progress Notes Filed: 06/04/2024 16:27 Note Text: VIRTUAL (audio/visual) GROUP PSYCHOTHERAPY NOTE: I have communicated my name and active licensure. The patient?s identity and physical location were verified at the time of this visit. Either the patient or their legal sales representative advertising has been informed of the risks and [...] intelligence. Next Group 1 week CLINICAL NOTES: 8 patient's attended continuing care group from 2:45 pm to 4:45 pm. Patient presented with no signs or symptoms of relapse. Explored ways to improve psychosocial, cognitive, and emotional development in recovery. Addressed and discussed mindfulness based cognitive therapy to improve awareness, focus, and better thought management. Explored the importance of Spiritual wellness and differentiating between training and formation. Reviewed ways to avoid ?stinking thinking? and the strategies to counteract negative thoughts. Improving wellness of mind, body and spirit involves adopting practices that nurture each area while maintaining a balance (equanimity) between them. Focused on the role of self- discovery to promote a deeper sense of self. Son accepted into law school. Also voice of reason and inspiration for patient to make a job change. Has nothing but admiration for son. Aligning yourself with a deeper sense of purpose, values or beliefs. Ikigai (reason to live; purpose) - ?Iki? (life) ?gai? (worth). Formation and Self-discovery encourages a deeper sense of self. The self is associated with one's soul, intuition or connection to a higher power or the divine - extraordinary/beauty/wonder. Love and patience A spiritual voice is discovered and expresses spiritual beliefs, values and wisdom and how one aligns one's actions with one's spiritual understanding. The spiritual voice can manifest in several ways, often reflecting a deep inner knowing or connection to a higher power. Here's a breakdown of how it shows up: Inner Guidance: This is the subtle yet powerful sense of direction that nudges us toward the right path. It may not always be loud or obvious, but it's a feeling of knowing what's best for us at any given moment. It's often described as a quiet whisper or an inner compass. Voice of [place]: This can either be a quiet, subtle voice or, at times, a strong, compelling force that propels you forward. It guides decisions and actions, often with a sense of purpose. It's the voice of clarity and insight, leading us toward choices that align with our highest truth. Authentic Expression: The spiritual voice helps one speak truthfully and openly about beliefs, values, and experiences. It's not constrained by fear of judgment, instead, it encourages honesty, love, and vulnerability, offering a genuine reflection of who we are. Connection to the Divine: This is when inspiration, wisdom, or messages flow from a higher source, whether you call it God, the universe, or something else. It's the feeling that you're being guided or supported by a greater power. 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 [facility] 05-28-2024 Note HNO ID: [id number] Author: SOUTH GU, PhD Service: ? Author Type: Psychologist Type: Progress Notes Filed: 05/28/2024 16:21 Note Text: VIRTUAL (audio/visual) GROUP PSYCHOTHERAPY NOTE: I have communicated my name and active licensure. The patient?s identity and physical location were verified at the time of this visit. Either the patient or their legal sales representative advertising has been informed of the risks and [...] discussed mindfulness based cognitive therapy to improve awareness, focus, and better thought management. Explored the importance of Spiritual wellness and differentiating between training and formation. Reviewed ways to avoid ?stinking thinking? and the strategies to counteract negative thoughts. Improving wellness of mind, body and spirit involves adopting practices that nurture each area while maintaining a balance (equanimity) between them. Focused on the role of self- discovery to promote a deeper sense of self. Focused on listening to a voice of self regulation, awareness. Reviewed his relationship with his sons and how influential he has been. Enjoying his new practice and son doing the same. Son awaiting to hear from the Law School to see if he is admitted. Working closely with spouse to address her rights as a grand mother. Continues to lose weight and happy to get over his flu, Has not been working out. Needs to get back on track. Spiritual wellness: Mind, body and spirit. Training versus Formation (a way of being in the world) - Arthur elements Self-discovery - understanding and appreciating strengths, vulnerabilities, desires, and passions. Mindfulness meditation Journaling Creative expression Seek new experiences Therapy or coaching Read and reflect Practice self-compassion Ask powerful questions - What makes me feel most alive? Aligning yourself with a deeper sense of purpose, values or beliefs. Ikigai (reason to live; purpose) - ?Iki? (life) ?gai? (worth). Self-discovery encourages a deeper sense of self. The self is associated with one's soul, intuition or connection to a higher power or the divine - extraordinary/beauty/wonder. A spiritual voice is unleashed to express spiritual beliefs, values and wisdom and how one aligns one's actions with one's spiritual understanding. Deeper sense of self Connection with a higher power Aligning actions with spiritual beliefs. Mindfulness Guided Meditation for inner jose raul: https://[employer]/anjum liz/guided-meditations/inner-jose raul-1 0-minute-g uided-meditation GOALS/PLAN/INTERVENTIONS: Goals: Ongoing sustained sobriety and emotional, spiritual and physical recovery. Improve daily functioning. Interpersonal satisfaction and well regulated mood. Objectives: Apply principles of Alcoholics Anonymous and cognitive behavioral therapy to prevent relapse. Applying mindfulness interventions to promote emotional and (more content not included)... [facility] 05-21-2024 Note O ID: [id number] Author: SOUTH GU, PhD Service: ? Author Type: Psychologist Type: Progress Notes Filed: 05/21/2024 16:23 Note Text: VIRTUAL (audio/visual) GROUP PSYCHOTHERAPY NOTE: I have communicated my name and active licensure. The patient?s identity and physical location were verified at the time of this visit. Either the patient or their legal sales representative advertising has been informed of the risks and [...] discussed mindfulness based cognitive therapy to improve awareness, focus, and better thought management. Explored the importance of Spiritual wellness and differentiating between training and formation. Reviewed ways to avoid ?stinking thinking? and the strategies to counteract negative thoughts. Improving wellness of mind, body and spirit involves adopting practices that nurture each area while maintaining a balance (equanimity) between them. Struggling with immaturity of his 's daughter and enjoyed their visit with grand children. Remained compassionate towards his and her daughter. Direct with his extended family about his priorities. Spiritual wellness: Mind, body and spirit. Training versus Formation (a way of being in the world) - Arthur elements Self-discovery - understanding and appreciating strengths, vulnerabilities, desires, and passions. Value alignment - clarifying one's actions with one's values. Mindset development - shifting thoughts patterns, habits and emotional responses. Seeking purposeful living. Seeking meaning and [place] in one's life. Aligning yourself with a deeper sense of purpose, values or beliefs. Ikigai (reason to live; purpose) - ?Iki? (life) ?gai? (worth). Review exercise for setting 2024 goals. For example - Cultivate [place] Please forgive me I am so sorry Thank you I love you Mindfulness Guided Meditation to Clear Your Mind AND Start New Positive Habits: https://www.youtube.com/watch?v=uTN 01gh2e-k GOALS/PLAN/INTERVENTIONS: Goals: Ongoing sustained sobriety and emotional, spiritual and physical recovery. Improve daily functioning. Interpersonal satisfaction and well regulated mood. Objectives: Apply principles of Alcoholics Anonymous and cognitive behavioral therapy to prevent relapse. Applying mindfulness interventions to promote emotional and cognitive intelligence and improved temperament. Interventions: Action: Continue to build a mindfulness practice and awaken the four attitudes excellence in all your affairs. Practice mindfulness, feedback and journaling, targeting the prevention of the five hindrances of the mind. Assess your skills at asking for help and using feedback to better manage your thoughts and thinking. Continue to cultivate a daily mindfulness practice and incorporate daily journaling. Apply the AA mental conditioning techniques to improve your awareness, focus and observation skills and use as a daily rev (more content not included)... [facility] 05-14-2024 Note HNO ID: [id number] Author: SOUTH GU, PhD Service: ? Author Type: Psychologist Type: Progress Notes Filed: 05/14/2024 16:16 Note Text: VIRTUAL (audio/visual) GROUP PSYCHOTHERAPY NOTE: I have communicated my name and active licensure. The patient?s identity and physical location were verified at the time of this visit. Either the patient or their legal sales representative advertising has been informed of the risks and [...] discussed mindfulness based cognitive therapy to improve awareness, focus, and better thought management. Explored the importance of Spiritual wellness and differentiating between training and formation. Reviewed ways to avoid ?stinking thinking? and the strategies to counteract negative thoughts. Improving wellness of mind, body and spirit involves adopting practices that nurture each area while maintaining a balance (equanimity) between them. 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 Moved in this past week with the assistance of his youngest son. Recovering from his flu. Feeling better. The legal matter regarding spouse's grand children continues to play out and is hurtful. Connected this past week with half siblings as a result of their mother passing. Spiritual wellness: Training versus Formation (a way of being in the world) Emptiness, fear versus clarity, contentment and fulfillment. Aligning yourself with a deeper sense of purpose, values or beliefs. Ikigai (reason to live; purpose) - ?Iki? (life) ?gai? (worth). What do you find lasting and enduring in your life? Does your life bring you life and purpose? What you love: is there any activity you love or can't seem to get enough of? What you are good at: What is your passion? Review exercise for setting 2024 goals. Cultivate [place] Please forgive me I am so sorry Thank you I love you Mindfulness meditation on change: https://www.youtube.com/watch?v=mfk FFtSZj5Z GOALS/PLAN/INTERVENTIONS: Goals: Ongoing sustained sobriety and emotional, spiritual and physical recovery. Improve daily functioning. Interpersonal satisfaction and well regulated mood. Objectives: Apply principles of Alcoholics Anonymous and cognitive behavioral therapy to prevent relapse. Applying mindfulness interventions to promote emotional and cognitive intelligence and improved temperament. Interventions: Action: Continue to build a mindfulness practice and awaken the four attitudes excellence in all your affairs. Practice mindfulness, feedback and journaling, targeting the prevention of the five hindrances of the mind. Assess your skills at asking for help and using feedback to better manage your thoughts and thinking. Continue to cultivate a daily mindfulness practice and incorporate daily journaling. Apply the AA mental conditioning techniques to improve your awareness, focus and observation skills and use as a daily review/inventory. Complete (more content not included)..[facility] 05-07-2024 Note HNO ID: [id number] Author: SOUTH GU, PhD Service: ? Author Type: Psychologist Type: Progress Notes Filed: 05/07/2024 16:24 Note Text: VIRTUAL (audio/visual) GROUP PSYCHOTHERAPY NOTE: I have communicated my name and active licensure. The patient?s identity and physical location were verified at the time of this visit. Either the patient or their legal sales representative advertising has been informed of the risks and [...] intelligence. Next Group 1 week CLINICAL NOTES: 6 patient's attended continuing care group from 2:45 pm to 4:45 pm. Patient presented with no signs or symptoms of relapse. Explored ways to improve psychosocial, cognitive, and emotional development in recovery. Addressed and discussed mindfulness based cognitive therapy to improve awareness, focus, and better thought management. Explored the importance of authenticity and integrity. Reviewed ways to avoid ?stinking thinking? and the strategies to counteract negative thoughts. Improving wellness of mind, body and spirit involves adopting practices that nurture each area while maintaining a balance (equanimity) between them. Shared how his job change came about through willingness and openness. Enjoyed the holidays and became ill with influenza A. 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 Closure with old firm was stressful and went smoothly. Adjusting well. Delighted with new professional opportunity. Spiritual wellness: Aligning yourself with a deeper sense of purpose, values or beliefs. Ikigai (reason to live; purpose) - ?Iki? (life) ?gai? (worth). What do you find lasting and enduring in your life? Does your life bring you life and purpose? What you love: is there any activity you love or can't seem to get enough of? What you are good at: What is your passion? Review exercise for setting 2024 goals. Cultivate four attitudes of excellence: Compassion [place] kindness Gratitude Equanimity Mindfulness meditation on change: https://www.[employer].com/watch?v=mfk VUyZTo3K GOALS/PLAN/INTERVENTIONS: Goals: Ongoing sustained sobriety and emotional, spiritual and physical recovery. Improve daily functioning. Interpersonal satisfaction and well regulated mood. Objectives: Apply principles of Alcoholics Anonymous and cognitive behavioral therapy to prevent relapse. Applying mindfulness interventions to promote emotional and cognitive intelligence and improved temperament. Interventions: Action: Continue to build a mindfulness practice and awaken the four attitudes excellence in all your affairs. Practice mindfulness, feedback and journaling, targeting the prevention of the five hindrances of the mind. Assess your skills at asking for help and using feedback to better manage your thoughts and thinking. Continue to cultivate a daily mindfulness practice and incorporate daily journaling. Apply the AA mental conditioning techniques to improve your awareness, focus and observation skills and use as a daily review/inventory. Complete an inventory of your mind, body and spirt health and wellness. What disciplines or practices can you take this next week to improve your spiritual wellness? How might you act more cons (more content not included)... [facility] 04-16-2024 Note HNO ID: [id number] Author: SOUTH GU, PhD Service: ? Author Type: Psychologist Type: Progress Notes Filed: 04/16/2024 16:16 Note Text: VIRTUAL (audio/visual) GROUP PSYCHOTHERAPY NOTE: I have communicated my name and active licensure. The patient?s identity and physical location were verified at the time of this visit. Either the patient or their legal sales representative advertising has been informed of the risks and [...] intelligence. Next Group 1 week CLINICAL NOTES: 2 patient's attended continuing care group from 2:45 pm to 4:15 pm. Patient presented with no signs or symptoms of relapse. Explored ways to improve psychosocial, cognitive, and emotional development in recovery. Addressed and discussed mindfulness based cognitive therapy to improve awareness, focus, and better thought management. Explored the importance of authenticity and integrity. Discussed the story of the third-class ticket and addressed personalization and the factors that can lead to personalization. Lastly, explored ways of preventing personalization and promoting healthy mind, body and spirit (holistic health). Sleeping better. Focused on meaning and purpose In his life and feels much improved since a few years ago. Struggles with depression and high anxiety at times. Holidays are improving commensurate with his recovery. Improved trust with others because of his stability and reliability. Things continue to settle down. Leaning on his brother to address high levels of anxiety. Shared how his use of mindfulness has a lasting and enduring impact on his life. The importance of wisdom and how to discern feelings, thoughts and behaviors. Able to share these tools in his tool box withspouse and others. 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 Less pressure and more a sense of value. Health better and getting back to exercise. Adjusting his diet. In recent sessions we addressed what Alcoholics Anonymous (AA) had to say about ?stinking thinking? and the many strategies to counteract negative thoughts (hindrances of the mind). These included attending meetings, working the steps, sponsorship, gratitude, developing a support network, service work, professional guidance and so on. We reviewed the story of the third-class ticket and implications for recovery and emotional intelligence. Lastly, we began to explore ways of preventing cognitive distortions, especially personalization. We discussed ways of improving mind, body and spirit wellness, focusing this week on body wellness. Improving wellness of mind, body and spirit involves adopting practices that nurture each area while maintaining a balance (equanimity) between them. Spiritual wellness: Aligning yourself with a deeper sense of purpose, values or beliefs. Ikigai (reason to live; purpose) - ?Iki? (life) ?gai? (worth). What do you find lasting and enduring in your life? Does your life bring you life and purpose? Is your life purposeful and bring you jose raul? Implementing these strategies will promote resilience, fulfillment, meaning, purpose, quality of life and wellness. GOALS/PLAN/INTERVENTIONS: Goals: Ongo (more content not included)... [facility] 04-07-2024 Note HNO ID: [id number] Author: SOUTH GU, PhD Service: ? Author Type: Psychologist Type: Progress Notes Filed: 04/09/2024 16:15 Note Text: Patient canceled. [facility] 03-19-2024 Note HNO ID: [id number] Author: SOUTH GU, PhD Service: ? Author Type: Psychologist Type: Progress Notes Filed: 03/19/2024 16:18 Note Text: VIRTUAL (audio/visual) GROUP PSYCHOTHERAPY NOTE: I have communicated my name and active licensure. The patient?s identity and physical location were verified at the time of this visit. Either the patient or their legal sales representative advertising has been informed of the risks and [...] intelligence. Next Group 1 week CLINICAL NOTES: 6 patient's attended continuing care group from 2:45 pm to 4:45 pm. Patient presented with no signs or symptoms of relapse. Explored ways to improve psychosocial, cognitive, and emotional development in recovery. Addressed and discussed mindfulness based cognitive therapy to improve awareness, focus, and better thought management. Explored the importance of authenticity and integrity. Discussed the story of the third-class ticket and addressed personalization and the factors that can lead to personalization. Lastly, explored ways of preventing personalization and promoting healthy mind, body and spirit (holistic health). Resolving legal problems with spouse. Excited about a talk to the [employer]. Taking better care of his health and continues to loose weight. In recent sessions we addressed what Alcoholics Anonymous (AA) had to say about ?stinking thinking? and the many strategies to counteract negative thoughts (hindrances of the mind). These included attending meetings, working the steps, sponsorship, gratitude, developing a support network, service work, professional guidance and so on. We reviewed the story of the third-class ticket and implications for recovery and emotional intelligence. Lastly, we began to explore ways of preventing cognitive distortions, especially personalization. We discussed ways of improving mind, body and spirit wellness. Improving wellness of mind, body and spirit involves adopting practices that nurture each area while maintaining a balance (equanimity) between them. Mind: Meditation - focus on the present and reduce stress Continuous learning - keep the mind stimulated. Read, learn a new skill or hobby. Journaling: write about your thoughts, feeling and experiences to process emotions and clarify goals. Therapy, counseling, mentoring or 12 step work: Seek feedback to address mental health challenges. Limit overstimulation. Breaks from digital devices and social media. Implementing these strategies will promote resilience, improved performance, quality of life and wellness. Meditation for a powerful mind: https://www.google.com/search?q=10+ minute+mindfulness+meditation+on+im proving+ e+wellness+of+the+mindANDrlz=1C1GCE J_[id number]=10+minute+min dfulness+medit ation+on+improving+the+wellness+of+ the+mindANDgs_lcrp=EgZjaHJvbWUyBggA EEUYOTIHCAEQ GFnGOfUARzPlBTX8ovDbQYXeGkwzWtVFOFk ourceid=chromeANDie=UTF-8#fpstate=i veANDvld=bing:c42 cab51,vid:jNovp0cBGbF,st:0 GOALS/PLAN/INTERVENTIONS: Goals: Ongoing sustained sobriety and emotional, spiritual and physical recovery. Improve daily functioning. Interpersonal satisfaction and well regulated mood. Objective (more content not included)... [facility] 03-12-2024 Note O ID: [id number] Author: SOUTH GU, PhD Service: ? Author Type: Psychologist Type: Progress Notes Filed: 03/12/2024 16:26 Note Text: VIRTUAL (audio/visual) GROUP PSYCHOTHERAPY NOTE: I have communicated my name and active licensure. The patient?s identity and physical location were verified at the time of this visit. Either the patient or their legal sales representative advertising has been informed of the risks and [...] discussed mindfulness based cognitive therapy to improve awareness, focus, and better thought management. Explored the importance of authenticity and integrity. Discussed the story of the third-class ticket and addressed personalization and the factors that can lead to personalization. Lastly, explored ways of preventing personalization and promoting healthy mind, body and spirit (holistic health). Using the mindfulness tools to respond to his humanness and imperfections. Very busy with work and was able to solve/mediate a resolution. More challenged by the energy output of his practice and giving him pause and aware of his mortality. In recent sessions we addressed what Alcoholics Anonymous (AA) had to say about ?stinking thinking? and the many strategies to counteract negative thoughts (hindrances of the mind). These included attending meetings, working the steps, sponsorship, gratitude, developing a support network, service work, professional guidance and so on. We reviewed the story of the third-class ticket and implications for recovery and emotional intelligence. Lastly, we began to explore ways of preventing cognitive distortions, especially personalization. Awareness leads to more effective management of mind, body and spirit. Effective management of the mind has profound effects on both the body and spirit. Body: Stress reduction Improved health choices Enhanced recovery Spirit: Increased self-awareness Emotional balance - equanimity Purpose and meaning Implementing these strategies can help you create distance from your thoughts and reduce the tendency to personalize them. Meditation for breathing to bring peace to the body and mind: https://www.[employer].com/watch?v=V4n 5vOalPMc GOALS/PLAN/INTERVENTIONS: Goals: Ongoing sustained sobriety and emotional, spiritual and physical recovery. Improve daily functioning. Interpersonal satisfaction and well regulated mood. Objectives: Apply principles of Alcoholics Anonymous and cognitive behavioral therapy to prevent relapse. Applying mindfulness interventions to promote emotional and cognitive intelligence and improved temperament. Interventions: Action: Continue to build a mindfulness practice and awaken the four attitudes excellence in all your affairs. Practice mindfulness, feedback and journaling, targeting the prevention of the five hindrances of the mind. Assess your skills at asking for help and using feedback to b (more content not included)... [facility] 06-01-2021 Note HNO ID: [id number] Author: Ioana Velazquez RRT Service: ? Author Type: Registered Resp Therapist Type: Progress Notes Filed: 06/01/2021 3:00 PM Note Text: PULM FUNCTION SMARTBLOCK: Provider: Modesto Anglin MD Assisting Tech: Ioana Velazquez RRT Spirometry: 1 DLCO: 1 System: [id number] [facility] 06-01-2021 Note HNO ID: [id number] Author: Modesto Anglin MD Service: ? Author Type: Physician Type: Progress Notes Filed: 06/01/2021 3:07 PM Note Text: Patient Name: Jones Banuelos PRIMARY CARE PHYSICIAN: Virgie Vergara MD Date of visit: June 01, 2021 COMMUNICATION WILL BE SENT VIA SHARED MEDICAL RECORDS OR US MAIL. Subjective: Jones Banuelos is a 65 year old male [...] CPAP by Mask route daily at bedtime. TAYLA 180 MG ORAL TAB Take one(1) tablet daily. MULTIVITAMIN ORAL TAB Take one(1) tablet daily. ergocalciferol 50,000 unit capsule (VITAMIN D2, DRISDOL) Take by mouth. LORazepam (ATIVAN) 1 mg tablet take 1 tablet by mouth 30 MINUTES PRIOR TO PROCEDURE rizatriptan (MAXALT PRODUCTION SUPPORT ENGINEER) 10 mg disintegrating tablet Take 10 mg [...] nt, nd, obese (more content not included)... [facility] 01-13-2021 Note Patient Outreach ([place] [facility]) JONES BANUELOS ([id number]) 1955 M Date Time Provider Department 01/13/21 CANDELARIA CARRILLO During your visit today, we recorded the following information about you: Candelaria Carrillo PA-C 01/13/2021 10:23 AM Signed Actionable Findings Registry I am following up on this actionable finding at the direction of the [place]. Patient was found previously to have an [...] Comments: sneezing Date Reviewed: 10/27/2020 Reviewed by: Modesto Anglin MD - Fully Assessed Reason for Visit: Actionable Findings Follow Up [2735] Prescriptions as of 01/13/2021 - budesonide-formoterol (SYMBICORT) [...] route daily at bedtime. - rizatriptan (MAXALT PRODUCTION SUPPORT ENGINEER) 10 mg disintegrating tablet Take 10 mg by mouth as needed. one tablet at onset of Headache may repeat one dose after 2 hours. - TAYLA 180 MG ORAL TAB Take one(1) tablet [...] Encounter Status:Closed by CANDELARIA CARRILLO on 01/13/21 [facility] 01-13-2021 Note HNO ID: [id number] Author: Candelaria Carrillo PA-C Service: ? Author Type: Physician Inbound Call Center Agent Type: Progress Notes Filed: 01/13/2021 10:23 AM Note Text: Actionable Findings Registry I am following up on this actionable finding at the direction of the [place]. Patient was found previously to have an abnormal CXR. CT chest was recommended and done. Will close this out of the actionable findings registry. Actionable Findings follow up status: Complete Candelaria Carrillo PA-C January 13, 2021 10:23 AM [facility] 12-09-2020 Note HNO ID: [id number] Author: RT Magda(Tamy) Service: Radiology Author Type: Information And Referral Director Type: Progress Notes Filed: 12/09/2020 9:43 AM Note Text: Radiology Service Progress Note PATIENT NAME: Jones Banuelos DATE OF SERVICE: December 09, 2020 [...] Magda(R) December 09, 2020 9:42 AM [facility] 10-27-2020 Note HNO ID: [id number] Author: Modesto Anglin MD Service: ? Author Type: Physician Type: Progress Notes Filed: 10/28/2020 9:40 AM Note Text: Patient Name: Jones Banuelos PRIMARY CARE PHYSICIAN: Virgie Vergara MD Date of visit: October 27, 2020 COMMUNICATION WILL BE SENT VIA SHARED MEDICAL RECORDS OR US MAIL. Subjective: Jones Banuelos is a 64 year old male [...] CPAP by Mask route daily at bedtime. TAYLA 180 MG ORAL TAB Take one(1) tablet daily. MULTIVITAMIN ORAL TAB Take one(1) tablet daily. ibuprofen (MOTRIN) 600 mg tablet Take 600 mg by mouth every 6 hours as needed. rizatriptan (MAXALT PRODUCTION SUPPORT ENGINEER) 10 mg disintegrating tablet Take 10 mg [...] with a basi (more content not included)... [facility] 05-27-2020 Note HNO ID: [id number] Author: Young Talbot Service: ? Author Type: ? Type: Progress Notes Filed: 05/27/2020 4:40 AM Note Text: Sleep Study Check-In Documentation Date: May 27, 2020 Name: Jones Banuelos Patient was accompanied by Self. Location: [facility] Latex allergy: No Tape allergy: No Current medications were reviewed with the patient:Yes Sleep aid taken by patient for the sleep study: [place] of sleep aid: Not Applicable Procedure was explained to the patient and all questions were answered. PAP treatment discussed and shown to patient: Yes If PAP used enter mask info: Mask Name: Air Fit [id number] Make: ResMed MaskType: Full Face Mask Size: Medium Chin Sharp Used No ----- Knowledge Program (KP): KP was not completed in epic by patient and accepted Study type: PAP titration Adverse Event: No (If yes create a new abstract) SERS Event: No Comments: Patient was advised to follow up with their ordering provider regarding test results Young Talbot RPSGT [facility] 05-19-2020 Note Procedure (AKPLB) JONES BANUELOS ([id number]) 1955 M Date Time Provider Department 05/19/20 4:00 PM PULM [facility] LAB [facility]ATH AKPLB During your visit today, we recorded the following information about you: Referring Provider: MODESTO ANGLIN [[id number]] Allergies As of Date: 05/19/2020 Noted Allergy [...] R06.89] Order(s):SPIROMETRY - BASELINE AND POST DILATOR [[id number]] Order #: [id number] Prescriptions as of 05/19/2020 Sig: BUDESONIDE-FORMOTEROL HFA [...] Take 10 mg by mouth as needed* TAYLA 180 MG TABLET Take one(1) tablet daily. [...] Status:Closed by KEVIN RAE on 05/19/20 [facility] 05-19-2020 Note Procedure (AKPLB) JONES BANUELOS ([id number]) 1955 M Date Time Provider Department 05/19/20 3:45 PM PULM FCT LAB BATH AKPLB During your visit today, we recorded the following information about you: Referring Provider: MODESTO ANGLIN [[id number]] Allergies As of Date: 05/19/2020 Noted Allergy [...] abnormalities [R06.00, R06.89] Order(s):LUNG DIFFUSION CAPACITY (DLCO) [[id number]] Order #: [id number] Prescriptions as of 05/19/2020 Sig: BUDESONIDE-FORMOTEROL HFA [...] Take 10 mg by mouth as needed* TAYLA 180 MG TABLET Take one(1) tablet daily. [...] Status:Closed by KEVIN RAE on 05/19/20 [facility] 05-19-2020 Note Procedure (AKPLB) JONES BANUELOS ([id number]) 1955 M Date Time Provider Department 05/19/20 3:30 PM PULM FCT LAB BATH AKPLB During your visit today, we recorded the following information about you: Referring Provider: MODESTO ANGLIN [[id number]] Allergies As of Date: 05/19/2020 Noted Allergy [...] and respiratory abnormalities [R06.00, R06.89] Order(s):LUNG VOLUMES [[id number]] Order #: [id number] Prescriptions as of 05/19/2020 Sig: BUDESONIDE-FORMOTEROL HFA [...] Take 10 mg by mouth as needed* TAYLA 180 MG TABLET Take one(1) tablet daily. [...] Status:Closed by KEVIN RAE on 05/19/20 [facility] 05-19-2020 Note HNO ID: [id number] Author: Anthony James Service: ? Author Type: Physician Type: Progress Notes Filed: 05/24/2020 5:02 PM Note Text: May 19, 2020 An order has been received for PAP titration study from [facility] Staff/[employer] Staff Orders. Visit prep complete - Please refer to the sleep study order (under procedures tab) for protocol details and special instructions. The sleep study is scheduled for 05/26/2020. Insurance: Payor: MEDICARE / Plan: MEDICARE A AND B / Product Type: Medicare / Payor/Plan Subscr Sex Relation Sub. Ins. ID Effective Group Num 1. [place] - [place]* JONES BANUELOS 1955 Male Self [id number] 10/29/[address] MMO - MMO MED* JONES BANUELOS 1955 Male Self [id number] 10/29/19 [id number] [address] May 19, 2020 Standing PSG Orders signed in the last 90 days None Future PSG Orders signed in the last 90 days Ordered Auth. provider PAP TITRATION PSG (CPAP, BIPAP, ASV) [[id number]] 04/05/20 [facility] diagnoses: TOMAS (obstructive sleep apnea) [...] F10 mask with 20 ramp. Brett García Mgr Sleep Medicine Staff Note: I have read the above protocol, edited as needed, and agree to the plan. Anthony James MD 5:01 PM, 05/24/2020 Brett García Mgr [facility] Evaluation note No assessment information availa ble [facility] Work Phone: Reason for referral (narrative) No reason for referral information available [facility] Work Phone: Summary Purpose Family History No Family History Records Found Relationship Condition Age at Onset Recorded Date/T rosaura mother Malignant neoplasm of colon Unknown Cerebrovascular accident (CVA) Unknown father Malignant neoplasm Unknown grandmother Cardiac disease Unknown Advance Directives No Advanced Directives Records Found Advance Directive Response Recorded Date/ Time Name of Medical Power of Cinder Block Mason Montserrat Alonzo March 06, 2022 12:32am Living Will Yes March 06 12:32am Power of Cinder Block Mason Yes March 06, 2022 12:32am Advance Directive Response Recorded Date/ Time Living Will Yes March 06 12:32am Power of Cinder Block Mason Yes March 06, 2022 12:32am Name of Medical Power of Cinder Block Mason Montserrat Alonzo March 06, 2022 12:32am Advance Directive Response Recorded Date/ Time Living Will Yes March 06 1:32am Power of Cinder Block Mason Yes March 06, 2022 1:32am Advance Directive Response Recorded Date/ Time Living Will Yes March 06 12:32am Power of Cinder Block Mason Yes March 06, 2022 12:32am Chief Complaint and Reason for Visit Chief Complaint cough Chief Complaint cough SOB Chief Complaint SOB SOB Chief Complaint SOB SOB Chief Complaint SOB SOB . . Chief Complaint SOB . . Chief Complaint Admit Date DIABETES November 13, 2024 9:13 am Additional Source Comments (unrecognized sect ion and content) No Status Records FoundNo Status Records FoundNo Status Records FoundNo Status Records FoundNo Status Records Found INFORMATION SOURCE (unrecogn ized section and content) DATE CREATED AUTHOR 10/24/2017 [facility] DATE CREATED AUTHOR AUTHOR'S ORGANIZ ATION 01/11/2021 [facility] DATE CREATED AUTHOR AUTHOR'S ORGANIZ ATION 06/01/2021 [facility] DATE CREATED AUTHOR AUTHOR'S ORGANIZ ATION 03/06/2025 [facility] DATE CREATED AUTHOR AUTHOR'S ORGANIZ ATION 03/12/2025 [facility] Goals (unrecognized section and content) Goals may be documented in a n alternate sectionGoals may be documented in an alternate sectionGoals may be documented in an alternate sectionGoals may be documented in an alternate sectionGoals may be documented in an alternate sectionGoals may be documented in an alternate sectionGoals may be documented in an alternate sectionGoals may be documented in an alternate sectionGoals may be documented in an alternate sectionGoals may be documented in an alternate sectionGoals may be documented in an alternate sectionGoals may be documented in an alternate sectionGoals may be documented in an alternate section Care Teams (unrecognized sec tion and content) Team Status: Active Member Role Status Dates Dr. Virgie Vergara MD Family Provider Active Dr. Virgie Vergara MD Primary Care Provider Active Team Status: Inactive Member Role Status Dates Dr. Virgie Vergara MD Primary Care Provider Active Dr. Dorie Griffith MD Attending Provider, Emergency Provider Active Team Status: Inactive Member Role Status Dates Dr. Virgie Vergara MD Primary Care Provider, Attend ing Provider Active Team Status: Active Member Role Status Dates Dr. Virgie Vergara MD Primary Care Pr ovider, Attending Provider, Referring Provider Active Team Status: Active Member Role Status Dates Dr. Virgie Vergara MD Primary Care Provider Active Dr. Russ Flores MD Attending Provider Active Team Status: Inactive Member Role Status Dates Dr. Virgie Vergara MD Primary Care Pr ovider, Attending Provider, Referring Provider Active Team Status: Active Member Role Status Dates Dr. Virgie Vergara MD Primary Care Provider Active Dr. Candelaria Rodriguez MD [facility]ending Provider, [facility] Active Team Status: Inactive Member Role Status Dates Dr. Virgie Vergara MD Primary Care Provider Active Dr. Candelaria Rodriguez MD Attending Provider Active Team Status: Inactive Member Role Status Dates Dr. Virgie Vergara MD Primary Care Provider Active Dr. Candelaria Rodriguez MD Attending Provider, Referrin g Provider Active Team Status: Active Member Role Status Dates Dr. Virgie Vergara MD Primary Care Provider Active Dr. Candelaria Rodriguez MD Referring Provider, Other Pr ovider Active Dr. Luis Miguel Castillo MD Attending Provider Active Team Status: Inactive Member Role Status Dates Dr. Virgie Vergara MD Primary Care Provider Active Start: July 15, 2024 End: July 15, 2024 Dr. Virgie Vergara MD Attending Provider Active Start: July 15, 2024 End: July 15, 2024 Dr. Virgie Vergara MD Referring Provider Active Start: July 15, 2024 End: July 15, 2024 Team Status: Active Member Role/Relationship Status Dates Dr. Virgie Vergara MD Family Provider Active Dr. Virgie Vergara MD Primary Care Provider Active Team Status: Inactive Member Role/Relationship Status Dates Dr. Virgie Vergara MD Primary Care Provider Active Start: November 13, 2024 End: November 13, 2024 Dr. Virgie Vergara MD Attending Provider Active Start: November 13, 2024 End: November 13, 2024 Dr. Virgie Vergara MD Referring Provider Active Start: November 13, 2024 End: November 13, 2024 FOR RECORDS PERTAINING TO PATIENTS WHO ARE [...] BE BASED ON THE PRIMARY CLINICAL RECORDS. [facility]. provides no warranty or guarantee of the accuracy or completeness of information in this document.
== END | disposition home or self-care (01) ==
LOC: CT 18:54
PROVIDERS: PCP Family Medicine; Referring Provider Internal Medicine Pulmonary Disease; Visit Provider Internal Medicine Pulmonary Disease
DX: J67.9 Hypersensitivity pneumonitis due to unspecified organic dust (principal)
CPT/HCPCS: 71250

== ENCOUNTER → 2025-04-21 | Outpatient (CLI) | payer MEDICARE, OTHER, SELFPAY ==
[2025-04-21 10:00] LABS: Hematocrit 44.6 % (40-54); Hemoglobin 14.8 g/dL (13.0-16.5); Immature Granulocytes Count 0.100 X10^3/uL (0.0-0.0); Mean Corp Hgb Conc 33.2 g/dL (32-36); Mean Corpuscular Volume 90.3 fL (80-94); Mean Platelet Vol. 10.5 fl (6.2-12.0); NRBC Flagged by Analyzer 0 % (0-5); Platelet Count 274 K/mm3 (150-450); RBC Distribution Width CV 13.0 % (11.6-14.6); RBC Distribution Width SD 43.0 fl (35.1-43.9); Red Blood Count 4.94 M/mm3 (4.6-6.2); White Blood Count 10.9 K/mm3 (4.4-11.0)
[2025-04-21 10:24] LABS: AST(SGOT) 19 U/L (<=37); Alanine Aminotransfer ALT/SGPT 20 U/L (<=46); Albumin, Serum 4.1 g/dL (3.4-4.8); Alkaline Phosphatase 73 U/L (40-129); Anion Gap 10 (7-18); BUN 19 mg/dL (4-19); BUN/Creat Ratio 22.3 RATIO (10-20); Bilirubin, Direct 0.26 mg/dL (0.00-0.30); Calcium,Total 9.3 mg/dL (7.6-11.0); Carbon Dioxide 25.2 mmol/L (20.0-29.0); Chloride 105 mmol/L (96-106); Cholesterol 145 mg/dL (<=200); Globulin 2.8 g/dL (2.2-4.2); Glucose 152 mg/dL (70-99); Low Density Lipoprotein Calc. 89 mg/dL; Potassium 4.3 mmol/L (3.5-5.1); Triglycerides 59 mg/dL; Very Low Density Lipoprotein 12 mg/dL (5-40); cholesterol:hdl ratio screen 3.32
== END | disposition home or self-care (01) ==
LOC: MTLAB 08:28
PROVIDERS: PCP Family Medicine; Referring Provider Family Medicine; Visit Provider Family Medicine
DX: J44.9 Chronic obstructive pulmonary disease, unspecified (principal); R73.02 Impaired glucose tolerance (oral); E78.00 Pure hypercholesterolemia, unspecified
CPT/HCPCS: 80053; 80061; 82248; 83036; 85025